=== PATIENT | female | born 1955 | race African-American/Black ===

== ENCOUNTER → 2017-03-13 | Outpatient (CLI) | payer MEDICARE, MEDICAID ==
--- NOTE | 2017-03-13 13:43 | WOMENS IMAGING REPORT ---
EXAM DESCRIPTION: 3D SCREENING MAMMO BILAT COMPLETED DATE/TIME: 03/13/2017 11:38 am REASON FOR STUDY: SCREENING MAMMO Z12.31 ENCNTR SCREEN MAMMOGRAM FOR MALIGNANT NEOPLASM OF [place] COMPARISON: March 2016 and February 2015 TECHNIQUE: Standard craniocaudal and mediolateral oblique views of each breast recorded using digita l acquisition and breast tomosynthesis. LIMITATIONS: None. FINDINGS: No masses, calcifications or architectural distortion. No areas of suspicion. Read with the assistance of CAD. .[facility] - R2 [employer] Version 1.3 .[facility] Imaging - R2 Cenova Version 1.3 .[facility] Imaging - R2 Cenova Version 2.4 .[facility] [place] R2 Cenova Version 2.4 .[facility] - R2 [employer] Version 9.2 IMPRESSION: NORMAL MAMMOGRAM. BIRADS 1. BREAST DENSITY: a. The breasts are almost entirely fatty. BIRAD: 1 NEGATIVE RECOMMENDATION: ROUTINE SCREENING COMMENT: The patient has been notified of the results by letter per SA requirements. Additional no tification policies are in place for contacting patient with suspicious or incomplete findings. Quality ID #225: The [employer] recommends an annual screening mammogram for women aged 40 years or over. This facility utilizes a reminder system to ensure that all patients receive reminder letters, and/or direct phone calls for appointments. This includes reminders for routine scr eening mammograms, diagnostic mammograms, or other Breast Imaging Interventions when appropriate. Th is patient will be placed in the appropriate reminder system. The [employer] (ACR) has developed recommendations for screening MRI of the breast s in certain patient populations, to be used in conjunction with mammography. Breast MRI surveillanc e may be appropriate for women with more than 20% lifetime risk of developing breast cancer as deter mined by genetic testing, significant family history of the disease, or history of mantle radiation f or Hodgkins Disease. ACR Practice Guidelines 2008. DBT Technology DBT is a type of tomographic mammography. With conventional mammography, overlapping breast tissue ma y make lesions difficult to detect, even with good compression. DBT uses an x-ray tube that rotates a round the breast, taking images at different angles. These images are then combined to create thin sl ices of the breast that the radiologist can view as a 3D reconstruction. The [employer] can perform full-field digital mammograms (2D imaging); or DBT (3D imaging); or both, in a combination mode that quickly performs both the mammogram and the tomosynthesis scan while the breast is still compressed. PQRS 6045F: Fluoroscopic imaging is not utilized for breast tomosynthesis. TECHNICAL DOCUMENTATION: FINDING NUMBER: (1) ASSESSMENT: (1) JOB ID: [id number] [employer]- All Rights Reserved
== END ==
LOC: WI 11:07
PROVIDERS: ATTEND Internal Medicine
DX: Z12.31 Encounter for screening mammogram for malignant neoplasm of breast (principal)
CPT/HCPCS: 77063; G0202; 77067

== ENCOUNTER 2017-03-20 11:02 | Emergency (ER) | payer MEDICARE, MEDICAID ==
[2017-03-20] MEDS ORDERED: METHYLPREDNISOLONE INJ 125 MG/2 ML SDV IM ONE (11:48)
[2017-03-20] MEDS ORDERED: KETOROLAC TROMETHAMINE INJ/PF 30 MG/1 ML SDV IM ONE (11:48)
--- NOTE | 2017-03-20 11:55 | ER Document Report ---
HPI - HPI Pain Level: 5 Notes: Patient is a 61-year-old female with a history of diabetes, COPD, and hypertension as well as morbid obesity who presents to the ED complaining of right lower back pain 3 days. Patient states that ambulating in extension makes the pain worse, and she is not sure of a position that helps. Patient states that the pain does not radiate. She still eating and drinking without difficulties. She still urinating normally and having normal bowel movements. Patient denies any IV drug use, back injections or surgeries. Patient states that her sugars are usually well controlled in the mid 100s. Patient is insulin -dependent. She denies any recent illness. Denies any headache, fever, neck pain, URI, sore throat, chest pain, palpitations, syncope, cough, shortness of breath, wheeze, dyspnea, abdominal pain, nausea/vomiting/diarrhea, urinary retention, dysuria, hematuria, loss of control of bowel or bladder, numbness/ tingling, saddle anesthesia, muscle paralysis/weakness, or rash. - ROS Notes: REVIEW OF SYSTEMS: CONSTITUTIONAL : Denies fever, chills, or sweats. Denies recent illness. EENT: Denies eye, ear, throat, or mouth pain or symptoms. Denies nasal or sinus congestion or discharge. Denies throat, tongue, or mouth swelling or difficulty swallowing. CARDIOVASCULAR: Denies chest pain. Denies palpitations or racing or irregular heart beat. Denies ankle edema. RESPIRATORY: Denies cough, cold, or chest congestion. Denies shortness of breath, difficulty breathing, or wheezing. GASTROINTESTINAL: Denies abdominal pain or distention. Denies nausea, vomiting , or diarrhea. Denies blood in vomitus, stools, or per rectum. Denies black, tarry stools. Denies constipation. GENITOURINARY: Denies difficulty urinating, painful urination, burning, frequency, blood in urine, or discharge. MUSCULOSKELETAL: see hpi SKIN: Denies rash, lesions or sores. NEUROLOGICAL: Denies dizziness or lightheadedness. Denies headache. Denies weakness or paralysis or loss of use of either side. Denies problems with gait or speech. Denies sensory loss, numbness, or tingling. Denies seizures. PSYCHIATRIC: Denies anxiety or stress. Denies depression, suicidal ideation, or homicidal ideation. ALL OTHER SYSTEMS REVIEWED AND NEGATIVE. Dictation was performed using [employer] voice recognition software - REPRODUCTIVE Reproductive: DENIES: : Past Medical History - Social History Smoking Status: Unknown if Ever Smoked Family History: Reviewed & Not Pertinent, DM, Hypertension - Past Medical History Cardiac Medical History: Reports: Hx Congestive Heart Failure, Hx Hypercholesterolemia, Hx Hypertension Pulmonary Medical History: Reports: Hx COPD Endocrine Medical History: Reports: Hx Diabetes Mellitus Type 2 Renal/ Medical History: Reports: Hx Renal Insufficiency Past Surgical History: Reports: Hx Hysterectomy - Right oophorectomy - Immunizations Immunizations up to date: Yes Hx Diphtheria, Pertussis, Tetanus Vaccination: Yes Vertical Provider Document - CONSTITUTIONAL Agree With Documented VS: Yes Notes: PHYSICAL EXAMINATION: GENERAL: Well-appearing, well-nourished and in no acute distress. A&Ox4. Morbidly obese LUNGS: Breath sounds clear to auscultation bilaterally and equal. No wheezes rales or rhonchi. HEART: Regular rate and rhythm without murmurs, rubs, gallops. ABDOMEN: Soft, nontender, nondistended abdomen. No guarding, no rebound. No masses appreciated. Normal bowel sounds present. No CVA tenderness bilaterally. No obvious pulsatile mass.--difficult to assess with the morbid obesity. Musculoskeletal: Ext b/l: FROM to passive/active. Strength 5+/5. No deficits noted. No bony tenderness of extremities. Back: LROM to passive/active. Strength 5+/5. No vertebral point tenderness, stepoffs, or deformities. No other bony tenderness, erythema, or ecchymosis. SLR negative b/l. + tenderness to the inferior L-paraspinal mm with mild spasm. Extremities: No cyanosis, clubbing, or edema b/l. Peripheral pulses 2+. Capillary refill less than 2 seconds. NEUROLOGICAL: Normal speech, ataxic gait. Normal sensory, motor exams. Reflexes 2+ b/l. PSYCH: Normal mood, normal affect. SKIN: Warm, Dry, normal turgor, no rashes or lesions noted. - INFECTION CONTROL TRAVEL OUTSIDE OF THE [place] IN LAST 30 DAYS: No - RESPIRATORY O2 Sat by Pulse Oximetry: 96 Course - Re-evaluation Re-evalutation: 03/20/17 12:53 Patient is an afebrile, well-hydrated, 61-year-old female who presents the ED with right lower back pain, suspect back strain and pain secondary to arthritic changes. Vitals are stable. PE is otherwise unremarkable for any focal neurological deficits. See XR result. Toradol IM given today. Accu-Chek showed a glucose of 255 so I did not give her any steroids at this time. Patient was also given a Lidoderm patch. Low suspicion for any meningitis, fracture, expanding/ruptured AAA, cauda equina syndrome, epidural mass lesion/ abscess, herniated disc causing severe spinal stenosis, or other systemic infection at this time. Patient is aware that her condition can change from initial presentation and that she needs monitor symptoms closely for any acute changes. Advised that she call orthopedics today to schedule an appointment for further evaluation and management. Recheck with your PCM in 3-5 days. Return to the ED with any worsening/concerning symptoms otherwise as reviewed in discharge. Patient is in agreement. - Vital Signs Vital signs: Temp Pulse Resp BP Pulse Ox 98.0 F 86 21 H 178/100 H 96 03/20/17 11:08 03/20/17 11:08 03/20/17 11:08 03/20/17 11:08 03/20/17 11:08 Discharge - Discharge Clinical Impression: Low back pain Qualifiers: Chronicity: acute Back pain laterality: right Sciatica presence: without sciatica Qualified Code(s): M54.5 - Low back pain Condition: Stable Disposition: HOME, SELF-CARE Instructions: Ice Packs ([facility]), Low Back Pain ([facility]), Muscle Strain ([facility]), Warm Packs ([facility]) Additional Instructions: Rest, Ice Tylenol/ibuprofen as needed Light stretches daily Strength exercises as able Moist heat and massage may help F/u with your PCP in 3-5 days for a recheck Call orthopedics to be set up an appointment for further evaluation and management Return to the ED with any worsening symptoms and/or development of fever, headache, chest pain, palpitations, syncope, shortness of breath, trouble breathing, abdominal pain, n/v/d, blood in stool/urine, loss of control of bowel /bladder, urinary retention, muscle weakness/paralysis, saddle anesthesia, numbness/tingling, or other worsening symptoms that are concerning to you. Prescriptions: Baclofen [Baclofen 10 mg Tablet] 5 - 10 mg PO BID PRN #10 tablet PRN Reason: Naproxen 500 mg PO BID PRN #10 tablet PRN Reason: Forms: Elevated Blood Pressure Referrals: [facility] [Provider Group] - Follow up in 3-5 days
[2017-03-20] MEDS ORDERED: LIDOCAINE 5% (700 MG) TRANSDERMAL ADH..PATCH TP ONE (11:56)
--- NOTE | 2017-03-20 12:50 | RADIOLOGY REPORT (SQ) ---
EXAM DESCRIPTION: L SPINE WHOLE COMPLETED DATE/TIME: 03/20/2017 12:28 pm REASON FOR STUDY: low back pain COMPARISON: 05/12/2012 NUMBER OF VIEWS: Five views including obliques. TECHNIQUE: AP, lateral, oblique, and sacral radiographic images acquired of the lumbar spine. LIMITATIONS: None. FINDINGS: MINERALIZATION: Normal. SEGMENTATION: Normal. No transitional anatomy. ALIGNMENT: There is grade 1 anterolisthesis of L4 on L5 and mild retrolisthesis of L5 on S1. VERTEBRAE: Maintained height. No fracture or worrisome bone lesion. DISCS: Disc spaces are narrowed at L4-5 and L5-S1. POSTERIOR ELEMENTS: Hypertrophic facet changes are present from L3-S1. HARDWARE: None in the spine. PARASPINAL SOFT TISSUES: Normal. PELVIS: Intact as visualized. No fractures or worrisome bone lesions. SI joints intact. OTHER: No other significant finding. IMPRESSION: Anterolisthesis of L4 on L5, retrolisthesis of L5 on S1. Degenerative disc disease and facet arthropathy as described. TECHNICAL DOCUMENTATION: JOB ID: [id number]- All Rights Reserved
[2017-03-20 13:08] VITALS: BP 151/97
== END 2017-03-20 13:08 | disposition home or self-care (01) ==
LOC: ER 11:02
DX: M54.5 Low back pain (principal); E11.9 Type 2 diabetes mellitus without complications; J44.9 Chronic obstructive pulmonary disease, unspecified; I10 Essential (primary) hypertension; E66.01 Morbid (severe) obesity due to excess calories; Z79.4 Long term (current) use of insulin
CPT/HCPCS: 99283; 96372; 82962; 72110; J1885

== ENCOUNTER 2017-07-08 16:02 | Observation (INO) | payer MEDICARE, MEDICAID ==
[2017-07-08] MEDS ORDERED: ASPIRIN 81 MG TABLET, CHEWABLE PO ONE (16:10)
[2017-07-08] MEDS ORDERED: NITROGLYCERIN 0.4 MG/TAB 25 TAB/BOTTLE SL PRN (16:27)
[2017-07-08] MEDS ORDERED: MORPHINE SULFATE 10 MG/ML INJ IV PRN (16:31)
--- NOTE | 2017-07-08 16:51 | RADIOLOGY REPORT (SQ) ---
EXAM DESCRIPTION: CHEST SINGLE VIEW COMPLETED DATE/TIME: 07/08/2017 4:41 pm REASON FOR STUDY: cp COMPARISON: 12/27/2015 NUMBER OF VIEWS: One view. TECHNIQUE: Single frontal radiographic view of the chest acquired. LIMITATIONS: None. FINDINGS: LUNGS AND PLEURA: No opacities, masses or pneumothorax. No pleural effusion. MEDIASTINUM AND HILAR STRUCTURES: No masses or contour abnormality. HEART AND VASCULATURE: Cardiac enlargement. Vascular congestion. BONES: No acute findings. HARDWARE: None in the chest. OTHER: No other significant finding. IMPRESSION: CARDIAC ENLARGEMENT. VASCULAR CONGESTION. TECHNICAL DOCUMENTATION: JOB ID: [id number] [employer]- All Rights Reserved Reading location - IP/workstation name: [email or web address]
[2017-07-08 18:09] LABS: ABSOLUTE LYMPHOCYTES (AUTO) 0.9 10^3/uL (0.5-4.7); ABSOLUTE MONOCYTES (AUTO) 0.6 10^3/uL (0.1-1.4); ABSOLUTE NEUT (AUTO) 4.8 10^3/uL (1.7-8.2); BASOPHILS % (AUTO) 0.5 % (0-2); EOSINOPHILS % (AUTO) 0.3 % (0-6); HEMATOCRIT 40.7 % (36.0-47.0); HEMOGLOBIN 12.7 g/dL (12.0-15.5); LYMPHOCYTES % (AUTO) 14.1 % (13-45); MEAN CORPUSCULAR HEMOGLOBIN 25.1 pg (27.0-33.4); MEAN CORPUSCULAR HGB CONC 31.2 g/dL (32.0-36.0); MEAN CORPUSCULAR VOLUME 80 fl (80-97); MONOCYTES % (AUTO) 10.2 % (3-13); RED BLOOD COUNT 5.07 10^6/uL (3.72-5.28); RED CELL DISTRIBUTION WIDTH 19.5 % (11.5-14.0); SEGMENTED NEUTROPHILS % (AUTO) 74.9 % (42-78); TOTAL CELLS COUNTED % (AUTO) 100 %; WHITE BLOOD COUNT 6.4 10^3/uL (4.0-10.5)
[2017-07-08 18:11] LABS: PLATELET COUNT 77 10^3/uL (150-450)
[2017-07-08 18:30] LABS: ALANINE AMINOTRANSFERASE 26 U/L (9-52); ALBUMIN 3.7 g/dL (3.5-5.0); ALKALINE PHOSPHATASE 90 U/L (38-126); ANION GAP 9 (5-19); ASPARTATE AMINO TRANSFERASE 20 U/L (14-36); BILIRUBIN,DIRECT 0.3 mg/dL (0.0-0.4); BLOOD UREA NITROGEN 26 mg/dL (7-20); CALCIUM 8.9 mg/dL (8.4-10.2); CARBON DIOXIDE 33 mmol/L (22-30); CHLORIDE 101 mmol/L (98-107); CREATINE KINASE 86 U/L (30-135); GLUCOSE 282 mg/dL (75-110); POTASSIUM 3.3 mmol/L (3.6-5.0); SODIUM 142.7 mmol/L (137-145); TOTAL PROTEIN 6.9 g/dL (6.3-8.2)
[2017-07-08] MEDS ORDERED: NITROGLYCERIN 2% OINTMENT 1 GM PACKET TP ONE (18:30)
[2017-07-08 18:39] LABS: CREATINE KINASE MB 1.33 ng/mL (<4.55)
[2017-07-08 18:44] LABS: TROPONIN I 0.15 ng/mL
[2017-07-08 19:24] LABS: ARTERIAL BLOOD BASE EXCESS 3.1 mmol/L; ARTERIAL BLOOD HCO3 30.6 mmol/L (20-26); ARTERIAL BLOOD O2 SATURATION 95.6 % (94-98); ARTERIAL BLOOD PCO2 59.7 mmHg (35-45); ARTERIAL BLOOD PH 7.33 (7.35-7.45); ARTERIAL BLOOD PO2 85.9 mmHg (80-100); ARTERIAL BLOOD TOTAL CO2 32.4 mmol/L (21-25)
[2017-07-08] MEDS ORDERED: POTASSIUM CHLORIDE 10 MEQ TABLET.SA PO ONE (19:24)
[2017-07-08 19:25] LABS: ARTERIAL BLOOD FIO2 50%
--- NOTE | 2017-07-08 19:46 | ER Document Report ---
ED General - General Chief Complaint: Chest Pain Stated Complaint: CHEST PAIN Time Seen by Provider: 07/08/17 16:27 Mode of Arrival: Medic Information source: Patient, Relative Notes: This is a 61-year-old female who has a history of COPD (oxygen dependent at 2 L nasal cannula), obstructive sleep apnea, CHF, chronic kidney disease, diabetes, hypertension, dyslipidemia morbid obesity. EMS reports that the patient was having sharp, nonradiating, reproducible chest pain which is why they were called. The patient's who is currently with the patient states that the patient seemed to be confused and nodding off. History obtained by the patient's daughter (about 2 hours later when she arrived from [place]) was that the patient has had a history of respiratory failure with CO2 narcosis and will have periods of fainting when her CO2 rises. The patient's daughter states that this is what she thought was going on today: The patient seems to be nodding off as reported that by the patient's . It was only until the EMS arrived, that the patient stated that she had some sharp chest pain with palpation of the left chest wall. The EKG in the emergency room shows sinus rhythm with a ventricular rate of 76, there is a left anterior hemiblock with an obvious left bundle branch block. Review of EKGs in the past show that the patient has had an intermittent left bundle branch block: In December 27, 2015, the patient had sinus rhythm with an interventricular conduction delay ( QRS 122), EKG in September 12, 2015 shows an obvious left bundle branch block. Oxygen saturation obtained by EMS shows an O2 sat of 90%. TRAVEL OUTSIDE OF THE [place] IN LAST 30 DAYS: No - HPI Onset: Just prior to arrival Onset/Duration: Gradual Quality of pain: Sharp Severity: Moderate Pain Level: 2 Associated symptoms: Chest pain. denies: Fever, Shortness of breath Exacerbated by: Movement, Other - Palpation Relieved by: Remaining still Similar symptoms previously: Yes Recently seen / treated by doctor: Yes - Related Data Allergies/Adverse Reactions: No Known Allergies Allergy (Verified 03/20/17 11:03) Past Medical History - General Information source: Patient - Social History Smoking Status: Never Smoker Cigarette use (# per day): No Chew tobacco use (# tins/day): No Frequency of alcohol use: None Drug Abuse: None Lives with: Family Family History: Reviewed & Not Pertinent, DM, Hypertension Patient has suicidal ideation: No Patient has homicidal ideation: No - Past Medical History Cardiac Medical History: Reports: Hx Congestive Heart Failure, Hx Hypercholesterolemia, Hx Hypertension Pulmonary Medical History: Reports: Hx COPD Endocrine Medical History: Reports: Hx Diabetes Mellitus Type 2 Renal/ Medical History: Reports: Hx Renal Insufficiency. Denies: Hx Peritoneal Dialysis Past Surgical History: Reports: Hx Hysterectomy - Immunizations Immunizations up to date: Yes Hx Diphtheria, Pertussis, Tetanus Vaccination: Yes Review of Systems - Review of Systems Constitutional: denies: Chills, Fever EENT: No symptoms reported Cardiovascular: See HPI Respiratory: See HPI Gastrointestinal: No symptoms reported Genitourinary: No symptoms reported Female Genitourinary: No symptoms reported Musculoskeletal: No symptoms reported Skin: No symptoms reported Hematologic/Lymphatic: No symptoms reported Neurological/Psychological: No symptoms reported Physical Exam - Vital signs Vitals: Resp BP Pulse Ox 23 H 145/96 H 93 07/08/17 16:18 07/08/17 16:18 07/08/17 16:18 Notes: Physical exam: GENERAL: 61-year-old female, lethargic but arousable, oxygen saturation 89% on 2 L HEAD: Atraumatic, normocephalic. EYES: Pupils equal round and reactive to light, extraocular movements intact, sclera anicteric, conjunctiva are normal. ENT: TMs normal, nares patent, oropharynx clear without exudates. Moist mucous membranes. NECK: Normal range of motion, supple without obvious mass or JVD. LUNGS: Breath sounds clear to auscultation bilaterally and equal. No wheezes rales or rhonchi. HEART: Regular rate and rhythm without murmurs, rubs or gallops. ABDOMEN: Soft, normoactive bowel sounds. No tenderness to palpation. No guarding, no rebound. No masses appreciated. EXTREMITIES: Normal range of motion, no pitting or edema. No clubbing or cyanosis. NEUROLOGICAL: Cranial nerves II through XII grossly intact. Normal speech, moving all extremities. PSYCH: Lethargic SKIN: Warm, Dry, normal turgor, no rashes or lesions noted. Course - Re-evaluation Re-evalutation: 07/08/17 20:08 Note: The patient's problem list is as follows: Acute on chronic respiratory failure: The patient does have a history of similar presentations related to CO2 narcosis. The ABG does show an elevated CO2 but this is 1 hour after institution of BiPAP. Patient's mental status has improved on the BiPAP and this will be continued for now. Vascular congestion: It is tough to tell for sure if the patient is volume overloaded. She has morbid obesity which makes the chest x-ray limited. In any event, will treat with IV Lasix and nitrates. Borderline troponin: Patient's MB fraction is normal today. However, her troponin is borderline at 0.15. The patient did complain of some sharp reproducible chest pain. She was given some Nitropaste. She is not complaining of any pain at this time. The plan would be to follow the cardiac enzymes. It is possible that she is having some demand ischemia because of the borderline hypoxia. The EKG did show a left bundle which has been noted in the past (specifically on the EKG September 12, 2015). I did discuss the EKG and clinical with Dr. Lyon of cardiology who will see the patient in consult tomorrow. The plan would be to follow the troponins for now. Patient will be admitted to the [facility]. 07/08/17 20:13 - Vital Signs Vital signs: Temp Pulse Resp BP Pulse Ox 98.1 F 16 144/106 H 98 07/08/17 16:27 07/08/17 18:02 07/08/17 18:02 07/08/17 18:02 - Laboratory Result Diagrams: 07/08/17 17:40 07/08/17 17:40 Laboratory results interpreted by me: 07/08/17 07/08/17 07/08/17 17:40 17:40 19:10 MCH 25.1 L MCHC 31.2 L RDW 19.5 H Plt Count 77 L Carbonic Acid 1.80 H ABG pH 7.33 L ABG pCO2 59.7 H ABG HCO3 30.6 H ABG Total CO2 32.4 H Potassium 3.3 L Carbon Dioxide 33 H BUN 26 H Creatinine 1.49 H Est GFR ( Amer) 43 L Est GFR (Non-Af Amer) 36 L Glucose 282 H - Diagnostic Test Radiology reviewed: Image reviewed, Reports reviewed - Chest x-ray is read by the radiologist his cardiomegaly with vascular congestion. - EKG Interpretation by Me Rate: Normal Rhythm: NSR - EKG shows normal sinus rhythm with a ventricular rate of 76, left anterior fascicular block, left bundle branch block. Critical Care Note - Critical Care Note Total time excluding time spent on procedures (mins): 60 Discharge - Discharge Clinical Impression: COPD exacerbation, Acute on chronic respiratory failure Condition: Stable Disposition: ADMITTED INPATIENT Admitting Provider: Hospitalist - Dr [place] Unit Admitted: IMCU Referrals: MARLEY HARDEN MD [Primary Care Provider] - Follow up as needed
[2017-07-08] MEDS ORDERED: FUROSEMIDE INJ/PF 40 MG/4 ML SDV IV ONE (20:15)
[2017-07-08] MEDS ORDERED: IPRATROPIUM/ALBUTEROL 0.5-2.5 MG/3 ML AMPUL NEB PRN (20:46)
[2017-07-08] MEDS ORDERED: ONDANSETRON 4 MG TAB.RAPDIS PO PRN (20:46)
--- NOTE | 2017-07-08 21:13 | PDOC H&P ---
History of Present Illness Admission Date/PCP: 07/08/17 20:03 MARLEY HARDEN MD History of Present Illness: CARLEE WALDROP is a 61 year old black female patient with multiple comorbidities including COPD, CKD, DAIANA, systolic congestive heart failure, DM, HTN and morbid obesity. She presented with chief complaint of chest pain described as sharp, localized to her left precordium and it is nonradiating. Reportedly patient has on and off confusion, somnolence and sometimes difficult to awaken her. During the encounter daughter and her were in the room. And they reported that the somnolence has been going on for long and also patient had been evaluated for sleep apnea and CPAP Coumadin for her about 7 years ago but she did not follow-up with. At the patient was started on BiPAP and her mentation started to improve patient communicate and respond appropriately. Her ABG shows mild acidosis with pH of 7.33 and CO2 of 60. Otherwise patient denied any fever, chills, cough, diaphoresis but she endorses palpitations. She has intermittent headache but she denied any dizziness change in her visual status or any seizure activity. She does not have any orthopnea or paroxysmal nocturnal dyspnea. No nausea vomiting abdominal pain or any change in her bowel habits. Past Medical History Cardiac Medical History: Reports: Congestive Heart Failure, Hyperlipidema, Hypertension Pulmonary Medical History: Reports: Chronic Obstructive Pulmonary Disease (COPD) Endocrine Medical History: Reports: Diabetes Mellitus Type 2 Past Surgical History Past Surgical History: Reports: Hysterectomy Social History Lives with: Family Smoking Status: Never Smoker Hx Recreational Drug Use: No Hx Prescription Drug Abuse: No Family History Family History: Reviewed & Not Pertinent, DM, Hypertension Parental Family History Reviewed: Yes Children Family History Reviewed: No Sibling(s) Family History Reviewed.: No Medication/Allergy Home Medications: Albuterol Sulfate [Proair HFA] 2 puff IH Q4 PRN 09/12/15 Atorvastatin Calcium 20 mg PO QHS 09/12/15 Gabapentin [Gabapentin] 300 mg PO BID 09/12/15 Insulin Aspart [Novolog Flexpen] 10 unit SQ AC 09/12/15 Insulin Glargine,Hum.rec.anlog [Lantus Solostar] 20 unit SQ QHS 09/12/15 Isosorbide Mononitrate [Isosorbide Mononitrate ER] 30 mg PO QAM 09/12/15 Metoprolol Tartrate [Metoprolol Tartrate] 50 mg PO BID 09/12/15 Spironolactone [Spironolactone] 25 mg PO BIDP PRN 09/12/15 Naproxen 500 mg PO BID PRN #10 tablet 03/20/17 Baclofen [Baclofen 10 mg Tablet] 5 mg PO BID PRN 07/08/17 Sacubitril/Valsartan [Entresto 49 mg-51 mg Tablet] 1 each PO DAILY 07/08/17 Allergies/Adverse Reactions: No Known Allergies Allergy (Verified 03/20/17 11:03) Review of Systems Constitutional: PRESENT: as per HPI Ears: PRESENT: as per HPI Breasts: PRESENT: as per HPI Cardiovascular: PRESENT: as per HPI Genitourinary: PRESENT: as per HPI Psychiatric: PRESENT: as per HPI Physical Exam Vital Signs: Temp Pulse Resp BP Pulse Ox 98.1 F 16 144/106 H 98 07/08/17 16:27 07/08/17 18:02 07/08/17 18:02 07/08/17 18:02 General appearance: PRESENT: mild distress Head exam: PRESENT: atraumatic Eye exam: PRESENT: conjunctiva pink, EOMI, PERRLA. ABSENT: scleral icterus Cardiovascular exam: PRESENT: RRR GI/Abdominal exam: PRESENT: other - Obese Results Impressions: Chest X-Ray 07/08/17 16:10 IMPRESSION: CARDIAC ENLARGEMENT. VASCULAR CONGESTION. Assessment & Plan - Diagnosis (1) Chest pain Qualifiers: Chest pain type: other chest pain Qualified Code(s): R07.89 - Other chest pain; R07.8 - Other chest pain Is this a current diagnosis for this admission?: Yes Plan: Admit for observation, trend her cardiac exam, repeat her EKG and cardiac stress test in the morning. (2) Altered mental status Qualifiers: Altered mental status type: somnolence Qualified Code(s): R40.0 - Somnolence Is this a current diagnosis for this admission?: Yes Plan: Since the somnolence has been going for long most probably it is associated with her obstructive sleep apnea and also her mental status improved with the BiPAP. Patient needs CPAP which need to be arranged by her primary care physician as outpatient. (3) COPD (chronic obstructive pulmonary disease) Qualifiers: COPD type: unspecified COPD Qualified Code(s): J44.9 - Chronic obstructive pulmonary disease, unspecified Is this a current diagnosis for this admission?: Yes Plan: As needed DuoNeb (4) CKD (chronic kidney disease) Qualifiers: Chronic kidney disease stage: stage 3 (moderate) Qualified Code(s): N18.3 - Chronic kidney disease, stage 3 (moderate) Is this a current diagnosis for this admission?: Yes Plan: Avoid nephrotoxic agent is, monitor her renal function test and follow-up with her primary care (5) Hypertension Qualifiers: Hypertension type: essential hypertension Qualified Code(s): I10 - Essential (primary) hypertension Is this a current diagnosis for this admission?: Yes Plan: Continue her home medications (6) Obstructive sleep apnea Is this a current diagnosis for this admission?: Yes Plan: CPAP patient is to be set up by her primary care physician (7) Morbid obesity Is this a current diagnosis for this admission?: Yes Plan: Lifestyle modification advised. - Time Critical Time spent with patient: 25-34 minutes - Inpatient Certification Medical Necessity: Need for IV Antibiotics
[2017-07-08] MEDS ORDERED: INSULIN REG, HUMAN 100 UNIT/ML 3 ML VIAL (PYX) SUBCUT PRN (21:16)
[2017-07-08] MEDS ORDERED: DEXTROSE 50%-WATER 25 GM/50 ML DISP.SYRIN IV PRN ×2 (21:16)
[2017-07-08] MEDS ORDERED: DEXTROSE 40% GEL 15 GM TUBE PO PRN ×2 (21:16)
[2017-07-08] MEDS ORDERED: GLUCAGON,HUMAN RECOMB 1 MG INJ IM PRN (21:16)
[2017-07-08] MEDS ORDERED: INSULIN GLARGINE,HUM.REC.ANLOG 1,000 UNIT/10 ML UNIT SUBCUT SCH (21:30)
[2017-07-08] MEDS: METOPROLOL TARTRATE 50 MG TABLET PO SCH (21:59)
[2017-07-08] MEDS ORDERED: HEPARIN SOD (PORCINE) 5,000 UNIT/ML 1 ML SYRINGE SUBCUT SCH (22:00)
[2017-07-08] MEDS ORDERED: HEPARIN SODIUM,PORCINE/D5W 25,000 UNIT/250 ML RTUINJ IV PRN (22:47)
[2017-07-08] MEDS ORDERED: HEPARIN SODIUM,PORCINE/D5W 25,000 UNIT/250 ML RTUINJ IV ONE (22:47)
[2017-07-08] MEDS ORDERED: HEPARIN SOD (PORCINE) 5,000 UNIT/ML 1 ML SYRINGE ONE (22:51)
[2017-07-08] MEDS: HEPARIN SOD (PORCINE) 1,000 UNIT/ML 10 ML VIAL IV PRN (23:08)
--- NOTE | 2017-07-08 23:10 | EKG REPORT ---
SEVERITY:- ABNORMAL ECG - SINUS RHYTHM LEFT ATRIAL ABNORMALITY LEFT BUNDLE BRANCH BLOCK : Confirmed by: Machelle Lyon 08-Jul-2017 23:09:51
[2017-07-08] MEDS ORDERED: CLOPIDOGREL BISULFATE 300 MG TABLET PO ONE (23:11)
[2017-07-09] MEDS ORDERED: LANSOPRAZOLE 30 MG TAB.RAP.DR PO SCH (06:00)
[2017-07-09 06:16] LABS: ARTERIAL BLOOD BASE EXCESS 1.7 mmol/L; ARTERIAL BLOOD H2CO3 1.85 mmol/L (1.05-1.35); ARTERIAL BLOOD HCO3 29.5 mmol/L (20-26); ARTERIAL BLOOD O2 SATURATION 98.5 % (94-98); ARTERIAL BLOOD PCO2 61.4 mmHg (35-45); ARTERIAL BLOOD PO2 142.9 mmHg (80-100); ARTERIAL BLOOD TOTAL CO2 31.4 mmol/L (21-25)
[2017-07-09 06:21] LABS: ARTERIAL BLOOD FIO2 50%
[2017-07-09 08:35] LABS: HEMATOCRIT 41.2 % (36.0-47.0); HEMOGLOBIN 12.6 g/dL (12.0-15.5); MEAN CORPUSCULAR HEMOGLOBIN 24.6 pg (27.0-33.4); MEAN CORPUSCULAR HGB CONC 30.5 g/dL (32.0-36.0); MEAN CORPUSCULAR VOLUME 81 fl (80-97); RED CELL DISTRIBUTION WIDTH 20.4 % (11.5-14.0)
[2017-07-09 08:36] LABS: PLATELET COUNT 81 10^3/uL (150-450)
[2017-07-09 08:48] LABS: ANION GAP 10 (5-19); BLOOD UREA NITROGEN 31 mg/dL (7-20); CALCIUM 8.9 mg/dL (8.4-10.2); CARBON DIOXIDE 33 mmol/L (22-30); CHLORIDE 101 mmol/L (98-107); GLUCOSE 254 mg/dL (75-110); SODIUM 143.8 mmol/L (137-145)
[2017-07-09 09:03] LABS: POTASSIUM 4.9 mmol/L (3.6-5.0)
[2017-07-09] MEDS: HEPARIN SOD (PORCINE) 1,000 UNIT/ML 10 ML VIAL IV PRN (09:20)
[2017-07-09] MEDS: METOPROLOL TARTRATE 50 MG TABLET PO SCH (09:58)
--- NOTE | 2017-07-09 12:25 | Progress Note ---
Provider Note Provider Note: Patient remained stable since hospitalization. Expected to live any minute to [facility].
--- NOTE | 2017-07-09 12:31 | ER Document Report ---
Doctor's Note Notes: 07/09/17 12:29 Checked on patient to see how she is doing. Patient has no complaints at this time. Denies any chest pains. All of her vital signs seem to be normal. Patient is awaiting transport to [facility]. Reviewing her labs showed that the patient's troponin went up significantly last evening.. She did not have a repeat EKG at that time so I have done one this morning which shows left bundle branch block, which was previously present on her EKG yesterday as well as on 2 prior EKGs last year. No change. Patient informed of the findings and the plan and she understands and is agreeable. Guillermo Slaughter MD Patient is stable for transfer. Guillermo Slaughter MD 07/09/17 12:51 07/09/17 14:03 Transport from [facility] was here and in the process of moving the patient from our stretcher to their stretcher, when it was noted that the patient had what appeared to be a large area of blood on the sheets in the perineal region. There was no stool present. No clots noted. Just bright red blood in that area. Vital signs remain stable. We attempted to locate more specifically where the patient's blood was coming from, but could not ascertain for sure whether it was vaginal versus rectal, although I think it is vaginal bleeding. She has a Crump catheter in with clear urine being produced. She has been receiving heparin, but we discontinued that. [facility] transport checked a hemoglobin on this patient with their device and got 16.1. I am not sure why they are reading is 4 g higher than the 12.0 hemoglobin is recorded earlier here in the hospital on this patient. I made the [facility] transport people aware of the discrepancy. I called the transfer center and [facility], spoke with the nurse there who was able to contact a Dr. Montes, the on-call golf club maker for Dr. Anne, the accepting physician. I was told by the nurse that Dr. Montes approved sending the patient on with the transport that is here and ready to take the patient. Patient appears to me to be stable for transfer. Guillermo Slaughter MD
--- NOTE | 2017-07-09 12:39 | XCELERA REPORT ---
[address] [address] Transthoracic Echocardiogram Report Name: CARLEE WALDROP Age: 61 yrs Gender: Female : 1955 Patient Status: Inpatient [address] Study Date: 07/09/2017 11:08 AM Height: 68 in Weight: 426 lb BSA: 2.8 m2 Procedure: A complete two-dimensional transthoracic echocardiogram was performed (2D, M-mode, spectral and color flow Doppler). The study was technically adequate with some images being suboptimal in quality. Reason For Study: NSTEMI, CHF Ordering Physician: MACHELLE SHEIKH Performed By: Anuradha Freitas Interpretation Summary The Ejection Fraction estimate is 30-35% Left ventricular systolic function is moderate to severely reduced. Doppler measurements suggest pseudonormalized left ventricular relaxation, which is associated with grade II/IV or mild to moderate diastolic dysfunction There is moderate concentric left ventricular hypertrophy. The left ventricle is borderline dilated. There is moderate global hypokinesis of the left ventricle. There is apical wall akinesis The right ventricle is moderately dilated. The right ventricular systolic function is mild to moderately reduced. The right atrium is moderately dilated. The left atrium is mildly dilated. There is a trace to mild amount of mitral regurgitation There is no mitral valve stenosis. There is no aortic valve stenosis No aortic regurgitation is present. There is a mild to moderate amount of tricuspid regurgitation There is moderate to severe pulmonary hypertension by echo Right ventricular systolic pressure is estimated to be elevated at 50- 60mmHg. The aortic root is not well visualized but is probably normal size. The inferior vena cava appeared normal and decreased < 50% with respiration (RAP 10-15 mmHg) There is no pericardial effusion. MMode/2D Measurements & Calculations RVDd: 3.9 cm LVIDd: 5.5 cm FS: 11.0 % Ao root diam: 3.0 cm IVSd: 1.8 cm LVIDs: 4.9 cm EDV(Teich): 148.9 ml LVPWd: 2.0 cm ESV(Teich): 113.7 ml Ao root area: 6.9 cm2 EF(Teich): 23.6 % LA dimension: 4.1 cm Doppler Measurements & Calculations MV E max allison: MV P1/2t max allison: Ao V2 max: LV V1 max P.6 cm/sec 76.7 cm/sec 111.0 cm/sec 2.1 mmHg MV A max allison: MV P1/2t: 32.0 msec Ao max PG: LV V1 max: 29.3 cm/sec 4.9 mmHg 72.9 cm/sec MV E/A: 2.6 MVA(P1/2t): 6.9 cm2 MV dec slope: 703.0 cm/sec2 MV dec time: 0.10 sec PA V2 max: PI end-d allison: TR max allison: 52.8 cm/sec 104.5 cm/sec 374.6 cm/sec PA max PG: TR max P.1 mmHg 56.1 mmHg Left Ventricle The left ventricle is borderline dilated. There is moderate concentric left ventricular hypertrophy. Left ventricular systolic function is moderate to severely reduced. The Ejection Fraction estimate is 30-35%. Doppler measurements suggest pseudonormalized left ventricular relaxation, which is associated with grade II/IV or mild to moderate diastolic dysfunction. There is moderate global hypokinesis of the left ventricle. There is apical wall akinesis. Right Ventricle The right ventricle is moderately dilated. There is normal right ventricular wall thickness. The right ventricular systolic function is mild to moderately reduced. Atria The right atrium is moderately dilated. The left atrium is mildly dilated. Interarterial septum not well visualized and not well dopplered. Cannot comment on ASD/PFO presence. Mitral Valve The mitral valve is grossly normal. There is no mitral valve stenosis. There is a trace to mild amount of mitral regurgitation. Aortic Valve The aortic valve is not well visualized secondary to technical limitations. There is no aortic valve stenosis. No aortic regurgitation is present. Tricuspid Valve The tricuspid valve is not well visualized, but is grossly normal. There is no tricuspid stenosis. There is a mild to moderate amount of tricuspid regurgitation. There is moderate to severe pulmonary hypertension by echo. Right ventricular systolic pressure is estimated to be elevated at 50- 60mmHg. Pulmonic Valve The pulmonic valve is not well visualized. Great Vessels The aortic root is not well visualized but is probably normal size. The inferior vena cava appeared normal and decreased < 50% with respiration (RAP 10-15 mmHg). Effusions There is no pericardial effusion. : MACHELLE SHEIKH > Machelle Sheikh
[2017-07-09 13:19] VITALS: BP 122/74
--- NOTE | 2017-07-09 21:53 | EKG REPORT ---
SEVERITY:- ABNORMAL ECG - SINUS RHYTHM PROBABLE LEFT ATRIAL ABNORMALITY LEFT BUNDLE BRANCH BLOCK : Confirmed by: Machelle Lyon 09-Jul-2017 21:52:08
--- NOTE | 2017-07-09 21:53 | EKG REPORT ---
SEVERITY:- NORMAL ECG - SINUS RHYTHM : Confirmed by: Machelle Lyon 09-Jul-2017 21:52:16
--- NOTE | 2017-07-13 10:31 | PDOC CONSULTATION ---
Consultation Consult Date: 07/09/17 Attending physician:: DWAIN RAMOS Consult reason:: Non-STEMI History of Present Illness Admission Date/PCP: 07/08/17 20:03 MARLEY HARDEN MD Patient complains of: Shortness of breath and confusion History of Present Illness: CARLEE WALDROP is a 61 year old black female patient with multiple comorbidities including COPD, CKD, DAIANA, systolic congestive heart failure, DM, HTN and morbid obesity. She presented with chief complaint of chest pain described as sharp, localized to her left precordium and it is nonradiating. Reportedly patient has on and off confusion, somnolence and sometimes difficult to awaken her. During the encounter daughter and her were in the room. And they reported that the somnolence has been going on for long and also patient had been evaluated for sleep apnea and CPAP Coumadin for her about 7 years ago but she did not follow-up with. At the patient was started on BiPAP and her mentation started to improve patient communicate and respond appropriately. Her ABG shows mild acidosis with pH of 7.33 and CO2 of 60. Otherwise patient denied any fever, chills, cough, diaphoresis but she endorses palpitations. She has intermittent headache but she denied any dizziness change in her visual status or any seizure activity. She does not have any orthopnea or paroxysmal nocturnal dyspnea. No nausea vomiting abdominal pain or any change in her bowel habits. I was consulted initially by the emergency room physician and subsequently by the hospitalist. This was because patient's troponin I came back positive. A stat 2D echo was ordered by me in the morning. This was reviewed. Patient was noted to have severely depressed LVEF. Patient felt to have had a acute non- STEMI. Patient was noted to have left bundle branch block pattern which was although previously noted, but most recent previous EKG did not show this. It was felt that patient will benefit from expedited transfer to tertiary care for possible heart catheterization and other management. This was discussed with the patient. It seems this was already arranged by the ER physician. Patient mental status has significantly improved this morning and she understands the issues at this point. Past Medical History Cardiac Medical History: Reports: Congestive Heart Failure, Hyperlipidema, Hypertension Pulmonary Medical History: Reports: Chronic Obstructive Pulmonary Disease (COPD) Endocrine Medical History: Reports: Diabetes Mellitus Type 2 Past Surgical History Past Surgical History: Reports: Hysterectomy Social History Information Source: Patient Lives with: Family Smoking Status: Never Smoker Hx Recreational Drug Use: No Hx Prescription Drug Abuse: No - Advance Directive Resuscitation Status: Full Code Family History Family History: DM, Hypertension Parental Family History Reviewed: Yes Children Family History Reviewed: Yes Sibling(s) Family History Reviewed.: Yes Medication/Allergy Home Medications: Albuterol Sulfate [Proair HFA] 2 puff IH Q4 PRN 09/12/15 Atorvastatin Calcium 20 mg PO QHS 09/12/15 Gabapentin [Gabapentin] 300 mg PO BID 09/12/15 Insulin Aspart [Novolog Flexpen] 10 unit SQ AC 09/12/15 Insulin Glargine,Hum.rec.anlog [Lantus Solostar] 20 unit SQ QHS 09/12/15 Isosorbide Mononitrate [Isosorbide Mononitrate ER] 30 mg PO QAM 09/12/15 Metoprolol Tartrate [Metoprolol Tartrate] 50 mg PO BID 09/12/15 Spironolactone [Spironolactone] 25 mg PO BIDP PRN 09/12/15 Naproxen 500 mg PO BID PRN #10 tablet 03/20/17 Baclofen [Baclofen 10 mg Tablet] 5 mg PO BID PRN 07/08/17 Sacubitril/Valsartan [Entresto 49 mg-51 mg Tablet] 1 each PO DAILY 07/08/17 Allergies/Adverse Reactions: No Known Allergies Allergy (Verified 03/20/17 11:03) Review of Systems Review of Systems: Please see history of present illness and past medical history as wall. Constitutional: No fever or chills reported. Head : No recent chronic headaches, recent head injury. Eyes: No recent eye pain, diplopia, redness, discharge, acute visual changes. Ears: No recent chronic ear pain, acute hearing loss, ear discharge. Oral cavity: No recent ulcerations, bleeding, oral cavity discomfort. Neck: No recent acute neck pain reported. Hematologic: No recent easy bruising or bleeding or hematologic malignancy reported. Lymphatic: No recent lymphatic malignancy, chronic lymphadenopathy reported yet Cardiovascular system review: See history of present illness. Patient did complain of chest pain intermittently. This was also presenting symptom but patient was also noted to be confused. Patient had noted some chronic pedal edema. Respiratory system review: No recent chronic cough, hemoptysis, blood clots in the lungs reported. Shortness of breath on exertion. Patient has history of COPD, sleep apnea syndrome. Gastrointestinal system review: Negative for any recent acute or chronic abdominal pain, hematemesis, melena, recent change in bowel habits. Genitourinary system review: No recent acute or chronic hematuria, flank pain, UTI etc. reported. Skin system review: Negative for any recent abnormal bruising, no rash, no pruritus reported. Neurologic: No prior history of strokes, mini strokes, seizure disorder. History of intermittent confusion. Psychologic: No history of major psychosis or major depression reported. Musculoskeletal: Minor aches and pains reported. No acute joint swelling reported. Endocrine: No recent polyuria, polydipsia, recent heat or cold intolerance. Physical Exam Vital Signs: Temp Pulse Resp BP Pulse Ox 99.1 F 59 L 17 122/74 83 L 07/09/17 13:00 07/09/17 08:09 07/09/17 13:00 07/09/17 13:00 07/09/17 13:00 Exam: GENERAL: well-nourished and in no acute distress. Alert and oriented x3. Patient mental status was noted to be significantly improved. HEAD: Atraumatic, normocephalic. EYES: Pupils equal round and reactive to light, extraocular movements intact, sclera anicteric, conjunctiva are normal. ENT: TMs normal, nares patent, oropharynx clear without exudates. Moist mucous membranes. No oral ulcerations or bleeding gums noted NECK: supple without lymphadenopathy. Trachea is central. No cervical or axillary lymphadenopathy noted. Carotids are 2+, JVD 8-10 cm LUNGS: Respiration seems nonlabored, no significant accessory muscle action noted. Bibasilar fine crackles and mild scattered wheezes rales or rhonchi noted. No significant dullness noted on percussion. CHEST: Palpation of the chest wall shows no significant chest wall tenderness. No other significant abnormalities noted. HEART: Roy STUDY ABROAD COORDINATOR, No PSH, 1/6 ZANDRA aortic area, 1/6 matta systolic murmur mitral area, no rubs, no gallops. ABDOMEN: Soft, no significant tenderness appreciated, normoactive bowel sounds. No guarding, no rebound. No rigidity noted . No masses appreciated. EXTREMITIES: Pedal pulses are 1-2+, no calf tenderness noted. No clubbing or cyanosis. 1-2+ pedal edema noted NEUROLOGICAL: Focused neurological exam showed no significant neurologic deficit. Normal speech, no focal weakness appreciated. PSYCH: Normal mood, normal affect. Judgment and insight within normal limits. SKIN: No significant ecchymosis, skin is noted to be warm. MUSCULOSKELETAL EXAM: No significant acute joint swelling noted. Results Laboratory Results: 07/09/17 08:17 07/09/17 08:17 07/08/17 07/09/17 20:53 12:07 Troponin I 22.700 36.700 EKG Comments: Sinus rhythm with left bundle branch block pattern noted. Impressions: Chest X-Ray 07/08/17 16:10 IMPRESSION: CARDIAC ENLARGEMENT. VASCULAR CONGESTION. Assessment & Plan - Diagnosis (1) Non-STEMI (non-ST elevated myocardial infarction) Is this a current diagnosis for this admission?: Yes (2) Congestive heart failure Qualifiers: Heart failure type: combined systolic and diastolic Heart failure chronicity: acute Qualified Code(s): I50.41 - Acute combined systolic ( congestive) and diastolic (congestive) heart failure Is this a current diagnosis for this admission?: Yes (3) Altered mental status Qualifiers: Altered mental status type: somnolence Qualified Code(s): R40.0 - Somnolence Is this a current diagnosis for this admission?: Yes (4) CKD (chronic kidney disease) Qualifiers: Chronic kidney disease stage: stage 3 (moderate) Qualified Code(s): N18.3 - Chronic kidney disease, stage 3 (moderate) Is this a current diagnosis for this admission?: Yes (5) COPD (chronic obstructive pulmonary disease) Qualifiers: COPD type: unspecified COPD Qualified Code(s): J44.9 - Chronic obstructive pulmonary disease, unspecified Is this a current diagnosis for this admission?: Yes (6) Chest pain Qualifiers: Chest pain type: other chest pain Qualified Code(s): R07.89 - Other chest pain; R07.8 - Other chest pain Is this a current diagnosis for this admission?: Yes (7) Hypertension Qualifiers: Hypertension type: essential hypertension Qualified Code(s): I10 - Essential (primary) hypertension Is this a current diagnosis for this admission?: Yes (8) Morbid obesity Is this a current diagnosis for this admission?: Yes (9) Obstructive sleep apnea Is this a current diagnosis for this admission?: Yes - Notes Notes: Patient was seen on the morning of 09 July but somehow the note got missed. I had written orders on this patient. Also seen and examined the patient. This was also discussed with the ER physician and also hospitalist involved. It seems patient had sustained an acute non-STEMI. Based on the echocardiogram, patient had anterior and apical hypokinesia. This was confirmed by cardiac enzymes. Patient also had acute CHF precipitated by this ischemic event. Patient was already arranged for to go to [facility] for heart catheterization. With this I agree. Patient medical regimen was reviewed and noted to be fairly satisfactory. Patient has significant comorbid diagnosis therefore overall prognosis was felt to be guarded. As usual I thank the hospitalist for involving me in care of this patient. I will be happy to follow this patient after discharge from [facility]. - Time Time Spent: 30 to 50 Minutes - More than 50% of the time spent coordinating care , discussing management plans with involved caregivers. Management plans discussed with involved personnels. Medical decision making was of moderate to high complexity, patient's has multiple comorbidities. Medications reviewed and adjusted accordingly: Yes
== END 2017-07-09 13:42 | disposition short-term general hospital (02) ==
LOC: ER 16:02 → EH 20:03 → INTOOBSV 20:03
PROVIDERS: ADMIT Internal Medicine; ATTEND Internal Medicine
DX: I21.4 Non-ST elevation (NSTEMI) myocardial infarction (principal); J96.20 Acute and chronic respiratory failure, unspecified whether with hypoxia or hypercapnia; J44.1 Chronic obstructive pulmonary disease with (acute) exacerbation; R07.89 Other chest pain; R41.82 Altered mental status, unspecified; I13.0 Hypertensive heart and chronic kidney disease with heart failure and stage 1 through stage 4 chronic kidney disease, or unspecified chronic kidney disease; I50.41 Acute combined systolic (congestive) and diastolic (congestive) heart failure; N18.3 Chronic kidney disease, stage 3 (moderate); E11.22 Type 2 diabetes mellitus with diabetic chronic kidney disease; G47.33 Obstructive sleep apnea (adult) (pediatric); E66.01 Morbid (severe) obesity due to excess calories; Z99.81 Dependence on supplemental oxygen
CPT/HCPCS: 93005 ×3; 99291; 96374; 36415 ×2; 82553; 82962; 82803 ×2; 82550; 83735; 85025; 85027; 85730; 80048; 80053; 84484 ×2; 83880; 93306; 71045; 93010 ×2; 94660 ×2; G0378 ×2; A9270 ×9; J1644 ×3; J1940; J2270; J3490; J1815

== ENCOUNTER → 2017-08-12 | Outpatient (CLI) | payer MEDICARE, MEDICAID ==
[2017-08-12 12:53] LABS: ANION GAP 11 (5-19); BLOOD UREA NITROGEN 22 mg/dL (7-20); CALCIUM 9.3 mg/dL (8.4-10.2); CARBON DIOXIDE 31 mmol/L (22-30); CHLORIDE 105 mmol/L (98-107); GLUCOSE 152 mg/dL (75-110); POTASSIUM 3.9 mmol/L (3.6-5.0); SODIUM 146.8 mmol/L (137-145)
== END ==
LOC: LAB 12:23
PROVIDERS: ATTEND Internal Medicine Cardiovascular Disease
DX: I50.9 Heart failure, unspecified (principal); N18.3 Chronic kidney disease, stage 3 (moderate)
CPT/HCPCS: 36415; 80048; 83880

== ENCOUNTER 2018-01-12 13:26 | Emergency (ER) | payer MEDICARE, MEDICAID ==
--- NOTE | 2018-01-12 14:29 | ER Document Report ---
ED Dizziness/Weakness - General Chief Complaint: General Weakness Stated Complaint: GENERAL WEAKNESS Time Seen by Provider: 01/12/18 14:05 TRAVEL OUTSIDE OF THE [place] IN LAST 30 DAYS: No - HPI Notes: Patient is a 62-year-old female that presents to the emergency department for chief complaint of left arm and leg numbness. Patient states on 11/10/17 at around [id number] she was in her kitchen and noticed acute onset of left arm and leg numbness. She states it started in her left arm and progressed down her left leg. She states she has had minimal improvement since onset. She denies weakness in the extremities. She denies feeling confused or having a headache. 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 She denies any shortness of breath, chest pain, nausea, vomiting, and abdominal pain. Patient was seen at home by home health aide who encouraged her to come to the emergency room. Past Medical History: Diabetes, PE/DVT Past Surgical History: Reviewed in chart Social History: Denies drugs alcohol and tobacco Family History: Reviewed and noncontributory for presenting illness Allergies: Reviewed, see documented allergy list. REVIEW OF SYSTEMS: CONSTITUTIONAL : No fever No chills No diaphoresis No recent illness EENT: No vision changes No congestion No sore throat CARDIOVASCULAR: No chest pain No palpitations RESPIRATORY: No shortness of breath No cough No difficulty breathing GASTROINTESTINAL: No abdominal pain No nausea No vomiting No diarrhea GENITOURINARY: No dysuria No hematuria No difficulty urinating MUSCULOSKELETAL: No back pain No leg pain No arm pain SKIN: No rashes No lesions LYMPHATIC: No swollen, enlarged glands. NEUROLOGICAL: No lightheadedness No headache No weakness Left arm and the leg paresthesias PSYCHIATRIC: No anxiety No depression PHYSICAL EXAMINATION: Vital signs reviewed, nursing noted reviewed. GENERAL: Morbid obesity, in no acute distress. HEAD: Atraumatic, normocephalic. EYES: Eyes appear normal, extraocular movements intact, sclera anicteric, conjunctiva are normal. ENT: nares patent, oropharynx clear without exudates. Moist mucous membranes. NECK: Normal range of motion, supple without lymphadenopathy LUNGS: Breath sounds clear to auscultation bilaterally and equal. No wheezes rales or rhonchi. HEART: Regular rate and rhythm without murmurs ABDOMEN: Soft, nontender, normoactive bowel sounds. No rebound, guarding, or rigidity. No masses appreciated. EXTREMITIES: Nontender, +2 pitting edema bilateral lower extremity, symmetric. NEUROLOGICAL: NIH=5 at 1420 ( some effort against gravity in both legs and left arm/leg numbness) left dorsiflexion and plantar flexion 4/5, right dorsiflexion and plantar flexion 5/5 PSYCH: Normal mood, normal affect. SKIN: Warm, Dry, normal turgor, no rashes or lesions noted on exposed skin - Related Data Allergies/Adverse Reactions: No Known Allergies Allergy (Verified 03/20/17 11:03) Past Medical History - Social History Smoking Status: Never Smoker Frequency of alcohol use: None Drug Abuse: None Family History: DM, Hypertension Patient has suicidal ideation: No Patient has homicidal ideation: No - Past Medical History Cardiac Medical History: Reports: Hx Congestive Heart Failure, Hx Hypercholesterolemia, Hx Hypertension Pulmonary Medical History: Reports: Hx COPD Endocrine Medical History: Reports: Hx Diabetes Mellitus Type 2 Renal/ Medical History: Reports: Hx Renal Insufficiency. Denies: Hx Peritoneal Dialysis Past Surgical History: Reports: Hx Hysterectomy - Immunizations Immunizations up to date: Yes Hx Diphtheria, Pertussis, Tetanus Vaccination: Yes Review of Systems - Review of Systems Notes: Dictated Physical Exam - Vital signs Vitals: Temp Resp BP Pulse Ox 98.7 F 20 137/76 H 95 01/12/18 13:37 01/12/18 13:37 01/12/18 13:37 01/12/18 13:37 - Notes Notes: Dictated Course - Re-evaluation Re-evalutation: 01/12/18 16:49 Vitals reviewed. Nursing notes reviewed. Patient is anticoagulated on Coumadin for history of DVT and PE. She is having strokelike symptoms that began 3 days ago. She is outside the window for TPA. Patient's NIH is a 5. I am concerned for possible ischemic versus hemorrhagic stroke given her acute symptoms however I am unable to obtain a CT brain because of size limitations on the CT scanner. Patient would like to be transferred to [facility] however they do not have a neurologist. She is requiring admission for further neurology evaluation of her strokelike symptoms. Patient will be transferred to [facility] where they have a CT scan that can accommodate her and neurology capable of managing her acute stroke symptoms. Patient's lab work today shows elevated troponin. She is not having any chest pain and does have elevation in her creatinine which may be partially causing the indeterminate troponin. Because I am not sure if she is having acute hemorrhagic stroke aspirin will be held. Case was discussed with Dr. Herndon at [facility] emergency department. He has accepted transport. Plan to obtain CT brain in the emergency room and admit for further neurologic evaluation at [facility]. Patient is in agreement with this plan. She is stable for transport. Repeat NIH at 1600 is unchanged. Laboratory 01/12/18 01/12/18 01/12/18 15:21 15:21 15:21 WBC 3.8 L RBC 4.28 Hgb 10.0 L Hct 33.2 L MCV 77 L MCH 23.3 L MCHC 30.1 L RDW 21.1 H Plt Count 115 L Seg Neutrophils % 53.6 Lymphocytes % 32.3 Monocytes % 11.1 Eosinophils % 1.4 Basophils % 1.6 Absolute Neutrophils 2.0 Absolute Lymphocytes 1.2 Absolute Monocytes 0.4 Absolute Eosinophils 0.1 Absolute Basophils 0.1 PT 16.5 H INR 1.27 Sodium 144.6 Potassium 4.7 Chloride 100 Carbon Dioxide 39 H Anion Gap 6 BUN 35 H Creatinine 1.46 H Est GFR ( Amer) 44 L Est GFR (Non-Af Amer) 36 L Glucose 111 H Calcium 8.7 Total Bilirubin 0.6 Direct Bilirubin 0.4 Neonat Total Bilirubin Not Reportable Neonat Direct Bilirubin Not Reportable Neonat Indirect Bili Not Reportable AST 33 ALT 10 Alkaline Phosphatase 111 Troponin I Total Protein 7.4 Albumin 3.7 01/12/18 15:21 WBC RBC Hgb Hct MCV MCH MCHC RDW Plt Count Seg Neutrophils % Lymphocytes % Monocytes % Eosinophils % Basophils % Absolute Neutrophils Absolute Lymphocytes Absolute Monocytes Absolute Eosinophils Absolute Basophils PT INR Sodium Potassium Chloride Carbon Dioxide Anion Gap BUN Creatinine Est GFR ( Amer) Est GFR (Non-Af Amer) Glucose Calcium Total Bilirubin Direct Bilirubin Neonat Total Bilirubin Neonat Direct Bilirubin Neonat Indirect Bili AST ALT Alkaline Phosphatase Troponin I 0.043 Total Protein Albumin Chest X-Ray 01/12/18 14:20 IMPRESSION: Cardiomegaly without pulmonary edema. - Vital Signs Vital signs: Temp Pulse Resp BP Pulse Ox 98.7 F 15 146/88 H 100 01/12/18 13:37 01/12/18 16:00 01/12/18 14:01 01/12/18 16:00 - Laboratory Result Diagrams: 01/12/18 15:21 01/12/18 15:21 Laboratory results interpreted by me: 01/12/18 01/12/18 01/12/18 15:21 15:21 15:21 WBC 3.8 L Hgb 10.0 L Hct 33.2 L MCV 77 L MCH 23.3 L MCHC 30.1 L RDW 21.1 H Plt Count 115 L PT 16.5 H Carbon Dioxide 39 H BUN 35 H Creatinine 1.46 H Est GFR ( Amer) 44 L Est GFR (Non-Af Amer) 36 L Glucose 111 H - EKG Interpretation by Me Additional EKG results interpreted by me: 01/12/18 15:37 Interpreted by myself 1510: Normal sinus rhythm, rate 69, first-degree AV block, [place] 220, left bundle branch block, PVCs Discharge - Discharge Clinical Impression: Left arm numbness, Left leg numbness, Left leg weakness, Elevated troponin Anemia Qualifiers: Anemia type: other cause Other causes of anemia: other cause, not classified Qualified Code(s): D64.89 - Other specified anemias Condition: Stable Disposition: [facility]
--- NOTE | 2018-01-12 15:05 | RADIOLOGY REPORT (SQ) ---
EXAM DESCRIPTION: CHEST SINGLE VIEW COMPLETED DATE/TIME: 01/12/2018 2:50 pm REASON FOR STUDY: stroke symptoms COMPARISON: 07/08/2017 EXAM PARAMETERS: NUMBER OF VIEWS: One view. TECHNIQUE: Single frontal radiographic view of the chest acquired. RADIATION DOSE: NA LIMITATIONS: None. FINDINGS: LUNGS AND PLEURA: No opacities, masses or pneumothorax. No pleural effusion. MEDIASTINUM AND HILAR STRUCTURES: No masses. Contour normal. HEART AND VASCULAR STRUCTURES: Cardiomegaly. No pulmonary edema. BONES: No acute findings. HARDWARE: None in the chest. OTHER: No other significant finding. IMPRESSION: Cardiomegaly without pulmonary edema. TECHNICAL DOCUMENTATION: JOB ID: [id number] [employer]- All Rights Reserved Reading location - IP/workstation name: [email or web address]
[2018-01-12 15:36] LABS: ABSOLUTE BASOPHILS # (AUTO) 0.1 10^3/uL (0.0-0.2); ABSOLUTE EOSINOPHILS # (AUTO) 0.1 10^3/uL (0.0-0.6); ABSOLUTE LYMPHOCYTES (AUTO) 1.2 10^3/uL (0.5-4.7); ABSOLUTE MONOCYTES (AUTO) 0.4 10^3/uL (0.1-1.4); BASOPHILS % (AUTO) 1.6 % (0-2); EOSINOPHILS % (AUTO) 1.4 % (0-6); HEMATOCRIT 33.2 % (36.0-47.0); LYMPHOCYTES % (AUTO) 32.3 % (13-45); MEAN CORPUSCULAR HEMOGLOBIN 23.3 pg (27.0-33.4); MEAN CORPUSCULAR HGB CONC 30.1 g/dL (32.0-36.0); MEAN CORPUSCULAR VOLUME 77 fl (80-97); MONOCYTES % (AUTO) 11.1 % (3-13); PLATELET COUNT 115 10^3/uL (150-450); RED BLOOD COUNT 4.28 10^6/uL (3.72-5.28); RED CELL DISTRIBUTION WIDTH 21.1 % (11.5-14.0); SEGMENTED NEUTROPHILS % (AUTO) 53.6 % (42-78); TOTAL CELLS COUNTED % (AUTO) 100 %; WHITE BLOOD COUNT 3.8 10^3/uL (4.0-10.5)
[2018-01-12 15:40] LABS: INTERNATIONAL RATION (INR) 1.27; PROTHROMBIN TIME 16.5 SEC (11.4-15.4)
[2018-01-12 15:50] LABS: ALANINE AMINOTRANSFERASE 10 U/L (9-52); ALBUMIN 3.7 g/dL (3.5-5.0); ALKALINE PHOSPHATASE 111 U/L (38-126); ANION GAP 6 (5-19); ASPARTATE AMINO TRANSFERASE 33 U/L (14-36); BILIRUBIN,DIRECT 0.4 mg/dL (0.0-0.4); BILIRUBIN,TOTAL 0.6 mg/dL (0.2-1.3); BLOOD UREA NITROGEN 35 mg/dL (7-20); CALCIUM 8.7 mg/dL (8.4-10.2); CARBON DIOXIDE 39 mmol/L (22-30); CHLORIDE 100 mmol/L (98-107); GLUCOSE 111 mg/dL (75-110); POTASSIUM 4.7 mmol/L (3.6-5.0); SODIUM 144.6 mmol/L (137-145); TOTAL PROTEIN 7.4 g/dL (6.3-8.2)
[2018-01-12] MEDS ORDERED: NORMAL SALINE 1000 ML 1,000 ML IV ONE (17:01)
[2018-01-12 18:57] LABS: APPEARANCE,URINE CLEAR; BILIRUBIN,URINE NEGATIVE (NEGATIVE); COLOR,URINE YELLOW; GLUCOSE, URINE NEGATIVE (NEGATIVE); KETONES,URINE NEGATIVE (NEGATIVE); LEUKOCYTE ESTERASE,URINE TRACE (NEGATIVE); NITRITE,URINE POSITIVE (NEGATIVE); PROTEIN,URINE 100 mg/dL (NEGATIVE)
[2018-01-12 19:00] LABS: URINE SPECIFIC GRAVITY 1.019
[2018-01-12 19:15] VITALS: BP 149/96
--- NOTE | 2018-01-12 19:53 | EKG REPORT ---
SEVERITY:- ABNORMAL ECG - SINUS RHYTHM PAIRED VENTRICULAR PREMATURE COMPLEXES FIRST DEGREE AV BLOCK PROBABLE LEFT ATRIAL ABNORMALITY LEFT BUNDLE BRANCH BLOCK : Confirmed by: Jeannine Ling MD 12-Jan-2018 19:52:20
--- NOTE | 2018-01-13 08:24 | EKG REPORT ---
SEVERITY:- ABNORMAL ECG - SINUS RHYTHM FIRST DEGREE AV BLOCK PROBABLE LEFT ATRIAL ABNORMALITY LEFT BUNDLE BRANCH BLOCK : Confirmed on behalf of: Jeannine Ling MD 13-Jan-2018 08:23:25
== END 2018-01-12 19:24 | disposition short-term general hospital (02) ==
LOC: ER 13:26
DX: R20.0 Anesthesia of skin (principal); R53.1 Weakness; D64.9 Anemia, unspecified; I11.9 Hypertensive heart disease without heart failure; R74.8 Abnormal levels of other serum enzymes; I44.7 Left bundle-branch block, unspecified; I49.3 Ventricular premature depolarization; R60.0 Localized edema; E11.9 Type 2 diabetes mellitus without complications; E66.01 Morbid (severe) obesity due to excess calories; Z68.44 Body mass index [BMI] 60.0-69.9, adult; J44.9 Chronic obstructive pulmonary disease, unspecified; I82.409 Acute embolism and thrombosis of unspecified deep veins of unspecified lower extremity; I26.99 Other pulmonary embolism without acute cor pulmonale; Z79.01 Long term (current) use of anticoagulants
CPT/HCPCS: 93005; 99285; 36415; 85025; 85610; 80053; 81001; 84484; 71045; 93010; J7030

== ENCOUNTER 2018-02-07 09:10 | Emergency (ER) | payer MEDICARE, MEDICAID ==
--- NOTE | 2018-02-07 09:48 | ER Document Report ---
ED General - General Stated Complaint: LEG PAIN Time Seen by Provider: 02/07/18 09:16 Notes: Patient is here because she says she cannot move her left leg since evening. She says the leg feels " and numb" and she is unable to put weight on it. Patient had a stroke back in July of this year leaving her with left-sided weakness. She had recovered use of her left arm completely and partially in the left leg allowing her to walk with a walker. She receives in- home therapy twice a week. Her last therapy was and the patient was able to walk with her walker and go to her therapy, but that afternoon or evening became unable to move the leg. She slid out of the chair that she was in and had to call the mathematician research on Thursday who helped her back into her recliner where she has been until this morning. Patient weighs 450 pounds. Patient says her left leg is both painful and she is unable to move it. During patient's hospitalization for her stroke in July, she was transferred to [place] because she had pulmonary emboli and was anticoagulated and is still on warfarin. She also had a [place] filter placed in her vena cava, but it was removed. Patient does not know why. Patient has a visiting nurse several times a month. On this nurse's visit in early January, about 4 weeks ago, they felt the patient may have had another stroke and she was sent here for evaluation. Patient says that she did not complain of any problems at that time and does not know what symptoms were the basis for the nurse referring her here. From here she was sent to [place] where they told her she did not have another stroke but rather she was dehydrated and she was kept overnight for observation and discharged home. Reviewing the patient's chart from January 12, it describes her is being evaluated for left arm and left leg weakness, just like the symptoms she had with her stroke in July and like she is having today. She was transferred to [place] for access to a larger CT scanner. Patient denies any chest pains. Says she has a history of an irregular heartbeat. Denies any new or increasing shortness of breath. Patient is on home oxygen at 2 L all the time. Has a history of COPD. Has not had any abdominal pains or nausea or vomiting. Denies any recent illnesses or fevers. TRAVEL OUTSIDE OF THE [place] IN LAST 30 DAYS: No - Related Data Allergies/Adverse Reactions: No Known Allergies Allergy (Verified 03/20/17 11:03) Past Medical History - Social History Smoking Status: Unknown if Ever Smoked Family History: Reviewed & Not Pertinent, DM, Hypertension - Past Medical History Cardiac Medical History: Reports: Hx Congestive Heart Failure, Hx Hypercholesterolemia, Hx Hypertension Pulmonary Medical History: Reports: Hx COPD Endocrine Medical History: Reports: Hx Diabetes Mellitus Type 1, Hx Diabetes Mellitus Type 2 Renal/ Medical History: Reports: Hx Renal Insufficiency Past Surgical History: Reports: Hx Hysterectomy - Immunizations Immunizations up to date: Yes Hx Diphtheria, Pertussis, Tetanus Vaccination: Yes Review of Systems - Review of Systems Notes: REVIEW OF SYSTEMS: CONSTITUTIONAL : Denies fever. Approximately 470 pounds. EENT: Denies eye, ear, nose or mouth or throat pain or other symptoms. CARDIOVASCULAR: Denies chest pain. RESPIRATORY: Denies cough, chest congestion, but has chronic shortness of breath on O2 at 2 L at home at all times.. GASTROINTESTINAL: Denies abdominal pain or nausea, vomiting, or diarrhea. GENITOURINARY: Denies difficulty or painful urinating, urinary frequency, blood in urine. MUSCULOSKELETAL: Denies back or neck pain. Denies joint pain or swelling. SKIN: Denies rash or skin lesions. NEUROLOGICAL: Denies LOC or altered mental status. Denies headache. See HPI. ALL OTHER SYSTEMS REVIEWED AND NEGATIVE. Physical Exam - Vital signs Vitals: Temp Pulse Resp BP Pulse Ox 98.1 F 74 25 H 157/76 H 99 02/07/18 09:30 02/07/18 09:30 02/07/18 09:30 02/07/18 09:30 02/07/18 09:30 Interpretation: Normal Notes: PHYSICAL EXAMINATION: GENERAL: Morbidly obese, in no acute distress. HEAD: Atraumatic, normocephalic. EYES: Pupils equal round and reactive to light, extraocular movements intact. ENT: oropharynx clear without exudates. Moist mucous membranes. NECK: Normal range of motion, supple. LUNGS: Breath sounds difficult to hear but basically clear and equal bilaterally. No wheezes heard. HEART: Regular rate and rhythm without murmurs. ABDOMEN: Soft, nontender. No guarding or rebound. No masses. BACK: No tenderness throughout entire back. EXTREMITIES: Normal range of motion without pain. Able to obtain pulses with Doppler in dorsalis pedis bilaterally. NEUROLOGICAL: Normal speech, gait not tested. Patient says she cannot stand or walk and cannot move her left leg. . Awake, alert, and oriented x3. PSYCH: Normal mood, normal affect. SKIN: Warm, dry, no rashes. Course - Re-evaluation Re-evalutation: 02/07/18 17:07 Patient size prohibited her from being in CT scanner. She is under our weight limit of 500 pounds for the table, but because of her morphology, she does not fit in the aperture of the CT scanner. I noted in looking back through the patient's previous images, she has not had any CT scans done at this hospital, even though she was here in July of this year for a stroke and then back here in early January for another apparent stroke or recurrent stroke. I spoke with Dr. Purvis, project production engineer neurology at [facility], who very kindly accepted this patient in transfer as we have no neurology service and we have no CT scan capabilities for this patient. Patient was not a candidate for thrombolytic therapy of a stroke. First, she is out of any time window because she has had symptoms for over 2 days. Second , patient is on warfarin and we cannot obtain a CT scan because of the patient' s size and thus we cannot tell if the patient has had a hemorrhage or not. - Vital Signs Vital signs: Temp Pulse Resp BP Pulse Ox 98.1 F 74 24 H 150/87 H 99 02/07/18 09:30 02/07/18 09:30 02/07/18 17:00 02/07/18 16:01 02/07/18 17:00 - Laboratory Result Diagrams: 02/07/18 12:46 02/07/18 11:05 Laboratory results interpreted by me: 02/07/18 02/07/18 11:05 12:46 Hgb 9.4 L Hct 30.6 L MCV 79 L MCH 24.0 L MCHC 30.5 L RDW 20.0 H Plt Count 94 L Carbon Dioxide 38 H BUN 22 H Est GFR ( Amer) 59 L Est GFR (Non-Af Amer) 48 L Glucose 131 H Albumin 3.3 L - Diagnostic Test Radiology reviewed: Image reviewed, Reports reviewed - Chest x-ray shows cardiomegaly with vascular congestion. - EKG Interpretation by Me EKG shows normal: Sinus rhythm Rate: Normal Rhythm: NSR Lavinia/QRS: LBBB Discharge - Discharge Clinical Impression: Recurrent strokes, Morbid obesity Condition: Stable Disposition: [facility] Referrals: MARLEY HARDEN MD [Primary Care Provider] - Follow up as needed
--- NOTE | 2018-02-07 10:30 | RADIOLOGY REPORT (SQ) ---
EXAM DESCRIPTION: CHEST SINGLE VIEW COMPLETED DATE/TIME: 02/07/2018 10:16 am REASON FOR STUDY: Stroke symptoms, left leg numb and weak COMPARISON: 12/27/2015. NUMBER OF VIEWS: One view. TECHNIQUE: Single frontal radiographic view of the chest acquired. LIMITATIONS: None. FINDINGS: LUNGS AND PLEURA: No opacities, masses or pneumothorax. No pleural effusion. MEDIASTINUM AND HILAR STRUCTURES: No masses or contour abnormality. HEART AND VASCULATURE: Cardiac enlargement. Vascular congestion. BONES: No acute findings. HARDWARE: None in the chest. OTHER: No other significant finding. IMPRESSION: CARDIAC ENLARGEMENT. VASCULAR CONGESTION. TECHNICAL DOCUMENTATION: JOB ID: [id number] [employer]- All Rights Reserved Reading location - IP/workstation name: [email or web address]
[2018-02-07 11:55] LABS: INTERNATIONAL RATION (INR) 1.07; PROTHROMBIN TIME 14.5 SEC (11.4-15.4)
[2018-02-07 12:09] LABS: ALANINE AMINOTRANSFERASE 22 U/L (9-52); ALBUMIN 3.3 g/dL (3.5-5.0); ALKALINE PHOSPHATASE 84 U/L (38-126); ANION GAP 7 (5-19); ASPARTATE AMINO TRANSFERASE 18 U/L (14-36); BILIRUBIN,DIRECT 0.2 mg/dL (0.0-0.4); BILIRUBIN,TOTAL 0.8 mg/dL (0.2-1.3); BLOOD UREA NITROGEN 22 mg/dL (7-20); CARBON DIOXIDE 38 mmol/L (22-30); CHLORIDE 99 mmol/L (98-107); GLUCOSE 131 mg/dL (75-110); POTASSIUM 4.9 mmol/L (3.6-5.0); SODIUM 143.5 mmol/L (137-145); TOTAL PROTEIN 6.8 g/dL (6.3-8.2)
[2018-02-07 12:17] LABS: CREATINE KINASE MB 1.2 ng/mL (<4.55)
[2018-02-07 12:29] LABS: TROPONIN I 0.042 ng/mL
[2018-02-07 12:59] LABS: ABSOLUTE EOSINOPHILS # (AUTO) 0.1 10^3/uL (0.0-0.6); ABSOLUTE LYMPHOCYTES (AUTO) 0.9 10^3/uL (0.5-4.7); ABSOLUTE MONOCYTES (AUTO) 0.7 10^3/uL (0.1-1.4); ABSOLUTE NEUT (AUTO) 4.1 10^3/uL (1.7-8.2); BASOPHILS % (AUTO) 0.7 % (0-2); HEMATOCRIT 30.6 % (36.0-47.0); HEMOGLOBIN 9.4 g/dL (12.0-15.5); LYMPHOCYTES % (AUTO) 15.6 % (13-45); MEAN CORPUSCULAR HGB CONC 30.5 g/dL (32.0-36.0); MEAN CORPUSCULAR VOLUME 79 fl (80-97); MONOCYTES % (AUTO) 12.3 % (3-13); RED BLOOD COUNT 3.89 10^6/uL (3.72-5.28); SEGMENTED NEUTROPHILS % (AUTO) 69.4 % (42-78); TOTAL CELLS COUNTED % (AUTO) 100 %; WHITE BLOOD COUNT 5.9 10^3/uL (4.0-10.5)
[2018-02-07 13:15] LABS: PLATELET COUNT 94 10^3/uL (150-450)
[2018-02-07 19:04] VITALS: BP 158/84
--- NOTE | 2018-02-07 22:19 | EKG REPORT ---
SEVERITY:- ABNORMAL ECG - SINUS RHYTHM PROBABLE LEFT ATRIAL ABNORMALITY LEFT BUNDLE BRANCH BLOCK : Confirmed by: Jeannine Ling MD 07-Feb-2018 22:18:25
== END 2018-02-07 18:50 | disposition short-term general hospital (02) ==
LOC: ER 09:10
DX: E66.01 Morbid (severe) obesity due to excess calories (principal); M79.605 Pain in left leg; I50.9 Heart failure, unspecified; E78.00 Pure hypercholesterolemia, unspecified; I11.0 Hypertensive heart disease with heart failure; E11.9 Type 2 diabetes mellitus without complications; J44.9 Chronic obstructive pulmonary disease, unspecified; Z99.81 Dependence on supplemental oxygen; Z90.710 Acquired absence of both cervix and uterus; Z79.01 Long term (current) use of anticoagulants; Z86.73 Personal history of transient ischemic attack (TIA), and cerebral infarction without residual deficits
CPT/HCPCS: 36415; 71045; 80053; 82553; 84484; 85025; 85610; 93005; 93010; 99285

== ENCOUNTER 2018-04-19 11:27 | Inpatient (IN) | payer MEDICARE, MEDICAID ==
[2018-04-19] MEDS ORDERED: FUROSEMIDE INJ/PF 40 MG/4 ML SDV IV ONE (11:53)
[2018-04-19] MEDS ORDERED: METOLAZONE 5 MG TABLET PO ONE (11:55)
[2018-04-19 12:55] LABS: ABSOLUTE BASOPHILS # (AUTO) 0.1 10^3/uL (0.0-0.2); ABSOLUTE EOSINOPHILS # (AUTO) 0.1 10^3/uL (0.0-0.6); ABSOLUTE LYMPHOCYTES (AUTO) 1.1 10^3/uL (0.5-4.7); ABSOLUTE MONOCYTES (AUTO) 0.5 10^3/uL (0.1-1.4); ABSOLUTE NEUT (AUTO) 3.2 10^3/uL (1.7-8.2); BASOPHILS % (AUTO) 1.4 % (0-2); EOSINOPHILS % (AUTO) 1.7 % (0-6); HEMATOCRIT 30.9 % (36.0-47.0); HEMOGLOBIN 9.5 g/dL (12.0-15.5); LYMPHOCYTES % (AUTO) 22.1 % (13-45); MEAN CORPUSCULAR HEMOGLOBIN 23.7 pg (27.0-33.4); MEAN CORPUSCULAR HGB CONC 30.6 g/dL (32.0-36.0); MEAN CORPUSCULAR VOLUME 78 fl (80-97); MONOCYTES % (AUTO) 10.4 % (3-13); PLATELET COUNT 116 10^3/uL (150-450); RED BLOOD COUNT 3.99 10^6/uL (3.72-5.28); RED CELL DISTRIBUTION WIDTH 20.9 % (11.5-14.0); SEGMENTED NEUTROPHILS % (AUTO) 64.4 % (42-78); TOTAL CELLS COUNTED % (AUTO) 100 %
[2018-04-19 12:57] LABS: BLOOD UREA NITROGEN 29 mg/dL (7-20); CALCIUM 9.1 mg/dL (8.4-10.2); CHLORIDE 96 mmol/L (98-107); GLUCOSE 130 mg/dL (75-110); SODIUM 144.4 mmol/L (137-145)
[2018-04-19 13:04] LABS: ANION GAP 8 (5-19)
[2018-04-19 13:13] LABS: CARBON DIOXIDE 40 mmol/L (22-30); TROPONIN I 0.05 ng/mL
[2018-04-19 13:18] LABS: HYPOCHROMASIA 1+; OVALOCYTES SLIGHT; POIKILOCYTOSIS SLIGHT
[2018-04-19 13:19] LABS: PLATELET CLUMPS PRESENT; PLATELET COMMENT DECREASED
--- NOTE | 2018-04-19 14:14 | RADIOLOGY REPORT (SQ) ---
EXAM DESCRIPTION: CHEST SINGLE VIEW COMPLETED DATE/TIME: 04/19/2018 1:45 pm REASON FOR STUDY: sob COMPARISON: 02/07/2018 NUMBER OF VIEWS: One view. TECHNIQUE: Single frontal radiographic view of the chest acquired. LIMITATIONS: Body habitus. AP portable. FINDINGS: LUNGS AND PLEURA: No opacities, masses or pneumothorax. No pleural effusion. MEDIASTINUM AND HILAR STRUCTURES: No masses. Contour normal. HEART AND VASCULAR STRUCTURES: Cardiomegaly. Pulmonary vascular congestion. BONES: No acute findings. HARDWARE: Left dual lead defibrillator. OTHER: No other significant finding. IMPRESSION: Cardiomegaly. Pulmonary vascular congestion. TECHNICAL DOCUMENTATION: JOB ID: [id number] [employer]- All Rights Reserved Reading location - IP/workstation name: [email or web address]
--- NOTE | 2018-04-19 15:14 | ER Document Report ---
ED General - General Chief Complaint: Shortness Of Breath Stated Complaint: SHORTNESS OF BREATH Time Seen by Provider: 04/19/18 11:43 TRAVEL OUTSIDE OF THE [place] IN LAST 30 DAYS: No - HPI Patient complains to provider of: Shortness of breath Notes: Patient is a morbidly obese -[place]amese with history of hypertension diabetes on Eliquis CHF states that she was seen by her doctor today and told to come to the ER because of her increased fatigue and shortness of breath ongoing for 1 week. Patient states that she has gained 20 pounds over the last week. Patient denies a history of sleep apnea however states that she is pending testing patient denies any chest pain or abdominal pain. Denies any productive cough fevers or chills. Patient states she did not take any of her medications this morning however has been compliant with them states that she has been compliant with her diet eating chili day prior and eating fried fish and shrimp 2 days ago. Patient is normally on oxygen 2 L - Related Data Allergies/Adverse Reactions: No Known Allergies Allergy (Verified 03/20/17 11:03) Past Medical History - Social History Smoking Status: Never Smoker Chew tobacco use (# tins/day): No Frequency of alcohol use: None Drug Abuse: None Family History: Reviewed & Not Pertinent, DM, Hypertension Patient has suicidal ideation: No Patient has homicidal ideation: No - Past Medical History Cardiac Medical History: Reports: Hx Congestive Heart Failure, Hx Hypercholesterolemia, Hx Hypertension Pulmonary Medical History: Reports: Hx COPD Endocrine Medical History: Reports: Hx Diabetes Mellitus Type 1, Hx Diabetes Mellitus Type 2 Renal/ Medical History: Reports: Hx Renal Insufficiency. Denies: Hx Peritoneal Dialysis Past Surgical History: Reports: Hx Hysterectomy - Immunizations Immunizations up to date: Yes Hx Diphtheria, Pertussis, Tetanus Vaccination: Yes Review of Systems - Review of Systems Constitutional: No symptoms reported EENT: No symptoms reported Cardiovascular: Dyspnea Respiratory: No symptoms reported Gastrointestinal: No symptoms reported Genitourinary: No symptoms reported Female Genitourinary: No symptoms reported Musculoskeletal: No symptoms reported Skin: No symptoms reported Hematologic/Lymphatic: No symptoms reported Neurological/Psychological: No symptoms reported -: Yes All other systems reviewed and negative Physical Exam - Vital signs Vitals: Resp Pulse Ox 14 96 04/19/18 11:39 04/19/18 11:39 Interpretation: Normal - General General appearance: Appears well, Alert - HEENT Head: Normocephalic, Atraumatic Eyes: Normal Pupils: PERRL - Respiratory Respiratory status: No respiratory distress Chest status: Nontender Breath sounds: Rales Chest palpation: Normal - Cardiovascular Rhythm: Regular Heart sounds: Normal auscultation Murmur: No - Abdominal Inspection: Morbidly Obese Distension: No distension Bowel sounds: Normal Tenderness: Nontender Organomegaly: No organomegaly - Back Back: Normal, Nontender - Extremities General upper extremity: Normal inspection, Nontender, Normal color, Normal ROM, Normal temperature General lower extremity: Normal inspection, Nontender, Normal color, Normal ROM, Normal temperature, Normal weight bearing. No: Carole's sign - Neurological Neuro grossly intact: Yes Cognition: Normal Orientation: AAOx4 Supply Coma Scale Eye Opening: Spontaneous Eleanor Coma Scale Verbal: Oriented Eleanor Coma Scale Motor: Obeys Commands Supply Coma Scale Total: 15 Speech: Normal Motor strength normal: LUE, RUE, LLE, RLE Sensory: Normal - Psychological Associated symptoms: Normal affect, Normal mood - Skin Skin Temperature: Warm Skin Moisture: Dry Skin Color: Normal Course - Re-evaluation Re-evalutation: 04/19/18 15:13 Oxygenation has maintained well on her home O2 dose. Chest x-ray does show pulmonary vascular congestion with increase in the patient's BNP patient has some resting acute renal insufficiency CO2 is elevated multiple times by myself to obtain ABG VBG of failed currently waiting on laboratory VBG more likely patient will be admitted to the hospital 04/19/18 15:37 ABG shows hypercapnia as we are unable to ultrasound an ABG on the patient. Will place the patient on BiPAP per hospitalist request discussed with Dr. Akbar agrees with admission of the patient at this time for CHF exacerbation morbid obesity - Vital Signs Vital signs: Temp Pulse Resp BP Pulse Ox 98.3 F 22 H 153/88 H 97 04/19/18 12:07 04/19/18 11:41 04/19/18 11:41 04/19/18 11:41 - Laboratory Result Diagrams: 04/19/18 12:33 04/19/18 12:33 Laboratory results interpreted by me: 04/19/18 04/19/18 04/19/18 12:33 12:33 12:33 Hgb 9.5 L Hct 30.9 L MCV 78 L MCH 23.7 L MCHC 30.6 L RDW 20.9 H Plt Count 116 L VBG pCO2 VBG HCO3 Chloride 96 L Carbon Dioxide 40 H* BUN 29 H Creatinine 1.28 H Est GFR ( Amer) 51 L Est GFR (Non-Af Amer) 42 L Glucose 130 H NT-Pro-B Natriuret Pep 5460 H 04/19/18 15:15 Hgb Hct MCV MCH MCHC RDW Plt Count VBG pCO2 81.0 H* VBG HCO3 43.2 H Chloride Carbon Dioxide BUN Creatinine Est GFR ( Amer) Est GFR (Non-Af Amer) Glucose NT-Pro-B Natriuret Pep Critical Care Note - Critical Care Note Total time excluding time spent on procedures (mins): 35 Comments: Multiple evaluation for CHF exacerbation with hypercapnia. Discharge - Discharge Clinical Impression: CKD (chronic kidney disease), Congestive heart failure, COPD (chronic obstructive pulmonary disease), Morbidly obese, Hypercapnia Condition: Stable Disposition: ADMITTED INPATIENT Admitting Provider: Hospitalist - [facility] Unit Admitted: [facility] Referrals: MARLEY HARDEN MD [Primary Care Provider] - Follow up as needed
[2018-04-19 15:28] LABS: VENOUS BLOOD BASE EXCESS 14.5 mmol/L; VENOUS BLOOD HCO3 43.2 mmol/L (20-32); VENOUS BLOOD PH 7.35 (7.30-7.42)
[2018-04-19] MEDS ORDERED: ACETAMINOPHEN 650 MG SUPP.RECT PR PRN (16:31)
[2018-04-19] MEDS ORDERED: ONDANSETRON HCL INJ/PF 4 MG/2 ML SDV IV PRN (16:31)
[2018-04-19] MEDS ORDERED: LEVALBUTEROL HCL NEB 0.63 MG/3 ML AMPUL NEB PRN (16:31)
[2018-04-19] MEDS ORDERED: IPRATROPIUM/ALBUTEROL 0.5-2.5 MG/3 ML AMPUL NEB PRN (16:31)
[2018-04-19] MEDS ORDERED: ZOLPIDEM TARTRATE 5 MG TABLET PO PRN (16:31)
[2018-04-19] MEDS ORDERED: ALBUTEROL SULFATE HFA (90 MCG/PUFF) 200 PUFF/8.5 GM MDI IH PRN (16:51)
[2018-04-19] MEDS ORDERED: GLUCAGON,HUMAN RECOMB 1 MG INJ IM PRN (17:01)
[2018-04-19] MEDS ORDERED: DEXTROSE 50%-WATER 25 GM/50 ML DISP.SYRIN IV PRN ×2 (17:01)
[2018-04-19] MEDS ORDERED: DEXTROSE 40% GEL 15 GM TUBE PO PRN ×2 (17:01)
--- NOTE | 2018-04-19 17:17 | PDOC H&P ---
History of Present Illness Admission Date/PCP: 04/19/18 15:55 MARLEY HARDEN MD Patient complains of: Shortness of breath for the last 3 days History of Present Illness: CARLEE WALDROP is a 62 year old female history of morbid obesity sleep apnea pacemaker congestive heart failure hypertension diabetes morbid obesity came to the emergency room with complaints of 3 days of shortness of breath it is worsening since yesterday. She usually sleep with the proper position and used 2-3 pillows at night. She is also complaining of increased swelling of the legs and weight gain. She is she is compliant with her medications. Denies any complaints like chest pains cough cold nausea vomiting diarrhea. Denies any headaches or dizzy spells. Today her shortness of breath showed bad even walking less than 10 feet she is getting short winded. The emergency room workup was done chest x-ray shows pulmonary congestion and pedal edema pulse ox are in the lower 80s medical consult was called for admission. Past Medical History Cardiac Medical History: Reports: Congestive Heart Failure, Hyperlipidema, Hypertension Pulmonary Medical History: Reports: Chronic Obstructive Pulmonary Disease (COPD) Endocrine Medical History: Reports: Diabetes Mellitus Type 1, Diabetes Mellitus Type 2 Past Surgical History Past Surgical History: Reports: Hysterectomy Social History Smoking Status: Never Smoker Frequency of Alcohol Use: None Hx Recreational Drug Use: No Hx Prescription Drug Abuse: No - Advance Directive Resuscitation Status: Full Code Family History Family History: Reviewed & Not Pertinent, DM, Hypertension Parental Family History Reviewed: Yes - Family history of coronary artery disease hypertension. Children Family History Reviewed: Yes Sibling(s) Family History Reviewed.: Yes Medication/Allergy Home Medications: Albuterol Sulfate [Proair HFA Inhalation Aerosol 8.5 gm MDI] 2 puff IH Q4HP PRN 04/19/18 Apixaban [Eliquis 5 mg Tablet] 5 mg PO DAILY 04/19/18 Carvedilol [Coreg 12.5 mg Tablet] 12.5 mg PO Q12 04/19/18 Ferrous Sulfate [Feosol 325 mg Tablet] 325 mg PO BID 04/19/18 Furosemide [Lasix 80 mg Tablet] 160 mg PO BID 04/19/18 Gabapentin [Neurontin 300 mg Capsule] 300 mg PO BID 04/19/18 Insulin Aspart [Novolog Flexpen] 6 units SQ MEALS 04/19/18 Insulin Glargine,Hum.rec.anlog [Lantus Insulin 100 Unit/mL] 20 units SQ QHS 04/19/18 Isosorbide Mononitrate [Imdur 30 mg Tablet.er] 30 mg PO DAILY 04/19/18 Metolazone [Zaroxolyn 5 mg Tablet] 5 mg PO Q2DAYS 04/19/18 Multivitamin [Daily Multiple Vitamin] 1 tab PO DAILY 04/19/18 Potassium Chloride [Klor-Con M10] 10 mg PO DAILY 04/19/18 Allergies/Adverse Reactions: No Known Allergies Allergy (Verified 03/20/17 11:03) Review of Systems Constitutional: ABSENT: fever(s), headache(s), night sweats Eyes: ABSENT: visual disturbances Ears: ABSENT: hearing changes Nose, Mouth, and Throat: ABSENT: headache(s) Cardiovascular: PRESENT: dyspnea on exertion, edema, orthropnea Respiratory: PRESENT: dyspnea. ABSENT: cough, hemoptysis Gastrointestinal: ABSENT: abdominal pain, diarrhea, melena, nausea, vomiting Neurological: ABSENT: abnormal gait, abnormal speech, confusion, dizziness, focal weakness, syncope Psychiatric: ABSENT: anxiety, depression, homidical ideation, suicidal ideation Physical Exam Vital Signs: Temp Pulse Resp BP Pulse Ox 98.3 F 22 H 153/88 H 97 04/19/18 12:07 04/19/18 11:41 04/19/18 11:41 04/19/18 11:41 Intake & Output 04/18/18 04/19/18 04/20/18 06:59 06:59 06:59 Weight 217.4 kg General appearance: PRESENT: other - Morbidly obese female in mild distress. Head exam: PRESENT: atraumatic Eye exam: PRESENT: PERRLA Mouth exam: PRESENT: moist, tongue midline Neck exam: PRESENT: JVD Respiratory exam: PRESENT: crackles, decreased breath sounds, rhonchi Cardiovascular exam: PRESENT: RRR. ABSENT: diastolic murmur, rubs, systolic murmur GI/Abdominal exam: PRESENT: other - Obese abdomen soft nontender bowel sounds are present. Extremities exam: PRESENT: pedal edema Neurological exam: PRESENT: alert, awake, oriented to person, oriented to place, oriented to time, oriented to situation, CN II-XII grossly intact. ABSENT: motor sensory deficit Psychiatric exam: PRESENT: appropriate affect, normal mood. ABSENT: homicidal ideation, suicidal ideation Results Laboratory Results: 04/19/18 12:33 04/19/18 12:33 04/19/18 04/19/18 04/19/18 12:33 12:33 14:30 WBC 5.0 RBC 3.99 Hgb 9.5 L Hct 30.9 L MCV 78 L MCH 23.7 L MCHC 30.6 L RDW 20.9 H Plt Count 116 L Seg Neutrophils % 64.4 Lymphocytes % 22.1 Monocytes % 10.4 Eosinophils % 1.7 Basophils % 1.4 Absolute Neutrophils 3.2 Absolute Lymphocytes 1.1 Absolute Monocytes 0.5 Absolute Eosinophils 0.1 Absolute Basophils 0.1 VBG pH Cancelled VBG pCO2 Cancelled VBG HCO3 Cancelled VBG Base Excess Cancelled Sodium 144.4 Potassium 4.0 Chloride 96 L Carbon Dioxide 40 H* Anion Gap 8 BUN 29 H Creatinine 1.28 H Est GFR ( Amer) 51 L Est GFR (Non-Af Amer) 42 L Glucose 130 H Calcium 9.1 04/19/18 15:15 WBC RBC Hgb Hct MCV MCH MCHC RDW Plt Count Seg Neutrophils % Lymphocytes % Monocytes % Eosinophils % Basophils % Absolute Neutrophils Absolute Lymphocytes Absolute Monocytes Absolute Eosinophils Absolute Basophils VBG pH 7.35 VBG pCO2 81.0 H* VBG HCO3 43.2 H VBG Base Excess 14.5 Sodium Potassium Chloride Carbon Dioxide Anion Gap BUN Creatinine Est GFR ( Amer) Est GFR (Non-Af Amer) Glucose Calcium 04/19/18 12:33 Troponin I 0.050 NT-Pro-B Natriuret Pep 5460 H Impressions: Chest X-Ray 04/19/18 13:26 IMPRESSION: Cardiomegaly. Pulmonary vascular congestion. Assessment & Plan - Diagnosis (1) Congestive heart failure Qualifiers: Is this a current diagnosis for this admission?: Yes Plan: 04/19/2018 patient is going to be admitted for exacerbation of CHF. She is going to be in telemetry as an inpatient. Fluid restriction was started 1.4 L/day. Echocardiogram was requested, started on IV Lasix 40 mg daily 8 hours. She was placed back on metolazone. Daily weights are requested. Strict input output was requested. BNP on admission is 5460. We are going to do the daily BMPs. Cardiac enzymes x3 were also requested. Cardiogram done last year in July shows both systolic and diastolic left ventricular failure with EF of less than 30%. Going to repeat the echocardiogram again. He was placed on oxygen 2 L nasal cannula and requested for BiPAP as needed basis. (2) COPD (chronic obstructive pulmonary disease) Qualifiers: Is this a current diagnosis for this admission?: Yes Plan: 04/19/2018 patient has history of COPD on 2 L oxygen at home plan to continue the present management she is also on ipratropium nebulizations and Xopenex nebulizations at home plan to resume those during the hospital stay. In the VBG PCO2 is 81%. Unable to do the ABG because of the morbid obesity. (3) Hypercapnia Is this a current diagnosis for this admission?: Yes Plan: 04/19/2018 she shows PCO2 of 81. We are going to do the daily ABGs. Patient was placed on oxygen 2 L nasal cannula and order for BiPAP as needed was written. (4) Morbidly obese Is this a current diagnosis for this admission?: Yes Plan: 04/19/2018 patient's BMI is more than 50. Diet exercise weight loss lifestyle m odification were recommended dietary consult was requested. (5) Hypertension Qualifiers: Hypertension type: essential hypertension Qualified Code(s): I10 - Essential (primary) hypertension Is this a current diagnosis for this admission?: Yes Plan: 04/19/2018 patient has history of hypertension. Pressure is 153/88 home medications are resumed and patient was also placed on Lasix IV every 8 hours daily BP measurements are requested. Was advised about low-salt diet. (6) Diabetes 1.5, managed as type 2 Is this a current diagnosis for this admission?: Yes Plan: 04/19/2018 patient has history of diabetes mellitus she is on Lantus and sliding scale at home we plan to resume her home medications and plan to check her hemoglobin A1c tomorrow. (7) Pacemaker Is this a current diagnosis for this admission?: Yes Plan: 04/19/2018 patient is given the history of pacemaker because of the very low ejection fraction and she is on Eliquis 5 mg p.o. daily plan to continue the present medication while she was in the hospital. - Time Time Spent: 50 to 70 Minutes Critical Time spent with patient: 15-24 minutes Medications reviewed and adjusted accordingly: Yes Anticipated discharge: Home
[2018-04-19] MEDS ORDERED: GABAPENTIN 300 MG CAPSULE PO SCH (18:00)
[2018-04-19] MEDS ORDERED: FUROSEMIDE 80 MG TABLET PO SCH (18:00)
[2018-04-19] MEDS: BACLOFEN 10 MG TABLET PO SCH (18:12)
[2018-04-19] MEDS: DOCUSATE SODIUM 100 MG/10 ML UDC PO SCH (18:12)
[2018-04-19] MEDS: FERROUS SULFATE 325 MG TABLET PO SCH (18:13)
[2018-04-19 18:14] LABS: CREATINE KINASE MB 0.74 ng/mL (<4.55); TROPONIN I 0.053 ng/mL
[2018-04-19 18:25] LABS: APPEARANCE,URINE CLEAR; BILIRUBIN,URINE NEGATIVE (NEGATIVE); COLOR,URINE STRAW; GLUCOSE, URINE NEGATIVE (NEGATIVE); KETONES,URINE NEGATIVE (NEGATIVE); LEUKOCYTE ESTERASE,URINE NEGATIVE (NEGATIVE); NITRITE,URINE NEGATIVE (NEGATIVE); PROTEIN,URINE NEGATIVE (NEGATIVE); URINE SPECIFIC GRAVITY 1.008; UROBILINOGEN,URINE NEGATIVE mg/dL (<2.0)
[2018-04-19] MEDS ORDERED: INSULIN GLARGINE,HUM.REC.ANLOG 300 UNIT/3 ML INSULN.PEN SUBCUT SCH (22:00)
[2018-04-19 23:03] LABS: ARTERIAL BLOOD BASE EXCESS 16.1 mmol/L; ARTERIAL BLOOD H2CO3 1.82 mmol/L (1.05-1.35); ARTERIAL BLOOD HCO3 42.2 mmol/L (20-24); ARTERIAL BLOOD O2 SATURATION 91.8 % (94-98); ARTERIAL BLOOD PCO2 60.5 mmHg (35-45); ARTERIAL BLOOD PH 7.46 (7.35-7.45); ARTERIAL BLOOD PO2 60.9 mmHg (80-100)
[2018-04-19 23:05] LABS: ARTERIAL BLOOD FIO2 28%
[2018-04-19 23:11] LABS: CREATINE KINASE MB 0.66 ng/mL (<4.55); TROPONIN I 0.056 ng/mL
[2018-04-19] MEDS: FAMOTIDINE INJ/PF 20 MG/2 ML SDV IV SCH (23:15)
[2018-04-19] MEDS: FUROSEMIDE INJ/PF 40 MG/4 ML SDV IV SCH (23:15)
[2018-04-19] MEDS: GABAPENTIN 300 MG CAPSULE PO SCH (23:16)
[2018-04-19] MEDS: ATORVASTATIN CALCIUM 20 MG TABLET PO SCH (23:16)
[2018-04-19] MEDS: SPIRONOLACTONE 25 MG TABLET PO SCH (23:16)
[2018-04-19] MEDS: CARVEDILOL 12.5 MG TABLET PO SCH (23:16)
[2018-04-19] MEDS: METOPROLOL SUCCINATE 50 MG TAB.SR.24H PO SCH (23:16)
[2018-04-19] MEDS: INSULIN REG, HUMAN 100 UNIT/ML 3 ML VIAL (PYX) SUBCUT PRN (23:36)
--- NOTE | 2018-04-20 00:12 | EKG REPORT ---
SEVERITY:- ABNORMAL ECG - ATRIAL-SENSED VENTRICULAR-PACED COMPLEXES VS SINUS WITH LBBB PROBABLE LEFT ATRIAL ABNORMALITY NONSPECIFIC IVCD WITH LAD : Confirmed by: Machelle Lyon 20-Apr-2018 00:12:15
[2018-04-20] MEDS: FUROSEMIDE INJ/PF 40 MG/4 ML SDV IV SCH ×3 (05:30→21:09)
[2018-04-20 05:45] LABS: ALANINE AMINOTRANSFERASE 26 U/L (9-52); ALBUMIN 3.9 g/dL (3.5-5.0); ALKALINE PHOSPHATASE 101 U/L (38-126); ASPARTATE AMINO TRANSFERASE 28 U/L (14-36); BILIRUBIN,DIRECT 0.4 mg/dL (0.0-0.4); BILIRUBIN,TOTAL 0.9 mg/dL (0.2-1.3); BLOOD UREA NITROGEN 28 mg/dL (7-20); CALCIUM 9.2 mg/dL (8.4-10.2); CHLORIDE 96 mmol/L (98-107); CHOLESTEROL 176.35 mg/dL (0-200); CREATINE KINASE 48 U/L (30-135); GLUCOSE 135 mg/dL (75-110); POTASSIUM 4.3 mmol/L (3.6-5.0); SODIUM 141.4 mmol/L (137-145); TOTAL PROTEIN 7.4 g/dL (6.3-8.2); TRIGLYCERIDES 86 mg/dL (<150)
[2018-04-20 05:52] LABS: ANION GAP 6 (5-19); CARBON DIOXIDE 39 mmol/L (22-30)
[2018-04-20 05:56] LABS: CREATINE KINASE MB 0.6 ng/mL (<4.55); DIRECT LDL 112 mg/dL (<100); TROPONIN I 0.06 ng/mL
[2018-04-20] MEDS ORDERED: ISOSORBIDE MONONITRATE 60 MG TAB.ER.24H PO SCH (10:00)
[2018-04-20] MEDS ORDERED: INSULIN GLARGINE,HUM.REC.ANLOG 1,000 UNIT/10 ML UNIT SUBCUT SCH (10:00)
[2018-04-20] MEDS ORDERED: ENOXAPARIN SODIUM INJ 40 MG/0.4 ML DISP.SYRIN SUBCUT SCH (10:00)
[2018-04-20] MEDS: DOCUSATE SODIUM 100 MG/10 ML UDC PO SCH ×2 (10:06→17:59)
[2018-04-20] MEDS: BACLOFEN 10 MG TABLET PO SCH ×2 (10:07→17:59)
[2018-04-20] MEDS: CARVEDILOL 12.5 MG TABLET PO SCH ×2 (10:08→21:08)
[2018-04-20] MEDS: FERROUS SULFATE 325 MG TABLET PO SCH ×2 (10:08→17:59)
[2018-04-20] MEDS: FAMOTIDINE INJ/PF 20 MG/2 ML SDV IV SCH ×2 (10:08→21:08)
[2018-04-20] MEDS: ISOSORBIDE MONONITRATE 30 MG TAB.ER.24H PO SCH (10:08)
[2018-04-20] MEDS: METOPROLOL SUCCINATE 50 MG TAB.SR.24H PO SCH ×2 (10:09→21:08)
[2018-04-20] MEDS: SPIRONOLACTONE 25 MG TABLET PO SCH ×2 (10:09→21:08)
[2018-04-20] MEDS: APIXABAN 5 MG TABLET PO SCH (10:09)
[2018-04-20] MEDS: GABAPENTIN 300 MG CAPSULE PO SCH ×2 (10:09→21:08)
[2018-04-20] MEDS: VALSARTAN 160 MG TABLET PO SCH (10:09)
--- NOTE | 2018-04-20 14:02 | PDOC PROGRESS REPORT ---
Subjective Progress Note for:: 04/20/18 Subjective:: This is a 62 yr old female with a PMH of chronic combined systolic and diastolic heart failure from ischemic cardiomyopathy (last EF of 30%), S/P AICD placement, morbid obesity, CKD 3, DAIANA, IDDM and HTN who presented with worsening SOB and was admitted for CHF exacerbation. No acute event overnight. She is diuresing well. Patient says her SOB has significantly improved this morning but she is not at her baseline yet. She denies chest pain or palpitations. She says she has been compliant with her medications. She says she drinks a lot of water at home and claims she was told by her health providers to drink at least 8 glasses of water a day. She says she used a 16 oz glass at home. Discussed in length that she needs to be on fluid restriction (1.5L/day). She says she has never been told about restricting her fluids and was told the opposite thing. She says the tightness on her abdomen and legs have also improved with the IV Lasix. Reason For Visit: EXACERBATION OF CHF Physical Exam Vital Signs: Temp Pulse Resp BP Pulse Ox 98.7 F 63 16 122/60 93 04/20/18 11:50 04/20/18 13:00 04/20/18 13:00 04/20/18 11:50 04/20/18 13:00 Intake & Output 04/19/18 04/20/18 04/21/18 06:59 06:59 06:59 Intake Total 548 Output Total 1000 Balance -1000 548 Weight 460 lb 5.203 oz General appearance: PRESENT: no acute distress, well-developed, well-nourished Head exam: PRESENT: atraumatic, normocephalic Eye exam: PRESENT: conjunctiva pink, EOMI, PERRLA. ABSENT: scleral icterus Ear exam: PRESENT: normal external ear exam Mouth exam: PRESENT: moist, tongue midline Neck exam: ABSENT: carotid bruit, JVD, lymphadenopathy, thyromegaly Respiratory exam: PRESENT: rales - minimal on the bases. ABSENT: rhonchi, wheezes Cardiovascular exam: PRESENT: RRR. ABSENT: bradycardia Pulses: PRESENT: normal dorsalis pedis pul GI/Abdominal exam: PRESENT: normal bowel sounds. ABSENT: hyperactive bowel sounds, tenderness Rectal exam: PRESENT: deferred Extremities exam: PRESENT: +2 edema Neurological exam: PRESENT: alert, awake, oriented to person, oriented to place, oriented to time, oriented to situation, CN II-XII grossly intact. ABSENT: motor sensory deficit Results Laboratory Results: 04/19/18 12:33 04/20/18 04:59 04/19/18 04/19/18 04/19/18 14:30 15:15 18:12 Carbonic Acid HCO3/H2CO3 Ratio ABG pH ABG pCO2 ABG pO2 ABG HCO3 ABG O2 Saturation ABG Base Excess VBG pH Cancelled 7.35 VBG pCO2 Cancelled 81.0 H* VBG HCO3 Cancelled 43.2 H VBG Base Excess Cancelled 14.5 FiO2 Sodium Potassium Chloride Carbon Dioxide Anion Gap BUN Creatinine Est GFR ( Amer) Est GFR (Non-Af Amer) Glucose Calcium Magnesium Total Bilirubin AST ALT Alkaline Phosphatase Total Protein Albumin Triglycerides Cholesterol LDL Cholesterol Direct VLDL Cholesterol HDL Cholesterol Urine Color STRAW Urine Appearance CLEAR Urine pH 8.0 Ur Specific [place] 1.008 Urine Protein NEGATIVE Urine Glucose (UA) NEGATIVE Urine Ketones NEGATIVE Urine Blood SMALL H Urine Nitrite NEGATIVE Ur Leukocyte Esterase NEGATIVE Urine WBC (Auto) 2 Urine RBC (Auto) 14 04/19/18 04/20/18 22:45 04:59 Carbonic Acid 1.82 H HCO3/H2CO3 Ratio 23:1 ABG pH 7.46 H ABG pCO2 60.5 H ABG pO2 60.9 L ABG HCO3 42.2 H ABG O2 Saturation 91.8 L ABG Base Excess 16.1 VBG pH VBG pCO2 VBG HCO3 VBG Base Excess FiO2 28% Sodium 141.4 Potassium 4.3 Chloride 96 L Carbon Dioxide 39 H Anion Gap 6 BUN 28 H Creatinine 1.28 H Est GFR ( Amer) 51 L Est GFR (Non-Af Amer) 42 L Glucose 135 H Calcium 9.2 Magnesium 1.9 Total Bilirubin 0.9 AST 28 ALT 26 Alkaline Phosphatase 101 Total Protein 7.4 Albumin 3.9 Triglycerides 86 Cholesterol 176.35 LDL Cholesterol Direct 112 H VLDL Cholesterol 17.0 HDL Cholesterol 45 Urine Color Urine Appearance Urine pH Ur Specific [place] Urine Protein Urine Glucose (UA) Urine Ketones Urine Blood Urine Nitrite Ur Leukocyte Esterase Urine WBC (Auto) Urine RBC (Auto) 04/19/18 04/19/18 04/19/18 12:33 17:31 17:31 Creatine Kinase 54 CK-MB (CK-2) 0.74 Troponin I 0.050 0.053 NT-Pro-B Natriuret Pep 5460 H 04/19/18 04/19/18 04/20/18 22:40 22:40 04:59 Creatine Kinase 50 48 CK-MB (CK-2) 0.66 Troponin I 0.056 NT-Pro-B Natriuret Pep 04/20/18 04:59 Creatine Kinase CK-MB (CK-2) 0.60 Troponin I 0.060 NT-Pro-B Natriuret Pep 6620 H Impressions: Chest X-Ray 04/19/18 13:26 IMPRESSION: Cardiomegaly. Pulmonary vascular congestion. Assessment & Plan - Diagnosis (1) Acute on chronic congestive heart failure Qualifiers: Heart failure type: combined systolic and diastolic Qualified Code(s): I50.43 - Acute on chronic combined systolic (congestive) and diastolic (congestive) heart failure Is this a current diagnosis for this admission?: Yes Plan: Combined systolic and diastolic heart failure (last EF of 30-35% with grade 2 diasotlic dysfunction. Likely secondary to excess fluid intake. As mentioned, patient says she drinks a lot of water at home and claims she was told by her health providers to drink at least 8 glasses of water a day. She says she uses a 16 oz glass at home. Discussed in length that she needs to be on fluid restriction (1.5L/day). She says she has never been told about restricting her fluids and was told the opposite thing. Continue IV Lasix. Salt and fluid restriction. Continue PO metolazone, Coreg, valsartan and spironolactone. (2) IDDM (insulin dependent diabetes mellitus) Is this a current diagnosis for this admission?: Yes Plan: Sugars at goal. Continue Lantus and sliding scale. (3) CKD (chronic kidney disease) Qualifiers: Qualified Code(s): N18.3 - Chronic kidney disease, stage 3 (moderate) Is this a current diagnosis for this admission?: Yes Plan: Creatinine at baseline. - Time Time Spent with patient: 25-34 minutes
[2018-04-20] MEDS: ATORVASTATIN CALCIUM 20 MG TABLET PO SCH (21:08)
[2018-04-20] MEDS: INSULIN REG, HUMAN 100 UNIT/ML 3 ML VIAL (PYX) SUBCUT PRN (21:09)
[2018-04-21] MEDS ORDERED: ACETAMINOPHEN 325 MG TABLET PO PRN (02:09)
[2018-04-21 05:30] LABS: ABSOLUTE LYMPHOCYTES (AUTO) 1.2 10^3/uL (0.5-4.7); ABSOLUTE MONOCYTES (AUTO) 0.6 10^3/uL (0.1-1.4); ABSOLUTE NEUT (AUTO) 2.5 10^3/uL (1.7-8.2); BASOPHILS % (AUTO) 0.4 % (0-2); EOSINOPHILS % (AUTO) 0.8 % (0-6); HEMATOCRIT 29.2 % (36.0-47.0); LYMPHOCYTES % (AUTO) 26.8 % (13-45); MEAN CORPUSCULAR HEMOGLOBIN 24.1 pg (27.0-33.4); MEAN CORPUSCULAR HGB CONC 30.9 g/dL (32.0-36.0); MEAN CORPUSCULAR VOLUME 78 fl (80-97); MONOCYTES % (AUTO) 14.4 % (3-13); PLATELET COUNT 109 10^3/uL (150-450); RED BLOOD COUNT 3.74 10^6/uL (3.72-5.28); RED CELL DISTRIBUTION WIDTH 20.2 % (11.5-14.0); SEGMENTED NEUTROPHILS % (AUTO) 57.6 % (42-78); TOTAL CELLS COUNTED % (AUTO) 100 %; WHITE BLOOD COUNT 4.4 10^3/uL (4.0-10.5)
[2018-04-21] MEDS: FUROSEMIDE INJ/PF 40 MG/4 ML SDV IV SCH ×2 (05:43→14:47)
[2018-04-21 05:53] LABS: BLOOD UREA NITROGEN 31 mg/dL (7-20); GLUCOSE 127 mg/dL (75-110); POTASSIUM 4.1 mmol/L (3.6-5.0)
[2018-04-21 06:20] LABS: CHLORIDE 94 mmol/L (98-107); SODIUM 140.6 mmol/L (137-145)
[2018-04-21 06:23] LABS: ANION GAP 4 (5-19)
[2018-04-21 06:26] LABS: CARBON DIOXIDE 43 mmol/L (22-30)
--- NOTE | 2018-04-21 09:15 | RADIOLOGY REPORT (SQ) ---
EXAM DESCRIPTION: CHEST SINGLE VIEW COMPLETED DATE/TIME: 04/21/2018 8:54 am REASON FOR STUDY: reassess congestion COMPARISON: 04/19/2018. FINDINGS: Single-view chest AP portable upright timed approximately [address], as before. Graft marked cardiomegaly without overt failure. No developing infiltrates. Stable chest. TECHNICAL DOCUMENTATION: JOB ID: [id number] Reading location - IP/workstation name: [email or web address]
[2018-04-21] MEDS: FAMOTIDINE INJ/PF 20 MG/2 ML SDV IV SCH ×2 (11:05→21:51)
[2018-04-21] MEDS: VALSARTAN 160 MG TABLET PO SCH (11:05)
[2018-04-21] MEDS: METOPROLOL SUCCINATE 50 MG TAB.SR.24H PO SCH ×2 (11:06→21:51)
[2018-04-21] MEDS: SPIRONOLACTONE 25 MG TABLET PO SCH ×2 (11:06→21:51)
[2018-04-21] MEDS: ISOSORBIDE MONONITRATE 30 MG TAB.ER.24H PO SCH (11:06)
[2018-04-21] MEDS: APIXABAN 5 MG TABLET PO SCH (11:07)
[2018-04-21] MEDS: METOLAZONE 5 MG TABLET PO SCH (11:07)
[2018-04-21] MEDS: FERROUS SULFATE 325 MG TABLET PO SCH ×2 (11:07→18:16)
[2018-04-21] MEDS: GABAPENTIN 300 MG CAPSULE PO SCH ×2 (11:08→21:51)
[2018-04-21] MEDS: CARVEDILOL 12.5 MG TABLET PO SCH ×2 (11:09→21:51)
[2018-04-21] MEDS: DOCUSATE SODIUM 100 MG/10 ML UDC PO SCH ×2 (11:09→18:10)
[2018-04-21] MEDS: BACLOFEN 10 MG TABLET PO SCH ×2 (11:09→18:10)
[2018-04-21] MEDS: INSULIN GLARGINE,HUM.REC.ANLOG 1,000 UNIT/10 ML UNIT SUBCUT SCH (11:10)
--- NOTE | 2018-04-21 13:06 | PDOC PROGRESS REPORT ---
Subjective Progress Note for:: 04/21/18 Subjective:: This is a 62 yr old female with a PMH of chronic combined systolic and diastolic heart failure from ischemic cardiomyopathy (last EF of 30%), S/P AICD placement, morbid obesity, CKD 3, DAIANA, IDDM and HTN who presented with worsening SOB and was admitted for CHF exacerbation. No acute event overnight. She is diuresing well. She says her SOB, abdominal tightness and leg swelling continue to improve but is not at her baseline yet. Creatinine has trended up to 1.6 today. Reason For Visit: EXACERBATION OF CHF Physical Exam Vital Signs: Temp Pulse Resp BP Pulse Ox 98.0 F 59 L 18 104/55 L 99 04/21/18 11:21 04/21/18 11:21 04/21/18 11:21 04/21/18 11:21 04/21/18 11:21 Intake & Output 04/20/18 04/21/18 04/22/18 06:59 06:59 06:59 Intake Total 2348 200 Output Total 1000 1297 350 Balance -1000 1051 -150 Weight 460 lb 5.203 oz 466 lb 4.443 oz General appearance: PRESENT: no acute distress, morbidly obese Head exam: PRESENT: atraumatic, normocephalic Eye exam: PRESENT: conjunctiva pink, EOMI, PERRLA. ABSENT: scleral icterus Ear exam: PRESENT: normal external ear exam Mouth exam: PRESENT: moist, tongue midline Neck exam: ABSENT: carotid bruit, JVD, lymphadenopathy, thyromegaly Respiratory exam: PRESENT: clear to auscultation justin. ABSENT: rales, rhonchi, wheezes Cardiovascular exam: PRESENT: RRR. ABSENT: diastolic murmur, rubs, systolic murmur Pulses: PRESENT: normal dorsalis pedis pul GI/Abdominal exam: PRESENT: normal bowel sounds, soft. ABSENT: distended, guarding, mass, organolmegaly, rebound, tenderness Rectal exam: PRESENT: deferred Extremities exam: PRESENT: +2 edema Neurological exam: PRESENT: alert, awake, oriented to person, oriented to place, oriented to time, oriented to situation, CN II-XII grossly intact. ABSENT: motor sensory deficit Results Laboratory Results: 04/21/18 05:11 04/21/18 05:11 04/21/18 04/21/18 05:11 05:11 WBC 4.4 RBC 3.74 Hgb 9.0 L Hct 29.2 L MCV 78 L MCH 24.1 L MCHC 30.9 L RDW 20.2 H Plt Count 109 L Seg Neutrophils % 57.6 Lymphocytes % 26.8 Monocytes % 14.4 H Eosinophils % 0.8 Basophils % 0.4 Absolute Neutrophils 2.5 Absolute Lymphocytes 1.2 Absolute Monocytes 0.6 Absolute Eosinophils 0.0 Absolute Basophils 0.0 Sodium 140.6 Potassium 4.1 Chloride 94 L Carbon Dioxide 43 H* Anion Gap 4 L BUN 31 H Creatinine 1.61 H Est GFR ( Amer) 39 L Est GFR (Non-Af Amer) 33 L Glucose 127 H Calcium 9.0 04/19/18 04/19/18 04/19/18 12:33 17:31 17:31 Creatine Kinase 54 CK-MB (CK-2) 0.74 Troponin I 0.050 0.053 NT-Pro-B Natriuret Pep 5460 H 04/19/18 04/19/18 04/20/18 22:40 22:40 04:59 Creatine Kinase 50 48 CK-MB (CK-2) 0.66 Troponin I 0.056 NT-Pro-B Natriuret Pep 04/20/18 04:59 Creatine Kinase CK-MB (CK-2) 0.60 Troponin I 0.060 NT-Pro-B Natriuret Pep 6620 H Assessment & Plan - Diagnosis (1) Acute on chronic congestive heart failure Qualifiers: Heart failure type: combined systolic and diastolic Qualified Code(s): I50.43 - Acute on chronic combined systolic (congestive) and diastolic (congestive) heart failure Is this a current diagnosis for this admission?: Yes Plan: Combined systolic and diastolic heart failure (last EF of 30-35% with grade 2 diasotlic dysfunction. Likely secondary to excess fluid intake. As mentioned, patient says she drinks a lot of water at home and claims she was told by her health providers to drink at least 8 glasses of water a day. She says she uses a 16 oz glass at home. Discussed in length that she needs to be on fluid restriction (1.5L/day). She says she has never been told about restricting her fluids and was told the opposite thing. Reduce Lasix from 40 q8 to 40 q12 IV due to PASHA and contraction alkalosis. Continue salt and fluid restriction. Continue PO metolazone, Coreg, valsartan and spironolactone. (2) IDDM (insulin dependent diabetes mellitus) Is this a current diagnosis for this admission?: Yes Plan: Sugars at goal. Continue Lantus and sliding scale. (3) Acute kidney injury superimposed on chronic kidney disease Is this a current diagnosis for this admission?: Yes Plan: Creatinine has trended up to 1.6 with diuresis. She also has developed contraction alkalosis. Will decrease Lasix to 40 mg q12. Repeat BMP tomorrow. - Time Time Spent with patient: 25-34 minutes
[2018-04-21] MEDS: ACETAMINOPHEN 325 MG TABLET PO PRN (14:07)
[2018-04-21] MEDS: ATORVASTATIN CALCIUM 20 MG TABLET PO SCH (21:51)
[2018-04-21] MEDS ORDERED: FUROSEMIDE INJ/PF 40 MG/4 ML SDV IV SCH (22:00)
[2018-04-21] MEDS: INSULIN REG, HUMAN 100 UNIT/ML 3 ML VIAL (PYX) SUBCUT PRN (22:09)
[2018-04-22 05:06] LABS: ABSOLUTE EOSINOPHILS # (AUTO) 0.1 10^3/uL (0.0-0.6); ABSOLUTE MONOCYTES (AUTO) 0.5 10^3/uL (0.1-1.4); ABSOLUTE NEUT (AUTO) 1.6 10^3/uL (1.7-8.2); BASOPHILS % (AUTO) 0.5 % (0-2); EOSINOPHILS % (AUTO) 2.2 % (0-6); HEMATOCRIT 27.5 % (36.0-47.0); HEMOGLOBIN 8.5 g/dL (12.0-15.5); LYMPHOCYTES % (AUTO) 31.6 % (13-45); MEAN CORPUSCULAR HEMOGLOBIN 23.9 pg (27.0-33.4); MEAN CORPUSCULAR HGB CONC 30.9 g/dL (32.0-36.0); MEAN CORPUSCULAR VOLUME 77 fl (80-97); MONOCYTES % (AUTO) 16.9 % (3-13); PLATELET COUNT 101 10^3/uL (150-450); RED BLOOD COUNT 3.56 10^6/uL (3.72-5.28); RED CELL DISTRIBUTION WIDTH 20.3 % (11.5-14.0); SEGMENTED NEUTROPHILS % (AUTO) 48.8 % (42-78); TOTAL CELLS COUNTED % (AUTO) 100 %; WHITE BLOOD COUNT 3.2 10^3/uL (4.0-10.5)
[2018-04-22 05:28] LABS: BLOOD UREA NITROGEN 36 mg/dL (7-20); CALCIUM 8.4 mg/dL (8.4-10.2); CHLORIDE 94 mmol/L (98-107); GLUCOSE 138 mg/dL (75-110); POTASSIUM 4.1 mmol/L (3.6-5.0); SODIUM 140.4 mmol/L (137-145)
[2018-04-22 05:45] LABS: ANION GAP 3 (5-19); CARBON DIOXIDE 43 mmol/L (22-30)
[2018-04-22] MEDS: INSULIN GLARGINE,HUM.REC.ANLOG 1,000 UNIT/10 ML UNIT SUBCUT SCH (11:20)
[2018-04-22] MEDS: ACETAMINOPHEN 325 MG TABLET PO PRN ×2 (11:21→15:22)
[2018-04-22] MEDS: METOPROLOL SUCCINATE 50 MG TAB.SR.24H PO SCH ×2 (11:21→21:45)
[2018-04-22] MEDS: CARVEDILOL 12.5 MG TABLET PO SCH ×2 (11:22→21:45)
[2018-04-22] MEDS: VALSARTAN 160 MG TABLET PO SCH (11:22)
[2018-04-22] MEDS: APIXABAN 5 MG TABLET PO SCH (11:22)
[2018-04-22] MEDS: ISOSORBIDE MONONITRATE 30 MG TAB.ER.24H PO SCH (11:23)
[2018-04-22] MEDS: SPIRONOLACTONE 25 MG TABLET PO SCH ×2 (11:23→21:45)
[2018-04-22] MEDS: FERROUS SULFATE 325 MG TABLET PO SCH ×2 (11:23→17:27)
[2018-04-22] MEDS: GABAPENTIN 300 MG CAPSULE PO SCH ×2 (11:23→21:45)
[2018-04-22] MEDS: BACLOFEN 10 MG TABLET PO SCH ×2 (11:24→17:27)
[2018-04-22] MEDS: FAMOTIDINE INJ/PF 20 MG/2 ML SDV IV SCH ×2 (11:24→21:44)
[2018-04-22] MEDS: DOCUSATE SODIUM 100 MG/10 ML UDC PO SCH ×2 (11:24→21:36)
[2018-04-22] MEDS: FUROSEMIDE INJ/PF 40 MG/4 ML SDV IV SCH (11:25)
[2018-04-22 12:31] LABS: ARTERIAL BLOOD BASE EXCESS 11.7 mmol/L; ARTERIAL BLOOD FIO2 28%; ARTERIAL BLOOD H2CO3 1.86 mmol/L (1.05-1.35); ARTERIAL BLOOD HCO3 38.1 mmol/L (20-24); ARTERIAL BLOOD O2 SATURATION 92.5 % (94-98); ARTERIAL BLOOD PCO2 61.8 mmHg (35-45); ARTERIAL BLOOD PH 7.41 (7.35-7.45); ARTERIAL BLOOD PO2 65.7 mmHg (80-100)
--- NOTE | 2018-04-22 15:06 | PDOC PROGRESS REPORT ---
Subjective Progress Note for:: 04/22/18 Subjective:: This is a 62 yr old female with a PMH of chronic combined systolic and diastolic heart failure from ischemic cardiomyopathy (last EF of 30%), S/P AICD placement, morbid obesity, CKD 3, DAIANA, IDDM and HTN who presented with worsening SOB and was admitted for CHF exacerbation. No acute event overnight. She is diuresing well. She continues to improve and says her SOB, abdominal tightness and leg swelling continue to improve but is not at her baseline yet. Creatinine has trended up to 1.8 today. Lasix was decreased to daily dosing last night. She denies she is on CPAP at home although there is documented history of DAIANA on previous notes. Previous note also docume nted she was recommended CPAP before but did not comply and was lost to follow up. She did say she was mikaela to sleep better with the BIPAP at night. Reason For Visit: EXACERBATION OF CHF Physical Exam Vital Signs: Temp Pulse Resp BP Pulse Ox 97.9 F 60 18 120/66 99 04/22/18 11:52 04/22/18 11:52 04/22/18 11:52 04/22/18 11:52 04/22/18 11:52 Intake & Output 04/21/18 04/22/18 04/23/18 06:59 06:59 06:59 Intake Total 2348 922 Output Total 1297 1475 425 Balance 1051 -553 -425 Weight 466 lb 4.443 oz 466 lb 4.443 oz General appearance: PRESENT: no acute distress, morbidly obese Head exam: PRESENT: atraumatic, normocephalic Eye exam: PRESENT: conjunctiva pink, EOMI, PERRLA. ABSENT: scleral icterus Ear exam: PRESENT: normal external ear exam Mouth exam: PRESENT: moist, tongue midline Neck exam: ABSENT: carotid bruit, JVD, lymphadenopathy, thyromegaly Respiratory exam: PRESENT: rhonchi. ABSENT: rales, wheezes Cardiovascular exam: PRESENT: RRR. ABSENT: diastolic murmur, rubs, systolic murmur Pulses: PRESENT: normal dorsalis pedis pul GI/Abdominal exam: ABSENT: diminished bowel sounds, mass, tenderness Rectal exam: PRESENT: deferred Extremities exam: PRESENT: +2 edema Neurological exam: PRESENT: alert, awake, oriented to person, oriented to place, oriented to time, oriented to situation, CN II-XII grossly intact. ABSENT: mot or sensory deficit Results Laboratory Results: 04/22/18 04:40 04/22/18 04:40 04/22/18 04/22/18 04/22/18 04:40 04:40 12:15 WBC 3.2 L RBC 3.56 L Hgb 8.5 L Hct 27.5 L MCV 77 L MCH 23.9 L MCHC 30.9 L RDW 20.3 H Plt Count 101 L Seg Neutrophils % 48.8 Lymphocytes % 31.6 Monocytes % 16.9 H Eosinophils % 2.2 Basophils % 0.5 Absolute Neutrophils 1.6 L Absolute Lymphocytes 1.0 Absolute Monocytes 0.5 Absolute Eosinophils 0.1 Absolute Basophils 0.0 Carbonic Acid 1.86 H HCO3/H2CO3 Ratio 20:1 ABG pH 7.41 ABG pCO2 61.8 H ABG pO2 65.7 L ABG HCO3 38.1 H ABG O2 Saturation 92.5 L ABG Base Excess 11.7 FiO2 28% Sodium 140.4 Potassium 4.1 Chloride 94 L Carbon Dioxide 43 H* Anion Gap 3 L BUN 36 H Creatinine 1.84 H Est GFR ( Amer) 34 L Est GFR (Non-Af Amer) 28 L Glucose 138 H Calcium 8.4 04/19/18 04/19/18 04/19/18 12:33 17:31 17:31 Creatine Kinase 54 CK-MB (CK-2) 0.74 Troponin I 0.050 0.053 NT-Pro-B Natriuret Pep 5460 H 04/19/18 04/19/18 04/20/18 22:40 22:40 04:59 Creatine Kinase 50 48 CK-MB (CK-2) 0.66 Troponin I 0.056 NT-Pro-B Natriuret Pep 04/20/18 04:59 Creatine Kinase CK-MB (CK-2) 0.60 Troponin I 0.060 NT-Pro-B Natriuret Pep 6620 H Assessment & Plan - Diagnosis (1) Acute on chronic congestive heart failure Qualifiers: Heart failure type: combined systolic and diastolic Qualified Code(s): I50.43 - Acute on chronic combined systolic (congestive) and diastolic ( congestive) heart failure Is this a current diagnosis for this admission?: Yes Plan: Improving. Combined systolic and diastolic heart failure (last EF of 30-35% with grade 2 diasotlic dysfunction. Likely secondary to excess fluid intake. As me ntioned, patient says she drinks a lot of water at home and claims she was told by her health providers to drink at least 8 glasses of water a day. She says she uses a 16 oz glass at home. Discussed in length that she needs to be on fluid restriction (1.5L/day). She says she has never been told about restricting her fluids and was told the opposite thing. Reduced Lasix from 40 q8 to 40 daily IV due to PASHA and contraction alkalosis. Continue salt and fluid restriction. Continue PO metolazone, Coreg, valsartan and spironolactone. (2) IDDM (insulin dependent diabetes mellitus) Is this a current diagnosis for this admission?: Yes Plan: Sugars at goal. Continue Lantus and sliding scale. (3) Acute kidney injury superimposed on chronic kidney disease Is this a current diagnosis for this admission?: Yes Plan: Creatinine has trended up to 1.8. likely pre renal from IV diuresis. She also has developed contraction alkalosis. Lasix decreased to 40 mg daily. Repeat BMP tomorrow. (4) Hypercapnic respiratory failure Qualifiers: Chronicity: chronic Qualified Code(s): J96.12 - Chronic respiratory failure with hypercapnia Is this a current diagnosis for this admission?: Yes Plan: Likely from long standing DAIANA. BIPAP at night. - Time Time Spent with patient: 25-34 minutes
[2018-04-22] MEDS: ATORVASTATIN CALCIUM 20 MG TABLET PO SCH (21:45)
[2018-04-22] MEDS: INSULIN REG, HUMAN 100 UNIT/ML 3 ML VIAL (PYX) SUBCUT PRN (21:53)
--- NOTE | 2018-04-22 23:39 | XCELERA REPORT ---
[address] [address] Transthoracic Echocardiogram Report Name: CARLEE WALDROP Age: 62 yrs Gender: Female : 1955 Patient Status: Inpatient Patient Location: [address] [place] [address] Study Date: 04/20/2018 01:28 PM Height: 72 in Weight: 479 lb BSA: 3.1 m2 Procedure: A two-dimensional transthoracic echocardiogram with color flow and Doppler was performed. Study Quality: Fair. Reason For Study: chf History: CHF. Ordering Physician: ZULEIMA SCHNEIDER Performed By: Anuradha Freitas Interpretation Summary The left ventricle is moderately dilated. There is moderate to severe concentric left ventricular hypertrophy. LV EF is 30% to 35% There is moderate to severe global hypokinesis of the left ventricle. Left ventricular systolic function is moderate to severely reduced. There is no thrombus. The right ventricle is mild to moderately dilated. There is a pacemaker lead in the right ventricle. The right ventricular systolic function is mildly reduced. The right atrium is mildly dilated. The left atrium is moderately dilated. There is no evidence of mitral valve prolapse. There is no vegetation seen on the mitral valve. There is no mitral valve stenosis. There is a mild amount of mitral regurgitation There is no aortic valve stenosis There is no LVOT obstruction. No aortic regurgitation is present. There is no tricuspid stenosis. There is servere pulmonary hypertension by echo There is a moderate to severe amount of tricuspid regurgitation RVSP is at least 74 mm of Hg , with RA mean of 20. There is no pulmonic valvular stenosis. There is a trace amount of pulmonic regurgitation The aortic root is normal size. The inferior vena cava appeared dilated and did not change with respiration (RAP > 20 mmHg) Small pericardial effusion. There are no echocardiographic or Doppler indications for cardiac tamponade MMode/2D Measurements & Calculations RVDd: 3.5 cm LVIDd: 6.4 cm FS: 28.2 % Ao root diam: 3.1 cm IVSd: 2.0 cm LVIDs: 4.6 cm EDV(Teich): 207.1 ml Ao root area: 7.5 cm2 LVPWd: 1.9 cm ESV(Teich): 96.3 ml LA dimension: 5.2 cm EF(Teich): 53.5 % Doppler Measurements & Calculations MV E max allison: MV P1/2t max allison: Ao V2 max: LV V1 max P.3 cm/sec 90.8 cm/sec 180.0 cm/sec 7.2 mmHg MV A max allison: MV P1/2t: 79.7 msec Ao max PG: LV V1 max: 78.0 cm/sec MVA(P1/2t): 2.8 cm2 13.0 mmHg 133.8 cm/sec MV E/A: 1.2 MV dec slope: 333.9 cm/sec2 MV dec time: 0.27 sec PA V2 max: PI end-d allison: TR max allison: MV P1/2t-pr_phl: 89.8 cm/sec 102.8 cm/sec 366.5 cm/sec 79.7 msec PA max PG: TR max P.2 mmHg 53.7 mmHg Left Ventricle The left ventricle is moderately dilated. There is moderate to severe concentric left ventricular hypertrophy. LV EF is 30% to 35%. Left ventricular systolic function is moderate to severely reduced. There is moderate to severe global hypokinesis of the left ventricle. There is no thrombus. Right Ventricle The right ventricle is mild to moderately dilated. There is a pacemaker lead in the right ventricle. The right ventricular systolic function is mildly reduced. Atria The right atrium is mildly dilated. The left atrium is moderately dilated. Mitral Valve There is no evidence of mitral valve prolapse. There is no vegetation seen on the mitral valve. There is no mitral valve stenosis. There is a mild amount of mitral regurgitation. Aortic Valve There is no aortic valvular vegetation. There is no aortic valve stenosis. There is no LVOT obstruction. No aortic regurgitation is present. Tricuspid Valve There is no tricuspid stenosis. There is servere pulmonary hypertension by echo. There is a moderate to severe amount of tricuspid regurgitation. RVSP is at least 74 mm of Hg , with RA mean of 20. Pulmonic Valve There is no pulmonic valvular stenosis. There is a trace amount of pulmonic regurgitation. Great Vessels The aortic root is normal size. The inferior vena cava appeared dilated and did not change with respiration (RAP > 20 mmHg). Effusions Small pericardial effusion. There are no echocardiographic or Doppler indications for cardiac tamponade. : ZULEIMA SCHNEIDER > Jeannine Ling
[2018-04-23 05:18] LABS: BLOOD UREA NITROGEN 39 mg/dL (7-20); CALCIUM 8.5 mg/dL (8.4-10.2); CHLORIDE 94 mmol/L (98-107); GLUCOSE 120 mg/dL (75-110); POTASSIUM 4.3 mmol/L (3.6-5.0); SODIUM 140.7 mmol/L (137-145)
[2018-04-23 07:09] LABS: ANION GAP 4 (5-19); CARBON DIOXIDE 43 mmol/L (22-30)
[2018-04-23] MEDS: FUROSEMIDE INJ/PF 40 MG/4 ML SDV IV SCH (10:15)
[2018-04-23] MEDS: APIXABAN 5 MG TABLET PO SCH (10:16)
[2018-04-23] MEDS: SPIRONOLACTONE 25 MG TABLET PO SCH ×2 (10:17→23:02)
[2018-04-23] MEDS: CARVEDILOL 12.5 MG TABLET PO SCH ×2 (10:17→23:02)
[2018-04-23] MEDS: METOPROLOL SUCCINATE 50 MG TAB.SR.24H PO SCH ×2 (10:18→23:03)
[2018-04-23] MEDS: BACLOFEN 10 MG TABLET PO SCH ×2 (10:18→17:16)
[2018-04-23] MEDS: METOLAZONE 5 MG TABLET PO SCH (10:19)
[2018-04-23] MEDS: FERROUS SULFATE 325 MG TABLET PO SCH ×2 (10:20→17:14)
[2018-04-23] MEDS: VALSARTAN 160 MG TABLET PO SCH (10:20)
[2018-04-23] MEDS: DOCUSATE SODIUM 100 MG/10 ML UDC PO SCH ×2 (10:20→17:15)
[2018-04-23] MEDS: FAMOTIDINE INJ/PF 20 MG/2 ML SDV IV SCH ×3 (10:20→23:17)
[2018-04-23] MEDS: GABAPENTIN 300 MG CAPSULE PO SCH ×2 (10:20→23:02)
[2018-04-23] MEDS: ISOSORBIDE MONONITRATE 30 MG TAB.ER.24H PO SCH (10:21)
[2018-04-23] MEDS: ACETAMINOPHEN 325 MG TABLET PO PRN ×2 (10:21→17:15)
[2018-04-23] MEDS: INSULIN GLARGINE,HUM.REC.ANLOG 1,000 UNIT/10 ML UNIT SUBCUT SCH (10:23)
--- NOTE | 2018-04-23 13:51 | PDOC PROGRESS REPORT ---
Subjective Progress Note for:: 04/23/18 Subjective:: This is a 62 yr old female with a PMH of chronic combined systolic and diastolic heart failure from ischemic cardiomyopathy (last EF of 30%), S/P AICD placement, morbid obesity, CKD 3, DAIANA, IDDM and HTN who presented with worsening SOB and was admitted for CHF exacerbation. No acute event overnight. She is diuresing well. She continues to improve and says her SOB, abdominal tightness and leg swelling continue to improve and says she is close to her baseline. Creatinine has trended down today to 1.6 today. She denies she is on CPAP at home although there is documented history of DAIANA on previous notes. Previous note also documented she was recommended CPAP before but did not comply and was lost to follow up. She did say she was able to sleep better with the BIPAP at night. Overnight pulse ox done last night 04/22/18 on 2L and she did desaturate, lowest one at 59%. Reason For Visit: EXACERBATION OF CHF Physical Exam Vital Signs: Temp Pulse Resp BP Pulse Ox 98.1 F 58 L 20 115/68 100 04/23/18 12:00 04/23/18 12:00 04/23/18 12:00 04/23/18 12:00 04/23/18 12:00 Pulse Oximeter Nocturnal Start: 04/22/18 11:40 Freq: RTQ4 Status: Complete Protocol: Document 04/23/18 04:09 MED (Rec: 04/23/18 04:09 MED [id number]) Nocturnal Pulse Oximetry Equipment Usage Equipment in Use Oxygen Delivery Method (includes room Nasal Cannula air) O2 Sat by Pulse Oximetry (92-100) 97 Continuous SpO2 Machine # 2 Intake & Output 04/22/18 04/23/18 04/24/18 06:59 06:59 06:59 Intake Total 922 240 Output Total 3471 2340 Balance -553 -2910 Weight 466 lb 4.443 oz 465 lb 2.806 oz General appearance: PRESENT: no acute distress, morbidly obese Head exam: PRESENT: atraumatic, normocephalic Eye exam: PRESENT: conjunctiva pink, EOMI, PERRLA. ABSENT: scleral icterus Ear exam: PRESENT: normal external ear exam Mouth exam: PRESENT: moist, tongue midline Neck exam: ABSENT: carotid bruit, JVD, lymphadenopathy, thyromegaly Respiratory exam: PRESENT: clear to auscultation justin. ABSENT: rales, rhonchi, wheezes Cardiovascular exam: PRESENT: RRR. ABSENT: diastolic murmur, rubs, systolic murmur Pulses: PRESENT: normal dorsalis pedis pul GI/Abdominal exam: PRESENT: normal bowel sounds, soft. ABSENT: distended, guarding, mass, organolmegaly, rebound, tenderness Rectal exam: PRESENT: deferred Extremities exam: PRESENT: +2 edema Results Laboratory Results: 04/22/18 04:40 04/23/18 04:32 04/23/18 04:32 Sodium 140.7 Potassium 4.3 Chloride 94 L Carbon Dioxide 43 H* Anion Gap 4 L BUN 39 H Creatinine 1.67 H Est GFR ( Amer) 38 L Est GFR (Non-Af Amer) 31 L Glucose 120 H Calcium 8.5 04/19/18 04/19/18 04/19/18 12:33 17:31 17:31 Creatine Kinase 54 CK-MB (CK-2) 0.74 Troponin I 0.050 0.053 NT-Pro-B Natriuret Pep 5460 H 04/19/18 04/19/18 04/20/18 22:40 22:40 04:59 Creatine Kinase 50 48 CK-MB (CK-2) 0.66 Troponin I 0.056 NT-Pro-B Natriuret Pep 04/20/18 04:59 Creatine Kinase CK-MB (CK-2) 0.60 Troponin I 0.060 NT-Pro-B Natriuret Pep 6620 H Assessment & Plan - Diagnosis (1) Acute on chronic congestive heart failure Qualifiers: Heart failure type: combined systolic and diastolic Qualified Code(s): I50.43 - Acute on chronic combined systolic (congestive) and diastolic (congestive) heart failure Is this a current diagnosis for this admission?: Yes Plan: Improving. Combined systolic and diastolic heart failure (last EF of 30-35% with grade 2 diasotlic dysfunction. Likely secondary to excess fluid intake. As mentioned, patient says she drinks a lot of water at home and claims she was told by her health providers to drink at least 8 glasses of water a day. She says she uses a 16 oz glass at home. Discussed in length that she needs to be on fluid restriction (1.5L/day). She says she has never been told about restricting her fluids and was told the opposite thing. 04/21/18: Reduced Lasix from 40 q8 to 40 daily IV due to PASHA and contraction alkalosis. Continue salt and fluid restriction. Continue PO metolazone, Coreg, valsartan and spironolactone. (2) IDDM (insulin dependent diabetes mellitus) Is this a current diagnosis for this admission?: Yes Plan: Sugars at goal. Continue Lantus and sliding scale. (3) Acute kidney injury superimposed on chronic kidney disease Is this a current diagnosis for this admission?: Yes Plan: Improving. Creatinine has trended down to 1.6. Likely pre renal from IV diuresis. She also has developed contraction alkalosis. Lasix decreased to 40 mg daily. Repeat BMP tomorrow. (4) Hypercapnic respiratory failure Qualifiers: Chronicity: chronic Qualified Code(s): J96.12 - Chronic respiratory failure with hypercapnia Is this a current diagnosis for this admission?: Yes Plan: Likely from long standing DAIANA. BIPAP at night. - Time Time Spent with patient: 25-34 minutes
[2018-04-23] MEDS: ATORVASTATIN CALCIUM 20 MG TABLET PO SCH (23:02)
[2018-04-23] MEDS: INSULIN REG, HUMAN 100 UNIT/ML 3 ML VIAL (PYX) SUBCUT PRN (23:03)
[2018-04-24 05:57] LABS: ABSOLUTE EOSINOPHILS # (AUTO) 0.1 10^3/uL (0.0-0.6); ABSOLUTE LYMPHOCYTES (AUTO) 0.9 10^3/uL (0.5-4.7); ABSOLUTE MONOCYTES (AUTO) 0.5 10^3/uL (0.1-1.4); ABSOLUTE NEUT (AUTO) 1.7 10^3/uL (1.7-8.2); BASOPHILS % (AUTO) 1.5 % (0-2); EOSINOPHILS % (AUTO) 2.9 % (0-6); HEMATOCRIT 30.6 % (36.0-47.0); HEMOGLOBIN 9.3 g/dL (12.0-15.5); LYMPHOCYTES % (AUTO) 28.5 % (13-45); MEAN CORPUSCULAR HEMOGLOBIN 23.6 pg (27.0-33.4); MEAN CORPUSCULAR HGB CONC 30.2 g/dL (32.0-36.0); MEAN CORPUSCULAR VOLUME 78 fl (80-97); PLATELET COUNT 106 10^3/uL (150-450); RED BLOOD COUNT 3.93 10^6/uL (3.72-5.28); RED CELL DISTRIBUTION WIDTH 20.2 % (11.5-14.0); SEGMENTED NEUTROPHILS % (AUTO) 51.1 % (42-78); TOTAL CELLS COUNTED % (AUTO) 100 %; WHITE BLOOD COUNT 3.3 10^3/uL (4.0-10.5)
[2018-04-24 06:23] LABS: BLOOD UREA NITROGEN 39 mg/dL (7-20); CALCIUM 8.8 mg/dL (8.4-10.2); CHLORIDE 93 mmol/L (98-107); GLUCOSE 95 mg/dL (75-110); POTASSIUM 4.2 mmol/L (3.6-5.0); SODIUM 142.4 mmol/L (137-145)
[2018-04-24 06:33] LABS: ANION GAP 3 (5-19)
[2018-04-24 06:34] LABS: CARBON DIOXIDE 46 mmol/L (22-30)
[2018-04-24 09:45] LABS: ARTERIAL BLOOD BASE EXCESS 17.9 mmol/L; ARTERIAL BLOOD H2CO3 2.55 mmol/L (1.05-1.35); ARTERIAL BLOOD HCO3 46.8 mmol/L (20-24); ARTERIAL BLOOD PH 7.36 (7.35-7.45); ARTERIAL BLOOD PO2 89.6 mmHg (80-100); ARTERIAL BLOOD TOTAL CO2 49.4 mmol/L (21-25)
[2018-04-24 09:47] LABS: ARTERIAL BLOOD FIO2 30%
[2018-04-24 09:49] LABS: ARTERIAL BLOOD PCO2 84.7 mmHg (35-45)
[2018-04-24] MEDS: APIXABAN 5 MG TABLET PO SCH (10:16)
[2018-04-24] MEDS: GABAPENTIN 300 MG CAPSULE PO SCH ×2 (10:16→22:12)
[2018-04-24] MEDS: ISOSORBIDE MONONITRATE 30 MG TAB.ER.24H PO SCH (10:16)
[2018-04-24] MEDS: SPIRONOLACTONE 25 MG TABLET PO SCH ×2 (10:16→22:13)
[2018-04-24] MEDS: VALSARTAN 160 MG TABLET PO SCH (10:17)
[2018-04-24] MEDS: DOCUSATE SODIUM 100 MG/10 ML UDC PO SCH ×2 (10:17→17:14)
[2018-04-24] MEDS: METOPROLOL SUCCINATE 50 MG TAB.SR.24H PO SCH ×2 (10:17→22:12)
[2018-04-24] MEDS: BACLOFEN 10 MG TABLET PO SCH ×2 (10:17→17:14)
[2018-04-24] MEDS: CARVEDILOL 12.5 MG TABLET PO SCH ×2 (10:17→22:12)
[2018-04-24] MEDS: FERROUS SULFATE 325 MG TABLET PO SCH ×2 (10:18→17:14)
[2018-04-24] MEDS: FUROSEMIDE INJ/PF 40 MG/4 ML SDV IV SCH (10:19)
[2018-04-24] MEDS: INSULIN GLARGINE,HUM.REC.ANLOG 1,000 UNIT/10 ML UNIT SUBCUT SCH (10:19)
[2018-04-24] MEDS: FAMOTIDINE INJ/PF 20 MG/2 ML SDV IV SCH ×3 (10:19→22:35)
--- NOTE | 2018-04-24 13:57 | PDOC PROGRESS REPORT ---
Subjective Progress Note for:: 04/24/18 Subjective:: This is a 62 yr old female with a PMH of chronic combined systolic and diastolic heart failure from ischemic cardiomyopathy (last EF of 30%), S/P AICD placement, morbid obesity, CKD 3, DAIANA, IDDM and HTN who presented with worsening SOB and was admitted for CHF exacerbation. Overnight pulse ox done on 04/22/18 on 2L and she did desaturate, lowest one at 59%. 04/23/18: No acute event overnight. She is diuresing well. She continues to improve and says her SOB, abdominal tightness and leg swelling continue to improve and says she is close to her baseline. Creatinine has trended down today to 1.6 today. She denies she is on CPAP at home although there is documented history of DAIANA on previous notes. Previous note also documented she was recommended CPAP before but did not comply and was lost to follow up. She did say she was able to sleep better with the BIPAP at night. 04/24/18: Patient apparently was not placed on BIPAP overnight. This morning, she was slightly lethargic but arousable. She says she was not put on BIPAP last night. Stat ABG shows a PCO2 of 84. She has been resumed on BIPAP and did have significant improvement in mentation thereafter. Denies chest pain. Edema continues to improve. Reason For Visit: EXACERBATION OF CHF Physical Exam Vital Signs: Temp Pulse Resp BP Pulse Ox 97.3 F 61 22 H 136/78 H 100 04/24/18 12:00 04/24/18 12:00 04/24/18 12:00 04/24/18 12:00 04/24/18 12:00 Pulse Oximeter Nocturnal Start: 04/22/18 11:40 Freq: RTQ4 Status: Complete Protocol: Document 04/23/18 04:09 MED (Rec: 04/23/18 04:09 MED [id number]) Nocturnal Pulse Oximetry Equipment Usage Equipment in Use Oxygen Delivery Method (includes room Nasal Cannula air) O2 Sat by Pulse Oximetry (92-100) 97 Continuous SpO2 Machine # 2 Intake & Output 04/23/18 04/24/18 04/25/18 06:59 06:59 06:59 Intake Total 240 950 Output Total 3150 750 Balance -2910 200 Weight 465 lb 2.806 oz 439 lb 6.1 oz General appearance: PRESENT: no acute distress, morbidly obese Head exam: PRESENT: atraumatic, normocephalic Eye exam: PRESENT: conjunctiva pink, EOMI, PERRLA. ABSENT: scleral icterus Ear exam: PRESENT: normal external ear exam Mouth exam: PRESENT: moist, tongue midline Neck exam: ABSENT: carotid bruit, JVD, lymphadenopathy, thyromegaly Respiratory exam: PRESENT: clear to auscultation justin. ABSENT: rales, rhonchi, wheezes Cardiovascular exam: PRESENT: RRR. ABSENT: diastolic murmur, rubs, systolic murmur Pulses: PRESENT: normal dorsalis pedis pul GI/Abdominal exam: ABSENT: mass, tenderness Rectal exam: PRESENT: deferred Extremities exam: PRESENT: +2 edema Neurological exam: PRESENT: oriented to person, oriented to place, oriented to time, oriented to situation, CN II-XII grossly intact. ABSENT: motor sensory deficit Results Laboratory Results: 04/24/18 05:38 04/24/18 05:38 04/24/18 04/24/18 04/24/18 05:38 05:38 09:30 WBC 3.3 L RBC 3.93 Hgb 9.3 L Hct 30.6 L MCV 78 L MCH 23.6 L MCHC 30.2 L RDW 20.2 H Plt Count 106 L Seg Neutrophils % 51.1 Lymphocytes % 28.5 Monocytes % 16.0 H Eosinophils % 2.9 Basophils % 1.5 Absolute Neutrophils 1.7 Absolute Lymphocytes 0.9 Absolute Monocytes 0.5 Absolute Eosinophils 0.1 Absolute Basophils 0.0 Carbonic Acid 2.55 H HCO3/H2CO3 Ratio 18:1 ABG pH 7.36 ABG pCO2 84.7 H* ABG pO2 89.6 ABG HCO3 46.8 H ABG O2 Saturation 96.0 ABG Base Excess 17.9 FiO2 30% Sodium 142.4 Potassium 4.2 Chloride 93 L Carbon Dioxide 46 H* Anion Gap 3 L BUN 39 H Creatinine 1.56 H Est GFR ( Amer) 41 L Est GFR (Non-Af Amer) 34 L Glucose 95 Calcium 8.8 04/19/18 04/19/18 04/19/18 12:33 17:31 17:31 Creatine Kinase 54 CK-MB (CK-2) 0.74 Troponin I 0.050 0.053 NT-Pro-B Natriuret Pep 5460 H 04/19/18 04/19/18 04/20/18 22:40 22:40 04:59 Creatine Kinase 50 48 CK-MB (CK-2) 0.66 Troponin I 0.056 NT-Pro-B Natriuret Pep 04/20/18 04:59 Creatine Kinase CK-MB (CK-2) 0.60 Troponin I 0.060 NT-Pro-B Natriuret Pep 6620 H Assessment & Plan - Diagnosis (1) Acute on chronic congestive heart failure Qualifiers: Heart failure type: combined systolic and diastolic Qualified Code(s): I50.43 - Acute on chronic combined systolic (congestive) and diastolic (congestive) heart failure Is this a current diagnosis for this admission?: Yes Plan: Improving. Combined systolic and diastolic heart failure (last EF of 30-35% with grade 2 diasotlic dysfunction. Likely secondary to excess fluid intake. As mentioned, patient says she drinks a lot of water at home and claims she was told by her health providers to drink at least 8 glasses of water a day. She says she uses a 16 oz glass at home. Discussed in length that she needs to be on fluid restriction (1.5L/day). She says she has never been told about restricting her fluids and was told the opposite thing. 04/21/18: Reduced Lasix from 40 q8 to 40 daily IV due to PASHA and contraction alkalosis. Continue salt and fluid restriction. Continue PO metolazone, Coreg, valsartan and spironolactone. (2) IDDM (insulin dependent diabetes mellitus) Is this a current diagnosis for this admission?: Yes Plan: Sugars at goal. Continue Lantus and sliding scale. (3) Acute kidney injury superimposed on chronic kidney disease Is this a current diagnosis for this admission?: Yes Plan: Improving. Creatinine continues to trend down to 1.5. Likely pre renal from IV diuresis. Continue Lasix 40 mg daily. Repeat BMP tomorrow. (4) Hypercapnic respiratory failure Qualifiers: Chronicity: acute on chronic Qualified Code(s): J96.22 - Acute and chronic respiratory failure with hypercapnia Is this a current diagnosis for this admission?: Yes Plan: Likely from long standing DAIANA, COPD and obesity hypoventilation. BIPAP at night. 04/24/18: Patient apparently was not placed on BIPAP overnight. This morning, she was slightly lethargic but arousable. She says she was not put on BIPAP last n ight. Stat ABG shows a PCO2 of 84. She has been resumed on BIPAP and did have significant improvement in mentation thereafter. Denies chest pain. Edema continues to improve. Will keep on BIPAP for now. - Time Time Spent with patient: 25-34 minutes
[2018-04-24] MEDS: ATORVASTATIN CALCIUM 20 MG TABLET PO SCH (22:12)
[2018-04-24] MEDS: INSULIN REG, HUMAN 100 UNIT/ML 3 ML VIAL (PYX) SUBCUT PRN (22:14)
[2018-04-25] MEDS: DOCUSATE SODIUM 100 MG/10 ML UDC PO SCH ×2 (09:11→17:03)
[2018-04-25] MEDS: FAMOTIDINE INJ/PF 20 MG/2 ML SDV IV SCH ×2 (09:13→22:24)
[2018-04-25] MEDS: GABAPENTIN 300 MG CAPSULE PO SCH ×2 (09:16→22:23)
[2018-04-25] MEDS: METOLAZONE 5 MG TABLET PO SCH (09:16)
[2018-04-25] MEDS: METOPROLOL SUCCINATE 50 MG TAB.SR.24H PO SCH ×2 (09:16→22:23)
[2018-04-25] MEDS: ISOSORBIDE MONONITRATE 30 MG TAB.ER.24H PO SCH (09:16)
[2018-04-25] MEDS: BACLOFEN 10 MG TABLET PO SCH ×2 (09:16→17:07)
[2018-04-25] MEDS: FERROUS SULFATE 325 MG TABLET PO SCH ×2 (09:16→17:08)
[2018-04-25] MEDS: APIXABAN 5 MG TABLET PO SCH (09:16)
[2018-04-25] MEDS: VALSARTAN 160 MG TABLET PO SCH (09:16)
[2018-04-25] MEDS: FUROSEMIDE INJ/PF 40 MG/4 ML SDV IV SCH (09:17)
[2018-04-25] MEDS: INSULIN GLARGINE,HUM.REC.ANLOG 1,000 UNIT/10 ML UNIT SUBCUT SCH (09:17)
[2018-04-25] MEDS: CARVEDILOL 12.5 MG TABLET PO SCH ×2 (09:17→22:22)
[2018-04-25] MEDS: SPIRONOLACTONE 25 MG TABLET PO SCH ×2 (09:17→22:23)
[2018-04-25 09:42] LABS: ABSOLUTE BASOPHILS # (AUTO) 0.1 10^3/uL (0.0-0.2); ABSOLUTE EOSINOPHILS # (AUTO) 0.1 10^3/uL (0.0-0.6); ABSOLUTE LYMPHOCYTES (AUTO) 1.2 10^3/uL (0.5-4.7); ABSOLUTE MONOCYTES (AUTO) 0.4 10^3/uL (0.1-1.4); ABSOLUTE NEUT (AUTO) 1.8 10^3/uL (1.7-8.2); BASOPHILS % (AUTO) 1.7 % (0-2); EOSINOPHILS % (AUTO) 2.2 % (0-6); HEMATOCRIT 27.4 % (36.0-47.0); HEMOGLOBIN 8.6 g/dL (12.0-15.5); LYMPHOCYTES % (AUTO) 33.8 % (13-45); MEAN CORPUSCULAR HEMOGLOBIN 24.1 pg (27.0-33.4); MEAN CORPUSCULAR HGB CONC 31.3 g/dL (32.0-36.0); MEAN CORPUSCULAR VOLUME 77 fl (80-97); PLATELET COUNT 117 10^3/uL (150-450); RED BLOOD COUNT 3.56 10^6/uL (3.72-5.28); RED CELL DISTRIBUTION WIDTH 19.9 % (11.5-14.0); SEGMENTED NEUTROPHILS % (AUTO) 51.3 % (42-78); TOTAL CELLS COUNTED % (AUTO) 100 %; WHITE BLOOD COUNT 3.5 10^3/uL (4.0-10.5)
[2018-04-25 10:20] LABS: ANION GAP 7 (5-19); BLOOD UREA NITROGEN 41 mg/dL (7-20); CALCIUM 8.8 mg/dL (8.4-10.2); CARBON DIOXIDE 39 mmol/L (22-30); CHLORIDE 94 mmol/L (98-107); GLUCOSE 123 mg/dL (75-110); POTASSIUM 4.4 mmol/L (3.6-5.0)
--- NOTE | 2018-04-25 11:45 | PDOC PROGRESS REPORT ---
Subjective Progress Note for:: 04/25/18 Subjective:: This is a 62 yr old female with a PMH of chronic combined systolic and diastolic heart failure from ischemic cardiomyopathy (last EF of 30%), S/P AICD placement, morbid obesity, CKD 3, DAIANA, IDDM and HTN who presented with worsening SOB and was admitted for CHF exacerbation. Overnight pulse ox done on 04/22/18 on 2L and she did desaturate, lowest one at 59%. 04/23/18: No acute event overnight. She is diuresing well. She continues to improve and says her SOB, abdominal tightness and leg swelling continue to improve and says she is close to her baseline. Creatinine has trended down today to 1.6 today. She denies she is on CPAP at home although there is documented history of DAIANA on previous notes. Previous note also documented she was recommended CPAP before but did not comply and was lost to follow up. She did say she was able to sleep better with the BIPAP at night. 04/24/18: Patient apparently was not placed on BIPAP overnight. This morning, she was slightly lethargic but arousable. She says she was not put on BIPAP last night. Stat ABG shows a PCO2 of 84. She has been resumed on BIPAP and did have significant improvement in mentation thereafter. Denies chest pain. Edema continues to improve. 04/25/09: No acute event overnight. Patient was on BIPAP the whole night. No recurrence of lethargy or confusion. She continues to diurese well and edema c ontinues to improve. Creatinine and HCO3 also continue to improve. She says she is close to her baseline. Discharge planning also working on getting her home BIPAP. Reason For Visit: EXACERBATION OF CHF Physical Exam Vital Signs: Temp Pulse Resp BP Pulse Ox 98.0 F 58 L 21 H 132/73 H 93 04/25/18 08:00 04/25/18 08:00 04/25/18 08:00 04/25/18 08:00 04/25/18 10:31 Pulse Oximeter Nocturnal Start: 04/22/18 11:40 Freq: RTQ4 Status: Complete Protocol: Document 04/23/18 04:09 MED (Rec: 04/23/18 04:09 MED [id number]) Nocturnal Pulse Oximetry Equipment Usage Equipment in Use Oxygen Delivery Method (includes room Nasal Cannula air) O2 Sat by Pulse Oximetry (92-100) 97 Continuous SpO2 Machine # 2 Intake & Output 04/24/18 04/25/18 04/26/18 06:59 06:59 06:59 Intake Total 950 927 Output Total 750 220 Balance 200 707 Weight 439 lb 6.1 oz 438 lb 11.518 oz General appearance: PRESENT: no acute distress, morbidly obese Head exam: PRESENT: atraumatic, normocephalic Eye exam: PRESENT: conjunctiva pink, EOMI, PERRLA. ABSENT: scleral icterus Ear exam: PRESENT: normal external ear exam Neck exam: ABSENT: carotid bruit, JVD, lymphadenopathy, thyromegaly Respiratory exam: PRESENT: clear to auscultation justin. ABSENT: rales, rhonchi, wheezes Cardiovascular exam: PRESENT: RRR. ABSENT: clicks GI/Abdominal exam: ABSENT: mass, tenderness Rectal exam: PRESENT: deferred Extremities exam: PRESENT: +2 edema Neurological exam: PRESENT: alert, awake, oriented to person, oriented to place, oriented to time, oriented to situation, CN II-XII grossly intact. ABSENT: motor sensory deficit Results Laboratory Results: 04/25/18 09:27 04/25/18 09:27 04/25/18 04/25/18 09:27 09:27 WBC 3.5 L RBC 3.56 L Hgb 8.6 L Hct 27.4 L MCV 77 L MCH 24.1 L MCHC 31.3 L RDW 19.9 H Plt Count 117 L Seg Neutrophils % 51.3 Lymphocytes % 33.8 Monocytes % 11.0 Eosinophils % 2.2 Basophils % 1.7 Absolute Neutrophils 1.8 Absolute Lymphocytes 1.2 Absolute Monocytes 0.4 Absolute Eosinophils 0.1 Absolute Basophils 0.1 Sodium 140.0 Potassium 4.4 Chloride 94 L Carbon Dioxide 39 H Anion Gap 7 BUN 41 H Creatinine 1.47 H Est GFR ( Amer) 44 L Est GFR (Non-Af Amer) 36 L Glucose 123 H Calcium 8.8 04/19/18 04/19/18 04/19/18 12:33 17:31 17:31 Creatine Kinase 54 CK-MB (CK-2) 0.74 Troponin I 0.050 0.053 NT-Pro-B Natriuret Pep 5460 H 04/19/18 04/19/18 04/20/18 22:40 22:40 04:59 Creatine Kinase 50 48 CK-MB (CK-2) 0.66 Troponin I 0.056 NT-Pro-B Natriuret Pep 04/20/18 04:59 Creatine Kinase CK-MB (CK-2) 0.60 Troponin I 0.060 NT-Pro-B Natriuret Pep 6620 H Assessment & Plan - Diagnosis (1) Acute on chronic congestive heart failure Qualifiers: Heart failure type: combined systolic and diastolic Qualified Code(s): I50.43 - Acute on chronic combined systolic (congestive) and diastolic (congestive) heart failure Is this a current diagnosis for this admission?: Yes Plan: Improving. Combined systolic and diastolic heart failure (last EF of 30-35% with grade 2 diasotlic dysfunction. Likely secondary to excess fluid intake. As mentioned, patient says she drinks a lot of water at home and claims she was told by her health providers to drink at least 8 glasses of water a day. She says she uses a 16 oz glass at home. Discussed in length that she needs to be on fluid restriction (1.5L/day). She says she has never been told about restricting her fluids and was told the opposite thing. 04/21/18: Reduced Lasix from 40 q8 to 40 daily IV due to PASHA and contraction alkalosis. Continue salt and fluid restriction. 04/25/18: Will DC IV Lasix and switch back to home oral Lasix. Continue PO metolazone, Coreg, valsartan and spironolactone. (2) Hypercapnic respiratory failure Qualifiers: Chronicity: acute on chronic Qualified Code(s): J96.22 - Acute and chronic respiratory failure with hypercapnia Is this a current diagnosis for this admission?: Yes Plan: Likely from long standing COPD, DAIANA and obesity hypoventilation. BIPAP at night. 04/24/18: Patient apparently was not placed on BIPAP overnight. This morning, she was slightly lethargic but arousable. She says she was not put on BIPAP last night. Stat ABG shows a PCO2 of 84. She has been resumed on BIPAP and did have significant improvement in mentation thereafter. Denies chest pain. Edema continues to improve. Continue BIPAP at night and during sleep. (3) IDDM (insulin dependent diabetes mellitus) Is this a current diagnosis for this admission?: Yes Plan: Sugars at goal. Continue Lantus and sliding scale. (4) Acute kidney injury superimposed on chronic kidney disease Is this a current diagnosis for this admission?: Yes Plan: Improving. Creatinine continues to trend down to 1.4 today. Likely pre renal from IV diuresis. Continue Lasix 40 mg daily. Repeat BMP tomorrow. - Time Time Spent with patient: 25-34 minutes
[2018-04-25] MEDS: FUROSEMIDE 80 MG TABLET PO SCH (17:08)
[2018-04-25] MEDS: ATORVASTATIN CALCIUM 20 MG TABLET PO SCH (22:23)
[2018-04-26 06:20] LABS: BLOOD UREA NITROGEN 44 mg/dL (7-20); CHLORIDE 95 mmol/L (98-107); GLUCOSE 105 mg/dL (75-110); POTASSIUM 4.6 mmol/L (3.6-5.0); SODIUM 138.8 mmol/L (137-145)
[2018-04-26 06:36] LABS: ANION GAP 4 (5-19)
[2018-04-26 06:39] LABS: CARBON DIOXIDE 40 mmol/L (22-30)
[2018-04-26] MEDS: SPIRONOLACTONE 25 MG TABLET PO SCH (09:41)
[2018-04-26] MEDS: BACLOFEN 10 MG TABLET PO SCH ×2 (09:42→18:52)
[2018-04-26] MEDS: GABAPENTIN 300 MG CAPSULE PO SCH (09:43)
[2018-04-26] MEDS: FUROSEMIDE 80 MG TABLET PO SCH ×2 (09:44→18:52)
[2018-04-26] MEDS: APIXABAN 5 MG TABLET PO SCH (09:44)
[2018-04-26] MEDS: FERROUS SULFATE 325 MG TABLET PO SCH ×2 (09:44→18:52)
[2018-04-26] MEDS: FAMOTIDINE INJ/PF 20 MG/2 ML SDV IV SCH (09:45)
[2018-04-26] MEDS: INSULIN GLARGINE,HUM.REC.ANLOG 1,000 UNIT/10 ML UNIT SUBCUT SCH (09:50)
[2018-04-26] MEDS: DOCUSATE SODIUM 100 MG/10 ML UDC PO SCH ×2 (09:51→19:29)
--- NOTE | 2018-04-26 12:24 | Pulmonary Function Test ---
Pulmonary Function Test Date of Procedure:: 04/23/18 INDICATION:: Dyspnea Referring Provider: Missael Keating M.D. - Report Spirometry: FVC 1.16 L 31% postbronchodilator 1.29 L 34% FEV1 1.06 L 35% postbronchodilator 1.10 L 37% FEV1/FVC % 91 postbronchodilator 85 predicted 77 FEF 25-75% 3.02 L 97% postbronchodilator 1.63 L 52% Impression: Severe obstructive ventilatory defect is inferred by the decreased in the FEF 25-75%. Restrictive defect is inferred by the decrease in FVC. However restrictive disease cannot be diagnosed soley on the basis of spirometry. There is a defect may mask the degree of obstruction. If clinically indicated complete pulmonary function test would be warranted
[2018-04-26] MEDS: METOPROLOL SUCCINATE 50 MG TAB.SR.24H PO SCH (14:26)
[2018-04-26] MEDS: CARVEDILOL 12.5 MG TABLET PO SCH (14:28)
[2018-04-26] MEDS: VALSARTAN 160 MG TABLET PO SCH (14:28)
[2018-04-26] MEDS: ISOSORBIDE MONONITRATE 30 MG TAB.ER.24H PO SCH (14:29)
--- NOTE | 2018-04-26 16:46 | PDOC PROGRESS REPORT ---
Subjective Progress Note for:: 04/26/18 Subjective:: doing better Reason For Visit: EXACERBATIon CHF/ Hypercapnic RespiratoryFailure Physical Exam Vital Signs: Temp Pulse Resp BP Pulse Ox 97.5 F 62 20 147/89 H 100 04/26/18 11:16 04/26/18 14:00 04/26/18 11:16 04/26/18 11:16 04/26/18 11:16 Pulse Oximeter Nocturnal Start: 04/22/18 11:40 Freq: RTQ4 Status: Complete Protocol: Document 04/23/18 04:09 MED (Rec: 04/23/18 04:09 MED [email or web address]) Nocturnal Pulse Oximetry Equipment Usage Equipment in Use Oxygen Delivery Method (includes room Nasal Cannula air) O2 Sat by Pulse Oximetry (92-100) 97 Continuous SpO2 Machine # 2 Intake & Output 04/25/18 04/26/18 04/27/18 06:59 06:59 06:59 Intake Total 927 855 500 Output Total 220 Balance 707 855 500 Weight 199 kg 211.5 kg General appearance: PRESENT: no acute distress, cooperative, disheveled, mor bidly obese Head exam: PRESENT: atraumatic, normocephalic Eye exam: PRESENT: conjunctiva pale, EOMI. ABSENT: nystagmus, scleral icterus Mouth exam: PRESENT: moist, neck supple, tongue midline Neck exam: ABSENT: carotid bruit, JVD, lymphadenopathy, thyromegaly, tracheal deviation, tracheostomy Respiratory exam: PRESENT: decreased breath sounds, prolonged expiratory phas, r ales, rhonchi, unlabored, wheezes. ABSENT: tachypnea Cardiovascular exam: PRESENT: RRR, +S1, +S2 Pulses: PRESENT: normal radial pulses GI/Abdominal exam: PRESENT: normal bowel sounds, soft. ABSENT: tenderness Rectal exam: PRESENT: deferred Extremities exam: PRESENT: pedal edema, +2 edema. ABSENT: calf tenderness, clubbing, joint swelling Musculoskeletal exam: ABSENT: deformity, dislocation Neurological exam: PRESENT: alert, awake Psychiatric exam: PRESENT: appropriate affect Skin exam: PRESENT: dry, warm Results Laboratory Results: 04/25/18 09:27 04/26/18 04:53 04/26/18 04:53 Sodium 138.8 Potassium 4.6 Chloride 95 L Carbon Dioxide 40 H* Anion Gap 4 L BUN 44 H Creatinine 1.49 H Est GFR ( Amer) 43 L Est GFR (Non-Af Amer) 36 L Glucose 105 Calcium 9.0 04/19/18 04/19/18 04/19/18 12:33 17:31 17:31 Creatine Kinase 54 CK-MB (CK-2) 0.74 Troponin I 0.050 0.053 NT-Pro-B Natriuret Pep 5460 H 04/19/18 04/19/18 04/20/18 22:40 22:40 04:59 Creatine Kinase 50 48 CK-MB (CK-2) 0.66 Troponin I 0.056 NT-Pro-B Natriuret Pep 04/20/18 04:59 Creatine Kinase CK-MB (CK-2) 0.60 Troponin I 0.060 NT-Pro-B Natriuret Pep 6620 H Assessment & Plan - Diagnosis (1) COPD (chronic obstructive pulmonary disease) Qualifiers: Is this a current diagnosis for this admission?: Yes Plan: Generic Name Dose Route Start Last Admin Trade Name Freq PRN Reason Stop Dose Admin Albuterol 2 puff 04/19/18 16:51 Proair Hfa Inhalation Aerosol 8.5 Gm Mdi IH 05/19/18 16:50 Q4HP PRN SHORTNESS OF BREATH Albuterol/Ipratropium 3 ml 04/19/18 16:31 04/23/18 14:30 Duoneb 3 Ml Ampul NEB 05/19/18 16:30 3 ml RTQ4HP PRN SHORTNESS OF BREATH Levalbuterol HCl 0.63 mg 04/19/18 16:31 Xopenex Neb 0.63 Mg/3 Ml Ampul NEB 05/19/18 16:30 RTQ4HP PRN SHORTNESS OF BREATH Consider inhaled corticosteroid (2) Hypercapnic respiratory failure, chronic Is this a current diagnosis for this admission?: Yes Plan: Failed BiPAP The above patient has failed BiPAP. This patient would benefit from noninvasive mechanical ventilation via the trilogy AVAPS/AE and faster responding AVAPS rates. The trilogy is able to provide a target tidal volume and also adjusting the EPAP pressures to maintain a patent airway as well as an oral backup rate this machine will help improve PaCO2 levels. The severity of the patient's condition will lead to future hospitalizations and readmissions as well as life- threatening situations without the use of this device day and night. Trilogy home vent needed for hypercapnic respiratory failure. [facility] or [facility] [place] to follow for trilogy set up. (3) Morbidly obese Is this a current diagnosis for this admission?: Yes Plan: Consider bariatric surgery (4) Hypertension Qualifiers: Hypertension type: essential hypertension Qualified Code(s): I10 - Essent ial (primary) hypertension Is this a current diagnosis for this admission?: Yes Plan: Stable at this time (5) Obstructive sleep apnea Is this a current diagnosis for this admission?: Yes Plan: Benefit from trilogy
--- NOTE | 2018-04-26 16:52 | PDOC CONSULTATION ---
Consultation Consult Date: 04/23/18 Attending physician:: TERESO MALCOLM Consult reason:: dyspnea History of Present Illness Admission Date/PCP: 04/19/18 15:55 MARLEY HARDEN MD History of Present Illness: CARLEE WALDROP is a 62 year old female Past Medical History Cardiac Medical History: Reports: Congestive Heart Failure, Hyperlipidema, Hype rtension Pulmonary Medical History: Reports: Chronic Obstructive Pulmonary Disease (COPD) Endocrine Medical History: Reports: Diabetes Mellitus Type 1, Diabetes Mellitus Type 2 Past Surgical History Past Surgical History: Reports: Hysterectomy Social History Information Source: Patient, [facility] Records Smoking Status: Never Smoker Passive smoke exposure as: Both Frequency of Alcohol Use: None Hx Recreational Drug Use: No Drugs: None Hx Prescription Drug Abuse: No Do you have pets?: No Have you had any respiratory illnesses as a child?: No Have you been exposed to any sick contacts recently?: No Have you had any recent respiratory illnesses?: Yes Have you travelled outside of [place] in the past 12 months?: No - Advance Directive Resuscitation Status: Full Code Family History Family History: DM, Hypertension Parental Family History Reviewed: Yes Children Family History Reviewed: Yes Sibling(s) Family History Reviewed.: Yes Medication/Allergy Home Medications: Albuterol Sulfate [Proair HFA Inhalation Aerosol 8.5 gm MDI] 2 puff IH Q4HP PRN 04/19/18 Apixaban [Eliquis 5 mg Tablet] 5 mg PO DAILY 04/19/18 Carvedilol [Coreg 12.5 mg Tablet] 12.5 mg PO Q12 04/19/18 Ferrous Sulfate [Feosol 325 mg Tablet] 325 mg PO BID 04/19/18 Gabapentin [Neurontin 300 mg Capsule] 300 mg PO BID 04/19/18 Insulin Aspart [Novolog Flexpen] 6 units SQ MEALS 04/19/18 Insulin Glargine,Hum.rec.anlog [Lantus Insulin 100 Unit/mL] 20 units SQ QHS 04/19/18 Isosorbide Mononitrate [Imdur 30 mg Tablet.er] 30 mg PO DAILY 04/19/18 Metolazone [Zaroxolyn 5 mg Tablet] 5 mg PO Q2DAYS 04/19/18 Multivitamin [Daily Multiple Vitamin] 1 tab PO DAILY 04/19/18 Potassium Chloride [Klor-Con M10] 10 mg PO DAILY 04/19/18 Atorvastatin Calcium [Lipitor 20 mg Tablet] 20 mg PO QHS #30 tablet 04/26/18 Furosemide [Lasix 40 mg Tablet] 40 mg PO BID #60 tablet 04/26/18 Losartan Potassium [Cozaar] 25 mg PO DAILY #30 tablet 04/26/18 Allergies/Adverse Reactions: No Known Allergies Allergy (Verified 03/20/17 11:03) Review of Systems Constitutional: PRESENT: fatigue, weakness. ABSENT: anorexia, chills, fever(s) Eyes: ABSENT: visual disturbances Ears: ABSENT: hearing changes Nose, Mouth, and Throat: ABSENT: mouth pain Cardiovascular: PRESENT: dyspnea on exertion, edema, orthropnea. ABSENT: palpitations Respiratory: PRESENT: cough, dyspnea, sputum. ABSENT: hemoptysis Gastrointestinal: ABSENT: abdominal pain, bloating, coffee ground emesis, diarrhea, dysphagia, hematemesis, hematochezia, melena Genitourinary: PRESENT: nocturia. ABSENT: dysuria, hematuria Musculoskeletal: ABSENT: joint swelling Integumentary: ABSENT: pruritus, rash Neurological: ABSENT: abnormal gait, abnormal movements, abnormal speech, confusion, focal weakness, lack of coordination Endocrine: ABSENT: cold intolerance, heat intolerance, polydipsia, polyuria Hematologic/Lymphatic: ABSENT: easy bruising Allergic/Immunologic: ABSENT: seasonal rhinorrhea Physical Exam Vital Signs: Temp Pulse Resp BP Pulse Ox 98.4 F 62 20 123/94 H 98 04/23/18 07:21 04/23/18 07:21 04/23/18 07:21 04/23/18 07:21 04/23/18 07:21 Pulse Oximeter Nocturnal Start: 04/22/18 11:40 Freq: RTQ4 Status: Complete Protocol: Document 04/23/18 04:09 MED (Rec: 04/23/18 04:09 MED [id number]) Nocturnal Pulse Oximetry Equipment Usage Equipment in Use Oxygen Delivery Method (includes room Nasal Cannula air) O2 Sat by Pulse Oximetry (92-100) 97 Continuous SpO2 Machine # 2 Intake & Output 04/22/18 04/23/18 04/24/18 06:59 06:59 06:59 Intake Total 922 240 Output Total 1976 2350 Balance -553 -2910 Weight 211.5 kg 211 kg General appearance: PRESENT: no acute distress, cooperative, disheveled, morbidly obese Head exam: PRESENT: atraumatic, normocephalic Eye exam: PRESENT: conjunctiva pale, EOMI. ABSENT: nystagmus, scleral icterus Mouth exam: PRESENT: dry mucosa, neck supple, tongue midline Neck exam: ABSENT: carotid bruit, JVD, lymphadenopathy, thyromegaly, tracheal deviation, tracheostomy Respiratory exam: PRESENT: decreased breath sounds, prolonged expiratory phas, rhonchi, unlabored, wheezes. ABSENT: retraction, tachypnea Cardiovascular exam: PRESENT: RRR, +S1. ABSENT: tachycardia Pulses: PRESENT: normal radial pulses GI/Abdominal exam: PRESENT: soft. ABSENT: tenderness Extremities exam: PRESENT: pedal edema. ABSENT: calf tenderness, clubbing, joint swelling Musculoskeletal exam: ABSENT: deformity, dislocation Neurological exam: PRESENT: alert, awake Psychiatric exam: PRESENT: appropriate affect Skin exam: PRESENT: dry, warm Results Laboratory Results: 04/22/18 04:40 04/23/18 04:32 04/22/18 04/23/18 12:15 04:32 Carbonic Acid 1.86 H HCO3/H2CO3 Ratio 20:1 ABG pH 7.41 ABG pCO2 61.8 H ABG pO2 65.7 L ABG HCO3 38.1 H ABG O2 Saturation 92.5 L ABG Base Excess 11.7 FiO2 28% Sodium 140.7 Potassium 4.3 Chloride 94 L Carbon Dioxide 43 H* Anion Gap 4 L BUN 39 H Creatinine 1.67 H Est GFR ( Amer) 38 L Est GFR (Non-Af Amer) 31 L Glucose 120 H Calcium 8.5 04/19/18 04/19/18 04/19/18 12:33 17:31 17:31 Creatine Kinase 54 CK-MB (CK-2) 0.74 Troponin I 0.050 0.053 NT-Pro-B Natriuret Pep 5460 H 04/19/18 04/19/18 04/20/18 22:40 22:40 04:59 Creatine Kinase 50 48 CK-MB (CK-2) 0.66 Troponin I 0.056 NT-Pro-B Natriuret Pep 04/20/18 04:59 Creatine Kinase CK-MB (CK-2) 0.60 Troponin I 0.060 NT-Pro-B Natriuret Pep 6620 H Assessment & Plan - Diagnosis (1) COPD (chronic obstructive pulmonary disease) Qualifiers: Is this a current diagnosis for this admission?: Yes Plan: Generic Name Dose Route Start Last Admin Trade Name Freq PRN Reason Stop Dose Admin Albuterol 2 puff 04/19/18 16:51 Proair Hfa Inhalation Aerosol 8.5 Gm Mdi IH 05/19/18 16:50 Q4HP PRN SHORTNESS OF BREATH Albuterol/Ipratropium 3 ml 04/19/18 16:31 04/23/18 14:30 Duoneb 3 Ml Ampul NEB 05/19/18 16:30 3 ml RTQ4HP PRN SHORTNESS OF BREATH Levalbuterol HCl 0.63 mg 04/19/18 16:31 Xopenex Neb 0.63 Mg/3 Ml Ampul NEB 05/19/18 16:30 RTQ4HP PRN SHORTNESS OF BREATH Consider inhaled corticosteroid (2) Hypercapnic respiratory failure, chronic Is this a current diagnosis for this admission?: Yes Plan: Failed BiPAP The above patient has failed BiPAP. This patient would benefit from noninvasive mechanical ventilation via the trilogy AVAPS/AE and faster responding AVAPS rates. The trilogy is able to provide a target tidal volume and also adjusting the EPAP pressures to maintain a patent airway as well as an oral backup rate this machine will help improve PaCO2 levels. The severity of the patient's condition will lead to future hospitalizations and readmissions as well as life- threatening situations without the use of this device day and night. Trilogy home vent needed for hypercapnic respiratory failure. [facility] or [facility] [place] to follow for trilogy set up. (3) Morbidly obese Is this a current diagnosis for this admission?: Yes Plan: Consider bariatric surgery (4) Hypertension Qualifiers: Hypertension type: essential hypertension Qualified Code(s): I10 - Essential (primary) hypertension Is this a current diagnosis for this admission?: Yes Plan: Stable at this time (5) Obstructive sleep apnea Is this a current diagnosis for this admission?: Yes Plan: Benefit from trilogy
--- NOTE | 2018-04-26 19:47 | PDOC DISCHARGE SUMMARY ---
General - Admit/Disc Date/PCP Admission Date/Primary Care Provider: 04/19/18 15:55 MARLEY HARDEN MD Discharge Date: 04/26/18 - Discharge Diagnosis (1) Acute on chronic congestive heart failure Is this a current diagnosis for this admission?: Yes (2) IDDM (insulin dependent diabetes mellitus) Is this a current diagnosis for this admission?: Yes (3) Acute kidney injury superimposed on chronic kidney disease Is this a current diagnosis for this admission?: Yes (4) Hypercapnic respiratory failure Is this a current diagnosis for this admission?: Yes - Additional Information Resuscitation Status: Full Code Discharge Diet: As Tolerated, Cardiac, Diabetic Discharge Activity: Activity As Tolerated, Balance Activity w/Rest, Weigh Daily Prescriptions: Atorvastatin Calcium [Lipitor 20 mg Tablet] 20 mg PO QHS #30 tablet Furosemide [Lasix 40 mg Tablet] 40 mg PO BID #60 tablet Losartan Potassium [Cozaar] 25 mg PO DAILY #30 tablet Home Medications: Albuterol Sulfate [Proair HFA Inhalation Aerosol 8.5 gm MDI] 2 puff IH Q4HP PRN 04/19/18 Apixaban [Eliquis 5 mg Tablet] 5 mg PO DAILY 04/19/18 Carvedilol [Coreg 12.5 mg Tablet] 12.5 mg PO Q12 04/19/18 Ferrous Sulfate [Feosol 325 mg Tablet] 325 mg PO BID 04/19/18 Gabapentin [Neurontin 300 mg Capsule] 300 mg PO BID 04/19/18 Insulin Aspart [Novolog Flexpen] 6 units SQ MEALS 04/19/18 Insulin Glargine,Hum.rec.anlog [Lantus Insulin 100 Unit/mL] 20 units SQ QHS 04/19/18 Isosorbide Mononitrate [Imdur 30 mg Tablet.er] 30 mg PO DAILY 04/19/18 Metolazone [Zaroxolyn 5 mg Tablet] 5 mg PO Q2DAYS 04/19/18 Multivitamin [Daily Multiple Vitamin] 1 tab PO DAILY 04/19/18 Potassium Chloride [Klor-Con M10] 10 mg PO DAILY 04/19/18 Atorvastatin Calcium [Lipitor 20 mg Tablet] 20 mg PO QHS #30 tablet 04/26/18 Furosemide [Lasix 40 mg Tablet] 40 mg PO BID #60 tablet 04/26/18 Losartan Potassium [Cozaar] 25 mg PO DAILY #30 tablet 04/26/18 History of Present Illness History of Present Illness: Admitting hospitalist's H&P: CARLEE WALDROP is a 62 year old female history of morbid obesity sleep apnea pacemaker congestive heart failure hypertension diabetes morbid obesity came to the emergency room with complaints of 3 days of shortness of breath it is worsening since yesterday. She usually sleep with the proper position and used 2-3 pillows at night. She is also complaining of increased swelling of the legs and weight gain. She is she is compliant with her medications. Denies any complaints like chest pains cough cold nausea vomiting diarrhea. Denies any headaches or dizzy spells. Today her shortness of breath showed bad even walking less than 10 feet she is getting short winded. The emergency room workup was done chest x-ray shows pulmonary congestion and pedal edema pulse ox are in the lower 80s medical consult was called for admission. Hospital Course Hospital Course: This is a 62 yr old female with a PMH of chronic combined systolic and diastolic heart failure from ischemic cardiomyopathy (last EF of 30%), S/P AICD placement, morbid obesity, CKD 3, DAIANA, IDDM and HTN who presented with worsening SOB and was admitted for CHF exacerbation. Overnight pulse ox done on 04/22/18 on 2L and she did desaturate, lowest one at 59%. 04/23/18: No acute event overnight. She is diuresing well. She continues to improve and says her SOB, abdominal tightness and leg swelling continue to improve and says she is close to her baseline. Creatinine has trended down today to 1.6 today. She denies she is on CPAP at home although there is documented history of DAIANA on previous notes. Previous note also documented she was recommended CPAP before but did not comply and was lost to follow up. She did say she was able to sleep better with the BIPAP at night. 04/24/18: Patient apparently was not placed on BIPAP overnight. This morning, she was slightly lethargic but arousable. She says she was not put on BIPAP last night. Stat ABG shows a PCO2 of 84. She has been resumed on BIPAP and did have significant improvement in mentation thereafter. Denies chest pain. Edema continues to improve. 04/25/09: No acute event overnight. Patient was on BIPAP the whole night. No recurrence of lethargy or confusion. She continues to diurese well and edema continues to improve. Creatinine and HCO3 also continue to improve. She says she is close to her baseline. She did develop PASHA with IV diuresis and Lasix was reduced. Her renal function did recover. She is on PO Lasix 80 mg bid at home. This will be reduced to 40 mg bid on discharge. She will have a repeat BMP with PCP in 3-5 days with appropriate adjustment of his diuretics. 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 She says she was on entresto before but this was d/ying but she is unsure why (denies side effects from it). Patient did return to her baseline. She was seen by pulmonology who recommended sending her home on a Trilogy instead of BIPAP. Physical Exam Vital Signs: Temp Pulse Resp BP Pulse Ox 97.5 F 62 20 132/73 H 100 04/26/18 17:32 04/26/18 17:32 04/26/18 17:32 04/26/18 17:32 04/26/18 17:32 Pulse Oximeter Nocturnal Start: 04/22/18 11: 40 Freq: RTQ4 Status: Complete Protocol: Document 04/23/18 04:09 MED (Rec: 04/23/18 04:09 MED [id number]) Nocturnal Pulse Oximetry Equipment Usage Equipment in Use Oxygen Delivery Method (includes room Nasal Cannula air) O2 Sat by Pulse Oximetry (92-100) 97 Continuous SpO2 Machine # 2 Intake & Output 04/25/18 04/26/18 04/27/18 06:59 06:59 06:59 Intake Total 927 855 800 Output Total 220 Balance 707 855 800 Weight 438 lb 11.518 oz 466 lb 4.443 oz General appearance: PRESENT: no acute distress, morbidly obese Head exam: PRESENT: atraumatic, normocephalic Eye exam: PRESENT: conjunctiva pink, EOMI, PERRLA. ABSENT: scleral icterus Ear exam: PRESENT: normal external ear exam Mouth exam: PRESENT: moist, tongue midline Neck exam: ABSENT: carotid bruit, JVD, lymphadenopathy, thyromegaly Respiratory exam: PRESENT: clear to auscultation justin. ABSENT: rales, rhonchi, wheezes Cardiovascular exam: PRESENT: RRR. ABSENT: clicks Pulses: PRESENT: normal dorsalis pedis pul GI/Abdominal exam: PRESENT: normal bowel sounds, soft. ABSENT: distended, guarding, mass, organolmegaly, rebound, tenderness Rectal exam: PRESENT: deferred Extremities exam: PRESENT: +2 edema Neurological exam: PRESENT: alert, awake, oriented to person, oriented to place, oriented to time, oriented to situation, CN II-XII grossly intact. ABSENT: motor sensory deficit Results Laboratory Results: 04/25/18 09:27 04/26/18 04:53 04/26/18 04:53 Sodium 138.8 Potassium 4.6 Chloride 95 L Carbon Dioxide 40 H* Anion Gap 4 L BUN 44 H Creatinine 1.49 H Est GFR ( Amer) 43 L Est GFR (Non-Af Amer) 36 L Glucose 105 Calcium 9.0 04/19/18 04/19/18 04/19/18 12:33 17:31 17:31 Creatine Kinase 54 CK-MB (CK-2) 0.74 Troponin I 0.050 0.053 NT-Pro-B Natriuret Pep 5460 H 04/19/18 04/19/18 04/20/18 22:40 22:40 04:59 Creatine Kinase 50 48 CK-MB (CK-2) 0.66 Troponin I 0.056 NT-Pro-B Natriuret Pep 04/20/18 04:59 Creatine Kinase CK-MB (CK-2) 0.60 Troponin I 0.060 NT-Pro-B Natriuret Pep 6620 H Qualifiers - * PATIENT BEING DISCHARGED WITH ANY OF THE FOLLOWING DIAGNOSIS: Heart Failure HF Pt being discharged on ACEI for LVEF less than 40%?: Yes HF Pt being discharged on ARBS for LVEF less than 40%?: Yes HF Pt with Afib discharged with Warfarin?: No Reason(s) for not prescribing Warfarin:: Not indicated - on Eliquis HF Pt discharged on evidence-based Beta Lisa:: Yes
[2018-04-26 20:51] VITALS: BP 150/84
== END 2018-04-26 20:50 | disposition home health service (06) | DRG 291 ==
LOC: ER 11:27 → EH 15:55 → 3W 21:51
PROVIDERS: ADMIT Internal Medicine; ATTEND Internal Medicine
DX: I13.0 Hypertensive heart and chronic kidney disease with heart failure and stage 1 through stage 4 chronic kidney disease, or unspecified chronic kidney disease (principal); I50.43 Acute on chronic combined systolic (congestive) and diastolic (congestive) heart failure; Z68.43 Body mass index [BMI] 50.0-59.9, adult; J96.12 Chronic respiratory failure with hypercapnia; N17.9 Acute kidney failure, unspecified; E13.22 Other specified diabetes mellitus with diabetic chronic kidney disease; J44.9 Chronic obstructive pulmonary disease, unspecified; Z99.81 Dependence on supplemental oxygen; E66.01 Morbid (severe) obesity due to excess calories; I25.5 Ischemic cardiomyopathy; N18.3 Chronic kidney disease, stage 3 (moderate); G47.33 Obstructive sleep apnea (adult) (pediatric); Z95.810 Presence of automatic (implantable) cardiac defibrillator
CPT/HCPCS: 36415; 36600; 51702; 71045; 80048; 80053; 80061; 81001; 82550; 82553; 82803; 82962; 83735; 83880; 84484; 85025; 93005; 93010; 93306; 94060; 94660; 94667; 94762; 94799; 96374; 99291; J1815; J1940; J3490; J7620; S0028

== ENCOUNTER 2018-06-23 15:24 | Inpatient (IN) | payer MEDICARE, MEDICAID ==
[2018-06-23 16:17] LABS: ABSOLUTE EOSINOPHILS # (AUTO) 0.1 10^3/uL (0.0-0.6); ABSOLUTE LYMPHOCYTES (AUTO) 1.2 10^3/uL (0.5-4.7); ABSOLUTE MONOCYTES (AUTO) 0.5 10^3/uL (0.1-1.4); ABSOLUTE NEUT (AUTO) 3.7 10^3/uL (1.7-8.2); BASOPHILS % (AUTO) 0.7 % (0-2); HEMATOCRIT 30.5 % (36.0-47.0); HEMOGLOBIN 9.6 g/dL (12.0-15.5); LYMPHOCYTES % (AUTO) 21.9 % (13-45); MEAN CORPUSCULAR HEMOGLOBIN 24.3 pg (27.0-33.4); MEAN CORPUSCULAR HGB CONC 31.3 g/dL (32.0-36.0); MEAN CORPUSCULAR VOLUME 78 fl (80-97); MONOCYTES % (AUTO) 9.6 % (3-13); PLATELET COUNT 137 10^3/uL (150-450); RED BLOOD COUNT 3.93 10^6/uL (3.72-5.28); RED CELL DISTRIBUTION WIDTH 20.6 % (11.5-14.0); SEGMENTED NEUTROPHILS % (AUTO) 66.8 % (42-78); TOTAL CELLS COUNTED % (AUTO) 100 %; WHITE BLOOD COUNT 5.5 10^3/uL (4.0-10.5)
[2018-06-23 16:24] LABS: ALANINE AMINOTRANSFERASE 28 U/L (9-52); ALBUMIN 4.1 g/dL (3.5-5.0); ALKALINE PHOSPHATASE 122 U/L (38-126); ASPARTATE AMINO TRANSFERASE 50 U/L (14-36); BILIRUBIN,DIRECT 0.5 mg/dL (0.0-0.4); BILIRUBIN,TOTAL 0.9 mg/dL (0.2-1.3); BLOOD UREA NITROGEN 36 mg/dL (7-20); CALCIUM 9.8 mg/dL (8.4-10.2); CHLORIDE 96 mmol/L (98-107); CREATINE KINASE 56 U/L (30-135); GLUCOSE 161 mg/dL (75-110); POTASSIUM 4.3 mmol/L (3.6-5.0); SODIUM 143.3 mmol/L (137-145); TOTAL PROTEIN 8.4 g/dL (6.3-8.2)
[2018-06-23] MEDS ORDERED: FUROSEMIDE INJ/PF 40 MG/4 ML SDV IV ONE (16:24)
--- NOTE | 2018-06-23 16:26 | RADIOLOGY REPORT (SQ) ---
EXAM DESCRIPTION: CHEST SINGLE VIEW COMPLETED DATE/TIME: 06/23/2018 4:11 pm REASON FOR STUDY: sob COMPARISON: 04/21/2018 NUMBER OF VIEWS: One view. TECHNIQUE: Single frontal radiographic view of the chest acquired. LIMITATIONS: AP portable. Body habitus. FINDINGS: LUNGS AND PLEURA: Chronic interstitial changes. Chronic silhouetting left diaphragm. MEDIASTINUM AND HILAR STRUCTURES: Stable. HEART AND VASCULATURE: Cardiac enlargement. Vascular congestion. BONES: No acute findings. HARDWARE: Unchanged position of defibrillator. OTHER: No other significant finding. IMPRESSION: CARDIAC ENLARGEMENT. VASCULAR CONGESTION. TECHNICAL DOCUMENTATION: JOB ID: [id number]- All Rights Reserved Reading location - IP/workstation name: [email or web address]
[2018-06-23 16:38] LABS: ANION GAP 11 (5-19); CARBON DIOXIDE 36 mmol/L (22-30)
[2018-06-23 16:52] LABS: CREATINE KINASE MB 0.99 ng/mL (<4.55)
[2018-06-23 16:55] LABS: TROPONIN I 0.049 ng/mL
[2018-06-23] MEDS ORDERED: NITROGLYCERIN 2% OINTMENT 1 GM PACKET TP ONE (17:19)
[2018-06-23] MEDS ORDERED: DEXTROSE 50%-WATER 25 GM/50 ML DISP.SYRIN IV PRN ×2 (17:55)
[2018-06-23] MEDS ORDERED: ALBUTEROL SULFATE HFA (90 MCG/PUFF) 200 PUFF/8.5 GM MDI IH PRN (17:55)
[2018-06-23] MEDS ORDERED: DEXTROSE 40% GEL 15 GM TUBE PO PRN ×2 (17:55)
[2018-06-23] MEDS ORDERED: GLUCAGON,HUMAN RECOMB 1 MG INJ IM PRN (17:55)
[2018-06-23] MEDS ORDERED: HYDRALAZINE HCL INJ/PF 20 MG/1 ML SDV IV PRN (17:59)
--- NOTE | 2018-06-23 18:04 | ER Document Report ---
Entered by IFEOMA DOMINGUEZ SCRIBE 06/23/18 [id number] Acting as scribe for:SANTY ANDERSON DO ED General - General Chief Complaint: Shortness Of Breath Stated Complaint: DIFFICULTY BREATHING Time Seen by Provider: 06/23/18 16:01 Primary Care Provider: MARLEY HARDEN MD [Primary Care Provider] - Follow up as needed Mode of Arrival: Ambulatory Information source: Patient Notes: Patient is a 62-year-old female presenting to the emergency department complaining of difficulty breathing worsening today. She states that she has a history of CHF and reports her current symptoms feeling similar. She denies any weight gain further stating she recently lost 9 pounds. She denies fever or cough or being on blood pressure medication.. Patient is normally on 2 L of oxygen at home. She is also prescribed Lasix which she states she has been compliant with. TRAVEL OUTSIDE OF THE [place] IN LAST 30 DAYS: No - Related Data Allergies/Adverse Reactions: No Known Allergies Allergy (Verified 06/23/18 16:03) Past Medical History - General Information source: Patient - Social History Smoking Status: Never Smoker Frequency of alcohol use: None Drug Abuse: None Family History: DM, Hypertension Patient has suicidal ideation: No Patient has homicidal ideation: No - Past Medical History Cardiac Medical History: Reports: Hx Congestive Heart Failure, Hx Hypercholesterolemia, Hx Hypertension Pulmonary Medical History: Reports: Hx COPD Endocrine Medical History: Reports: Hx Diabetes Mellitus Type 1, Hx Diabetes Mellitus Type 2 Renal/ Medical History: Reports: Hx Renal Insufficiency Past Surgical History: Reports: Hx Cardiac Surgery - defib., Hx Hysterectomy - Immunizations Immunizations up to date: Yes Hx Diphtheria, Pertussis, Tetanus Vaccination: Yes Hx Pneumococcal Vaccination: 01/04/17 Review of Systems - Review of Systems Constitutional: No symptoms reported EENT: No symptoms reported Cardiovascular: No symptoms reported Respiratory: See HPI, Short of breath Gastrointestinal: No symptoms reported Genitourinary: No symptoms reported Female Genitourinary: No symptoms reported Musculoskeletal: No symptoms reported Skin: No symptoms reported Hematologic/Lymphatic: No symptoms reported Neurological/Psychological: No symptoms reported Physical Exam - Vital signs Vitals: Resp 20 06/23/18 15:45 - Notes Notes: GENERAL: Alert, interacts well. Mild distress. HEAD: Normocephalic, atraumatic. EYES: Pupils equal, round, and reactive to light. Extraocular movements intact. ENT: Oral mucosa moist, tongue midline. NECK: Full range of motion. Supple. Trachea midline. LUNGS: Cracckles at bases. Mild respiratory distress, tachypnea. HEART: Regular rate and rhythm. No murmurs, gallops, or rubs. ABDOMEN: Soft, non-tender. Non-distended. Obese. Bowel sounds present in all 4 quadrants. No guarding, rigidity, or rebound. EXTREMITIES: Moves all 4 extremities spontaneously. Trace edema. Radial and dorsalis pedis pulses 2/4 bilaterally. No cyanosis. NEUROLOGICAL: Alert and oriented x3. Normal speech. PSYCH: Normal affect, normal mood. SKIN: Warm, dry, normal turgor. No rashes or lesions noted. Course - Re-evaluation Re-evalutation: 06/23/18 17:23 KATALINA Vance accepts patient for admission to telemetry. 06/23/18 18:02 Patient is a 62-year-old female with a history of heart failure who comes in complaining of increased difficulty breathing. Patient has crackles at bases, fluid overload on x-ray. Patient states that she has lost weight recently. Given increase of hypertension today and respiratory distress, combined with chest x-ray, symptoms are most consistent with congestive heart failure and fluid overload. Patient has been given Lasix IV and nitro paste placed. No further concerns or symptoms. Denies chest pain. Discussed with the hospitalist service and will be admitted to telemetry. Patient is agreeable to this plan and is diuresing well in the emergency department. - Vital Signs Vital signs: Temp Pulse Resp BP Pulse Ox 98.7 F 88 22 H 265/145 H 100 06/23/18 15:52 06/23/18 15:52 06/23/18 17:42 06/23/18 17:42 06/23/18 17:42 - Laboratory Result Diagrams: 06/23/18 15:40 06/23/18 15:40 Laboratory results interpreted by me: 06/23/18 06/23/18 06/23/18 15:40 15:40 15:40 Hgb 9.6 L Hct 30.5 L MCV 78 L MCH 24.3 L MCHC 31.3 L RDW 20.6 H Plt Count 137 L Chloride 96 L Carbon Dioxide 36 H BUN 36 H Est GFR ( Amer) 57 L Est GFR (Non-Af Amer) 47 L Glucose 161 H Direct Bilirubin 0.5 H AST 50 H NT-Pro-B Natriuret Pep 3800 H Total Protein 8.4 H Discharge - Discharge Clinical Impression: Morbidly obese, Respiratory distress Congestive heart failure Qualifiers: Heart failure type: unspecified Heart failure chronicity: acute on chronic Qualified Code(s): I50.9 - Heart failure, unspecified Condition: Stable Disposition: ADMITTED INPATIENT Admitting Provider: Hospitalist - [facility] Admitted: Telemetry Referrals: MARLEY HARDEN MD [Primary Care Provider] - Follow up as needed Scribe Attestation: 06/23/18 18:04 I personally performed the services described in the documentation, reviewed and edited the documentation which was dictated to the scribe in my presence, and it accurately records my words and actions. I personally performed the services described in the documentation, reviewed and edited the documentation which was dictated to the scribe in my presence, and it accurately records my words and actions.
[2018-06-23 18:10] LABS: APPEARANCE,URINE CLEAR; BILIRUBIN,URINE NEGATIVE (NEGATIVE); COLOR,URINE YELLOW; GLUCOSE, URINE NEGATIVE (NEGATIVE); KETONES,URINE NEGATIVE (NEGATIVE); LEUKOCYTE ESTERASE,URINE NEGATIVE (NEGATIVE); NITRITE,URINE POSITIVE (NEGATIVE); PROTEIN,URINE 30 mg/dL (NEGATIVE); URINE SPECIFIC GRAVITY 1.008; UROBILINOGEN,URINE NEGATIVE mg/dL (<2.0)
--- NOTE | 2018-06-23 18:17 | PDOC H&P ---
History of Present Illness Admission Date/PCP: MARLEY HARDEN MD Patient complains of: shortness of breath. History of Present Illness: CARLEE WALDROP is a 62 year old female who presents to the ER with complaint of shortness of breath. States the shortness of breath is been going on for the past 2-3 days however got worse last night. She wore her CPAP last night she states she is compliant with her CPAP. However when she woke this morning she continue to wear her CPAP all day. And her breathing was not getting better so she came to the emergency department. Nothing seems to make her breathing it better or worse. She does feel better since arrival at the ER and placed on oxygen. Patient's last admission was 2 months ago. At that time echocardiogram was done she has an EF of 30-35%. Severe tricuspid regurge, elevated right ventricular atrial pressures She has been working on losing weight stated the last time she saw her doctor 2 weeks ago she had lost 9 pounds. She is working on losing another 5 pounds by her follow-up appointment. She does not check daily weights and we discussed this at length. Also going to work on getting the patient to drinking so many sodas. She states she is trying to be compliant though with her 1500 mL fluid restriction. Past Medical History Cardiac Medical History: Reports: Congestive Heart Failure, Hyperlipidema, Hypertension Pulmonary Medical History: Reports: Chronic Obstructive Pulmonary Disease (COPD) Endocrine Medical History: Reports: Diabetes Mellitus Type 2 Past Surgical History Past Surgical History: Reports: Hysterectomy Social History Smoking Status: Never Smoker Frequency of Alcohol Use: None Hx Recreational Drug Use: No Drugs: None Hx Prescription Drug Abuse: No Family History Family History: CAD, DM, Hypertension Parental Family History Reviewed: Yes Children Family History Reviewed: Yes Sibling(s) Family History Reviewed.: Yes Medication/Allergy Home Medications: Albuterol Sulfate [Proair Hfa Inhalation Aerosol 8.5 gm Mdi] 2 puff IH Q4HP PRN 06/23/18 Atorvastatin Calcium [Lipitor 20 mg Tablet] 20 mg PO QHS 06/23/18 Carvedilol [Coreg 12.5 mg Tablet] 12.5 mg PO Q12 06/23/18 Ferrous Sulfate [Feosol 325 mg Tablet] 325 mg PO DAILY 06/23/18 Furosemide [Lasix 80 mg Tablet] 160 mg PO BID 06/23/18 Gabapentin [Neurontin 300 mg Capsule] 300 mg PO Q12 06/23/18 Insulin Aspart [Novolog Flexpen] 10 unit SUBCUT AC 06/23/18 Insulin Glargine,Hum.rec.anlog [Lantus Insulin Inj 300 Unit/3 ml Pen] 20 unit SUBCUT QHS 06/23/18 Isosorbide Mononitrate [Imdur 30 mg Tablet.er] 30 mg PO Q12 06/23/18 Multivitamin [Daily Multiple Vitamin] 1 tab PO DAILY 06/23/18 Potassium Chloride 10 meq PO DAILY 06/23/18 Allergies/Adverse Reactions: No Known Allergies Allergy (Verified 06/23/18 16:03) Review of Systems Constitutional: PRESENT: fatigue. ABSENT: chills, fever(s), headache(s), night sweats, weakness Nose, Mouth, and Throat: ABSENT: sore throat Cardiovascular: PRESENT: chest pain, dyspnea on exertion, edema, orthropnea. ABSENT: palpitations Gastrointestinal: ABSENT: abdominal pain, constipation, diarrhea, dysphagia, heartburn, nausea, vomiting Genitourinary: ABSENT: dysuria Neurological: ABSENT: confusion, dizziness, focal weakness, numbness Hematologic/Lymphatic: ABSENT: easy bruising Allergic/Immunologic: ABSENT: seasonal rhinorrhea Physical Exam Vital Signs: Temp Pulse Resp BP Pulse Ox 98.7 F 88 22 H 265/145 H 100 06/23/18 15:52 06/23/18 15:52 06/23/18 17:42 06/23/18 17:42 06/23/18 17:42 Intake & Output 06/22/18 06/23/18 06/24/18 06:59 06:59 06:59 Output Total 500 Balance -500 Weight 206.2 kg General appearance: PRESENT: no acute distress, cooperative, morbidly obese Eye exam: PRESENT: EOMI, PERRLA. ABSENT: scleral icterus Ear exam: PRESENT: TM's normal bilaterally Mouth exam: PRESENT: moist, neck supple Neck exam: PRESENT: JVD. ABSENT: full ROM, lymphadenopathy, tenderness, thyromegaly, tracheal deviation Respiratory exam: PRESENT: crackles, unlabored. ABSENT: accessory muscle use Cardiovascular exam: PRESENT: RRR. ABSENT: gallop, rubs GI/Abdominal exam: PRESENT: normal bowel sounds, soft. ABSENT: tenderness Extremities exam: PRESENT: pedal edema, +2 edema. ABSENT: calf tenderness, clubbing, joint swelling Musculoskeletal exam: PRESENT: full ROM Neurological exam: PRESENT: alert, oriented to person, oriented to place, oriented to time, oriented to situation Psychiatric exam: ABSENT: agitated, anxious Skin exam: PRESENT: dry, normal color, warm Results Laboratory Results: 06/23/18 15:40 06/23/18 15:40 06/23/18 06/23/18 06/23/18 15:40 15:40 16:01 WBC 5.5 RBC 3.93 Hgb 9.6 L Hct 30.5 L MCV 78 L MCH 24.3 L MCHC 31.3 L RDW 20.6 H Plt Count 137 L Seg Neutrophils % 66.8 Lymphocytes % 21.9 Monocytes % 9.6 Eosinophils % 1.0 Basophils % 0.7 Absolute Neutrophils 3.7 Absolute Lymphocytes 1.2 Absolute Monocytes 0.5 Absolute Eosinophils 0.1 Absolute Basophils 0.0 Sodium 143.3 Potassium 4.3 Chloride 96 L Carbon Dioxide 36 H Anion Gap 11 BUN 36 H Creatinine 1.16 Est GFR ( Amer) 57 L Est GFR (Non-Af Amer) 47 L Glucose 161 H Lactic Acid 1.8 Calcium 9.8 Total Bilirubin 0.9 AST 50 H ALT 28 Alkaline Phosphatase 122 Total Protein 8.4 H Albumin 4.1 06/23/18 06/23/18 15:40 15:40 Creatine Kinase 56 CK-MB (CK-2) 0.99 Troponin I 0.049 NT-Pro-B Natriuret Pep 3800 H Impressions: Chest X-Ray 06/23/18 00:00 IMPRESSION: CARDIAC ENLARGEMENT. VASCULAR CONGESTION. Assessment and Plan - Diagnosis (1) Acute on chronic congestive heart failure Qualifiers: Heart failure type: combined systolic and diastolic Qualified Code(s): I50.43 - Acute on chronic combined systolic (congestive) and diastolic (congestive) heart failure Is this a current diagnosis for this admission?: Yes Plan: Patient's previous echo from 2 months ago shows an EF of 30-35% severe tricuspid regurg. We will trend her troponins due to her chest pain. Patient on aggressive diuresis. Patient currently on furosemide at home Coreg is a beta- myra, Imdur for long-acting nitroglycerin need to figure out further why patient is not on an JOSÉ MIGUEL or ARB given her normal renal function. We will continue to monitor daily weights continue to monitor renal function and make sure we are maximizing patient's medications. Needs to continue on her 1500 mL fluid restriction daily (2) Controlled type 2 diabetes mellitus Qualifiers: Diabetes mellitus halfway insulin use: with halfway use Diabetes mellitus complication status: with circulatory complication Diabetes mellitus complication detail: with other circulatory complications Qualified Code(s): E11.59 - Type 2 diabetes mellitus with other circulatory complications; Z79.4 - detention (current) use of insulin Is this a current diagnosis for this admission?: Yes Plan: Continue home Lantus dose as well as start on sliding scale with fingersticks at meals. (3) COPD (chronic obstructive pulmonary disease) Qualifiers: Is this a current diagnosis for this admission?: Yes Plan: No signs of acute exacerbation we will continue to monitor. Home nebulizer treatments as needed. (4) CKD (chronic kidney disease) Qualifiers: Chronic kidney disease stage: stage 3 (moderate) Qualified Code(s): N18.3 - Chronic kidney disease, stage 3 (moderate) Is this a current diagnosis for this admission?: Yes Plan: Renal function appears to be at baseline. We will continue to monitor. Going to start patient on aggressive diuresis therefore monitoring renal function and electrolyte status will be important (5) Hypertension Qualifiers: Hypertension type: essential hypertension Qualified Code(s): I10 - Essential (primary) hypertension Is this a current diagnosis for this admission?: Yes Plan: Currently hypertensive does not appear to be well controlled. To increase her Coreg to 25 mg twice a day. See how she responds to Nitropaste. Hydralazine as needed systolic blood pressure greater than 180 would like to bring the patient to the 170-180 range overnight and then titrate further in the morning. (6) Obstructive sleep apnea Is this a current diagnosis for this admission?: Yes Plan: Continue with CPAP while sleeping. (7) Hypercapnic respiratory failure, chronic Is this a current diagnosis for this admission?: Yes Plan: Need to ensure that the patient does wear her CPAP at night. (8) Morbidly obese Is this a current diagnosis for this admission?: Yes Plan: We discussed diet and exercise at length. The type of foods that the patient was eating the type of drink she was eating. She is making good strides so far. Courage to keep doing what she is doing as she is already lost 12 pounds. - Time Time Spent with patient: 35 or more minutes Medications reviewed and adjusted accordingly: Yes Anticipated discharge: Home
[2018-06-23] MEDS: ISOSORBIDE MONONITRATE 30 MG TAB.ER.24H PO SCH (18:33)
[2018-06-23] MEDS: ENOXAPARIN SODIUM INJ 40 MG/0.4 ML DISP.SYRIN SUBCUT SCH (18:33)
[2018-06-23] MEDS: BUMETANIDE INJ/PF 1 MG/4 ML SDV IV SCH (18:33)
[2018-06-23 20:24] LABS: ABSOLUTE EOSINOPHILS # (AUTO) 0.1 10^3/uL (0.0-0.6); ABSOLUTE LYMPHOCYTES (AUTO) 0.9 10^3/uL (0.5-4.7); ABSOLUTE MONOCYTES (AUTO) 0.5 10^3/uL (0.1-1.4); ABSOLUTE NEUT (AUTO) 3.4 10^3/uL (1.7-8.2); BASOPHILS % (AUTO) 0.8 % (0-2); EOSINOPHILS % (AUTO) 1.2 % (0-6); HEMATOCRIT 29.7 % (36.0-47.0); HEMOGLOBIN 9.1 g/dL (12.0-15.5); LYMPHOCYTES % (AUTO) 18.3 % (13-45); MEAN CORPUSCULAR HEMOGLOBIN 23.7 pg (27.0-33.4); MEAN CORPUSCULAR HGB CONC 30.8 g/dL (32.0-36.0); MEAN CORPUSCULAR VOLUME 77 fl (80-97); MONOCYTES % (AUTO) 10.4 % (3-13); PLATELET COUNT 111 10^3/uL (150-450); RED BLOOD COUNT 3.85 10^6/uL (3.72-5.28); SEGMENTED NEUTROPHILS % (AUTO) 69.3 % (42-78); TOTAL CELLS COUNTED % (AUTO) 100 %; WHITE BLOOD COUNT 4.9 10^3/uL (4.0-10.5)
[2018-06-23 20:36] LABS: BLOOD UREA NITROGEN 33 mg/dL (7-20); CALCIUM 9.4 mg/dL (8.4-10.2); CHLORIDE 95 mmol/L (98-107); GLUCOSE 193 mg/dL (75-110); SODIUM 142.9 mmol/L (137-145)
[2018-06-23 20:42] LABS: ANION GAP 9 (5-19); CARBON DIOXIDE 39 mmol/L (22-30)
[2018-06-23] MEDS ORDERED: INSULIN GLARGINE,HUM.REC.ANLOG 1,000 UNIT/10 ML VIAL (PYX) SUBCUT SCH (22:00)
[2018-06-23] MEDS ORDERED: INSULIN GLARGINE,HUM.REC.ANLOG 300 UNIT/3 ML INSULN.PEN SUBCUT SCH (22:00)
[2018-06-23] MEDS: INSULIN REG, HUMAN 100 UNIT/ML 3 ML VIAL (PYX) SUBCUT SCH (23:15)
[2018-06-23] MEDS: GABAPENTIN 300 MG CAPSULE PO SCH (23:16)
[2018-06-23] MEDS: ATORVASTATIN CALCIUM 20 MG TABLET PO SCH (23:16)
[2018-06-23] MEDS: CARVEDILOL 12.5 MG TABLET PO SCH (23:17)
--- NOTE | 2018-06-23 23:25 | EKG REPORT ---
SEVERITY:- ABNORMAL ECG - ATRIAL-SENSED VENTRICULAR-PACED COMPLEXES PROBABLE LEFT ATRIAL ABNORMALITY NONSPECIFIC IVCD WITH LAD : Confirmed by: Machelle Lyon 23-Jun-2018 23:24:39
[2018-06-24] MEDS ORDERED: ACETAMINOPHEN 325 MG TABLET PO PRN (03:54)
[2018-06-24] MEDS: BUMETANIDE INJ/PF 1 MG/4 ML SDV IV SCH ×3 (05:41→22:40)
[2018-06-24] MEDS: INSULIN REG, HUMAN 100 UNIT/ML 3 ML VIAL (PYX) SUBCUT SCH ×4 (08:32→22:08)
[2018-06-24] MEDS: ENOXAPARIN SODIUM INJ 40 MG/0.4 ML DISP.SYRIN SUBCUT SCH (10:09)
[2018-06-24] MEDS: CARVEDILOL 12.5 MG TABLET PO SCH ×2 (10:10→22:41)
[2018-06-24] MEDS: GABAPENTIN 300 MG CAPSULE PO SCH ×2 (10:12→22:41)
[2018-06-24] MEDS: POTASSIUM CHLORIDE 10 MEQ CAPSULE.ER PO SCH (10:12)
[2018-06-24] MEDS: ISOSORBIDE MONONITRATE 30 MG TAB.ER.24H PO SCH ×2 (10:12→22:41)
[2018-06-24] MEDS ORDERED: FUROSEMIDE INJ/PF 20 MG/2 ML SDV IV ONE (11:00)
[2018-06-24] MEDS ORDERED: METOLAZONE 5 MG TABLET PO ONE (11:00)
[2018-06-24] MEDS ORDERED: LEVALBUTEROL HCL NEB 0.63 MG/3 ML AMPUL NEB PRN (13:14)
[2018-06-24 13:24] LABS: ARTERIAL BLOOD BASE EXCESS 14.6 mmol/L; ARTERIAL BLOOD H2CO3 2.85 mmol/L (1.05-1.35); ARTERIAL BLOOD HCO3 43.9 mmol/L (20-24); ARTERIAL BLOOD O2 SATURATION 31.3 % (94-98); ARTERIAL BLOOD PH 7.28 (7.35-7.45); ARTERIAL BLOOD TOTAL CO2 46.8 mmol/L (21-25)
[2018-06-24 13:25] LABS: ARTERIAL BLOOD FIO2 4L
[2018-06-24 13:27] LABS: ARTERIAL BLOOD PCO2 94.6 mmHg (35-45); ARTERIAL BLOOD PO2 23.3 mmHg (80-100)
[2018-06-24] MEDS: IPRATROPIUM/ALBUTEROL 0.5-2.5 MG/3 ML AMPUL NEB SCH ×2 (14:04→20:18)
[2018-06-24 14:31] LABS: BLOOD UREA NITROGEN 36 mg/dL (7-20); CALCIUM 9.2 mg/dL (8.4-10.2); CHLORIDE 94 mmol/L (98-107); GLUCOSE 126 mg/dL (75-110); POTASSIUM 4.6 mmol/L (3.6-5.0)
[2018-06-24 14:45] LABS: ANION GAP 12 (5-19)
[2018-06-24 14:56] LABS: CARBON DIOXIDE 35 mmol/L (22-30)
[2018-06-24 15:53] LABS: ARTERIAL BLOOD BASE EXCESS 7.5 mmol/L; ARTERIAL BLOOD H2CO3 2.54 mmol/L (1.05-1.35); ARTERIAL BLOOD HCO3 37.5 mmol/L (20-24); ARTERIAL BLOOD O2 SATURATION 93.7 % (94-98); ARTERIAL BLOOD PH 7.27 (7.35-7.45); ARTERIAL BLOOD PO2 81.2 mmHg (80-100); ARTERIAL BLOOD TOTAL CO2 40.1 mmol/L (21-25)
[2018-06-24 15:55] LABS: ARTERIAL BLOOD FIO2 4L
[2018-06-24 15:58] LABS: ARTERIAL BLOOD PCO2 84.4 mmHg (35-45)
[2018-06-24] MEDS ORDERED: INSULIN GLARGINE,HUM.REC.ANLOG 1,000 UNIT/10 ML VIAL SUBCUT SCH (22:00)
[2018-06-24] MEDS: ATORVASTATIN CALCIUM 20 MG TABLET PO SCH (22:41)
[2018-06-25] MEDS: IPRATROPIUM/ALBUTEROL 0.5-2.5 MG/3 ML AMPUL NEB SCH ×4 (02:08→20:31)
[2018-06-25] MEDS: BUMETANIDE INJ/PF 1 MG/4 ML SDV IV SCH ×3 (05:38→21:27)
[2018-06-25 06:40] LABS: ABSOLUTE EOSINOPHILS # (AUTO) 0.1 10^3/uL (0.0-0.6); ABSOLUTE LYMPHOCYTES (AUTO) 0.8 10^3/uL (0.5-4.7); ABSOLUTE MONOCYTES (AUTO) 0.5 10^3/uL (0.1-1.4); ABSOLUTE NEUT (AUTO) 2.4 10^3/uL (1.7-8.2); BASOPHILS % (AUTO) 0.7 % (0-2); EOSINOPHILS % (AUTO) 1.7 % (0-6); HEMATOCRIT 27.5 % (36.0-47.0); HEMOGLOBIN 8.5 g/dL (12.0-15.5); LYMPHOCYTES % (AUTO) 21.8 % (13-45); MEAN CORPUSCULAR HEMOGLOBIN 24.2 pg (27.0-33.4); MEAN CORPUSCULAR HGB CONC 31.1 g/dL (32.0-36.0); MEAN CORPUSCULAR VOLUME 78 fl (80-97); MONOCYTES % (AUTO) 13.8 % (3-13); PLATELET COUNT 103 10^3/uL (150-450); RED BLOOD COUNT 3.53 10^6/uL (3.72-5.28); RED CELL DISTRIBUTION WIDTH 19.8 % (11.5-14.0); TOTAL CELLS COUNTED % (AUTO) 100 %; WHITE BLOOD COUNT 3.9 10^3/uL (4.0-10.5)
[2018-06-25 07:11] LABS: BLOOD UREA NITROGEN 41 mg/dL (7-20); CALCIUM 8.9 mg/dL (8.4-10.2); CHLORIDE 96 mmol/L (98-107); GLUCOSE 121 mg/dL (75-110); POTASSIUM 4.2 mmol/L (3.6-5.0); SODIUM 141.7 mmol/L (137-145)
[2018-06-25 07:19] LABS: ANION GAP 7 (5-19)
[2018-06-25 07:21] LABS: CARBON DIOXIDE 39 mmol/L (22-30)
[2018-06-25] MEDS: INSULIN REG, HUMAN 100 UNIT/ML 3 ML VIAL (PYX) SUBCUT SCH ×4 (08:09→21:26)
[2018-06-25 08:35] LABS: ARTERIAL BLOOD BASE EXCESS 13.1 mmol/L; ARTERIAL BLOOD H2CO3 2.41 mmol/L (1.05-1.35); ARTERIAL BLOOD HCO3 41.4 mmol/L (20-24); ARTERIAL BLOOD O2 SATURATION 88.6 % (94-98); ARTERIAL BLOOD PH 7.33 (7.35-7.45); ARTERIAL BLOOD PO2 61.5 mmHg (80-100); ARTERIAL BLOOD TOTAL CO2 43.8 mmol/L (21-25)
[2018-06-25 08:36] LABS: ARTERIAL BLOOD FIO2 3L
[2018-06-25 08:38] LABS: ARTERIAL BLOOD PCO2 80.1 mmHg (35-45)
[2018-06-25] MEDS: POTASSIUM CHLORIDE 10 MEQ CAPSULE.ER PO SCH (09:09)
[2018-06-25] MEDS: GABAPENTIN 300 MG CAPSULE PO SCH ×2 (09:09→21:26)
[2018-06-25] MEDS: CARVEDILOL 12.5 MG TABLET PO SCH ×2 (09:09→21:26)
[2018-06-25] MEDS: ISOSORBIDE MONONITRATE 30 MG TAB.ER.24H PO SCH ×2 (09:09→21:26)
[2018-06-25] MEDS: ENOXAPARIN SODIUM INJ 40 MG/0.4 ML DISP.SYRIN SUBCUT SCH (09:09)
[2018-06-25] MEDS: METOLAZONE 5 MG TABLET PO SCH (09:12)
--- NOTE | 2018-06-25 17:49 | PDOC PROGRESS REPORT ---
Subjective Progress Note for:: 06/25/18 Subjective:: 62 y.o. F with a PMH of CHF, HLD, HTN, COPD, diabetes. She presents to [facility] for SOB times 2-3 days. She was started on Bumex for aggressive diuresis. Patient was seen this morning on rounds, she is resting comfortably in bed on nasal cannula. She states she feels much better today when compared to yesterday. She endorses very mild shortness of breath. Upon exam, she has +2 pitting edema in her lower extremities. (+) Crackles in the bilateral lower lobes. ABG done this morning reveals mild hypercapnic respiratory acidosis. Plan to place patient back on BiPAP, may wear intermittently throughout the day, breaking for meals. Should wear continuously at night. Reason For Visit: MORBIDLY OBESE,CONGESTIVE HEART FAILURE,RESPIRATOR Physical Exam Vital Signs: Temp Pulse Resp BP Pulse Ox 97.3 F 59 L 16 118/81 100 06/25/18 15:56 06/25/18 15:56 06/25/18 17:02 06/25/18 15:56 06/25/18 17:02 Intake & Output 06/24/18 06/25/18 06/26/18 06:59 06:59 06:59 Intake Total 275 240 711 Output Total 1450 850 800 Balance -1175 -610 -89 Weight 201 kg 202.1 kg General appearance: PRESENT: no acute distress, morbidly obese Eye exam: PRESENT: conjunctiva pink, PERRLA Mouth exam: PRESENT: moist, tongue midline Teeth exam: PRESENT: poor dentation Neck exam: PRESENT: full ROM Respiratory exam: PRESENT: clear to auscultation justin, decreased breath sounds - bilateral lower lobes, symmetrical Cardiovascular exam: PRESENT: RRR Pulses: PRESENT: normal radial pulses, +1 pedal pulses bilateral Vascular exam: PRESENT: normal capillary refill GI/Abdominal exam: PRESENT: normal bowel sounds, soft. ABSENT: distended, tenderness Rectal exam: PRESENT: deferred Extremities exam: PRESENT: pedal edema, +2 edema. ABSENT: full ROM Musculoskeletal exam: PRESENT: ambulatory - for very short distances. ABSENT: full ROM, normal inspection Neurological exam: PRESENT: alert, awake, oriented to person, oriented to place, oriented to time, oriented to situation Psychiatric exam: PRESENT: appropriate affect Skin exam: PRESENT: dry, intact, normal color Results Laboratory Results: 06/25/18 05:57 06/25/18 05:57 06/25/18 06/25/18 06/25/18 05:57 05:57 08:20 WBC 3.9 L RBC 3.53 L Hgb 8.5 L Hct 27.5 L MCV 78 L MCH 24.2 L MCHC 31.1 L RDW 19.8 H Plt Count 103 L Seg Neutrophils % 62.0 Lymphocytes % 21.8 Monocytes % 13.8 H Eosinophils % 1.7 Basophils % 0.7 Absolute Neutrophils 2.4 Absolute Lymphocytes 0.8 Absolute Monocytes 0.5 Absolute Eosinophils 0.1 Absolute Basophils 0.0 Carbonic Acid 2.41 H HCO3/H2CO3 Ratio 17:1 ABG pH 7.33 L ABG pCO2 80.1 H* ABG pO2 61.5 L ABG HCO3 41.4 H ABG O2 Saturation 88.6 L ABG Base Excess 13.1 FiO2 3L Sodium 141.7 Potassium 4.2 Chloride 96 L Carbon Dioxide 39 H Anion Gap 7 BUN 41 H Creatinine 1.58 H Est GFR ( Amer) 40 L Est GFR (Non-Af Amer) 33 L Glucose 121 H Calcium 8.9 Magnesium 1.9 06/23/18 06/23/18 06/23/18 15:40 15:40 20:09 Creatine Kinase 56 CK-MB (CK-2) 0.99 Troponin I 0.049 0.054 NT-Pro-B Natriuret Pep 3800 H 06/24/18 06/24/18 02:15 08:37 Creatine Kinase CK-MB (CK-2) Troponin I 0.053 0.055 NT-Pro-B Natriuret Pep Impressions: Chest X-Ray 06/23/18 00:00 IMPRESSION: CARDIAC ENLARGEMENT. VASCULAR CONGESTION. Status: Imported from PACS Assessment and Plan - Diagnosis (1) Acute on chronic congestive heart failure Qualifiers: Heart failure type: combined systolic and diastolic Qualified Code(s): I50.43 - Acute on chronic combined systolic (congestive) and diastolic (congestive) heart failure Is this a current diagnosis for this admission?: Yes Plan: Previous echo from 2 months ago shows LVEF of 30-35% severe tricuspid regurg. Serial troponins WNL, no longer trending Patient currently on furosemide at home, Coreg as a beta-myra, Imdur for long-acting nitroglycerin Monitor daily weights Continue diuresis with Bumex Continue on her 1500 mL fluid restriction daily (2) Controlled type 2 diabetes mellitus Qualifiers: Diabetes mellitus exterminator insulin use: with exterminator use Diabetes mellitus complication status: with circulatory complication Diabetes mellitus complication detail: with other circulatory complications Qualified Code(s): E11.59 - Type 2 diabetes mellitus with other circulatory complications; Z79.4 - terminal block assembler (current) use of insulin Is this a current diagnosis for this admission?: Yes Plan: Home dose Lantus Accu-Cheks AC at bedtime Humalog sliding scale insulin (3) COPD (chronic obstructive pulmonary disease) Qualifiers: Is this a current diagnosis for this admission?: Yes Plan: Without exacerbation PRN nebulizer treatments CPAP at night and as needed during the day (4) CKD (chronic kidney disease) Qualifiers: Chronic kidney disease stage: stage 3 (moderate) Qualified Code(s): N18.3 - Chronic kidney disease, stage 3 (moderate) Is this a current diagnosis for this admission?: Yes Plan: Renal function at baseline Monitor daily chemistries Coreg to 25 mg twice daily IV hydralazine as needed for SBP>180 (5) Obstructive sleep apnea Is this a current diagnosis for this admission?: Yes Plan: Use CPAP nightly and while napping during the day (6) Morbidly obese Is this a current diagnosis for this admission?: Yes Plan: Weight management via diet control - Time Time Spent with patient: 15-24 minutes Medications reviewed and adjusted accordingly: Yes Anticipated discharge: Home Within: within 72 hours - Inpatient Certification Based on my medical assessment, after consideration of the patient's comorbidities, presenting symptoms, or acuity I expect that the services needed warrant INPATIENT care.: Yes I certify that my determination is in accordance with my understanding of Medicare's requirements for reasonable and necessary INPATIENT services [42 CFR 412.3e].: Yes Medical Necessity: Need For Continuous Telemetry Monitoring, Risk of Complication if Not Cared For in Hospital
[2018-06-25] MEDS: ATORVASTATIN CALCIUM 20 MG TABLET PO SCH (21:26)
[2018-06-25] MEDS: INSULIN GLARGINE,HUM.REC.ANLOG 1,000 UNIT/10 ML VIAL SUBCUT SCH (21:27)
[2018-06-26] MEDS: IPRATROPIUM/ALBUTEROL 0.5-2.5 MG/3 ML AMPUL NEB SCH ×4 (02:13→20:47)
[2018-06-26] MEDS: BUMETANIDE INJ/PF 1 MG/4 ML SDV IV SCH (05:27)
[2018-06-26] MEDS: INSULIN REG, HUMAN 100 UNIT/ML 3 ML VIAL (PYX) SUBCUT SCH ×4 (09:21→21:31)
[2018-06-26] MEDS: ISOSORBIDE MONONITRATE 30 MG TAB.ER.24H PO SCH ×2 (10:54→21:30)
[2018-06-26] MEDS: CARVEDILOL 12.5 MG TABLET PO SCH ×2 (10:54→21:30)
[2018-06-26] MEDS: POTASSIUM CHLORIDE 10 MEQ CAPSULE.ER PO SCH (10:54)
[2018-06-26] MEDS: ENOXAPARIN SODIUM INJ 40 MG/0.4 ML DISP.SYRIN SUBCUT SCH (10:54)
[2018-06-26] MEDS: METOLAZONE 5 MG TABLET PO SCH (10:54)
[2018-06-26] MEDS: GABAPENTIN 300 MG CAPSULE PO SCH ×2 (10:54→21:30)
--- NOTE | 2018-06-26 13:57 | PDOC PROGRESS REPORT ---
Subjective Progress Note for:: 06/24/18 Subjective:: The patient remains in respiratory distress despite CPAP. She was becoming drowsy. Suspicion of worsening respiratory failure was noted. Reason For Visit: MORBIDLY OBESE,CONGESTIVE HEART FAILURE,RESPIRATOR Physical Exam Vital Signs: Temp Pulse Resp BP Pulse Ox 98.2 F 60 18 108/54 L 98 06/24/18 11:14 06/24/18 17:12 06/24/18 17:12 06/24/18 17:12 06/24/18 17:12 Intake & Output 06/23/18 06/24/18 06/25/18 06:59 06:59 06:59 Intake Total 275 Output Total 1450 Balance -1175 Weight 201 kg 201 kg General appearance: PRESENT: cooperative, mild distress, morbidly obese, other - Currently with CPAP in place Head exam: PRESENT: atraumatic, normocephalic Eye exam: PRESENT: conjunctiva pink Ear exam: PRESENT: normal external ear exam Mouth exam: PRESENT: other - CPAP mask in place Neck exam: PRESENT: other - Very large neck. ABSENT: carotid bruit, JVD, lymphadenopathy Respiratory exam: PRESENT: decreased breath sounds - Due to body habitus, rales - Bilaterally, symmetrical. ABSENT: rhonchi, wheezes Cardiovascular exam: PRESENT: RRR, +S1, +S2, systolic murmur - 2/6 GI/Abdominal exam: PRESENT: normal bowel sounds, soft, other - Markedly pendulous abdomen. ABSENT: tenderness Rectal exam: PRESENT: deferred Extremities exam: PRESENT: +1 edema - Still with pitting above the knee Neurological exam: PRESENT: awake, oriented to person, oriented to place. ABSENT: alert - Somewhat somnolent but answers questions appropriately. Psychiatric exam: PRESENT: flat affect. ABSENT: agitated, anxious Focused psych exam: ABSENT: delusional, restlessness Results Laboratory Results: 06/23/18 20:09 06/24/18 13:43 06/23/18 06/23/18 06/23/18 16:01 17:33 20:09 WBC 4.9 RBC 3.85 Hgb 9.1 L Hct 29.7 L MCV 77 L MCH 23.7 L MCHC 30.8 L RDW 20.0 H Plt Count 111 L Seg Neutrophils % 69.3 Lymphocytes % 18.3 Monocytes % 10.4 Eosinophils % 1.2 Basophils % 0.8 Absolute Neutrophils 3.4 Absolute Lymphocytes 0.9 Absolute Monocytes 0.5 Absolute Eosinophils 0.1 Absolute Basophils 0.0 Carbonic Acid HCO3/H2CO3 Ratio ABG pH ABG pCO2 ABG pO2 ABG HCO3 ABG O2 Saturation ABG Base Excess FiO2 Sodium Potassium Chloride Carbon Dioxide Anion Gap BUN Creatinine Est GFR ( Amer) Est GFR (Non-Af Amer) Glucose Lactic Acid 1.8 Calcium Magnesium Urine Color YELLOW Urine Appearance CLEAR Urine pH 7.0 Ur Specific [place] 1.008 Urine Protein 30 H Urine Glucose (UA) NEGATIVE Urine Ketones NEGATIVE Urine Blood MODERATE H Urine Nitrite POSITIVE H Ur Leukocyte Esterase NEGATIVE Urine WBC (Auto) 2 Urine RBC (Auto) 10 06/23/18 06/24/18 06/24/18 20:09 13:10 13:43 WBC RBC Hgb Hct MCV MCH MCHC RDW Plt Count Seg Neutrophils % Lymphocytes % Monocytes % Eosinophils % Basophils % Absolute Neutrophils Absolute Lymphocytes Absolute Monocytes Absolute Eosinophils Absolute Basophils Carbonic Acid 2.85 H HCO3/H2CO3 Ratio 15:1 ABG pH 7.28 L ABG pCO2 94.6 H* ABG pO2 23.3 L* ABG HCO3 43.9 H ABG O2 Saturation 31.3 L ABG Base Excess 14.6 FiO2 4L Sodium 142.9 141.0 Potassium 4.0 4.6 Chloride 95 L 94 L Carbon Dioxide 39 H 35 H Anion Gap 9 12 BUN 33 H 36 H Creatinine 1.24 1.36 H Est GFR ( Amer) 53 L 48 L Est GFR (Non-Af Amer) 44 L 40 L Glucose 193 H 126 H Lactic Acid Calcium 9.4 9.2 Magnesium 2.0 2.0 Urine Color Urine Appearance Urine pH Ur Specific [place] Urine Protein Urine Glucose (UA) Urine Ketones Urine Blood Urine Nitrite Ur Leukocyte Esterase Urine WBC (Auto) Urine RBC (Auto) 06/24/18 14:41 WBC RBC Hgb Hct MCV MCH MCHC RDW Plt Count Seg Neutrophils % Lymphocytes % Monocytes % Eosinophils % Basophils % Absolute Neutrophils Absolute Lymphocytes Absolute Monocytes Absolute Eosinophils Absolute Basophils Carbonic Acid 2.54 H HCO3/H2CO3 Ratio 14:1 ABG pH 7.27 L ABG pCO2 84.4 H* ABG pO2 81.2 ABG HCO3 37.5 H ABG O2 Saturation 93.7 L ABG Base Excess 7.5 FiO2 4L Sodium Potassium Chloride Carbon Dioxide Anion Gap BUN Creatinine Est GFR ( Amer) Est GFR (Non-Af Amer) Glucose Lactic Acid Calcium Magnesium Urine Color Urine Appearance Urine pH Ur Specific [place] Urine Protein Urine Glucose (UA) Urine Ketones Urine Blood Urine Nitrite Ur Leukocyte Esterase Urine WBC (Auto) Urine RBC (Auto) 06/23/18 06/23/18 06/23/18 15:40 15:40 20:09 Creatine Kinase 56 CK-MB (CK-2) 0.99 Troponin I 0.049 0.054 NT-Pro-B Natriuret Pep 3800 H 06/24/18 06/24/18 02:15 08:37 Creatine Kinase CK-MB (CK-2) Troponin I 0.053 0.055 NT-Pro-B Natriuret Pep Impressions: Chest X-Ray 06/23/18 00:00 IMPRESSION: CARDIAC ENLARGEMENT. VASCULAR CONGESTION. Assessment and Plan - Diagnosis (1) Acute respiratory failure with hypoxia and hypercapnia Is this a current diagnosis for this admission?: Yes Plan: I was summoned to evaluate the patient due to declining respiratory status and increased somnolence. An arterial blood gas revealed a PCO2 greater than 80. In addition she still requires oxygen supplementation but her CPAP is not a dequate at this time. The failure is a combination of her congestive heart failure and likely COPD. We will place her on BiPAP therapy. We will continue diuresis and nebulizer treatments. I am transferring the patient to [facility] due to the change in status. (2) Acute on chronic congestive heart failure Qualifiers: Heart failure type: combined systolic and diastolic Qualified Code(s): I50.43 - Acute on chronic combined systolic (congestive) and diastolic (congestive) heart failure Is this a current diagnosis for this admission?: Yes Plan: The patient does have a negative fluid balance. She is currently on Bumex 2 mg 3 times a day. I will add Zaroxolyn. I did give her an additional dose of 40 mg of Lasix IV at the time of evaluation. A recent ejection fraction was documented as 30-35% with severe tricuspid regurgitation by echocardiogram 2 months ago. Continue aggressive diuresis as well as her beta-myra and nitrate therapy. Continue close scrutiny of intake and output and monitoring of kidney and electrolyte functions. (3) Altered mental status Qualifiers: Altered mental status type: somnolence Qualified Code(s): R40.0 - Somnolence Is this a current diagnosis for this admission?: Yes Plan: Secondary to hypercapnia. This should resolve as her PCO2 improves. (4) COPD (chronic obstructive pulmonary disease) Qualifiers: COPD type: unspecified COPD Is this a current diagnosis for this admission?: Yes Plan: The primary issue is her congestive heart failure however with underlying COPD it is likely contributing to the respiratory failure. Continue nebulizer treatments for now. She does have underlying diabetes and will be will employ steroids if needed. (5) Controlled type 2 diabetes mellitus Qualifiers: Diabetes mellitus [facility] insulin use: with [facility] use Diabetes mellitus complication status: with circulatory complication Diabetes mellitus complication detail: with other circulatory complications Qualified Code(s): E11.59 - Type 2 diabetes mellitus with other circulatory complications; Z79.4 - intermediate card tender (current) use of insulin Is this a current diagnosis for this admission?: Yes Plan: Accu-Cheks have been good. Continue Lantus and sliding scale. If steroids are added we may need to alter her Lantus. Continue diabetic diet. (6) Acute kidney injury superimposed on chronic kidney disease Is this a current diagnosis for this admission?: Yes Plan: With aggressive diuresis function is declining somewhat. We will need to monitor closely. (7) Morbidly obese Is this a current diagnosis for this admission?: Yes Plan: Weight management via diet control. Continue diabetic cardiac diet while hospitalized. (8) Obstructive sleep apnea Is this a current diagnosis for this admission?: Yes Plan: The patient was wearing her CPAP at night however this appears to be inadequate at this time. We will continue to use BiPAP consistently. She can return to CPAP after the acute episode resolves. - Time Time Spent with patient: 15-24 minutes Medications reviewed and adjusted accordingly: Yes
[2018-06-26] MEDS ORDERED: LISINOPRIL 10 MG TABLET PO ONE (14:30)
[2018-06-26] MEDS ORDERED: FUROSEMIDE 80 MG TABLET PO SCH (18:00)
--- NOTE | 2018-06-26 21:12 | PDOC PROGRESS REPORT ---
Subjective Progress Note for:: 06/26/18 Subjective:: 62 y.o. F with a PMH of CHF, HLD, HTN, COPD, diabetes. [facility]. She was started on Bumex for aggressive diuresis. Patient was seen this morning on rounds, she is resting comfortably in bed on nasal cannula. She states she fwants to go home today. Upon exam, she has +2 pitting edema in her lower extremities. LCTA. The patient attempted to get OOB and walk today. She states she can normally walk approx. 10 feet. [facility], the patient was only able to take 2 steps before needing quite a bit of assistance. She is very weak and debilitated. Plan to keep patient another 24hrs. Initiate PT/OT. Reason For Visit: MORBIDLY OBESE,CONGESTIVE HEART FAILURE,RESPIRATOR Physical Exam Vital Signs: Temp Pulse Resp BP Pulse Ox 98.4 F 67 18 111/64 97 06/26/18 19:43 06/26/18 20:49 06/26/18 20:49 06/26/18 19:43 06/26/18 20:49 Intake & Output 06/25/18 06/26/18 06/27/18 06:59 06:59 06:59 Intake Total 368 997 1767 Output Total 850 1750 Balance -610 -1039 1273 Weight 202.1 kg 201.3 kg General appearance: PRESENT: morbidly obese Eye exam: PRESENT: conjunctiva pink, PERRLA Mouth exam: PRESENT: moist, tongue midline Teeth exam: PRESENT: poor dentation Neck exam: PRESENT: full ROM Respiratory exam: PRESENT: decreased breath sounds - bilateral lower lobes, wheezes - very mild Cardiovascular exam: PRESENT: RRR Pulses: PRESENT: normal radial pulses, +1 pedal pulses bilateral Vascular exam: PRESENT: normal capillary refill GI/Abdominal exam: PRESENT: normal bowel sounds, soft, other - rotund. obese. Rectal exam: PRESENT: deferred Extremities exam: PRESENT: full ROM, pedal edema, +2 edema - lower extremities Musculoskeletal exam: PRESENT: ambulatory, full ROM. ABSENT: normal inspection Neurological exam: PRESENT: alert, awake, oriented to person, oriented to place, oriented to time, oriented to situation Psychiatric exam: PRESENT: appropriate affect Skin exam: PRESENT: dry, intact, normal color Results Laboratory Results: 06/25/18 05:57 06/25/18 05:57 06/23/18 06/23/18 06/23/18 15:40 15:40 20:09 Creatine Kinase 56 CK-MB (CK-2) 0.99 Troponin I 0.049 0.054 NT-Pro-B Natriuret Pep 3800 H 06/24/18 06/24/18 02:15 08:37 Creatine Kinase CK-MB (CK-2) Troponin I 0.053 0.055 NT-Pro-B Natriuret Pep Impressions: Chest X-Ray 06/23/18 00:00 IMPRESSION: CARDIAC ENLARGEMENT. VASCULAR CONGESTION. Status: Imported from PACS Assessment and Plan - Diagnosis (1) Acute on chronic congestive heart failure Qualifiers: Heart failure type: combined systolic and diastolic Qualified Code(s): I50.43 - Acute on chronic combined systolic (congestive) and diastolic (congestive) heart failure Is this a current diagnosis for this admission?: Yes Plan: The patient does have a negative fluid balance. She is currently on Bumex 2 mg 3 times a day. A recent ejection fraction was documented as 30-35% with severe tricuspid regurgitation by echocardiogram 2 months ago. Continue aggressive diuresis as well as her beta-myra and nitrate therapy. Continue close scrutiny of intake and output and monitoring of kidney and electrolyte functions. No history os allergic reaction to lisinopril and her kidney function is great, plan to start low dose lisinopril for her heart failure (2) Controlled type 2 diabetes mellitus Qualifiers: Diabetes mellitus penitentiary insulin use: with penitentiary use Diabetes mike itus complication status: with circulatory complication Diabetes mellitus complication detail: with other circulatory complications Qualified Code(s): E11.59 - Type 2 diabetes mellitus with other circulatory complications; Z79.4 - custodial (current) use of insulin Is this a current diagnosis for this admission?: Yes Plan: Accu-Cheks ACHS. Continue Lantus and sliding scale. May need to alter Lantus now that she is on steroids. Continue diabetic diet. (3) COPD (chronic obstructive pulmonary disease) Qualifiers: COPD type: unspecified COPD Is this a current diagnosis for this admission?: Yes Plan: The primary issue is her congestive heart failure however with underlying COPD it is likely contributing to the respiratory failure. Continue nebulizer treatments for now. Will start steroids given her wheezine (4) CKD (chronic kidney disease) Qualifiers: Chronic kidney disease stage: stage 3 (moderate) Qualified Code(s): N18.3 - Chronic kidney disease, stage 3 (moderate) Is this a current diagnosis for this admission?: Yes Plan: Renal function at baseline Monitor daily chemistries Coreg to 25 mg twice daily IV hydralazine as needed for SBP>180 (5) Obstructive sleep apnea Is this a current diagnosis for this admission?: Yes Plan: The patient was wearing her CPAP at night however this appears to be inadequate at this time. We will continue to use BiPAP consistently. She can return to CPAP after the acute episode resolves. (6) Morbidly obese Is this a current diagnosis for this admission?: Yes Plan: Weight management via diet control. Continue diabetic cardiac diet while hospitalized. - Time Time Spent with patient: 15-24 minutes Medications reviewed and adjusted accordingly: Yes Anticipated discharge: Home - Inpatient Certification Based on my medical assessment, after consideration of the patient's comorbidities, presenting symptoms, or acuity I expect that the services needed warrant INPATIENT care.: Yes I certify that my determination is in accordance with my understanding of Medicare's requirements for reasonable and necessary INPATIENT services [42 CFR 412.3e].: Yes Medical Necessity: Need For Continuous Telemetry Monitoring, Risk of Complication if Not Cared For in Hospital
[2018-06-26] MEDS: ATORVASTATIN CALCIUM 20 MG TABLET PO SCH (21:30)
[2018-06-26] MEDS: INSULIN GLARGINE,HUM.REC.ANLOG 1,000 UNIT/10 ML VIAL SUBCUT SCH (21:32)
[2018-06-26] MEDS: METHYLPREDNISOLONE INJ 40 MG/1 ML SDV IV SCH (22:32)
[2018-06-27] MEDS: IPRATROPIUM/ALBUTEROL 0.5-2.5 MG/3 ML AMPUL NEB SCH ×4 (02:11→20:05)
[2018-06-27 05:02] LABS: HEMATOCRIT 27.8 % (36.0-47.0); HEMOGLOBIN 8.6 g/dL (12.0-15.5); MEAN CORPUSCULAR HGB CONC 30.9 g/dL (32.0-36.0); MEAN CORPUSCULAR VOLUME 78 fl (80-97); RED BLOOD COUNT 3.58 10^6/uL (3.72-5.28); RED CELL DISTRIBUTION WIDTH 19.8 % (11.5-14.0)
[2018-06-27 05:05] LABS: PLATELET COUNT 99 10^3/uL (150-450)
[2018-06-27 05:12] LABS: ALANINE AMINOTRANSFERASE 22 U/L (9-52); ALBUMIN 3.3 g/dL (3.5-5.0); ALKALINE PHOSPHATASE 92 U/L (38-126); ASPARTATE AMINO TRANSFERASE 17 U/L (14-36); BILIRUBIN,DIRECT 0.4 mg/dL (0.0-0.4); BILIRUBIN,TOTAL 0.5 mg/dL (0.2-1.3); BLOOD UREA NITROGEN 54 mg/dL (7-20); CHLORIDE 90 mmol/L (98-107); GLUCOSE 169 mg/dL (75-110); POTASSIUM 4.5 mmol/L (3.6-5.0); TOTAL PROTEIN 6.9 g/dL (6.3-8.2)
[2018-06-27 05:19] LABS: ANION GAP 10 (5-19); CARBON DIOXIDE 39 mmol/L (22-30)
[2018-06-27] MEDS: METHYLPREDNISOLONE INJ 40 MG/1 ML SDV IV SCH ×3 (05:24→21:43)
[2018-06-27] MEDS: INSULIN REG, HUMAN 100 UNIT/ML 3 ML VIAL (PYX) SUBCUT SCH ×4 (07:59→17:05)
[2018-06-27] MEDS ORDERED: NORMAL SALINE 1000 ML 500 ML IV ONE (10:30)
[2018-06-27] MEDS: ENOXAPARIN SODIUM INJ 40 MG/0.4 ML DISP.SYRIN SUBCUT SCH (11:21)
[2018-06-27] MEDS: METOLAZONE 5 MG TABLET PO SCH (11:28)
[2018-06-27] MEDS: ISOSORBIDE MONONITRATE 30 MG TAB.ER.24H PO SCH ×2 (11:30→21:41)
[2018-06-27] MEDS: CARVEDILOL 12.5 MG TABLET PO SCH ×2 (11:30→21:41)
[2018-06-27] MEDS: POTASSIUM CHLORIDE 10 MEQ CAPSULE.ER PO SCH (11:30)
[2018-06-27] MEDS: GABAPENTIN 300 MG CAPSULE PO SCH ×2 (11:30→21:41)
[2018-06-27] MEDS ORDERED: GLUCAGON,HUMAN RECOMB 1 MG INJ IM PRN (20:50)
[2018-06-27] MEDS ORDERED: DEXTROSE 40% GEL 15 GM TUBE PO PRN ×2 (20:50)
[2018-06-27] MEDS ORDERED: DEXTROSE 50%-WATER 25 GM/50 ML DISP.SYRIN IV PRN ×2 (20:50)
--- NOTE | 2018-06-27 20:59 | PDOC PROGRESS REPORT ---
Subjective Progress Note for:: 06/27/18 Subjective:: 62 y.o. F with a PMH of CHF, HLD, HTN, COPD, diabetes. She presents to [facility] for SOB times 2-3 days. She was started on Bumex for aggressive diuresis. Patient was seen this morning on rounds, she is resting comfortably in bedside recliner on nasal cannula. Upon exam, she has +1 pitting edema in her lower extremities. LCTA. The patient was able to get OOB and pivot to recliner. She states she can normally walk approx. 10 feet. Of note the patient's creatinine increased to 1.6 today. The patient does not have a history of kidney disease. Likely secondary to overdiuresis. Plan to d/c Bumex. Administer 500mL bolus. Plan to keep patient another 24hrs. Ambulate when possible. Reason For Visit: MORBIDLY OBESE,CONGESTIVE HEART FAILURE,RESPIRATOR Physical Exam Vital Signs: Temp Pulse Resp BP Pulse Ox 99.2 F 64 18 119/59 L 95 06/27/18 11:23 06/27/18 14:00 06/27/18 13:55 06/27/18 11:23 06/27/18 13:55 Intake & Output 06/26/18 06/27/18 06/28/18 06:59 06:59 06:59 Intake Total 711 1273 974 Output Total 1750 250 Balance -1039 1273 724 Weight 201.3 kg 198.5 kg General appearance: PRESENT: morbidly obese Head exam: PRESENT: atraumatic Eye exam: PRESENT: conjunctiva pink, PERRLA Mouth exam: PRESENT: moist Teeth exam: PRESENT: poor dentation Neck exam: PRESENT: full ROM Respiratory exam: PRESENT: clear to auscultation justin, decreased breath sounds, symmetrical, unlabored Cardiovascular exam: PRESENT: RRR Pulses: PRESENT: normal radial pulses, +1 pedal pulses bilateral Vascular exam: PRESENT: normal capillary refill GI/Abdominal exam: PRESENT: soft, other - rotund. obese.. ABSENT: distended, tenderness Rectal exam: PRESENT: deferred Extremities exam: PRESENT: pedal edema. ABSENT: full ROM Musculoskeletal exam: PRESENT: ambulatory - with assistance. ABSENT: full ROM, normal inspection Neurological exam: PRESENT: alert, awake, oriented to person, oriented to place, oriented to time, oriented to situation Psychiatric exam: PRESENT: appropriate affect Skin exam: PRESENT: intact, normal color, warm Results Laboratory Results: 06/27/18 04:38 06/27/18 04:38 06/27/18 06/27/18 04:38 04:38 WBC 5.0 RBC 3.58 L Hgb 8.6 L Hct 27.8 L MCV 78 L MCH 24.0 L MCHC 30.9 L RDW 19.8 H Plt Count 99 L Sodium 139.0 Potassium 4.5 Chloride 90 L Carbon Dioxide 39 H Anion Gap 10 BUN 54 H Creatinine 1.63 H Est GFR ( Amer) 39 L Est GFR (Non-Af Amer) 32 L Glucose 169 H Calcium 9.0 Magnesium 1.8 Total Bilirubin 0.5 AST 17 ALT 22 Alkaline Phosphatase 92 Total Protein 6.9 Albumin 3.3 L 06/23/18 06/23/18 06/23/18 15:40 15:40 20:09 Creatine Kinase 56 CK-MB (CK-2) 0.99 Troponin I 0.049 0.054 NT-Pro-B Natriuret Pep 3800 H 06/24/18 06/24/18 02:15 08:37 Creatine Kinase CK-MB (CK-2) Troponin I 0.053 0.055 NT-Pro-B Natriuret Pep Impressions: Chest X-Ray 06/23/18 00:00 IMPRESSION: CARDIAC ENLARGEMENT. VASCULAR CONGESTION. Status: Imported from PACS Assessment and Plan - Diagnosis (1) Acute on chronic congestive heart failure Qualifiers: Heart failure type: combined systolic and diastolic Qualified Code(s): I50.43 - Acute on chronic combined systolic (congestive) and diastolic (congestive) heart failure Is this a current diagnosis for this admission?: Yes Plan: Improving A recent ejection fraction was documented as 30-35% with severe tricuspid regurgitation by echocardiogram 2 months ago. Continue beta-myra and nitrate therapy. Diuretc therapy on hold in light of rising creatinine Continue close scrutiny of intake and output and monitoring of kidney and electrolyte functions. 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 Continue Lantus and sliding scale. Continue diabetic diet. (3) COPD (chronic obstructive pulmonary disease) Qualifiers: COPD type: unspecified COPD Qualified Code(s): J44.9 - Chronic obstructive pulmonary disease, unspecified Is this a current diagnosis for this admission?: Yes Plan: The primary issue is her congestive heart failure however with underlying COPD it is likely contributing to the respiratory failure. Continue nebulizer treatments for now. Continue scheduled steroids (4) CKD (chronic kidney disease) Qualifiers: Chronic kidney disease stage: stage 3 (moderate) Qualified Code(s): N18.3 - Chronic kidney disease, stage 3 (moderate) Is this a current diagnosis for this admission?: Yes Plan: Creatinine 1.6 today, up from 1.1 Previous records indicate a range from 1.2-1.5 Monitor daily chemistries Coreg to 25 mg twice daily IV hydralazine as needed for SBP>180 (5) Obstructive sleep apnea Is this a current diagnosis for this admission?: Yes Plan: The patient was wearing her CPAP at night however this appears to be inadequate at this time. We will continue to use BiPAP consistently. She can return to CPAP after the acute episode resolves. (6) Morbidly obese Is this a current diagnosis for this admission?: Yes Plan: Weight management via diet control. Continue diabetic cardiac diet while hospitalized. - Time Time Spent with patient: 15-24 minutes Medications reviewed and adjusted accordingly: Yes Anticipated discharge: Home Within: within 48 hours - Inpatient Certification Based on my medical assessment, after consideration of the patient's comorbidities, presenting symptoms, or acuity I expect that the services needed warrant INPATIENT care.: Yes I certify that my determination is in accordance with my understanding of Medicare's requirements for reasonable and necessary INPATIENT services [42 CFR 412.3e].: Yes Medical Necessity: Need For Continuous Telemetry Monitoring, Risk of Complication if Not Cared For in Hospital
[2018-06-27] MEDS: ATORVASTATIN CALCIUM 20 MG TABLET PO SCH (21:41)
[2018-06-27] MEDS: INSULIN GLARGINE,HUM.REC.ANLOG 1,000 UNIT/10 ML VIAL SUBCUT SCH (21:41)
[2018-06-27] MEDS: INSULIN LISPRO 100 UNIT/ML 3 ML VIAL SUBCUT SCH (21:42)
[2018-06-28] MEDS: IPRATROPIUM/ALBUTEROL 0.5-2.5 MG/3 ML AMPUL NEB SCH ×2 (02:11→07:59)
[2018-06-28 05:36] LABS: HEMATOCRIT 28.1 % (36.0-47.0); HEMOGLOBIN 8.7 g/dL (12.0-15.5); MEAN CORPUSCULAR HEMOGLOBIN 23.8 pg (27.0-33.4); MEAN CORPUSCULAR HGB CONC 30.9 g/dL (32.0-36.0); MEAN CORPUSCULAR VOLUME 77 fl (80-97); RED BLOOD COUNT 3.64 10^6/uL (3.72-5.28); RED CELL DISTRIBUTION WIDTH 19.1 % (11.5-14.0); WHITE BLOOD COUNT 3.4 10^3/uL (4.0-10.5)
[2018-06-28] MEDS: METHYLPREDNISOLONE INJ 40 MG/1 ML SDV IV SCH (05:41)
[2018-06-28 05:53] LABS: ALANINE AMINOTRANSFERASE 23 U/L (9-52); ALBUMIN 3.4 g/dL (3.5-5.0); ALKALINE PHOSPHATASE 84 U/L (38-126); ANION GAP 9 (5-19); ASPARTATE AMINO TRANSFERASE 13 U/L (14-36); BILIRUBIN,DIRECT 0.3 mg/dL (0.0-0.4); BILIRUBIN,TOTAL 0.4 mg/dL (0.2-1.3); BLOOD UREA NITROGEN 60 mg/dL (7-20); CALCIUM 8.9 mg/dL (8.4-10.2); CARBON DIOXIDE 38 mmol/L (22-30); CHLORIDE 91 mmol/L (98-107); GLUCOSE 217 mg/dL (75-110); SODIUM 138.2 mmol/L (137-145); TOTAL PROTEIN 6.9 g/dL (6.3-8.2)
[2018-06-28 06:03] LABS: PLATELET COUNT 94 10^3/uL (150-450)
[2018-06-28] MEDS: INSULIN LISPRO 100 UNIT/ML 3 ML VIAL SUBCUT SCH (07:42)
[2018-06-28] MEDS: CARVEDILOL 12.5 MG TABLET PO SCH (09:30)
[2018-06-28] MEDS: POTASSIUM CHLORIDE 10 MEQ CAPSULE.ER PO SCH (09:30)
[2018-06-28] MEDS: GABAPENTIN 300 MG CAPSULE PO SCH (09:30)
[2018-06-28] MEDS: ISOSORBIDE MONONITRATE 30 MG TAB.ER.24H PO SCH (09:30)
[2018-06-28 12:00] VITALS: BP 151/76
--- NOTE | 2018-07-02 11:33 | PDOC DISCHARGE SUMMARY ---
General - Admit/Disc Date/PCP Admission Date/Primary Care Provider: 06/23/18 18:23 MARLEY HARDEN MD Discharge Date: 06/28/18 - Discharge Diagnosis (1) Acute on chronic congestive heart failure Is this a current diagnosis for this admission?: Yes (2) Controlled type 2 diabetes mellitus Is this a current diagnosis for this admission?: Yes (3) COPD (chronic obstructive pulmonary disease) Is this a current diagnosis for this admission?: Yes (4) CKD (chronic kidney disease) Is this a current diagnosis for this admission?: Yes (5) Obstructive sleep apnea Is this a current diagnosis for this admission?: Yes (6) Morbidly obese Is this a current diagnosis for this admission?: Yes - Additional Information Resuscitation Status: Full Code Discharge Diet: Cardiac, Diabetic Discharge Activity: Activity As Tolerated, Balance Activity w/Rest, Weigh Daily Prescriptions: Carvedilol [Coreg 12.5 mg Tablet] 25 mg PO Q12 #60 tablet Home Medications: Albuterol Sulfate [Proair HFA Inhalation Aerosol 8.5 gm MDI] 2 puff IH Q4HP PRN 06/23/18 Atorvastatin Calcium [Lipitor 20 mg Tablet] 20 mg PO QHS 06/23/18 Ferrous Sulfate [Feosol 325 mg Tablet] 325 mg PO DAILY 06/23/18 Furosemide [Lasix 80 mg Tablet] 160 mg PO BID 06/23/18 Gabapentin [Neurontin 300 mg Capsule] 300 mg PO Q12 06/23/18 Insulin Aspart [Novolog Flexpen] 10 unit SUBCUT AC 06/23/18 Insulin Glargine,Hum.rec.anlog [Lantus Insulin 100 Unit/mL] 20 unit SUBCUT QHS 06/23/18 Isosorbide Mononitrate [Imdur 30 mg Tablet.er] 30 mg PO Q12 06/23/18 Multivitamin [Daily Multiple Vitamin] 1 tab PO DAILY 06/23/18 Potassium Chloride 10 meq PO DAILY 06/23/18 Carvedilol [Coreg 12.5 mg Tablet] 25 mg PO Q12 #60 tablet 06/28/18 History of Present Illness History of Present Illness: CARLEE BRIGGS is a 62 year old female who presents to the ER with complaint of shortness of breath. States the shortness of breath is been going on for the past 2-3 days however got worse last night. She wore her CPAP last night she states she is compliant with her CPAP. However when she woke this morning she continue to wear her CPAP all day. And her breathing was not getting better so she came to the emergency department. Nothing seems to make her breathing it better or worse. She does feel better since arrival at the ER and placed on oxygen. Patient's last admission was 2 months ago. At that time echocardiogram was done she has an EF of 30-35%. Severe tricuspid regurge, elevated right ventricular atrial pressures She has been working on losing weight stated the last time she saw her doctor 2 weeks ago she had lost 9 pounds. She is working on losing another 5 pounds by her follow-up appointment. She does not check daily weights and we discussed this at length. Also going to work on getting the patient to drinking so many sodas. She states she is trying to be compliant though with her 1500 mL fluid restriction. Hospital Course Hospital Course: 62 y.o. F with a PMH of CHF, HLD, HTN, COPD, diabetes. She presents to [facility] for SOB times 2-3 days. Ms. Briggs was admitted to the hospitalist service for pulmonary edema. She was initially placed on bumex for diuresis. Unfortunately, her creatinine increased from 1.1 to 1.6 on Hospital Day # 3. Bumex was discontinued and the patient's Lasix and metolazone were also held. The patient stated she felt 'great' but when she attempted to ambulate but was incredibly weak and required 2 person max assist just to get OOB to chair. Physical therapy worked with the patient the following day (HD#4) and she was able to ambulate without difficulty using a walker (her baseline). The patient's creatinine decreased to 1.5. She was noted to have elevated blood pressures while at [facility], despite receiving her home medications of Imdur and coreg. The patient's coreg was increased from 12.5mg to 25mg. She was instructed to resume taking the rest her medications upon her return home (including her BID lasix) and follow up with her nursing specialist within 1 week of discharge. The patient stated full understanding of her discharge instructions. Physical Exam Vital Signs: Temp Pulse Resp BP Pulse Ox 97.4 F 52 L 16 151/76 H 98 06/28/18 11:57 06/28/18 11:57 06/28/18 11:57 06/28/18 11:57 06/28/18 11:57 Results Laboratory Results: 06/28/18 05:04 06/28/18 05:04 06/23/18 06/23/18 06/23/18 15:40 15:40 20:09 Creatine Kinase 56 CK-MB (CK-2) 0.99 Troponin I 0.049 0.054 NT-Pro-B Natriuret Pep 3800 H 06/24/18 06/24/18 06/28/18 02:15 08:37 05:04 Creatine Kinase CK-MB (CK-2) Troponin I 0.053 0.055 NT-Pro-B Natriuret Pep 4080 H Impressions: Chest X-Ray 06/23/18 00:00 IMPRESSION: CARDIAC ENLARGEMENT. VASCULAR CONGESTION. Qualifiers - * PATIENT BEING DISCHARGED WITH ANY OF THE FOLLOWING DIAGNOSIS: Heart Failure HF Pt being discharged on ACEI for LVEF less than 40%?: No Reason(s) for not prescribing ACEI:: Tx not tolerated - elevated creatinine HF Pt being discharged on ARBS for LVEF less than 40%?: No Reason(s) for not prescribing ARBS:: Tx not tolerated - elevated creatinine HF Pt with Afib discharged with Warfarin?: No Reason(s) for not prescribing Warfarin:: Medical Contraindication - patient does not have afib HF Pt discharged on evidence-based Beta Lisa:: Yes
== END 2018-06-28 13:53 | disposition home health service (06) | DRG 291 ==
LOC: ER 15:24 → EH 18:23 → 5 21:00 → 3S 06-24 17:47
PROVIDERS: ADMIT Internal Medicine; ATTEND Internal Medicine
PROC: 5A09557 Assistance with Respiratory Ventilation, Greater than 96 Consecutive Hours, Continuous Positive Airway Pressure (ICD-10-PCS; principal; 2018-06-23)
DX: I13.0 Hypertensive heart and chronic kidney disease with heart failure and stage 1 through stage 4 chronic kidney disease, or unspecified chronic kidney disease (principal); I50.43 Acute on chronic combined systolic (congestive) and diastolic (congestive) heart failure; J96.12 Chronic respiratory failure with hypercapnia; N17.9 Acute kidney failure, unspecified; N18.3 Chronic kidney disease, stage 3 (moderate); E11.22 Type 2 diabetes mellitus with diabetic chronic kidney disease; E78.5 Hyperlipidemia, unspecified; G47.33 Obstructive sleep apnea (adult) (pediatric); I07.1 Rheumatic tricuspid insufficiency; E66.01 Morbid (severe) obesity due to excess calories; Z99.81 Dependence on supplemental oxygen; Z90.49 Acquired absence of other specified parts of digestive tract; Z82.49 Family history of ischemic heart disease and other diseases of the circulatory system; Z83.3 Family history of diabetes mellitus; Z79.4 Long term (current) use of insulin; Z79.899 Other long term (current) drug therapy
CPT/HCPCS: 36415; 36600; 71045; 80048; 80053; 81001; 82550; 82553; 82803; 82962; 83605; 83735; 83880; 84484; 85025; 85027; 93005; 93010; 94640; 94660; 96374; 99285; J1650; J1815; J1940; J2920; J3490; J7030; J7620

== ENCOUNTER 2018-07-03 15:21 | Emergency (ER) | payer MEDICARE, MEDICAID ==
--- NOTE | 2018-07-03 17:19 | RADIOLOGY REPORT (SQ) ---
EXAM DESCRIPTION: FEMUR RIGHT COMPLETED DATE/TIME: 07/03/2018 5:11 pm REASON FOR STUDY: fall to ground COMPARISON: None. NUMBER OF VIEWS: Two views. TECHNIQUE: Two radiographic images acquired of the right femur to include hip and knee in at least o ne projection. LIMITATIONS: None. FINDINGS: MINERALIZATION: Normal. BONES: No acute fracture. Degenerative changes in the. No worrisome bone lesions. SOFT TISSUES: No obvious swelling or foreign body. OTHER: No other significant finding. IMPRESSION: DEGENERATIVE CHANGES IN THE KNEE. NO RADIOGRAPHIC EVIDENCE OF ACUTE INJURY. TECHNICAL DOCUMENTATION: JOB ID: [id number] [employer]- All Rights Reserved Reading location - IP/workstation name: [email or web address]
--- NOTE | 2018-07-03 17:20 | RADIOLOGY REPORT (SQ) ---
EXAM DESCRIPTION: HIP RIGHT AP/LATERAL COMPLETED DATE/TIME: 07/03/2018 5:11 pm REASON FOR STUDY: fall to ground COMPARISON: 05/12/2012. NUMBER OF VIEWS: Two views. TECHNIQUE: AP pelvis and additional frog-leg view of the right hip. LIMITATIONS: None. FINDINGS: MINERALIZATION: Normal. RIGHT HIP: No fracture or dislocation. No worrisome bone lesions. LEFT HIP: No fracture or dislocation. No worrisome bone lesions. PUBIS AND ISCHIUM: No fracture. PELVIS: No fracture. SACRUM: No fracture or dislocation. No worrisome bone lesions. LOWER LUMBAR SPINE: No fracture or dislocation. No worrisome bone lesions. Degenerative disc disease . SOFT TISSUES: No findings. OTHER: No other significant finding. IMPRESSION: NEGATIVE STUDY OF THE RIGHT HIP. NO RADIOGRAPHIC EVIDENCE OF ACUTE INJURY. TECHNICAL DOCUMENTATION: JOB ID: [id number] [employer]- All Rights Reserved Reading location - IP/workstation name: [email or web address]
--- NOTE | 2018-07-03 17:20 | RADIOLOGY REPORT (SQ) ---
EXAM DESCRIPTION: KNEE RIGHT 2 VIEWS COMPLETED DATE/TIME: 07/03/2018 5:11 pm REASON FOR STUDY: fall with R Low back, hip and knee pain COMPARISON: None. NUMBER OF VIEWS: Two views. TECHNIQUE: AP and lateral radiographic images acquired of the right knee. LIMITATIONS: None. FINDINGS: MINERALIZATION: Normal. BONES: No acute fracture or dislocation. Joint space narrowing with osteophytes. No worrisome bone lesions. JOINT: No effusion. SOFT TISSUES: No soft tissue swelling. No radio-opaque foreign body. OTHER: No other significant finding. IMPRESSION: DEGENERATIVE CHANGES. NO RADIOGRAPHIC EVIDENCE OF ACUTE INJURY. TECHNICAL DOCUMENTATION: JOB ID: [id number] [employer]- All Rights Reserved Reading location - IP/workstation name: [email or web address]
--- NOTE | 2018-07-03 17:21 | RADIOLOGY REPORT (SQ) ---
EXAM DESCRIPTION: L SPINE 2 VIEWS COMPLETED DATE/TIME: 07/03/2018 5:11 pm REASON FOR STUDY: fall, back pain COMPARISON: 03/20/2017. NUMBER OF VIEWS: Three views. TECHNIQUE: AP, lateral and sacral radiographic images acquired of the lumbar spine. LIMITATIONS: None. FINDINGS: MINERALIZATION: Normal. SEGMENTATION: Normal. No transitional anatomy. ALIGNMENT: Grade 1 anterolisthesis of L4 on L5. VERTEBRAE: Maintained height. No fracture or worrisome bone lesion. DISCS: Mild disc space narrowing with small osteophytes. POSTERIOR ELEMENTS: Pedicles and facets are intact. No pars defect or posterior arch defects. HARDWARE: None in the spine. PARASPINAL SOFT TISSUES: Normal. PELVIS: Intact as visualized. No fractures or worrisome bone lesions. SI joints intact. OTHER: No other significant finding. IMPRESSION: CHRONIC DEGENERATIVE CHANGES. NO ACUTE FINDINGS. TECHNICAL DOCUMENTATION: JOB ID: [id number] [employer]- All Rights Reserved Reading location - IP/workstation name: [email or web address]
[2018-07-03] MEDS ORDERED: ACETAMINOPHEN 325 MG TABLET PO ONE (19:41)
[2018-07-03] MEDS ORDERED: METHOCARBAMOL 750 MG TABLET PO ONE (20:53)
[2018-07-03] MEDS ORDERED: LIDOCAINE 5% (700 MG) TRANSDERMAL ADH..PATCH TP ONE (22:23)
--- NOTE | 2018-07-03 22:32 | ER Document Report ---
Entered by IFEOMA ODMINGUEZ SCRIBE 07/03/18 1545 Acting as scribe for:JERONIMO WOMACK DO ED General - General Chief Complaint: Back Injury Stated Complaint: HIP PAIN Time Seen by Provider: 07/03/18 15:33 Primary Care Provider: MARLEY HARDEN MD [Primary Care Provider] - Follow up as needed Mode of Arrival: Medic Information source: Patient Notes: Patient is a 62 year old female with CHF, COPD, type 2 diabetes and a history of [place] (stent placed 07/2017) and a stroke presents to the emergency department complaining of right lower extremity pain secondary a mechanical trip and fall. Patient states she was walking to her kitchen when her leg gave out and she fell on her right side. She complains of right hip and right knee pain as well as some right-sided low back pain. She denies any dizziness, numbness or tingling sensations or being on blood thinners. Patient's PCP is Dr. Fagan. She states she typically uses a walker a home. TRAVEL OUTSIDE OF THE [place] IN LAST 30 DAYS: No - Related Data Allergies/Adverse Reactions: No Known Allergies Allergy (Verified 06/23/18 16:03) Past Medical History - General Information source: Patient - Social History Smoking Status: Never Smoker Cigarette use (# per day): No Chew tobacco use (# tins/day): No Smoking Education Provided: No Frequency of alcohol use: None Family History: CAD, DM, Hypertension - Past Medical History Cardiac Medical History: Reports: Hx Congestive Heart Failure, Hx Hypercholesterolemia, Hx Hypertension Pulmonary Medical History: Reports: Hx COPD Endocrine Medical History: Reports: Hx Diabetes Mellitus Type 2 Renal/ Medical History: Reports: Hx Renal Insufficiency Past Surgical History: Reports: Hx Cardiac Surgery - defib., Hx Hysterectomy - Immunizations Immunizations up to date: Yes Hx Diphtheria, Pertussis, Tetanus Vaccination: Yes Hx Pneumococcal Vaccination: 01/04/17 Review of Systems - Review of Systems Constitutional: No symptoms reported EENT: No symptoms reported Cardiovascular: No symptoms reported Respiratory: No symptoms reported Gastrointestinal: No symptoms reported Genitourinary: No symptoms reported Female Genitourinary: No symptoms reported Musculoskeletal: See HPI Skin: No symptoms reported Hematologic/Lymphatic: No symptoms reported Neurological/Psychological: No symptoms reported -: Yes All other systems reviewed and negative Physical Exam - Vital signs Vitals: Temp Pulse Resp BP Pulse Ox 97.5 F 62 20 115/65 94 07/03/18 15:33 07/03/18 15:33 07/03/18 15:33 07/03/18 15:33 07/03/18 15:33 - Notes Notes: GENERAL: Alert, smells of urine, body habitus makes locating landmarks difficult, interacts well. No acute distress. Morbid obesity HEAD: Normocephalic, atraumatic. EYES: Pupils equal, round, and reactive to light. Extraocular movements intact. ENT: Oral mucosa moist, tongue midline. NECK: Full range of motion. Supple. Trachea midline. LUNGS: Clear to auscultation bilaterally, no wheezes, rales, or rhonchi. No respiratory distress. HEART: 2/6 systolic murmur. No gallops or rubs. ABDOMEN: Soft, morbidly obese, along fold of right pannus, above right iliac crest appears to be tender to palpation, no guarding, rigidity, or rebound. Non- distended. Bowel sounds present in all 4 quadrants. EXTREMITIES: Moves all 4 extremities spontaneously. Right distal femur tender to palpation. Radial and dorsalis pedis pulses 2/4 bilaterally. No cyanosis. No tenderness to palpation over the area of the right hip, minimal tenderness to palpation over soft tissues of the right low back. No midline bony tenderness to palpation. NEUROLOGICAL: Alert and oriented x3. Normal speech. PSYCH: Normal affect, normal mood. SKIN: Warm, dry, normal turgor. No rashes or lesions noted. Course - Re-evaluation Re-evalutation: 07/03/18 20:21 Patient had x-rays performed of her lumbar spine, right hip, femur and knee. All were negative for any acute process. I did discuss the findings of chronic anterolisthesis of L4 on L5 as well as some arthritis on the x-rays with the patient. Patient is doing a trial of ambulation. Being treated with aceta minophen for her pain. Offered muscle relaxers and she refused. Patient will be discharged to home after ambulating. Sister who was on the phone did ask me what was going on with the patient's shor tness of breath. Discussed with patient and sister on the phone as well as sister who is in the room that the patient had not mentioned any shortness of breath. Patient at this point stated that she had been discharged from the hospital on Thursday after being admitted for shortness of breath. States that she has home oxygen at home now, her shortness of breath has not worsened since discharge or since the fall. Patient states that she has not concerned about her shortness of breath currently, does not wish to be reevaluated for it. Sister who is in the room also mentioned that she has frequent weakness of her bilateral lower extremities. Patient was evaluated for this when she was in the hospital, has home health starting on Thursday. At present patient does not feel she needs further evaluation for her chronic intermittent weakness into her lower extremities. Patient states that she did not get weak and fall, she did not get dizzy and fall, she states that she lost her balance and fell. Patient agrees with the characterization that this was a mechanical fall. 07/03/18 22:29 Patient had pain when ambulating with just acetaminophen for pain control, Robaxin was added and she was able to ambulate approximately 20 feet which is the distance she will have to go to get to the bathroom and back again. Patient is agreeable to trying Robaxin at home and Lidoderm patch. Home health will be coming to her house on Thursday. Sister is staying with her. Patient is agreeable to discharge to home. - Vital Signs Vital signs: Temp Pulse Resp BP Pulse Ox 97.5 F 62 20 115/65 94 07/03/18 15:33 07/03/18 15:33 07/03/18 15:33 07/03/18 15:33 07/03/18 15:33 Discharge - Discharge Clinical Impression: Fall at home Qualifiers: Encounter type: initial encounter Qualified Code(s): W19.XXXA - Unspecified fa ll, initial encounter; Y92.009 - Unspecified place in unspecified non- institutional (private) residence as the place of occurrence of the external cause Acute low back pain Qualifiers: Back pain laterality: right Sciatica presence: without sciatica Qualified Code(s): M54.5 - Low back pain Condition: Stable Disposition: HOME, SELF-CARE Additional Instructions: Today we did not find any signs of fracture or dislocation on your x-rays. I am glad that you have physical therapy starting with you at home on Thursday. I think this will decrease your likelihood of having another fall at home and will likely help with your intermittent bilateral lower extremity weakness. Please return for any new numbness, weakness, worsening pain or new or concerning symptoms. Prescriptions: Lidocaine [Lidoderm 5% (700 mg) Transdermal Patch] 1 patch TP DAILY #7 adh..patch Methocarbamol [Robaxin 750 mg Tablet] 750 mg PO ASDIR PRN #40 tablet PRN Reason: Forms: Parent Work Note Referrals: MARLEY HARDEN MD [Primary Care Provider] - Follow up as needed I personally performed the services described in the documentation, reviewed and edited the documentation which was dictated to the scribe in my presence, and it accurately records my words and actions.
[2018-07-04 07:59] VITALS: BP 133/90
== END 2018-07-03 23:00 | disposition home or self-care (01) ==
LOC: ER 15:21
DX: M54.5 Low back pain (principal); M79.604 Pain in right leg; W01.0XXA Fall on same level from slipping, tripping and stumbling without subsequent striking against object, initial encounter; Y92.009 Unspecified place in unspecified non-institutional (private) residence as the place of occurrence of the external cause; J44.9 Chronic obstructive pulmonary disease, unspecified; I50.9 Heart failure, unspecified; E78.00 Pure hypercholesterolemia, unspecified; I11.0 Hypertensive heart disease with heart failure; I25.2 Old myocardial infarction; Z95.810 Presence of automatic (implantable) cardiac defibrillator; Z90.710 Acquired absence of both cervix and uterus
CPT/HCPCS: 99283; 73552; 73502; 73560; 72100; A9270 ×2; J3490

== ENCOUNTER 2018-07-05 21:11 | Emergency (ER) | payer MEDICARE, MEDICAID ==
[2018-07-05 21:35] VITALS: BP 139/70
--- NOTE | 2018-07-05 22:01 | ER Document Report ---
ED Neck/Back Problem - General Chief Complaint: Back Pain Stated Complaint: BACK PAIN Time Seen by Provider: 07/05/18 21:59 Primary Care Provider: MARLEY HARDEN MD [Primary Care Provider] - Follow up as needed Mode of Arrival: Stretcher Information source: Patient Notes: HISTORY OF PRESENT ILLNESS: Patient is a 62-year-old female with a significant past medical history for multiple chronic conditions who presents with right-sided hip and back pain after falling 2 days ago at home. Mechanism of injury: Fell at home onto hard catrina Location: Right hip/flank Onset: Sudden Provocation: Movement, twisting Quality: Aching Radiation: None Severity: Moderate Timing: Constant Numbness/Tingling: None REVIEW OF SYSTEMS: CONSTITUTIONAL : Denies fever or chills, no sweats. Denies recent illness. EENT: Denies eye, ear, throat, or mouth pain or symptoms. Denies nasal or sinus congestion. CARDIOVASCULAR: Denies chest pain. RESPIRATORY: Denies cough, cold, or chest congestion. Denies shortness of breath, difficulty breathing, or wheezing. GASTROINTESTINAL: Denies abdominal pain. Denies nausea, vomiting, or diarrhea. Denies constipation. GENITOURINARY: Denies difficulty urinating, painful urination, burning, frequency, or blood in urine. FEMALE GENITOURINARY: Denies vaginal bleeding, abnormal or irregular periods. Last menstrual period MUSCULOSKELETAL: Positive for right hip and back pain. SKIN: Denies rash or skin lesions. HEMATOLOGIC : Denies easy bruising or bleeding. LYMPHATIC: Denies swollen, enlarged glands. NEUROLOGICAL: Denies weakness or paralysis or loss of use of either side. Denies problems with gait or speech. Denies sensory or motor loss. PSYCHIATRIC: Denies anxiety or stress or depression. All other systems reviewed and negative. PHYSICAL EXAMINATION: GENERAL: Morbidly obese but well-appearing, well-nourished and in no acute distress. HEAD: Atraumatic, normocephalic. No scalp deformity, depression, or crepitance. EYES: Pupils are 3 mm and equal/round/reactive to light, extraocular movements intact, sclera anicteric, conjunctiva are normal. ENT: Nares patent bilaterally, oropharynx clear without exudates or palatal petechia. Moist mucous membranes. No tonsil hypertrophy. NECK: Normal range of motion, supple without lymphadenopathy. LUNGS: Breath sounds present, equal, and clear to auscultation bilaterally. No wheezes, rales, or rhonchi. HEART: Regular rate and rhythm without murmurs, rubs, or gallops. 2+ peripheral pulses. Normal capillary refill. ABDOMEN: Soft, nontender, nondistended. Normoactive bowel sounds. No guarding, no rebound. No masses appreciated. BACK: Normal contour, no midline tenderness. Rectal exam deferred. GENITAL/PELVC: Deferred. EXTREMITIES: Mild tenderness in the right hip and lower flank, no ecchymoses or deformity, no edema. Normal range of motion, no obvious deformity. No pitting or edema. No cyanosis and normal capillary refill <2 seconds. NEUROLOGICAL: No focal neurological deficits. Moves all extremities spontaneously and on command. PSYCH: Normal mood, normal affect. No suicidal thoughts/ideations. No homocidal thoughts/ideations. No hallucinations. SKIN: Warm, dry, normal turgor, no rashes or lesions noted. ASSESSMENT AND PLAN: This patient is a 62-year-old female who presents with right hip and back pain. Previous visit revealed normal x-rays and no evidence of traumatic injury. 1. Will give oral baclofen with tramadol and reassess. 2. Will discharge home with return precautions and follow-up. Patient voices both understanding and agreeing with the plan. TRAVEL OUTSIDE OF THE [place] IN LAST 30 DAYS: No - Related Data Allergies/Adverse Reactions: No Known Allergies Allergy (Verified 07/05/18 21:31) Past Medical History - General Information source: Patient - Social History Smoking Status: Never Smoker Chew tobacco use (# tins/day): No Frequency of alcohol use: None Drug Abuse: None Lives with: Family Family History: CAD, DM, Hypertension Patient has suicidal ideation: No Patient has homicidal ideation: No - Past Medical History Cardiac Medical History: Reports: Hx Congestive Heart Failure, Hx Heart Attack, Hx Hypercholesterolemia, Hx Hypertension Pulmonary Medical History: Reports: Hx COPD EENT Medical History: Reports: None Neurological Medical History: Reports: None Endocrine Medical History: Reports: Hx Diabetes Mellitus Type 1, Hx Diabetes Mellitus Type 2 Renal/ Medical History: Reports: Hx Renal Insufficiency. Denies: Hx Peritoneal Dialysis Malignancy Medical History: Reports: None GI Medical History: Reports: None Musculoskeletal Medical History: Reports None Skin Medical History: Reports None Psychiatric Medical History: Reports: None Denies: Hx Depression Traumatic Medical History: Reports: None Infectious Medical History: Reports: None Past Surgical History: Reports: Hx Cardiac Surgery - defib., Hx Hysterectomy - Immunizations Immunizations up to date: Yes Hx Diphtheria, Pertussis, Tetanus Vaccination: Yes Hx Pneumococcal Vaccination: 01/04/17 Physical Exam - Vital signs Vitals: Temp Pulse Resp BP Pulse Ox 98.8 F 64 25 H 139/70 H 97 07/05/18 21:17 07/05/18 21:17 07/05/18 21:17 07/05/18 21:17 07/05/18 21:17 Course - Vital Signs Vital signs: Temp Pulse Resp BP Pulse Ox 98.8 F 64 25 H 139/70 H 97 07/05/18 21:17 07/05/18 21:17 07/05/18 21:17 07/05/18 21:17 07/05/18 21:17 - Diagnostic Test Radiology reviewed: Image reviewed, Reports reviewed Discharge - Discharge Clinical Impression: Muscle strain Condition: Good Disposition: HOME, SELF-CARE Instructions: Muscle Strain ([facility]) Additional Instructions: You have been evaluated in the Emergency Department for hip and back pain. While here, you were given medications and it is now safe to be discharged home. Please follow-up with your primary physician as instructed in 1 week to be rechecked. Return to the Emergency Department if you experience worsening pain or any other concerning symptoms. Prescriptions: Baclofen [Baclofen 10 mg Tablet] 10 mg PO TID #30 tab Referrals: MARLEY HARDEN MD [Primary Care Provider] - Follow up as needed Print Language: Greenlandic
[2018-07-05] MEDS ORDERED: BACLOFEN 10 MG TABLET PO ONE (23:08)
[2018-07-05] MEDS ORDERED: TRAMADOL HCL 50 MG TABLET PO ONE (23:08)
== END 2018-07-05 23:45 | disposition home or self-care (01) ==
LOC: ER 21:11
DX: M54.9 Dorsalgia, unspecified (principal); M25.551 Pain in right hip; W01.0XXA Fall on same level from slipping, tripping and stumbling without subsequent striking against object, initial encounter; I50.9 Heart failure, unspecified; E78.00 Pure hypercholesterolemia, unspecified; J44.9 Chronic obstructive pulmonary disease, unspecified; E11.9 Type 2 diabetes mellitus without complications; E66.01 Morbid (severe) obesity due to excess calories; I11.0 Hypertensive heart disease with heart failure; Z95.810 Presence of automatic (implantable) cardiac defibrillator; I25.2 Old myocardial infarction; Z90.710 Acquired absence of both cervix and uterus
CPT/HCPCS: 99283; A9270 ×2

== ENCOUNTER 2018-07-07 15:55 | Inpatient (IN) | payer MEDICARE, MEDICAID ==
[2018-07-07] MEDS ORDERED: NITROGLYCERIN 2% OINTMENT 1 GM PACKET ONE (16:24)
--- NOTE | 2018-07-07 16:24 | RADIOLOGY REPORT (SQ) ---
EXAM DESCRIPTION: CT HEAD WITHOUT COMPLETED DATE/TIME: 07/07/2018 4:08 pm REASON FOR STUDY: AMS COMPARISON: None. TECHNIQUE: Axial images acquired through the brain without intravenous contrast. Images reviewed wi th bone, brain and subdural windows. Additional sagittal and coronal reconstructions were generated. Images stored on PACS. All CT scanners at this facility use dose modulation, iterative reconstruction, and/or weight based d osing when appropriate to reduce radiation dose to as low as reasonably achievable (ALARA). [facility]: Dose Right [facility]: CareDose [facility]: Dose Right [facility]: Teradose 4D [facility]: Isentropic RADIATION DOSE: CT Rad equipment meets quality standard of care and radiation dose reduction techniq ues were employed. CTDIvol: 55.2 mGy. DLP: 1001 mGy-cm. mGy. LIMITATIONS: None. FINDINGS: VENTRICLES: Normal size and contour. CEREBRUM: No masses. No hemorrhage. No midline shift. No evidence for acute infarction. Normal gra y/white matter differentiation. No areas of low density in the white matter. CEREBELLUM: No masses. No hemorrhage. No alteration of density. No evidence for acute infarction. EXTRAAXIAL SPACES: No fluid collections. No masses. ORBITS AND GLOBE: No intra- or extraconal masses. Normal contour of globe without masses. CALVARIUM: No fracture. PARANASAL SINUSES: No fluid or mucosal thickening. SOFT TISSUES: No mass or hematoma. OTHER: No other significant finding. IMPRESSION: No evidence of acute intracranial hemorrhage or large vascular territory infarct. Limit ed evaluation of the porter-white differentiation secondary to body habitus. If high clinical concern for acute ischemic event MRI would be more sensitive. EVIDENCE OF ACUTE STROKE: NO. COMMENT: Pertinent positive or negative findings of the imaging study reported as a CRITICAL EXAM farida GILMORE MD at16:15 on 07/07/2018. Category of Critical Exam: Negative code stroke Quality ID # [id number]: Final reports with documentation of one or more dose reduction techniques (e.g., Au tomated exposure control, adjustment of the mA and/or kV according to patient size, use of iterative reconstruction technique) TECHNICAL DOCUMENTATION: JOB ID: [id number] [employer]- All Rights Reserved Reading location - IP/workstation name: [email or web address]
[2018-07-07] MEDS ORDERED: FUROSEMIDE INJ/PF 40 MG/4 ML SDV IV ONE (16:26)
[2018-07-07] MEDS ORDERED: NITROGLYCERIN 2% OINTMENT 1 GM PACKET TP ONE (16:26)
[2018-07-07 16:28] LABS: ABSOLUTE EOSINOPHILS # (AUTO) 0.1 10^3/uL (0.0-0.6); ABSOLUTE LYMPHOCYTES (AUTO) 0.8 10^3/uL (0.5-4.7); ABSOLUTE MONOCYTES (AUTO) 0.8 10^3/uL (0.1-1.4); ABSOLUTE NEUT (AUTO) 4.9 10^3/uL (1.7-8.2); BASOPHILS % (AUTO) 0.7 % (0-2); EOSINOPHILS % (AUTO) 0.9 % (0-6); HEMATOCRIT 34.2 % (36.0-47.0); HEMOGLOBIN 10.6 g/dL (12.0-15.5); LYMPHOCYTES % (AUTO) 12.4 % (13-45); MEAN CORPUSCULAR HEMOGLOBIN 24.1 pg (27.0-33.4); MEAN CORPUSCULAR HGB CONC 31.1 g/dL (32.0-36.0); MEAN CORPUSCULAR VOLUME 77 fl (80-97); MONOCYTES % (AUTO) 12.1 % (3-13); PLATELET COUNT 122 10^3/uL (150-450); RED BLOOD COUNT 4.43 10^6/uL (3.72-5.28); RED CELL DISTRIBUTION WIDTH 19.9 % (11.5-14.0); SEGMENTED NEUTROPHILS % (AUTO) 73.9 % (42-78); TOTAL CELLS COUNTED % (AUTO) 100 %; WHITE BLOOD COUNT 6.6 10^3/uL (4.0-10.5)
--- NOTE | 2018-07-07 16:31 | ER Document Report ---
ED General - General Stated Complaint: ALTERED MENTAL STATUS Time Seen by Provider: 07/07/18 16:03 Mode of Arrival: Medic Information source: Emergency Med Personnel Notes: This is a 62-year-old female with a complicated medical history including COPD, obstructive sleep apnea, morbid obesity, CHF (pacemaker), diabetes and CVA. She was brought in to the emergency room by EMS with an altered mental status. Patient's granddaughter found her at the side of the bed. There was no fall. Patient has fluctuating mental status in the emergency room. She does complain of shortness of breath. She does complain of low back pain. She had been evaluated previously for a fall and had negative x-rays. Her Accu-Chek was 160 in the field. TRAVEL OUTSIDE OF THE [place] IN LAST 30 DAYS: No - HPI Onset: Just prior to arrival Onset/Duration: Gradual Quality of pain: Dull Severity: Mild Pain Level: 1 - She does complain of lower back pain which she has had. Associated symptoms: Shortness of breath. denies: Chest pain, Headache Exacerbated by: Movement Relieved by: Remaining still Similar symptoms previously: Yes Recently seen / treated by doctor: Yes - Related Data Allergies/Adverse Reactions: No Known Allergies Allergy (Verified 07/05/18 21:31) Past Medical History - General Information source: Patient, Emergency Med Personnel, [facility] Records - Social History Smoking Status: Unknown if Ever Smoked Cigarette use (# per day): No Chew tobacco use (# tins/day): No Frequency of alcohol use: None Drug Abuse: None Lives with: Family Family History: CAD, DM, Hypertension Patient has suicidal ideation: No Patient has homicidal ideation: No - Past Medical History Cardiac Medical History: Reports: Hx Congestive Heart Failure, Hx Heart Attack, Hx Hypercholesterolemia, Hx Hypertension Pulmonary Medical History: Reports: Hx COPD Endocrine Medical History: Reports: Hx Diabetes Mellitus Type 1, Hx Diabetes Mellitus Type 2 Renal/ Medical History: Reports: Hx Renal Insufficiency. Denies: Hx Peritoneal Dialysis Psychiatric Medical History: Denies: Hx Depression Past Surgical History: Reports: Hx Cardiac Surgery - defib., Hx Hysterectomy - Immunizations Immunizations up to date: Yes Hx Diphtheria, Pertussis, Tetanus Vaccination: Yes Hx Pneumococcal Vaccination: 01/04/17 Review of Systems - Review of Systems Constitutional: denies: Chills, Fever EENT: No symptoms reported Cardiovascular: Orthopnea, Dyspnea, Edema Respiratory: Short of breath, Wheezing Gastrointestinal: No symptoms reported Genitourinary: No symptoms reported Female Genitourinary: No symptoms reported Musculoskeletal: No symptoms reported Skin: No symptoms reported Hematologic/Lymphatic: No symptoms reported Neurological/Psychological: See HPI Physical Exam - Vital signs Vitals: Resp 27 H 07/07/18 16:11 Notes: Physical exam: GENERAL: Patient does appear short of breath, she does appear altered but she responds to verbal and will tell you she is short of breath. Her blood pressure is 172/114, her pulse is 96, her respiratory rate is 30. HEAD: Atraumatic, normocephalic. EYES: Pupils equal round and reactive to light, extraocular movements intact, sclera anicteric, conjunctiva are normal. ENT: Moist mucous membranes. NECK: Normal range of motion, supple, she does have JVD LUNGS: There are crackles bilaterally HEART: Regular rate and rhythm without murmurs, rubs or gallops. ABDOMEN: Soft, normoactive bowel sounds. No tenderness to palpation. No guarding, no rebound. No masses appreciated. EXTREMITIES: Normal range of motion, no pitting or edema. No clubbing or cyanosis. NEUROLOGICAL: She is altered, but will respond to verbal stimuli. SKIN: Warm, Dry, normal turgor, no rashes or lesions noted. Course - Vital Signs Vital signs: Temp Pulse Resp BP Pulse Ox 97.8 F 75 26 H 169/101 H 99 07/07/18 20:18 07/07/18 20:18 07/07/18 20:30 07/07/18 22:38 07/07/18 20:30 - Laboratory Result Diagrams: 07/07/18 16:15 07/07/18 16:15 Laboratory results interpreted by me: 07/07/18 07/07/18 07/07/18 16:15 16:15 16:15 Hgb 10.6 L Hct 34.2 L MCV 77 L MCH 24.1 L MCHC 31.1 L RDW 19.9 H Plt Count 122 L Lymphocytes % 12.4 L Carbonic Acid ABG pCO2 ABG pO2 ABG HCO3 ABG Total CO2 ABG O2 Saturation Chloride 96 L Carbon Dioxide 38 H Est GFR (Non-Af Amer) 50 L Glucose 160 H Calcium 10.3 H NT-Pro-B Natriuret Pep 8220 H Urine Protein Urine Blood 07/07/18 07/07/18 16:15 16:45 Hgb Hct MCV MCH MCHC RDW Plt Count Lymphocytes % Carbonic Acid 1.96 H ABG pCO2 65.1 H ABG pO2 153.1 H ABG HCO3 38.4 H ABG Total CO2 40.4 H ABG O2 Saturation 98.9 H Chloride Carbon Dioxide Est GFR (Non-Af Amer) Glucose Calcium NT-Pro-B Natriuret Pep Urine Protein 30 H Urine Blood SMALL H - Diagnostic Test Radiology reviewed: Image reviewed, Reports reviewed - Reviewed CT with radiologist: No acute process. Chest x-ray shows cardiomegaly with evidence of pulmonary edema. - EKG Interpretation by Dc Rhythm: Other - EKG shows a ventricularly paced rhythm at a rate of 96. No si gnificant change from an EKG performed 06/23/18 Critical Care Note - Critical Care Note Total time excluding time spent on procedures (mins): 60 Discharge - Discharge Clinical Impression: Pulmonary edema, COPD exacerbation Condition: Serious Disposition: ADMITTED INPATIENT Admitting Provider: Hospitalist - Dut Unit Admitted: AGUSTINA
--- NOTE | 2018-07-07 16:33 | RADIOLOGY REPORT (SQ) ---
EXAM DESCRIPTION: CHEST SINGLE VIEW COMPLETED DATE/TIME: 07/07/2018 4:15 pm REASON FOR STUDY: AMS COMPARISON: None. EXAM PARAMETERS: NUMBER OF VIEWS: One view. TECHNIQUE: Single frontal radiographic view of the chest acquired. RADIATION DOSE: NA LIMITATIONS: None. FINDINGS: LUNGS AND PLEURA: Mild bibasilar interstitial and opacities. Left retrocardiac opacity wi th obscuration of the left hemidiaphragm P no large effusion. No pneumothorax per MEDIASTINUM AND HILAR STRUCTURES: No masses. Contour normal. HEART AND VASCULAR STRUCTURES: Markedly enlarged cardiac silhouette, stable. Aortic atherosclerosis. BONES: No acute findings. HARDWARE: Left-sided cardiac pacer with leads overlying right atrium and right ventricle. OTHER: No other significant finding. IMPRESSION: Enlarged cardiac silhouette with bibasilar opacities, likely edema although infection no t entirely excluded. TECHNICAL DOCUMENTATION: JOB ID: [id number] [employer]- All Rights Reserved Reading location - IP/workstation name: [email or web address]
[2018-07-07 16:45] LABS: INTERNATIONAL RATION (INR) 1.03
[2018-07-07 16:48] LABS: ALANINE AMINOTRANSFERASE 27 U/L (9-52); ALBUMIN 4.1 g/dL (3.5-5.0); ALKALINE PHOSPHATASE 114 U/L (38-126); ANION GAP 5 (5-19); ASPARTATE AMINO TRANSFERASE 22 U/L (14-36); BILIRUBIN,DIRECT 0.4 mg/dL (0.0-0.4); BILIRUBIN,TOTAL 1.1 mg/dL (0.2-1.3); BLOOD UREA NITROGEN 19 mg/dL (7-20); CALCIUM 10.3 mg/dL (8.4-10.2); CARBON DIOXIDE 38 mmol/L (22-30); CHLORIDE 96 mmol/L (98-107); CREATINE KINASE 59 U/L (30-135); GLUCOSE 160 mg/dL (75-110); POTASSIUM 4.1 mmol/L (3.6-5.0); SODIUM 138.8 mmol/L (137-145); TOTAL PROTEIN 8.2 g/dL (6.3-8.2)
[2018-07-07 17:00] LABS: CREATINE KINASE MB 1.58 ng/mL (<4.55)
[2018-07-07 17:09] LABS: TROPONIN I 0.061 ng/mL
[2018-07-07 17:13] LABS: APPEARANCE,URINE CLEAR; BILIRUBIN,URINE NEGATIVE (NEGATIVE); COLOR,URINE STRAW; GLUCOSE, URINE NEGATIVE (NEGATIVE); KETONES,URINE NEGATIVE (NEGATIVE); LEUKOCYTE ESTERASE,URINE NEGATIVE (NEGATIVE); NITRITE,URINE NEGATIVE (NEGATIVE); PROTEIN,URINE 30 mg/dL (NEGATIVE); URINE SPECIFIC GRAVITY 1.006; UROBILINOGEN,URINE NEGATIVE mg/dL (<2.0)
[2018-07-07 18:21] LABS: ARTERIAL BLOOD BASE EXCESS 11.3 mmol/L; ARTERIAL BLOOD FIO2 60; ARTERIAL BLOOD H2CO3 1.96 mmol/L (1.05-1.35); ARTERIAL BLOOD HCO3 38.4 mmol/L (20-24); ARTERIAL BLOOD O2 SATURATION 98.9 % (94-98); ARTERIAL BLOOD PCO2 65.1 mmHg (35-45); ARTERIAL BLOOD PH 7.39 (7.35-7.45); ARTERIAL BLOOD PO2 153.1 mmHg (80-100); ARTERIAL BLOOD TOTAL CO2 40.4 mmol/L (21-25)
--- NOTE | 2018-07-07 18:46 | EKG REPORT ---
SEVERITY:- ABNORMAL ECG - ATRIAL-SENSED VENTRICULAR-PACED RHYTHM : Confirmed by: Randall Valdez MD 07-Jul-2018 18:44:59
[2018-07-07] MEDS ORDERED: PROMETHAZINE HCL INJ 25 MG/1 ML VIAL IV PRN (19:13)
[2018-07-07] MEDS ORDERED: NITROGLYCERIN 0.4 MG/TAB 25 TAB/BOTTLE SL PRN (19:13)
[2018-07-07] MEDS ORDERED: PROMETHAZINE HCL 25 MG TABLET PO PRN (19:13)
[2018-07-07] MEDS ORDERED: DEXTROSE 40% GEL 15 GM TUBE PO PRN ×2 (19:26)
[2018-07-07] MEDS ORDERED: GLUCAGON,HUMAN RECOMB 1 MG INJ IM PRN (19:26)
[2018-07-07] MEDS ORDERED: DEXTROSE 50%-WATER 25 GM/50 ML DISP.SYRIN IV PRN ×2 (19:26)
[2018-07-07] MEDS ORDERED: IPRATROPIUM/ALBUTEROL 0.5-2.5 MG/3 ML AMPUL NEB PRN (19:29)
--- NOTE | 2018-07-07 19:40 | PDOC H&P ---
History of Present Illness Admission Date/PCP: 07/07/18 18:09 MARLEY HARDEN MD Patient complains of: EMS was called by the patient's granddaughter. The patient was found with altered mental status. She is somnolent at the time of admission and information is obtained from previous medical records. She was just discharged from this facility within the last 2 weeks. History of Present Illness: CARLEE WALDROP is a 62 year old female who was just discharged from this hospital on June 28. At that time she was admitted for acute hypoxic respiratory failure with hypercapnia. Acute on chronic congestive heart failure as well as her underlying diabetes, chronic kidney disease, obstructive sleep apnea, obesity hypoventilation syndrome and morbid obesity. Upon presentation she had some episodes of wakefulness but is quite somnolent during this e ncounter. She is on on BiPAP after an ABG showed a respiratory acidosis with compensation. Her PCO2 was 65. This was on BiPAP with an FiO2 of 60%. Past Medical History Cardiac Medical History: Reports: Congestive Heart Failure, Myocardial Infarction, Hyperlipidema, Hypertension Pulmonary Medical History: Reports: Chronic Obstructive Pulmonary Disease (COPD) Neurological Medical History: Reports: Ischemic CVA Endocrine Medical History: Reports: Diabetes Mellitus Type 1, Diabetes Mellitus Type 2 Renal/ Medical History: Reports: Chronic Kidney Disease GI Medical History: Denies: Cirrhosis, Crohn's Disease, Gastroesophageal Reflux Disease, Hiatal Hernia Musculoskeltal Medical History: Denies: Fibromyalgia, Gout Skin Medical History: Denies: Eczema, Psoriasis Psychiatric Medical History: Denies: Alcohol Dependency, Depression, Substance Abuse, Tobacco Dependency Traumatic Medical History: Reports: None Hematology: Reports: Anemia Infectious Medical History: Reports: None Past Surgical History Past Surgical History: Reports: Hysterectomy Social History Information Source: PENDING SALE TO [facility] Records Lives with: Family Smoking Status: Unknown if Ever Smoked Frequency of Alcohol Use: None Hx Recreational Drug Use: No Drugs: None Hx Prescription Drug Abuse: No - Advance Directive Resuscitation Status: Full Code Surrogate healthcare decision maker:: No one was present to discuss CODE STATUS. During her most recent hospitalization the patient was a full code. I will order a palliative care consult as the patient has had multiple admissions recently. Family History Family History: CAD, DM, Hypertension Parental Family History Reviewed: Yes - By old records Children Family History Reviewed: Yes - By old records Sibling(s) Family History Reviewed.: Yes - By old records Medication/Allergy Home Medications: Atorvastatin Calcium [Lipitor 20 mg Tablet] 20 mg PO QHS 06/23/18 Ferrous Sulfate [Feosol 325 mg Tablet] 325 mg PO BID 06/23/18 Furosemide [Lasix 80 mg Tablet] 160 mg PO BID 06/23/18 Gabapentin [Neurontin 300 mg Capsule] 300 mg PO Q12 06/23/18 Insulin Aspart [Novolog Flexpen] 6 unit SUBCUT MEALS 06/23/18 Insulin Glargine,Hum.rec.anlog [Lantus Insulin 100 Unit/mL] 16 unit SUBCUT QHS 06/23/18 Isosorbide Mononitrate [Imdur 30 mg Tablet.er] 30 mg PO QAM 06/23/18 Multivitamin [Daily Multiple Vitamin] 1 tab PO DAILY 06/23/18 Potassium Chloride 10 meq PO DAILY 06/23/18 Baclofen [Baclofen 10 mg Tablet] 10 mg PO Q8HP PRN 07/07/18 Carvedilol [Coreg 12.5 mg Tablet] 12.5 mg PO Q12 07/07/18 Losartan Potassium [Cozaar 25 mg Tablet] 25 mg PO DAILY 07/07/18 Methocarbamol [Robaxin 750 mg Tablet] 750 mg PO Q4HP PRN 07/07/18 Metolazone [Zaroxolyn 5 mg Tablet] 5 mg PO DAILY 07/07/18 Allergies/Adverse Reactions: No Known Allergies Allergy (Verified 07/05/18 21:31) Review of Systems ROS unobtainable: Due to mental status Physical Exam Vital Signs: Temp Pulse Resp BP Pulse Ox 99 F 16 135/78 H 100 07/07/18 17:03 07/07/18 18:31 07/07/18 18:31 07/07/18 18:31 Intake & Output 07/06/18 07/07/18 07/08/18 06:59 06:59 06:59 Weight 194.5 kg General appearance: PRESENT: morbidly obese - BMI 71.4, well-developed Head exam: PRESENT: atraumatic, normocephalic Eye exam: PRESENT: conjunctiva pink. ABSENT: scleral icterus Ear exam: PRESENT: normal external ear exam Mouth exam: PRESENT: other - BiPAP mask in place Neck exam: PRESENT: other - Very large neck. ABSENT: carotid bruit, lymphadenopathy Respiratory exam: PRESENT: decreased breath sounds - Bilaterally, symmetrical. ABSENT: rales - Anteriorly, rhonchi, tachypnea, wheezes Cardiovascular exam: PRESENT: RRR, +S1, +S2, other - Decreased heart sounds likely due to body habitus GI/Abdominal exam: PRESENT: normal bowel sounds, soft, other - Pendulous abdomen. ABSENT: tenderness Rectal exam: PRESENT: deferred Gentrourinary exam: PRESENT: indwelling catheter Extremities exam: PRESENT: pedal edema Neurological exam: PRESENT: altered - Somnolent. ABSENT: alert, awake Psychiatric exam: PRESENT: other - Somnolent. ABSENT: agitated, anxious Skin exam: PRESENT: dry, warm Results Laboratory Results: 07/07/18 16:15 07/07/18 16:15 07/07/18 07/07/18 07/07/18 16:15 16:15 16:15 WBC 6.6 RBC 4.43 Hgb 10.6 L Hct 34.2 L MCV 77 L MCH 24.1 L MCHC 31.1 L RDW 19.9 H Plt Count 122 L Seg Neutrophils % 73.9 Lymphocytes % 12.4 L Monocytes % 12.1 Eosinophils % 0.9 Basophils % 0.7 Absolute Neutrophils 4.9 Absolute Lymphocytes 0.8 Absolute Monocytes 0.8 Absolute Eosinophils 0.1 Absolute Basophils 0.0 Carbonic Acid 1.96 H HCO3/H2CO3 Ratio 19:1 ABG pH 7.39 ABG pCO2 65.1 H ABG pO2 153.1 H ABG HCO3 38.4 H ABG O2 Saturation 98.9 H ABG Base Excess 11.3 FiO2 60 Sodium 138.8 Potassium 4.1 Chloride 96 L Carbon Dioxide 38 H Anion Gap 5 BUN 19 Creatinine 1.11 Est GFR ( Amer) > 60 Est GFR (Non-Af Amer) 50 L Glucose 160 H Calcium 10.3 H Total Bilirubin 1.1 AST 22 ALT 27 Alkaline Phosphatase 114 Total Protein 8.2 Albumin 4.1 Urine Color Urine Appearance Urine pH Ur Specific [place] Urine Protein Urine Glucose (UA) Urine Ketones Urine Blood Urine Nitrite Ur Leukocyte Esterase Urine WBC (Auto) Urine RBC (Auto) 07/07/18 16:45 WBC RBC Hgb Hct MCV MCH MCHC RDW Plt Count Seg Neutrophils % Lymphocytes % Monocytes % Eosinophils % Basophils % Absolute Neutrophils Absolute Lymphocytes Absolute Monocytes Absolute Eosinophils Absolute Basophils Carbonic Acid HCO3/H2CO3 Ratio ABG pH ABG pCO2 ABG pO2 ABG HCO3 ABG O2 Saturation ABG Base Excess FiO2 Sodium Potassium Chloride Carbon Dioxide Anion Gap BUN Creatinine Est GFR ( Amer) Est GFR (Non-Af Amer) Glucose Calcium Total Bilirubin AST ALT Alkaline Phosphatase Total Protein Albumin Urine Color STRAW Urine Appearance CLEAR Urine pH 9.0 Ur Specific [place] 1.006 Urine Protein 30 H Urine Glucose (UA) NEGATIVE Urine Ketones NEGATIVE Urine Blood SMALL H Urine Nitrite NEGATIVE Ur Leukocyte Esterase NEGATIVE Urine WBC (Auto) 0 Urine RBC (Auto) 11 07/07/18 07/07/18 16:15 16:15 Creatine Kinase 59 CK-MB (CK-2) 1.58 Troponin I 0.061 NT-Pro-B Natriuret Pep 8220 H Impressions: Chest X-Ray 07/07/18 00:00 IMPRESSION: Enlarged cardiac silhouette with bibasilar opacities, likely edema although infection not entirely excluded. Head CT 07/07/18 00:00 IMPRESSION: No evidence of acute intracranial hemorrhage or large vascular t erritory infarct. Limited evaluation of the porter-white differentiation secondary to body habitus. If high clinical concern for acute ischemic event MRI would be more sensitive. EVIDENCE OF ACUTE STROKE: NO. Assessment and Plan - Diagnosis (1) Acute respiratory failure with hypoxia and hypercapnia Is this a current diagnosis for this admission?: Yes Plan: The patient is on BiPAP. We need to decrease the FiO2 to achieve saturation between 88 and 94%. There is no elevated white blood cell count. I do not think pneumonia is present. I will order nebulizer treatments on an as-needed basis. The primary factors at play are her acute on chronic congestive heart failure as well as obesity hypoventilation syndrome and obstructive sleep apnea. (2) Acute on chronic congestive heart failure Qualifiers: Heart failure type: combined systolic and diastolic Qualified Code(s): I50.43 - Acute on chronic combined systolic (congestive) and diastolic (congestive) heart failure Is this a current diagnosis for this admission?: Yes Plan: Echocardiogram in April revealed ejection fraction of 30-35% with severe tricuspid regurgitation. I have increased the furosemide to 80 mg IV twice daily and Zaroxolyn 5 mg before the morning dose of Lasix. She is on potassium chloride 10 mEq twice daily. We will continue to monitor electrolytes for hypokalemia with aggressive diuresis. A brain atretic peptide was 8000 and this is the highest it has been after reviewing all of her blood work over the last year or so. I have ordered another study for the morning to assess our progress. We will also monitor her intake and output. If need be we will increase her diuretic regimen. She is also on carvedilol and losartan. Consider low-dose Spironolactone. (3) Altered mental status Qualifiers: Altered mental status type: somnolence Qualified Code(s): R40.0 - Somnolence Is this a current diagnosis for this admission?: Yes Plan: Most likely from hypercapnia. She does have a history of stroke and CT scan on admission revealed no evidence of acute stroke. She was more awake when they were placing a [place] catheter. We will try and limit her hypercapnia. Her baseline is likely in the PCO2 50 range. (4) CKD (chronic kidney disease) Qualifiers: Chronic kidney disease stage: stage 3 (moderate) Qualified Code(s): N18.3 - Chronic kidney disease, stage 3 (moderate) Is this a current diagnosis for this admission?: Yes Plan: We will continue to monitor the patient's renal function in light of the ag gressive diuresis. Her GFR is slightly higher than her baseline and this may be due to volume. Continue the current medication regimen as outlined above. (5) Morbid obesity with BMI of 70 and over, adult Is this a current diagnosis for this admission?: Yes Plan: Definitely has significant comorbidity as described above. The patient will be on a consistent carbohydrate cardiac diet. (6) Controlled type 2 diabetes mellitus Qualifiers: Diabetes mellitus buttermaker continuous churn insulin use: with snf use Diabetes mellitus complication status: with circulatory complication Diabetes mellitus complication detail: with other circulatory complications Qualified Code(s): E11.59 - Type 2 diabetes mellitus with other circulatory complications; Z79.4 - shelter (current) use of insulin Is this a current diagnosis for this admission?: Yes Plan: Continue Lantus at this time. Will use a regular insulin sliding scale and adjust Lantus based on her sliding scale requirements. (7) Obstructive sleep apnea Is this a current diagnosis for this admission?: Yes Plan: She is currently on BiPAP consistently. If she is able to wean from BiPAP during the day she certainly requires it at night. (8) COPD (chronic obstructive pulmonary disease) Qualifiers: COPD type: unspecified COPD Qualified Code(s): J44.9 - Chronic obstructive pulmonary disease, unspecified Is this a current diagnosis for this admission?: Yes Plan: The patient carries a history of chronic obstructive pulmonary disease. I believe her hypercapnia is more directly related to congestive heart failure, obesity hypoventilation and obstructive sleep apnea. We will continue the BiPAP. Nebulizer treatments are available as needed however she is not on any scheduled inhalers or nebulizer treatments at home. No intravenous steroids or antibiotics at this time. - Time Time Spent with patient: 60 minutes Time Spent with patient: 35 or more minutes Medications reviewed and adjusted accordingly: Yes - Inpatient Certification Based on my medical assessment, after consideration of the patient's comorbidities, presenting symptoms, or acuity I expect that the services needed warrant INPATIENT care.: Yes I certify that my determination is in accordance with my understanding of Medicare's requirements for reasonable and necessary INPATIENT services [42 CFR 412.3e].: Yes Medical Necessity: Significant Comorbidiites Make Outpatient Treatment Too Risky, Need Close Monitoring Due to Risk of Patient Decompensation, Need For Continuous Telemetry Monitoring, Need for Nebulizer Therapy and Monitoring of Response Post Hospital Care: D/C Veterinary Surgery Technician Documentation - Plan Summary Plan Summary: We will initiate more aggressive diuresis. Utilize BiPAP to help adjust the hypercapnia. Supplement oxygen but try to keep the oxygen saturation between 88 and 94%. I have ordered a palliative care consult as this patient has exhibited increased admissions over the last several months.
[2018-07-07] MEDS ORDERED: [UNRECOGNIZED DRUG - OTHER] SUBCUT SCH (22:00)
[2018-07-07] MEDS ORDERED: INSULIN GLARGINE,HUM.REC.ANLOG 1,000 UNIT/10 ML VIAL (PYX) SUBCUT SCH (22:00)
[2018-07-07] MEDS ORDERED: INSULIN GLARGINE HUM REC ANLOG 16 UNIT SUBCUT SCH (22:00)
[2018-07-07] MEDS: HEPARIN SOD (PORCINE) 5,000 UNIT/ML 1 ML SYRINGE SUBCUT SCH (22:14)
[2018-07-07] MEDS: FUROSEMIDE INJ/PF 100 MG/10 ML SDV IV SCH (22:14)
[2018-07-07] MEDS: CARVEDILOL 12.5 MG TABLET PO SCH (22:33)
[2018-07-07] MEDS: GABAPENTIN 300 MG CAPSULE PO SCH (22:33)
[2018-07-07] MEDS: INSULIN REG, HUMAN 100 UNIT/ML 3 ML VIAL (PYX) SUBCUT SCH (22:34)
[2018-07-07] MEDS: ATORVASTATIN CALCIUM 20 MG TABLET PO SCH (22:35)
[2018-07-07] MEDS: INSULIN GLARGINE,HUM.REC.ANLOG 1,000 UNIT/10 ML VIAL SUBCUT SCH (22:35)
[2018-07-08] MEDS: HEPARIN SOD (PORCINE) 5,000 UNIT/ML 1 ML SYRINGE SUBCUT SCH ×3 (05:22→22:54)
[2018-07-08 05:52] LABS: ANION GAP 7 (5-19); BLOOD UREA NITROGEN 18 mg/dL (7-20); CARBON DIOXIDE 38 mmol/L (22-30); CHLORIDE 96 mmol/L (98-107); CREATINE KINASE MB 1.16 ng/mL (<4.55); GLUCOSE 135 mg/dL (75-110); TROPONIN I 0.062 ng/mL
[2018-07-08 06:39] LABS: ARTERIAL BLOOD BASE EXCESS 13.8 mmol/L; ARTERIAL BLOOD H2CO3 1.61 mmol/L (1.05-1.35); ARTERIAL BLOOD HCO3 39.1 mmol/L (20-24); ARTERIAL BLOOD O2 SATURATION 96.2 % (94-98); ARTERIAL BLOOD PCO2 53.6 mmHg (35-45); ARTERIAL BLOOD PH 7.48 (7.35-7.45); ARTERIAL BLOOD TOTAL CO2 40.8 mmol/L (21-25)
[2018-07-08 06:40] LABS: ARTERIAL BLOOD FIO2 30%
[2018-07-08] MEDS: INSULIN REG, HUMAN 100 UNIT/ML 3 ML VIAL (PYX) SUBCUT SCH ×4 (08:28→22:52)
[2018-07-08] MEDS: METOLAZONE 5 MG TABLET PO SCH (09:03)
[2018-07-08] MEDS: POTASSIUM CHLORIDE 10 MEQ CAPSULE.ER PO SCH ×2 (09:03→17:33)
[2018-07-08] MEDS: LOSARTAN POTASSIUM 25 MG TABLET PO SCH (09:03)
[2018-07-08] MEDS: FERROUS SULFATE 325 MG TABLET PO SCH ×2 (09:03→17:32)
[2018-07-08] MEDS: CARVEDILOL 12.5 MG TABLET PO SCH ×2 (09:03→22:34)
[2018-07-08] MEDS: MAGNESIUM SULFATE/D5W 1 GM/100 ML RTUPB IV SCH ×2 (09:03→09:53)
[2018-07-08] MEDS: GABAPENTIN 300 MG CAPSULE PO SCH ×2 (09:04→22:37)
[2018-07-08] MEDS: FUROSEMIDE INJ/PF 100 MG/10 ML SDV IV SCH ×2 (09:04→22:39)
[2018-07-08] MEDS: ACETAMINOPHEN 325 MG TABLET PO PRN ×2 (09:04→22:36)
[2018-07-08] MEDS: ISOSORBIDE MONONITRATE 30 MG TAB.ER.24H PO SCH (09:04)
--- NOTE | 2018-07-08 09:48 | RADIOLOGY REPORT (SQ) ---
EXAM DESCRIPTION: CHEST SINGLE VIEW COMPLETED DATE/TIME: 07/08/2018 8:55 am REASON FOR STUDY: chf COMPARISON: 07/07/2018 EXAM PARAMETERS: NUMBER OF VIEWS: One view. TECHNIQUE: Single frontal radiographic view of the chest acquired. RADIATION DOSE: NA LIMITATIONS: None. FINDINGS: LUNGS AND PLEURA: Bilateral perihilar airspace disease slightly more so on the right, may be on the basis of edema. Small pleural effusions are not entirely excluded. No evidence of pneumo thorax. MEDIASTINUM AND HILAR STRUCTURES: Stable appearance. HEART AND VASCULAR STRUCTURES: Cardiomegaly, unchanged finding. Prominence of the pulmonary vascula ture suggest vascular congestion. BONES: No acute findings. HARDWARE: Cardiac pacemaker, stable finding. OTHER: No other significant finding. IMPRESSION: 1. No significant interval changes since the prior study dated 07/07/2018. The constella tion of findings as above suggest CHF. TECHNICAL DOCUMENTATION: JOB ID: [id number] [employer]- All Rights Reserved Reading location - IP/workstation name: [email or web address]
[2018-07-08] MEDS ORDERED: POTASSIUM CHLORIDE 10 MEQ CAPSULE.ER PO SCH (10:00)
[2018-07-08] MEDS: METHOCARBAMOL 750 MG TABLET PO PRN ×2 (15:13→22:34)
--- NOTE | 2018-07-08 16:29 | PDOC PROGRESS REPORT ---
Subjective Progress Note for:: 07/08/18 Subjective:: No adverse events overnight. No new complaints. She is very frustrated because she says she is been doing everything she is supposed to do to manage her heart failure but she keeps winding up in the hospital with it. She is having to lay in bed with her head propped up because she cannot lay flat. Reason For Visit: HEART FAILURE Physical Exam Vital Signs: Temp Pulse Resp BP Pulse Ox 98.3 F 60 15 144/87 H 98 07/08/18 11:54 07/08/18 14:00 07/08/18 12:17 07/08/18 11:54 07/08/18 12:17 Pulse Oximeter Continuous Start: 07/07/18 19:14 Freq: RTQ4 Status: Hold Protocol: Document 07/07/18 20:30 SFL (Rec: 07/07/18 21:52 SFL [id number]) Pulse Oximetry Assessment Equipment Usage Equipment Standby Continuous SpO2 Machine # x Intake & Output 07/07/18 07/08/18 07/09/18 06:59 06:59 06:59 Intake Total 183 Output Total 5185 Balance -5185 183 Weight 189.9 kg General appearance: PRESENT: no acute distress, cooperative, disheveled, morbidly obese Respiratory exam: PRESENT: crackles - Bibasilar, decreased breath sounds, symmetrical, unlabored. ABSENT: accessory muscle use, prolonged expiratory phas, rhonchi, tachypnea, wheezes Cardiovascular exam: PRESENT: RRR, +S1, +S2 Pulses: PRESENT: normal carotid pulses Vascular exam: PRESENT: normal capillary refill GI/Abdominal exam: PRESENT: normal bowel sounds, soft. ABSENT: distended, guarding, rebound, tenderness Extremities exam: PRESENT: pedal edema, +2 edema - She has some pruning of the skin of the lower extremities from diuresis. ABSENT: clubbing Musculoskeletal exam: PRESENT: normal inspection. ABSENT: deformity Neurological exam: PRESENT: alert, awake, oriented to person, oriented to place, oriented to time, oriented to situation Psychiatric exam: PRESENT: flat affect Skin exam: PRESENT: dry, warm, other - She has some elephantine skin changes in the lower extremities Results Laboratory Results: 07/07/18 16:15 07/08/18 05:08 07/07/18 07/07/18 07/07/18 16:15 16:15 16:15 WBC 6.6 RBC 4.43 Hgb 10.6 L Hct 34.2 L MCV 77 L MCH 24.1 L MCHC 31.1 L RDW 19.9 H Plt Count 122 L Seg Neutrophils % 73.9 Lymphocytes % 12.4 L Monocytes % 12.1 Eosinophils % 0.9 Basophils % 0.7 Absolute Neutrophils 4.9 Absolute Lymphocytes 0.8 Absolute Monocytes 0.8 Absolute Eosinophils 0.1 Absolute Basophils 0.0 Carbonic Acid 1.96 H HCO3/H2CO3 Ratio 19:1 ABG pH 7.39 ABG pCO2 65.1 H ABG pO2 153.1 H ABG HCO3 38.4 H ABG O2 Saturation 98.9 H ABG Base Excess 11.3 FiO2 60 Sodium 138.8 Potassium 4.1 Chloride 96 L Carbon Dioxide 38 H Anion Gap 5 BUN 19 Creatinine 1.11 Est GFR ( Amer) > 60 Est GFR (Non-Af Amer) 50 L Glucose 160 H Calcium 10.3 H Magnesium Total Bilirubin 1.1 AST 22 ALT 27 Alkaline Phosphatase 114 Total Protein 8.2 Albumin 4.1 Urine Color Urine Appearance Urine pH Ur Specific [place] Urine Protein Urine Glucose (UA) Urine Ketones Urine Blood Urine Nitrite Ur Leukocyte Esterase Urine WBC (Auto) Urine RBC (Auto) 07/07/18 07/08/18 07/08/18 16:45 05:08 06:26 WBC RBC Hgb Hct MCV MCH MCHC RDW Plt Count Seg Neutrophils % Lymphocytes % Monocytes % Eosinophils % Basophils % Absolute Neutrophils Absolute Lymphocytes Absolute Monocytes Absolute Eosinophils Absolute Basophils Carbonic Acid 1.61 H HCO3/H2CO3 Ratio 24:1 ABG pH 7.48 H ABG pCO2 53.6 H ABG pO2 79.0 L ABG HCO3 39.1 H ABG O2 Saturation 96.2 ABG Base Excess 13.8 FiO2 30% Sodium 141.0 Potassium 4.0 Chloride 96 L Carbon Dioxide 38 H Anion Gap 7 BUN 18 Creatinine 1.10 Est GFR ( Amer) > 60 Est GFR (Non-Af Amer) 50 L Glucose 135 H Calcium 10.0 Magnesium 1.4 L Total Bilirubin AST ALT Alkaline Phosphatase Total Protein Albumin Urine Color STRAW Urine Appearance CLEAR Urine pH 9.0 Ur Specific [place] 1.006 Urine Protein 30 H Urine Glucose (UA) NEGATIVE Urine Ketones NEGATIVE Urine Blood SMALL H Urine Nitrite NEGATIVE Ur Leukocyte Esterase NEGATIVE Urine WBC (Auto) 0 Urine RBC (Auto) 11 07/07/18 07/07/18 07/07/18 16:15 16:15 22:42 Creatine Kinase 59 CK-MB (CK-2) 1.58 Cancelled Troponin I 0.061 NT-Pro-B Natriuret Pep 8220 H 07/07/18 07/07/18 07/07/18 22:42 22:42 23:22 Creatine Kinase Cancelled CK-MB (CK-2) 1.53 Troponin I 0.057 NT-Pro-B Natriuret Pep 07/07/18 07/08/18 07/08/18 23:22 05:08 05:08 Creatine Kinase 50 40 CK-MB (CK-2) 1.16 Troponin I 0.062 NT-Pro-B Natriuret Pep 07/08/18 05:08 Creatine Kinase CK-MB (CK-2) Troponin I NT-Pro-B Natriuret Pep 54606 H Impressions: Head CT 07/07/18 00:00 IMPRESSION: No evidence of acute intracranial hemorrhage or large vascular territory infarct. Limited evaluation of the porter-white differentiation secondary to body habitus. If high clinical concern for acute ischemic event MRI would be more sensitive. EVIDENCE OF ACUTE STROKE: NO. Chest X-Ray 07/08/18 06:00 IMPRESSION: 1. No significant interval changes since the prior study dated 07/07/2018. The constellation of findings as above suggest CHF. Assessment and Plan - Diagnosis (1) Acute on chronic congestive heart failure Qualifiers: Heart failure type: combined systolic and diastolic Qualified Code(s): I50.43 - Acute on chronic combined systolic (congestive) and diastolic (congestive) heart failure Is this a current diagnosis for this admission?: Yes Plan: Continue diuresis and medical optimization. We will continue to watch her blood pressures in case we need to get her pressure down even more. Fluid restriction. Strict I's and O's. (2) Morbid obesity with BMI of 70 and over, adult Is this a current diagnosis for this admission?: Yes Plan: Strongly encouraged lifestyle modification, primarily with her diet and fluid intake (3) Acute respiratory failure with hypoxia and hypercapnia Is this a current diagnosis for this admission?: Yes Plan: Continue supplemental O2 per nasal cannula to maintain SPO2 greater than 90% (4) Obstructive sleep apnea Is this a current diagnosis for this admission?: Yes Plan: Continue CPAP at night - Time Time Spent with patient: 25-34 minutes
[2018-07-08] MEDS ORDERED: KETOROLAC TROMETHAMINE INJ/PF 30 MG/1 ML SDV IV ONE (17:15)
[2018-07-08] MEDS ORDERED: IBUPROFEN 800 MG TABLET PO ONE (21:30)
[2018-07-08] MEDS: ATORVASTATIN CALCIUM 20 MG TABLET PO SCH (22:35)
[2018-07-08] MEDS: INSULIN GLARGINE,HUM.REC.ANLOG 1,000 UNIT/10 ML VIAL SUBCUT SCH (22:37)
[2018-07-09] MEDS: HEPARIN SOD (PORCINE) 5,000 UNIT/ML 1 ML SYRINGE SUBCUT SCH ×3 (05:52→22:57)
[2018-07-09] MEDS: INSULIN REG, HUMAN 100 UNIT/ML 3 ML VIAL (PYX) SUBCUT SCH ×3 (08:31→17:34)
[2018-07-09] MEDS: FUROSEMIDE INJ/PF 100 MG/10 ML SDV IV SCH ×2 (09:07→22:54)
[2018-07-09] MEDS: METHOCARBAMOL 750 MG TABLET PO PRN ×2 (09:07→22:56)
[2018-07-09] MEDS: ACETAMINOPHEN 325 MG TABLET PO PRN ×2 (09:07→22:55)
[2018-07-09] MEDS: ISOSORBIDE MONONITRATE 30 MG TAB.ER.24H PO SCH (09:08)
[2018-07-09] MEDS: FERROUS SULFATE 325 MG TABLET PO SCH ×2 (09:08→17:42)
[2018-07-09] MEDS: POTASSIUM CHLORIDE 10 MEQ CAPSULE.ER PO SCH ×2 (09:08→17:43)
[2018-07-09] MEDS: CARVEDILOL 12.5 MG TABLET PO SCH ×2 (09:08→22:56)
[2018-07-09] MEDS: METOLAZONE 5 MG TABLET PO SCH (09:08)
[2018-07-09] MEDS: LOSARTAN POTASSIUM 25 MG TABLET PO SCH (09:08)
[2018-07-09] MEDS: GABAPENTIN 300 MG CAPSULE PO SCH ×2 (09:08→22:55)
[2018-07-09 10:09] LABS: BLOOD UREA NITROGEN 25 mg/dL (7-20); CALCIUM 8.8 mg/dL (8.4-10.2); CHLORIDE 94 mmol/L (98-107); GLUCOSE 107 mg/dL (75-110); SODIUM 140.7 mmol/L (137-145)
--- NOTE | 2018-07-09 10:21 | RADIOLOGY REPORT (SQ) ---
EXAM DESCRIPTION: CHEST SINGLE VIEW COMPLETED DATE/TIME: 07/09/2018 9:59 am REASON FOR STUDY: chf COMPARISON: 07/08/2018. FINDINGS: Single-view AP portable semi-upright chest timed approximately 0924 hours. Cardiomegaly. Mild central vascular congestion. Mildly improved. No pneumothorax or developing opa city. IMPRESSION: Cardiomegaly with mild vascular congestion. Improved slightly. TECHNICAL DOCUMENTATION: JOB ID: [id number] Reading location - IP/workstation name: [email or web address]
[2018-07-09 10:36] LABS: ANION GAP 10 (5-19)
[2018-07-09 10:41] LABS: CARBON DIOXIDE 37 mmol/L (22-30)
--- NOTE | 2018-07-09 14:35 | PDOC PROGRESS REPORT ---
Subjective Progress Note for:: 07/09/18 Subjective:: No adverse events overnight. She has had an impressive diuresis thus far. She says she does feel better. Her chest x-ray this morning showed improvement in her edema. She says that she is able to get out of bed and walk but she has not done so here. Reason For Visit: HEART FAILURE Physical Exam Vital Signs: Temp Pulse Resp BP Pulse Ox 97.7 F 63 16 103/56 L 100 07/09/18 11:26 07/09/18 11:26 07/09/18 11:26 07/09/18 11:26 07/09/18 11:26 Pulse Oximeter Continuous Start: 07/07/18 19:14 Freq: RTQ4 Status: Hold Protocol: Document 07/07/18 20:30 SFL (Rec: 07/07/18 21:52 SFL [email or web address]) Pulse Oximetry Assessment Equipment Usage Equipment Standby Continuous SpO2 Machine # x Intake & Output 07/08/18 07/09/18 07/10/18 06:59 06:59 06:59 Intake Total 183 Output Total 5185 1974 Balance -5103 -6458 Weight 189.9 kg 204 kg General appearance: PRESENT: no acute distress, cooperative, disheveled, morbidly obese Respiratory exam: PRESENT: crackles - Bibasilar, decreased breath sounds, symmetrical, unlabored. ABSENT: accessory muscle use, prolonged expiratory phas, rhonchi, tachypnea, wheezes Cardiovascular exam: PRESENT: RRR, +S1, +S2 Pulses: PRESENT: normal carotid pulses Vascular exam: PRESENT: normal capillary refill GI/Abdominal exam: PRESENT: normal bowel sounds, soft. ABSENT: distended, guarding, rebound, tenderness Extremities exam: PRESENT: pedal edema, +2 edema - She has some pruning of the skin of the lower extremities from diuresis. ABSENT: clubbing Musculoskeletal exam: PRESENT: normal inspection. ABSENT: deformity Neurological exam: PRESENT: alert, awake, oriented to person, oriented to place, oriented to time, oriented to situation Psychiatric exam: PRESENT: flat affect Skin exam: PRESENT: dry, warm, other - She has some elephantine skin changes in the lower extremities Results Laboratory Results: 07/07/18 16:15 07/09/18 09:44 07/09/18 09:44 Sodium 140.7 Potassium 4.0 Chloride 94 L Carbon Dioxide 37 H Anion Gap 10 BUN 25 H Creatinine 1.48 H Est GFR ( Amer) 43 L Est GFR (Non-Af Amer) 36 L Glucose 107 Calcium 8.8 07/07/18 07/07/18 07/07/18 16:15 16:15 22:42 Creatine Kinase 59 CK-MB (CK-2) 1.58 Cancelled Troponin I 0.061 NT-Pro-B Natriuret Pep 8220 H 07/07/18 07/07/18 07/07/18 22:42 22:42 23:22 Creatine Kinase Cancelled CK-MB (CK-2) 1.53 Troponin I 0.057 NT-Pro-B Natriuret Pep 07/07/18 07/08/18 07/08/18 23:22 05:08 05:08 Creatine Kinase 50 40 CK-MB (CK-2) 1.16 Troponin I 0.062 NT-Pro-B Natriuret Pep 07/08/18 07/09/18 05:08 09:44 Creatine Kinase CK-MB (CK-2) Troponin I NT-Pro-B Natriuret Pep 08711 H 5200 H Impressions: Head CT 07/07/18 00:00 IMPRESSION: No evidence of acute intracranial hemorrhage or large vascular territory infarct. Limited evaluation of the porter-white differentiation secondary to body habitus. If high clinical concern for acute ischemic event MRI would be more sensitive. EVIDENCE OF ACUTE STROKE: NO. Chest X-Ray 07/09/18 06:00 IMPRESSION: Cardiomegaly with mild vascular congestion. Improved slightly. Assessment and Plan - Diagnosis (1) Acute on chronic congestive heart failure Qualifiers: Heart failure type: combined systolic and diastolic Qualified Code(s): I50.43 - Acute on chronic combined systolic (congestive) and diastolic (congestive) heart failure Is this a current diagnosis for this admission?: Yes Plan: Continue diuresis and medical optimization. We will continue to watch her blood pressures in case we need to get her pressure down even more. Fluid restr iction. Strict I's and O's. Her leg edema has improved, and her chest x-ray looked better, but she still has a significant amount of fluid overload. (2) Morbid obesity with BMI of 70 and over, adult Is this a current diagnosis for this admission?: Yes Plan: Strongly encouraged lifestyle modification, primarily with her diet and fluid intake. Will order PT eval. I think she would probably benefit from some physical therapy in a skilled setting after discharge. (3) Acute respiratory failure with hypoxia and hypercapnia Is this a current diagnosis for this admission?: Yes Plan: Continue supplemental O2 per nasal cannula to maintain SPO2 greater than 90% (4) Obstructive sleep apnea Is this a current diagnosis for this admission?: Yes Plan: Continue CPAP at night - Time Time Spent with patient: 25-34 minutes
[2018-07-09] MEDS ORDERED: METHOCARBAMOL 750 MG TABLET ONE (21:35)
[2018-07-09] MEDS: ATORVASTATIN CALCIUM 20 MG TABLET PO SCH (22:55)
[2018-07-09] MEDS: INSULIN GLARGINE,HUM.REC.ANLOG 1,000 UNIT/10 ML VIAL SUBCUT SCH (22:55)
[2018-07-09] MEDS: SACUBITRIL/VALSARTAN 24 MG/26 MG TABLET PO SCH (22:59)
[2018-07-10] MEDS ORDERED: METHOCARBAMOL 750 MG TABLET ONE (02:43)
[2018-07-10] MEDS: ACETAMINOPHEN 325 MG TABLET PO PRN ×4 (03:02→22:17)
[2018-07-10] MEDS: METHOCARBAMOL 750 MG TABLET PO PRN ×4 (03:02→22:19)
[2018-07-10] MEDS: INSULIN REG, HUMAN 100 UNIT/ML 3 ML VIAL (PYX) SUBCUT SCH ×5 (03:06→22:20)
[2018-07-10] MEDS: HEPARIN SOD (PORCINE) 5,000 UNIT/ML 1 ML SYRINGE SUBCUT SCH ×3 (05:46→22:20)
[2018-07-10] MEDS: FERROUS SULFATE 325 MG TABLET PO SCH ×2 (09:56→17:30)
[2018-07-10] MEDS: POTASSIUM CHLORIDE 10 MEQ CAPSULE.ER PO SCH ×2 (09:56→17:30)
[2018-07-10] MEDS: CARVEDILOL 12.5 MG TABLET PO SCH ×2 (09:56→22:21)
[2018-07-10] MEDS: SACUBITRIL/VALSARTAN 24 MG/26 MG TABLET PO SCH ×2 (09:56→22:19)
[2018-07-10] MEDS: ISOSORBIDE MONONITRATE 30 MG TAB.ER.24H PO SCH (09:56)
[2018-07-10] MEDS: FUROSEMIDE INJ/PF 100 MG/10 ML SDV IV SCH ×2 (09:56→22:21)
[2018-07-10] MEDS: GABAPENTIN 300 MG CAPSULE PO SCH ×2 (09:56→22:19)
[2018-07-10] MEDS: METOLAZONE 5 MG TABLET PO SCH (09:56)
[2018-07-10] MEDS: BACLOFEN 10 MG TABLET PO PRN ×2 (09:59→22:19)
--- NOTE | 2018-07-10 09:59 | PROGRESS NOTE E ---
Progress Note NAME: CARLEE WALDROP : 1955 AGE: 62Y DATE: 07/10/2018 ROOM: 321 SUBJECTIVE: The patient is currently lying in bed. She states she has not gotten out of bed yet. She is awaiting physical therapy. She does need a bariatric chair in her room. The patient denies any nausea or vomiting. She says that the edema is much improved. She states that her breathing is improved, even since yesterday. The patient does not voice any other concerns. REVIEW OF SYSTEMS: Negative. MEDICATIONS: Medications reviewed. OBJECTIVE: GENERAL: The patient is a 62-year-old -[place]uxembour[place] female who is awake, alert, and oriented. She is verbal to conversation and does not appear to be in any acute distress. VITAL SIGNS: Temperature 97.9, pulse 60, respirations 18, blood pressure 130/71, oxygen saturation 100% on 4 liters nasal cannula. SKIN: Warm and dry, no rash. She is not diaphoretic. HEENT: Pupils equal, round, reactive to light and accommodation. Conjunctivae pink. There is no evidence of JVP. CVS: Heart is regular. Pacemaker in place. No rub. CHEST: Difficult to fully appreciate given the patient's body habitus. Sounds are basically diminished. ABDOMEN: Obese, soft. EXTREMITIES: The patient has chronic changes of venous stasis and chronic lymphedema of the lower extremities. PSYCHIATRIC: Appropriate affect, pleasant mood. DIAGNOSTICS/LAB VALUES: Hematology obtained on 07/07/2018: WBC 6.6, hemoglobin 7.6, hematocrit 34.2, platelet count 122,000. Chemistry obtained on 07/09/2018: Sodium 140, potassium 4.0, chloride 94, carbon dioxide 37, BUN 25, creatinine 0.48, glucose 107, calcium 8.8, BNP 5200. ASSESSMENT AND PLAN: 1. ACUTE ON CHRONIC SYSTOLIC AND DIASTOLIC CONGESTIVE HEART FAILURE. Will continue to aggressively diurese. The patient's baseline creatinine is around 1.6. She is currently at 1.5. She is tolerating diuresis well. Blood pressure is in a good range. Continue fluid restriction, strict I's and O's. Leg edema is improved. Will continue to monitor. 2. ACUTE ON CHRONIC HYPOXEMIC AND HYPERCAPNIC RESPIRATORY FAILURE. Continue to keep sats 88-92%. BiPAP as needed. 3. OBSTRUCTIVE SLEEP APNEA. Continue CPAP at night. 4. MORBID OBESITY WITH A BMI OF GREATER THAN 70. Have encouraged lifestyle modification. The patient is to have a physical therapy evaluation today. 5. DIABETES MELLITUS TYPE 2. Will continue the patient's basal insulin as well as sliding scale coverage. 6. DIABETIC NEUROPATHY. Will continue the patient's home medications. 7. CHRONIC KIDNEY DISEASE STAGE III. It appears the patient's baseline creatinine is around 1.6. Will continue diuresis until the patient is back to baseline. DISPOSITION: The patient is a full code. Depending on the patient's symptomatology and diagnostic findings, will reevaluate in the a.m. Time spent on this followup including assessment, plan, physical examination, patient education, and review of records is 25 minutes. DICTATING PHYSICIAN: MARLEY WYNN NP [id number] JOSÉ LUISY#: [id number] ID: [id number] JOB#: [id number] ACCT: [id number] cc: >
[2018-07-10 10:24] LABS: BLOOD UREA NITROGEN 28 mg/dL (7-20); CALCIUM 8.5 mg/dL (8.4-10.2); CHLORIDE 94 mmol/L (98-107); GLUCOSE 174 mg/dL (75-110); POTASSIUM 3.8 mmol/L (3.6-5.0); SODIUM 139.2 mmol/L (137-145)
[2018-07-10 10:30] LABS: ANION GAP 6 (5-19); CARBON DIOXIDE 39 mmol/L (22-30)
--- NOTE | 2018-07-10 10:38 | RADIOLOGY REPORT (SQ) ---
EXAM DESCRIPTION: CHEST SINGLE VIEW COMPLETED DATE/TIME: 07/10/2018 9:11 am REASON FOR STUDY: chf COMPARISON: Previous day. NUMBER OF VIEWS: One view. TECHNIQUE: Single frontal radiographic view of the chest acquired. LIMITATIONS: Body habitus. Portable technique. FINDINGS: LUNGS AND PLEURA: No opacities, masses or pneumothorax. No pleural effusion. MEDIASTINUM AND HILAR STRUCTURES: No masses or contour abnormality. HEART AND VASCULATURE: Cardiac enlargement. Vascular congestion. BONES: No acute findings. HARDWARE: Stable position of left defibrillator. OTHER: No other significant finding. IMPRESSION: CARDIAC ENLARGEMENT. VASCULAR CONGESTION. TECHNICAL DOCUMENTATION: JOB ID: [id number] [email or web address]- All Rights Reserved Reading location - IP/workstation name: [email or web address]
[2018-07-10] MEDS: INSULIN GLARGINE,HUM.REC.ANLOG 1,000 UNIT/10 ML VIAL SUBCUT SCH (22:17)
[2018-07-10] MEDS: ATORVASTATIN CALCIUM 20 MG TABLET PO SCH (22:19)
[2018-07-11] MEDS: HEPARIN SOD (PORCINE) 5,000 UNIT/ML 1 ML SYRINGE SUBCUT SCH ×3 (05:20→21:19)
[2018-07-11 05:22] LABS: BLOOD UREA NITROGEN 28 mg/dL (7-20); CALCIUM 8.8 mg/dL (8.4-10.2); CHLORIDE 92 mmol/L (98-107); GLUCOSE 112 mg/dL (75-110); POTASSIUM 3.6 mmol/L (3.6-5.0)
[2018-07-11 05:34] LABS: ANION GAP 7 (5-19)
[2018-07-11 05:37] LABS: CARBON DIOXIDE 42 mmol/L (22-30)
[2018-07-11] MEDS: METHOCARBAMOL 750 MG TABLET PO PRN ×3 (06:15→21:18)
[2018-07-11] MEDS: ACETAMINOPHEN 325 MG TABLET PO PRN ×4 (06:16→21:18)
[2018-07-11] MEDS: INSULIN REG, HUMAN 100 UNIT/ML 3 ML VIAL (PYX) SUBCUT SCH ×3 (08:45→17:39)
[2018-07-11] MEDS: BACLOFEN 10 MG TABLET PO PRN (08:46)
[2018-07-11] MEDS: ISOSORBIDE MONONITRATE 30 MG TAB.ER.24H PO SCH (08:48)
[2018-07-11] MEDS: FUROSEMIDE INJ/PF 100 MG/10 ML SDV IV SCH ×2 (10:28→21:19)
[2018-07-11] MEDS: POTASSIUM CHLORIDE 10 MEQ CAPSULE.ER PO SCH ×2 (10:29→17:38)
[2018-07-11] MEDS: METOLAZONE 5 MG TABLET PO SCH (10:29)
[2018-07-11] MEDS: FERROUS SULFATE 325 MG TABLET PO SCH ×2 (10:29→17:38)
[2018-07-11] MEDS: GABAPENTIN 300 MG CAPSULE PO SCH ×2 (10:29→21:18)
[2018-07-11] MEDS: CARVEDILOL 12.5 MG TABLET PO SCH ×2 (10:29→21:18)
[2018-07-11] MEDS: SACUBITRIL/VALSARTAN 24 MG/26 MG TABLET PO SCH ×2 (10:31→21:22)
--- NOTE | 2018-07-11 12:09 | PROGRESS NOTE E ---
Progress Note NAME: CARLEE WALDROP : 1955 AGE: 62Y DATE: 07/11/2018 ROOM: 321 SUBJECTIVE: The patient is lying in bed. She states she feels much better today. The patient feels she can be home in the next couple of days. She states that she participated with therapy and is looking forward to today. The patient denies any nausea, vomiting or diarrhea. No shortness of breath, dizziness or chest pain. Patient states her edema is much improved in her lower extremities. Patient does not voice any other concerns at this time. MEDICATIONS: Reviewed. REVIEW OF SYSTEMS: The rest of the review of systems is negative. OBJECTIVE: GENERAL: On examination, the patient is a well-developed, morbidly obese 62-year-old -Israeli female, who is awake, alert and oriented to person, place, time and situation. She is verbal and conversational. Does not appear to be in any acute distress. VITAL SIGNS: Temperature is 97.8, pulse 59, respirations 18, blood pressure 127/76, oxygen saturation 100% on 2 liters nasal cannula. SKIN: Warm and dry. No rash. Not diaphoretic. HEENT: Pupils equal, round, reactive to light and accommodation. The patient appears to have JVP to the right clavicle. CVS: Heart is regular. No rub. CHEST: Diminished, symmetrical, unlabored. Difficult to auscultate, given body habitus. ABDOMEN: Nontender, nondistended. Obese. EXTREMITIES: The patient does have chronic changes of chronic edema, but does appear to have much less edema than her baseline. PSYCHIATRIC: Appropriate affect, pleasant mood. DIAGNOSTICS: Lab values are as follows: Hematology obtained on 07/07/2018: WBCs are 12.7, hemoglobin is 9.0, hematocrit is 34.2, platelet count is 122,000. Chemistry obtained on 07/11/2018: Sodium is 4.1, potassium is 4.0, chloride is 92, carbon dioxide 142, BUN 28, creatinine is 0.31, glucose 112, calcium is 8.8, magnesium is 1.7. IMPRESSION AND PLAN: 1. ACUTE ON CHRONIC SYSTOLIC AND DIASTOLIC CONGESTIVE HEART FAILURE. Will continue to aggressively diurese. Patient's baseline creatinine is around 1.6. She is currently at the 1.5 range. She is tolerating her diuresis well. Blood pressure is in a good range. Will continue fluid restriction, strict I's and O's. The leg edema has improved and we will continue to monitor. 2. ACUTE ON CHRONIC HYPOXEMIC AND HYPERCAPNIC RESPIRATORY FAILURE. Continue to keep sats 88% to 92%. BiPAP as needed. 3. STROKE WITH SLEEP APNEA. Continue CPAP at night. 4. MORBID OBESITY WITH A BMI OF GREATER THAN 70. Have encouraged lifestyle modification. The patient is to be seen by Physical Therapy today. 5. DIABETES MELLITUS TYPE 2. Will continue the patient's basal insulin, as well as sliding scale coverage. 6. DIABETIC NEUROPATHY. Will continue patient's home medication. 7. CHRONIC KIDNEY DISEASE, STAGE 3. The patient's baseline creatinine is in the 1.6 range. Continue to diurese until the patient is back to baseline. DISPOSITION: The patient is a FULL CODE. Pending patient's symptomatology and diagnostic findings, will reevaluate in the a.m. Time spent on this followup, including assessment, plan, physical examination, patient education and review of records, is 25 minutes. DICTATING PHYSICIAN: MARLEY WYNN NP [id number] PHY#: [id number] ID: [id number] JOB#: [id number] ACCT: [id number] cc: > TANGELA
[2018-07-11] MEDS: ATORVASTATIN CALCIUM 20 MG TABLET PO SCH (21:17)
[2018-07-11] MEDS: INSULIN GLARGINE,HUM.REC.ANLOG 1,000 UNIT/10 ML VIAL SUBCUT SCH (21:19)
[2018-07-12] MEDS: INSULIN REG, HUMAN 100 UNIT/ML 3 ML VIAL (PYX) SUBCUT SCH ×5 (00:44→21:31)
[2018-07-12] MEDS: ACETAMINOPHEN 325 MG TABLET PO PRN ×3 (02:01→15:12)
[2018-07-12] MEDS: BACLOFEN 10 MG TABLET PO PRN ×2 (02:01→15:12)
[2018-07-12 07:12] LABS: HEMATOCRIT 33.1 % (36.0-47.0); HEMOGLOBIN 10.3 g/dL (12.0-15.5); MEAN CORPUSCULAR HEMOGLOBIN 23.8 pg (27.0-33.4); MEAN CORPUSCULAR HGB CONC 31.3 g/dL (32.0-36.0); MEAN CORPUSCULAR VOLUME 76 fl (80-97); RED BLOOD COUNT 4.35 10^6/uL (3.72-5.28); RED CELL DISTRIBUTION WIDTH 19.4 % (11.5-14.0); WHITE BLOOD COUNT 4.1 10^3/uL (4.0-10.5)
[2018-07-12 07:13] LABS: PLATELET COUNT 119 10^3/uL (150-450)
[2018-07-12 07:37] LABS: BLOOD UREA NITROGEN 33 mg/dL (7-20); CALCIUM 9.1 mg/dL (8.4-10.2); CHLORIDE 94 mmol/L (98-107); GLUCOSE 102 mg/dL (75-110); POTASSIUM 3.6 mmol/L (3.6-5.0); SODIUM 139.6 mmol/L (137-145)
[2018-07-12 07:40] LABS: ANION GAP 7 (5-19); CARBON DIOXIDE 39 mmol/L (22-30)
[2018-07-12] MEDS: HEPARIN SOD (PORCINE) 5,000 UNIT/ML 1 ML SYRINGE SUBCUT SCH ×3 (07:51→21:20)
[2018-07-12] MEDS: METHOCARBAMOL 750 MG TABLET PO PRN (08:01)
--- NOTE | 2018-07-12 09:39 | PROGRESS NOTE E ---
Progress Note NAME: CARLEE WALDROP : 1955 AGE: 62Y DATE: 07/12/2018 ROOM: 321 SUBJECTIVE: The patient is lying in bed. She is having some back pain this morning which she attributes to her fall. The patient denies any nausea, vomiting, no diarrhea. Her shortness of breath is at baseline. No fevers or chills. The patient has been afebrile. Her blood pressure has been in a good range and the patient does not voice any other concerns at this time. BRIEF HISTORY: The patient is a 62-year-old -Malaysian female with a past medical history of heart failure that presented to the ED with shortness of breath. The patient sustained a recent fall and was actually on the hospitalist service 06/23/2018 through 06/28/2018. At that time, the patient was discharged home and subsequently returned after sustaining a fall. The patient was imaged of her lumbar spine, knee, hip, and pelvis without any findings of acute fracture. The patient has been admitted since that time and has been actively diuresed. The patient has tolerated the diuresis quite well in comparison to previous admissions. It appears the patient's baseline creatinine when she is actually volume up, is around 1.5 to 1.6. The patient came in this admission with a creatinine of 1.1. As the patient has been diuresed it has gone up to 1.3. The patient's blood pressure has been tolerated during diuresis and therefore we will continue. MEDICATIONS: Reviewed. REVIEW OF SYSTEMS: The rest of the review of systems is negative. OBJECTIVE: GENERAL: The patient is a 62-year-old -Malaysian female, who is awake, alert and oriented to person, place, time and situation. She is verbal and conversational. Does not appear to be distressed. VITAL SIGNS: Temperature is 97.9, pulse 61, respirations 22, blood pressure 128/67, oxygen saturation 97% on 2 liters nasal cannula. SKIN: Warm and dry. No rash. Not diaphoretic. HEENT: Pupils equal, round, reactive to light and accommodation. Conjunctivae is pink. No evidence of JVD. CVS: Heart is regular. No rub. CHEST: Diminished, unable to fully auscultate given body habitus. ABDOMEN: Obese, soft. EXTREMITIES: The patient has chronic changes of chronic edema with skin thickening. Does appear more shriveled than earlier in the week. DIAGNOSTICS: Lab values are as follows: Hematology obtained on 07/12/2018: WBCs are 4.1, hemoglobin is 10.3, hematocrit is 37.1, platelet count is 119,000. Chemistry obtained on 07/12/2018: Sodium is 139, potassium is 3.6, chloride is 94, carbon dioxide 39, BUN 33, creatinine is 1.37, glucose 102, calcium is 9.1, magnesium is 1.7. IMPRESSION AND PLAN: 1. ACUTE ON CHRONIC SYSTOLIC AND DIASTOLIC CONGESTIVE HEART FAILURE. Will continue to aggressively diurese. The patient's baseline creatinine is in the 1.6 range so she is tolerating diuresis very well. Blood pressure has been in a good range. We will continue to fluid restrict. Strict I's and O's. Leg edema has improved and we will monitor. 2. ACUTE ON CHRONIC HYPOXEMIC AND HYPERCAPNIC RESPIRATORY FAILURE. Continue to keep sats between 88% to 92%. BiPAP as needed. 3. OBSTRUCTIVE SLEEP APNEA. Continue CPAP at night. 4. MORBID OBESITY WITH A BODY MASS INDEX OF GREATER THAN 70. Have encouraged lifestyle modification. The patient is to be seen by Physical Therapy. The patient would like to SNF. 5. DIABETES MELLITUS TYPE 2. Will continue the patient's basal insulin as well as sliding scale coverage. 6. DIABETIC NEUROPATHY. Continue home medication. 7. CHRONIC KIDNEY DISEASE, STAGE-III. Baseline creatinine is in the 1.6 range. DISPOSITION: The patient is a FULL CODE. Pending patient's symptomatology and diagnostic findings, will reevaluate in the a.m. Time spent on this followup, including assessment, plan, physical examination, patient education, review of records, and family meeting is 35 minutes. DICTATING PHYSICIAN: MARLEY WYNN NP [id number] PHY#: [id number] ID: [id number] JOB#: [id number] ACCT: [id number] cc: >
[2018-07-12] MEDS: POTASSIUM CHLORIDE 10 MEQ CAPSULE.ER PO SCH ×2 (10:18→17:51)
[2018-07-12] MEDS: CARVEDILOL 12.5 MG TABLET PO SCH ×2 (10:18→21:20)
[2018-07-12] MEDS: METOLAZONE 5 MG TABLET PO SCH (10:18)
[2018-07-12] MEDS: ISOSORBIDE MONONITRATE 30 MG TAB.ER.24H PO SCH (10:18)
[2018-07-12] MEDS: FUROSEMIDE INJ/PF 100 MG/10 ML SDV IV SCH ×2 (10:18→21:18)
[2018-07-12] MEDS: GABAPENTIN 300 MG CAPSULE PO SCH ×2 (10:18→21:20)
[2018-07-12] MEDS: FERROUS SULFATE 325 MG TABLET PO SCH ×2 (10:18→17:51)
[2018-07-12] MEDS: SACUBITRIL/VALSARTAN 24 MG/26 MG TABLET PO SCH ×2 (10:18→21:22)
[2018-07-12] MEDS: ATORVASTATIN CALCIUM 20 MG TABLET PO SCH (21:20)
[2018-07-12] MEDS: INSULIN GLARGINE,HUM.REC.ANLOG 1,000 UNIT/10 ML VIAL SUBCUT SCH (21:33)
[2018-07-13] MEDS: ACETAMINOPHEN 325 MG TABLET PO PRN ×3 (02:16→17:51)
[2018-07-13] MEDS: BACLOFEN 10 MG TABLET PO PRN ×3 (02:16→21:32)
[2018-07-13] MEDS: HEPARIN SOD (PORCINE) 5,000 UNIT/ML 1 ML SYRINGE SUBCUT SCH ×3 (05:09→21:30)
[2018-07-13 05:49] LABS: HEMATOCRIT 33.3 % (36.0-47.0); HEMOGLOBIN 10.3 g/dL (12.0-15.5); MEAN CORPUSCULAR HEMOGLOBIN 23.5 pg (27.0-33.4); MEAN CORPUSCULAR VOLUME 76 fl (80-97); PLATELET COUNT 119 10^3/uL (150-450); RED CELL DISTRIBUTION WIDTH 19.2 % (11.5-14.0); WHITE BLOOD COUNT 3.8 10^3/uL (4.0-10.5)
[2018-07-13 06:21] LABS: ALANINE AMINOTRANSFERASE 19 U/L (9-52); ALBUMIN 3.2 g/dL (3.5-5.0); ALKALINE PHOSPHATASE 78 U/L (38-126); ASPARTATE AMINO TRANSFERASE 19 U/L (14-36); BILIRUBIN,DIRECT 0.4 mg/dL (0.0-0.4); BILIRUBIN,TOTAL 0.5 mg/dL (0.2-1.3); BLOOD UREA NITROGEN 40 mg/dL (7-20); CALCIUM 9.1 mg/dL (8.4-10.2); CHLORIDE 94 mmol/L (98-107); GLUCOSE 106 mg/dL (75-110); POTASSIUM 3.9 mmol/L (3.6-5.0); SODIUM 139.8 mmol/L (137-145); TOTAL PROTEIN 6.5 g/dL (6.3-8.2)
[2018-07-13 06:28] LABS: ANION GAP 8 (5-19); CARBON DIOXIDE 38 mmol/L (22-30)
[2018-07-13] MEDS: INSULIN REG, HUMAN 100 UNIT/ML 3 ML VIAL (PYX) SUBCUT SCH ×4 (08:27→21:31)
[2018-07-13] MEDS: ISOSORBIDE MONONITRATE 30 MG TAB.ER.24H PO SCH (08:34)
[2018-07-13] MEDS: FUROSEMIDE INJ/PF 100 MG/10 ML SDV IV SCH ×2 (09:37→21:29)
[2018-07-13] MEDS: METOLAZONE 5 MG TABLET PO SCH (09:38)
[2018-07-13] MEDS: POTASSIUM CHLORIDE 10 MEQ CAPSULE.ER PO SCH ×2 (09:38→17:42)
[2018-07-13] MEDS: GABAPENTIN 300 MG CAPSULE PO SCH ×2 (09:39→21:32)
[2018-07-13] MEDS: FERROUS SULFATE 325 MG TABLET PO SCH ×2 (09:39→17:42)
[2018-07-13] MEDS: CARVEDILOL 12.5 MG TABLET PO SCH ×2 (09:39→21:32)
[2018-07-13] MEDS: SACUBITRIL/VALSARTAN 24 MG/26 MG TABLET PO SCH ×2 (09:41→21:31)
--- NOTE | 2018-07-13 15:02 | PDOC PROGRESS REPORT ---
Subjective Progress Note for:: 07/13/18 Subjective:: This is 62 years old black female patient with multiple comorbidities including morbid obesity, systolic congestive heart failure, COPD, coronary artery disease, hypertension, hyperlipidemia, history of CVA, diabetes mellitus and stage III CKD presented with chief complaint of shortness of breath. Of note patient discharged from this hospital on June 28 after she was treated for acute hypoxemic respiratory failure with hypercapnia. At presentation patient found to have markedly elevated BNP 8000. Patient has been diuresed aggressively and put on supplemental oxygen. Her BNP trended down from 8000 to 1000. Morning I seen patient resting in bed comfortably she reports this her shortness of breath is subsiding. Currently patient has been awaiting placement to rehab facility. Reason For Visit: HEART FAILURE Physical Exam Vital Signs: Temp Pulse Resp BP Pulse Ox 97.9 F 68 20 129/74 H 98 07/13/18 11:29 07/13/18 11:29 07/13/18 11:29 07/13/18 11:29 07/13/18 11:29 Pulse Oximeter Continuous Start: 07/07/18 19 :14 Freq: RTQ4 Status: Complete Protocol: Document 07/07/18 20:30 SFL (Rec: 07/07/18 21:52 SFL [email or web address]) Pulse Oximetry Assessment Equipment Usage Equipment Standby Continuous SpO2 Machine # x Intake & Output 07/12/18 07/13/18 07/14/18 06:59 06:59 06:59 Intake Total 912 765 474 Output Total 1625 2550 300 Balance -713 -1785 174 Weight 201.1 kg 198.5 kg General appearance: PRESENT: mild distress, morbidly obese Head exam: PRESENT: atraumatic, normocephalic Mouth exam: PRESENT: moist, tongue midline Neck exam: ABSENT: carotid bruit, JVD, lymphadenopathy, thyromegaly Respiratory exam: PRESENT: decreased breath sounds Cardiovascular exam: PRESENT: RRR. ABSENT: diastolic murmur, rubs, systolic murmur GI/Abdominal exam: PRESENT: normal bowel sounds, soft. ABSENT: distended, guarding, mass, organolmegaly, rebound, tenderness Extremities exam: PRESENT: +1 edema Neurological exam: PRESENT: alert, awake, oriented to time, oriented to situation Results Laboratory Results: 07/13/18 04:49 07/13/18 04:49 07/13/18 07/13/18 04:49 04:49 WBC 3.8 L RBC 4.40 Hgb 10.3 L Hct 33.3 L MCV 76 L MCH 23.5 L MCHC 31.0 L RDW 19.2 H Plt Count 119 L Sodium 139.8 Potassium 3.9 Chloride 94 L Carbon Dioxide 38 H Anion Gap 8 BUN 40 H Creatinine 1.43 H Est GFR ( Amer) 45 L Est GFR (Non-Af Amer) 37 L Glucose 106 Calcium 9.1 Magnesium 1.8 Total Bilirubin 0.5 AST 19 ALT 19 Alkaline Phosphatase 78 Total Protein 6.5 Albumin 3.2 L 07/07/18 07/07/18 07/07/18 16:15 16:15 22:42 Creatine Kinase 59 CK-MB (CK-2) 1.58 Cancelled Troponin I 0.061 NT-Pro-B Natriuret Pep 8220 H 07/07/18 07/07/18 07/07/18 22:42 22:42 23:22 Creatine Kinase Cancelled CK-MB (CK-2) 1.53 Troponin I 0.057 NT-Pro-B Natriuret Pep 07/07/18 07/08/18 07/08/18 23:22 05:08 05:08 Creatine Kinase 50 40 CK-MB (CK-2) 1.16 Troponin I 0.062 NT-Pro-B Natriuret Pep 07/08/18 07/09/18 07/13/18 05:08 09:44 04:49 Creatine Kinase CK-MB (CK-2) Troponin I NT-Pro-B Natriuret Pep 27384 H 5200 H 1040 H Impressions: Head CT 07/07/18 00:00 IMPRESSION: No evidence of acute intracranial hemorrhage or large vascular territory infarct. Limited evaluation of the porter-white differentiation secondary to body habitus. If high clinical concern for acute ischemic event MRI would be more sensitive. EVIDENCE OF ACUTE STROKE: NO. Chest X-Ray 07/10/18 06:00 IMPRESSION: CARDIAC ENLARGEMENT. VASCULAR CONGESTION. Assessment and Plan - Diagnosis (1) Acute respiratory failure with hypoxia and hypercapnia Is this a current diagnosis for this admission?: Yes Plan: I will continue supplemental oxygen. (2) Acute on chronic systolic CHF (congestive heart failure), NYHA class 3 Is this a current diagnosis for this admission?: Yes Plan: Patient has ejection fraction of 30-35%. Patient has been on IV Lasix. Her edema is subsiding and she is also losing weight. (3) Morbid obesity with BMI of 50.0-59.9, adult Is this a current diagnosis for this admission?: Yes Plan: Lifestyle modification advised. (4) Acute encephalopathy Is this a current diagnosis for this admission?: Yes Plan: Most probably metabolic. Has resolved. (5) Stage III chronic kidney disease Is this a current diagnosis for this admission?: Yes Plan: Patient needs outpatient follow-up with domestic travel consultant. We will avoid nephrotoxic agents. (6) DAIANA and COPD overlap syndrome Is this a current diagnosis for this admission?: Yes Plan: Continue CPAP at night and bronchodilator as needed. (7) Coronary artery disease Is this a current diagnosis for this admission?: Yes Plan: No anginal symptoms. We will continue cardioprotective medications. (8) Hypertension Qualifiers: Hypertension type: essential hypertension Qualified Code(s): I10 - Essential (primary) hypertension Is this a current diagnosis for this admission?: Yes Plan: Continue home medication. (9) Hyperlipidemia Qualifiers: Hyperlipidemia type: unspecified Qualified Code(s): E78.5 - Hyperlipidemia, unspecified Is this a current diagnosis for this admission?: Yes Plan: Continue home medications.
[2018-07-13] MEDS: METHOCARBAMOL 750 MG TABLET PO PRN (17:52)
[2018-07-13] MEDS: INSULIN GLARGINE,HUM.REC.ANLOG 1,000 UNIT/10 ML VIAL SUBCUT SCH (21:31)
[2018-07-13] MEDS: ATORVASTATIN CALCIUM 20 MG TABLET PO SCH (21:32)
[2018-07-14] MEDS: HEPARIN SOD (PORCINE) 5,000 UNIT/ML 1 ML SYRINGE SUBCUT SCH ×2 (05:21→13:14)
[2018-07-14] MEDS: METHOCARBAMOL 750 MG TABLET PO PRN ×2 (06:41→13:18)
[2018-07-14] MEDS: INSULIN REG, HUMAN 100 UNIT/ML 3 ML VIAL (PYX) SUBCUT SCH ×3 (09:12→17:01)
[2018-07-14] MEDS: ISOSORBIDE MONONITRATE 30 MG TAB.ER.24H PO SCH (10:09)
[2018-07-14] MEDS: GABAPENTIN 300 MG CAPSULE PO SCH (10:09)
[2018-07-14] MEDS: FUROSEMIDE INJ/PF 100 MG/10 ML SDV IV SCH (10:09)
[2018-07-14] MEDS: METOLAZONE 5 MG TABLET PO SCH (10:09)
[2018-07-14] MEDS: POTASSIUM CHLORIDE 10 MEQ CAPSULE.ER PO SCH ×2 (10:09→17:01)
[2018-07-14] MEDS: CARVEDILOL 12.5 MG TABLET PO SCH (10:09)
[2018-07-14] MEDS: FERROUS SULFATE 325 MG TABLET PO SCH ×2 (10:10→17:01)
[2018-07-14] MEDS: SACUBITRIL/VALSARTAN 24 MG/26 MG TABLET PO SCH (10:18)
[2018-07-14] MEDS: ACETAMINOPHEN 325 MG TABLET PO PRN ×2 (13:18→17:21)
--- NOTE | 2018-07-14 16:12 | PDOC TRANSFER SUMMARY ---
General - Admit/Disc Date/PCP Admission Date/Primary Care Provider: 07/07/18 18:09 MARLEY HARDEN MD Discharge Date: 07/14/18 - Discharge Diagnosis (1) Acute respiratory failure with hypoxia and hypercapnia Is this a current diagnosis for this admission?: Yes (2) Acute on chronic systolic CHF (congestive heart failure), NYHA class 3 Is this a current diagnosis for this admission?: Yes (3) Morbid obesity with BMI of 50.0-59.9, adult Is this a current diagnosis for this admission?: Yes (4) Acute encephalopathy Is this a current diagnosis for this admission?: Yes (5) Stage III chronic kidney disease Is this a current diagnosis for this admission?: Yes (6) DAIANA and COPD overlap syndrome Is this a current diagnosis for this admission?: Yes (7) Coronary artery disease Is this a current diagnosis for this admission?: Yes (8) Hypertension Is this a current diagnosis for this admission?: Yes (9) Hyperlipidemia Is this a current diagnosis for this admission?: Yes - Additional Information Resuscitation Status: Full Code Discharge Diet: Cardiac, Diabetic Discharge Activity: Activity As Tolerated, Balance Activity w/Rest, Weigh Daily Home Medications: Atorvastatin Calcium [Lipitor 20 mg Tablet] 20 mg PO QHS 06/23/18 Ferrous Sulfate [Feosol 325 mg Tablet] 325 mg PO BID 06/23/18 Furosemide [Lasix 80 mg Tablet] 160 mg PO BID 06/23/18 Gabapentin [Neurontin 300 mg Capsule] 300 mg PO Q12 06/23/18 Insulin Aspart [Novolog Flexpen] 6 unit SUBCUT MEALS 06/23/18 Insulin Glargine,Hum.rec.anlog [Lantus Insulin 100 Unit/mL] 16 unit SUBCUT QHS 06/23/18 Isosorbide Mononitrate [Imdur 30 mg Tablet.er] 30 mg PO QAM 06/23/18 Multivitamin [Daily Multiple Vitamin] 1 tab PO DAILY 06/23/18 Potassium Chloride 10 meq PO DAILY 06/23/18 Baclofen [Baclofen 10 mg Tablet] 10 mg PO Q8HP PRN 07/07/18 Carvedilol [Coreg 12.5 mg Tablet] 12.5 mg PO Q12 07/07/18 Losartan Potassium [Cozaar 25 mg Tablet] 25 mg PO DAILY 07/07/18 Methocarbamol [Robaxin 750 mg Tablet] 750 mg PO Q4HP PRN 07/07/18 Metolazone [Zaroxolyn 5 mg Tablet] 5 mg PO DAILY 07/07/18 History of Present Illness Admission Date/PCP: 07/07/18 18:09 MARLEY HARDEN MD History of Present Illness: CARLEE WALDROP is a 62 year old female who was just discharged from this hospital on June 28. At that time she was admitted for acute hypoxic respiratory failure with hypercapnia. Acute on chronic congestive heart failure as well as her underlying diabetes, chronic kidney disease, obstructive sleep apnea, obesity hypoventilation syndrome and morbid obesity. Upon presentation she had some episodes of wakefulness but is quite somnolent during this encounter. She is on on BiPAP after an ABG showed a respiratory acidosis with compensation. Her PCO2 was 65. This was on BiPAP with an FiO2 of 60%. Hospital Course Hospital Course: This is 62 years old black female patient with multiple comorbidities including morbid obesity, systolic congestive heart failure, COPD, coronary artery disease, hypertension, hyperlipidemia, history of CVA, diabetes mellitus and stage III CKD presented with chief complaint of shortness of breath. Of note patient discharged from this hospital on June 28 after she was treated for acute hypoxemic respiratory failure with hypercapnia. At presentation patient found to have markedly elevated BNP 8000. Patient has been diuresed aggressively and put on supplemental oxygen. Her BNP trended down from 8000 to 1000. This morning patient seen and examined at bedside. Patient is awake alert oriented. She is not in pain or any form of distress. Her vitals and blood works are stable. Patient is stable enough to be discharged to [facility]. I will continue all home medications. Physical Exam Vital Signs: Temp Pulse Resp BP Pulse Ox 97.7 F 97 20 125/70 99 07/14/18 08:02 07/14/18 08:02 07/14/18 08:02 07/14/18 08:02 07/14/18 08:02 Pulse Oximeter Continuous Start: 07/07/18 19:14 Freq: RTQ4 Status: Complete Protocol: Document 07/07/18 20:30 SFL (Rec: 07/07/18 21:52 SFL [id number]) Pulse Oximetry Assessment Equipment Usage Equipment Standby Continuous SpO2 Machine # x Intake & Output 07/13/18 07/14/18 07/15/18 06:59 06:59 06:59 Intake Total 765 1134 Output Total 4100 2300 Balance -1785 -1166 Weight 198.5 kg 198.2 kg General appearance: PRESENT: no acute distress Head exam: PRESENT: atraumatic Eye exam: PRESENT: conjunctiva pink Mouth exam: PRESENT: moist Neck exam: ABSENT: carotid bruit, JVD, lymphadenopathy, thyromegaly Respiratory exam: PRESENT: decreased breath sounds Cardiovascular exam: PRESENT: RRR. ABSENT: diastolic murmur, rubs, systolic murmur Neurological exam: PRESENT: alert, awake, oriented to time, oriented to situation Results Laboratory Results: 07/13/18 04:49 07/13/18 04:49 07/07/18 07/07/18 07/07/18 16:15 16:15 22:42 Creatine Kinase 59 CK-MB (CK-2) 1.58 Cancelled Troponin I 0.061 NT-Pro-B Natriuret Pep 8220 H 07/07/18 07/07/18 07/07/18 22:42 22:42 23:22 Creatine Kinase Cancelled CK-MB (CK-2) 1.53 Troponin I 0.057 NT-Pro-B Natriuret Pep 07/07/18 07/08/18 07/08/18 23:22 05:08 05:08 Creatine Kinase 50 40 CK-MB (CK-2) 1.16 Troponin I 0.062 NT-Pro-B Natriuret Pep 07/08/18 07/09/18 07/13/18 05:08 09:44 04:49 Creatine Kinase CK-MB (CK-2) Troponin I NT-Pro-B Natriuret Pep 67192 H 5200 H 1040 H Impressions: Head CT 07/07/18 00:00 IMPRESSION: No evidence of acute intracranial hemorrhage or large vascular territory infarct. Limited evaluation of the porter-white differentiation secondary to body habitus. If high clinical concern for acute ischemic event MRI would be more sensitive. EVIDENCE OF ACUTE STROKE: NO. Chest X-Ray 07/10/18 06:00 IMPRESSION: CARDIAC ENLARGEMENT. VASCULAR CONGESTION. Transfer Plan - Time Spent with Patient Time spent with patient: Greater than 30 Minutes Qualifiers - * PATIENT BEING DISCHARGED WITH ANY OF THE FOLLOWING DIAGNOSIS: Heart Failure VTE patient discharged on overlapping Therapy?: No Reason(s) for not prescribing Overlap Therapy:: Not indicated Stroke Pt being discharged on Anti-thrombolytic therapy?: No Reason(s) for not prescribing Anti-thrombolytic therapy:: Not indicated Stroke Pt being discharged on Anti-coagulation therapy?: No Reason(s) for not prescribing Anti-coagulation therapy:: Not indicated Stroke Pt being discharged on Statins?: No Reason(s) for not prescribing Statins therapy:: Not indicated AR Pt being discharged on Aspirin therapy?: No Reason(s) for not prescribing Aspirin therapy:: Not indicated AR Pt being discharged on Statins?: No Reason(s) for not prescribing Statin therapy:: Not indicated AR Pt discharged ACEI/ARBS?: No Reason(s) for not prescribing ACEI/ARBS:: Not indicated HF Pt being discharged on ACEI for LVEF less than 40%?: Yes HF Pt being discharged on ARBS for LVEF less than 40%?: Yes HF Pt with Afib discharged with Warfarin?: No Reason(s) for not prescribing Warfarin:: Not indicated HF Pt discharged on evidence-based Beta Lisa:: Yes
[2018-07-14 16:26] VITALS: BP 129/41
== END 2018-07-14 19:04 | DRG 291 ==
LOC: ER 15:55 → EH 18:09 → 3W 20:11
PROVIDERS: ADMIT Hospitalist; ATTEND Internal Medicine
PROC: 5A09557 Assistance with Respiratory Ventilation, Greater than 96 Consecutive Hours, Continuous Positive Airway Pressure (ICD-10-PCS; principal; 2018-07-07)
DX: I13.0 Hypertensive heart and chronic kidney disease with heart failure and stage 1 through stage 4 chronic kidney disease, or unspecified chronic kidney disease (principal); I50.23 Acute on chronic systolic (congestive) heart failure; J96.02 Acute respiratory failure with hypercapnia; J96.01 Acute respiratory failure with hypoxia; E66.2 Morbid (severe) obesity with alveolar hypoventilation; Z68.45 Body mass index [BMI] 70 or greater, adult; N18.3 Chronic kidney disease, stage 3 (moderate); I25.10 Atherosclerotic heart disease of native coronary artery without angina pectoris; E78.5 Hyperlipidemia, unspecified; E11.22 Type 2 diabetes mellitus with diabetic chronic kidney disease; J44.9 Chronic obstructive pulmonary disease, unspecified; D63.1 Anemia in chronic kidney disease; E11.40 Type 2 diabetes mellitus with diabetic neuropathy, unspecified; I25.2 Old myocardial infarction; Z95.0 Presence of cardiac pacemaker; Z79.4 Long term (current) use of insulin; Z79.899 Other long term (current) drug therapy; Z86.73 Personal history of transient ischemic attack (TIA), and cerebral infarction without residual deficits; Z90.710 Acquired absence of both cervix and uterus; Z82.49 Family history of ischemic heart disease and other diseases of the circulatory system; Z83.3 Family history of diabetes mellitus
CPT/HCPCS: 36415; 36600; 70450; 71045; 80048; 80053; 81001; 82550; 82553; 82803; 82962; 83735; 83880; 84484; 85025; 85027; 85610; 93005; 93010; 94660; 96374; 99291; J1644; J1815; J1885; J1940; J3475; J3490

== ENCOUNTER → 2018-08-31 | Outpatient (CLI) | payer MEDICARE, MEDICAID ==
--- NOTE | 2018-08-31 16:35 | WOMENS IMAGING REPORT ---
EXAM DESCRIPTION: 3D SCREENING MAMMO BILAT COMPLETED DATE/TIME: 08/31/2018 11:55 am REASON FOR STUDY: Z12.31 ROUTINE 3D BILATERAL SCREENING Z12.31 ENCNTR SCREEN MAMMOGRAM FOR MALIGNAN T NEOPLASM OF TAYLOR COMPARISON: Multiple since 2012 EXAM PARAMETERS: Views: Standard craniocaudal and mediolateral oblique views of each breast recorded using digital acquisition and breast tomosynthesis. Read with the assistance of CAD. .[facility] - Fluid-1 Gas Examiner Version 9.2 LIMITATIONS: None. FINDINGS: No suspicious masses, suspicious calcifications or architectural distortion. No areas of c oncern. IMPRESSION: Assessment: Negative MAMMOGRAM. BIRADS 1. BREAST DENSITY: a. The breasts are almost entirely fatty. BIRAD: 1 NEGATIVE RECOMMENDATION: ROUTINE SCREENING COMMENT: The patient has been notified of the results by letter per [place] requirements. Additional no tification policies are in place for contacting patient with suspicious or incomplete findings. Quality ID #[id number]: The [employer] recommends an annual screening mammogram for women aged 40 years or over. This facility utilizes a reminder system to ensure that all patients receive reminder letters, and/or direct phone calls for appointments. This includes reminders for routine scr eening mammograms, diagnostic mammograms, or other Breast Imaging Interventions when appropriate. Th is patient will be placed in the appropriate reminder system. TECHNICAL DOCUMENTATION: FINDING NUMBER: (1) ASSESSMENT: (1) JOB ID: [id number] [employer]- All Rights Reserved Reading location - IP/workstation name: [email or web address]
== END ==
LOC: WI 10:50
PROVIDERS: ATTEND Internal Medicine
DX: Z12.31 Encounter for screening mammogram for malignant neoplasm of breast (principal)
CPT/HCPCS: 77063; 77067

== ENCOUNTER 2018-10-19 19:42 | Inpatient (IN) | payer MEDICARE, MEDICAID ==
[2018-10-19] MEDS ORDERED: FUROSEMIDE INJ/PF 40 MG/4 ML SDV IV ONE (20:00)
[2018-10-19] MEDS ORDERED: IPRATROPIUM/ALBUTEROL 0.5-2.5 MG/3 ML AMPUL NEB ONE (20:00)
[2018-10-19] MEDS ORDERED: METHYLPREDNISOLONE INJ 125 MG/2 ML SDV IV ONE (20:01)
[2018-10-19] MEDS ORDERED: NITROGLYCERIN 0.4 MG/TAB 25 TAB/BOTTLE SL PRN (20:01)
--- NOTE | 2018-10-19 20:26 | RADIOLOGY REPORT (SQ) ---
EXAM DESCRIPTION: XR CHEST 1 VIEW COMPLETED DATE/TME: 10/19/2018 19:50 CLINICAL HISTORY: 63 years, Female, respiratory distress COMPARISON: 07/10/2018 chest NUMBER OF VIEWS: 1 TECHNIQUE: Portable chest LIMITATIONS: None. FINDINGS: Stable cardiomegaly. Left-sided pacing device. Osteopenia. Lungs are clear. No pneumothorax IMPRESSION: Cardiomegaly. Lungs are clear copyright 2011 [employer]- All Rights Reserved
[2018-10-19 20:34] LABS: ABSOLUTE EOSINOPHILS # (AUTO) 0.1 10^3/uL (0.0-0.6); ABSOLUTE LYMPHOCYTES (AUTO) 1.2 10^3/uL (0.5-4.7); ABSOLUTE MONOCYTES (AUTO) 0.7 10^3/uL (0.1-1.4); BASOPHILS % (AUTO) 0.9 % (0-2); EOSINOPHILS % (AUTO) 1.8 % (0-6); HEMATOCRIT 31.8 % (36.0-47.0); HEMOGLOBIN 9.6 g/dL (12.0-15.5); LYMPHOCYTES % (AUTO) 24.4 % (13-45); MEAN CORPUSCULAR HEMOGLOBIN 24.1 pg (27.0-33.4); MEAN CORPUSCULAR VOLUME 80 fl (80-97); MONOCYTES % (AUTO) 14.5 % (3-13); PLATELET COUNT 139 10^3/uL (150-450); RED BLOOD COUNT 3.97 10^6/uL (3.72-5.28); RED CELL DISTRIBUTION WIDTH 19.1 % (11.5-14.0); SEGMENTED NEUTROPHILS % (AUTO) 58.4 % (42-78); TOTAL CELLS COUNTED % (AUTO) 100 %; WHITE BLOOD COUNT 5.1 10^3/uL (4.0-10.5)
[2018-10-19 20:39] LABS: VENOUS BLOOD BASE EXCESS 10.2 mmol/L; VENOUS BLOOD HCO3 38.8 mmol/L (20-32); VENOUS BLOOD PH 7.3 (7.30-7.42)
--- NOTE | 2018-10-19 20:40 | ER Document Report ---
ED General - General Stated Complaint: SHORTNESS OF BREATH Time Seen by Provider: 10/19/18 19:50 Primary Care Provider: MARLEY HARDEN MD [Primary Care Provider] - Follow up as needed Mode of Arrival: Medic Information source: Patient, Emergency Med Personnel Notes: 63-year-old female with congestive heart failure, hypertension, COPD on continuous oxygen, type 1 diabetes presents via EMS from home with complaint of shortness of breath that started 2 days prior to arrival. EMS reported that the patient's oxygen tank was on 8 but empty. Patient reports an associated dry cough. She also reports a significant weight gain and leg swelling. Patient reports that she is on 80 mg of Lasix twice daily. TRAVEL OUTSIDE OF THE [place] IN LAST 30 DAYS: No - HPI Onset: Other Onset/Duration: Gradual, Persistent Quality of pain: No pain Associated symptoms: Nonproductive cough, Leg swelling, Shortness of breath. denies: Chest pain, Fever, Headache, Nausea, Vomiting, Sweating, Weakness Exacerbated by: Movement Relieved by: Remaining still Similar symptoms previously: Yes Recently seen / treated by doctor: No - Related Data Allergies/Adverse Reactions: No Known Allergies Allergy (Verified 07/05/18 21:31) Past Medical History - General Information source: Patient, Emergency Med Personnel - Social History Smoking Status: Former Smoker Frequency of alcohol use: None Drug Abuse: None Lives with: Family Family History: CAD, DM, Hypertension Patient has suicidal ideation: No Patient has homicidal ideation: No - Past Medical History Cardiac Medical History: Reports: Hx Congestive Heart Failure, Hx Heart Attack, Hx Hypercholesterolemia, Hx Hypertension Pulmonary Medical History: Reports: Hx COPD Endocrine Medical History: Reports: Hx Diabetes Mellitus Type 1, Hx Diabetes Mellitus Type 2 Renal/ Medical History: Reports: Hx Renal Insufficiency. Denies: Hx Peritoneal Dialysis GI Medical History: Denies: Hx Cirrhosis, Hx Crohn's Disease, Hx Gastroesophageal Reflux Disease, Hx Hiatal Hernia Musculoskeletal Medical History: Denies Hx Fibromyalgia, Denies Hx Gout Skin Medical History: Denies Hx Eczema, Denies Hx Psoriasis Psychiatric Medical History: Denies: Hx Depression Past Surgical History: Reports: Hx Cardiac Surgery - defib., Hx Hysterectomy - Immunizations Immunizations up to date: Yes Hx Diphtheria, Pertussis, Tetanus Vaccination: Yes Hx Pneumococcal Vaccination: 01/04/17 Review of Systems - Review of Systems Notes: REVIEW OF SYSTEMS: CONSTITUTIONAL : Denies fever, chills, or sweats. Denies recent illness. Denies weight loss, recent hospitalizations. EENT: Denies visual changes, eye pain. Denies sore throat, oral lesions, difficulty swallowing. CARDIOVASCULAR: Denies chest pain. Denies palpitations. Denies lower extremity edema. RESPIRATORY: + cough. + shortness of breath, wheezing. GASTROINTESTINAL: Denies abdominal pain or distention. Denies nausea, vomiting, or diarrhea. Denies blood in vomitus, stools, or per rectum. Denies black, tarry stools. Denies constipation. GENITOURINARY: Denies difficulty urinating, painful urination, frequency, blood in urine, or vaginal discharge. MUSCULOSKELETAL: Denies back or neck pain or stiffness. Denies joint pain or swelling. SKIN: Denies rash, lesions or sores. HEMATOLOGIC : Denies easy bruising or bleeding. LYMPHATIC: Denies swollen glands. NEUROLOGICAL: Denies confusion or altered mental status. Denies loss of consciousness. Denies dizziness or lightheadedness. Denies headache. Denies weakness or paralysis. Denies problems difficulty with ambulation, slurred speech. Denies sensory loss, numbness, or tingling. Denies seizures. PSYCHIATRIC: Denies anxiety or stress. Denies depression, suicidal ideation, or homicidal ideation. Denies visual or auditory hallucinations. Physical Exam - Vital signs Vitals: Temp Pulse Ox 98.7 F 96 10/19/18 19:42 10/19/18 19:42 - Notes Notes: PHYSICAL EXAMINATION: GENERAL: Morbidly obese. HEAD: Atraumatic, normocephalic. EYES: Pupils equal round and reactive to light, extraocular movements intact, conjunctiva are normal. ENT: Nares patent, oropharynx clear without exudates. Moist mucous membranes. NECK: Normal range of motion, supple without lymphadenopathy LUNGS: Expiratory wheezing in the lower lung main bilaterally. Visibly dyspneic, no accessory muscle use. HEART: Regular rate and rhythm without murmurs ABDOMEN: Soft, nontender, nondistended abdomen. No guarding, no rebound. No masses appreciated. Female : deferred Musculoskeletal: Normal range of motion, 1+ pitting or edema. No cyanosis. NEUROLOGICAL: Cranial nerves grossly intact. Normal speech, normal gait. Normal sensory, motor exams PSYCH: Normal mood, normal affect. SKIN: Warm, Dry, normal turgor, no rashes or lesions noted. Course - Re-evaluation Re-evalutation: Temp Pulse Resp BP Pulse Ox 98.7 F 96 10/19/18 19:42 10/19/18 19:42 Laboratory 10/19/18 10/19/18 10/19/18 19:50 20:10 20:10 WBC 5.1 RBC 3.97 Hgb 9.6 L Hct 31.8 L MCV 80 MCH 24.1 L MCHC 30.0 L RDW 19.1 H Plt Count 139 L Seg Neutrophils % 58.4 Lymphocytes % 24.4 Monocytes % 14.5 H Eosinophils % 1.8 Basophils % 0.9 Absolute Neutrophils 3.0 Absolute Lymphocytes 1.2 Absolute Monocytes 0.7 Absolute Eosinophils 0.1 Absolute Basophils 0.0 VBG pH VBG pCO2 VBG HCO3 VBG Base Excess Sodium 141.8 Potassium 3.8 Chloride 99 Carbon Dioxide 37 H Anion Gap 6 BUN 30 H Creatinine 1.17 Est GFR ( Amer) 57 L Est GFR (Non-Af Amer) 47 L Glucose 124 H Calcium 8.9 Total Bilirubin 0.5 Direct Bilirubin 0.3 Neonat Total Bilirubin Not Reportable Neonat Direct Bilirubin Not Reportable Neonat Indirect Bili Not Reportable AST 26 ALT 16 Alkaline Phosphatase 107 Creatine Kinase 67 CK-MB (CK-2) 1.08 Troponin I 0.052 NT-Pro-B Natriuret Pep 3610 H Total Protein 7.4 Albumin 3.7 10/19/18 20:25 WBC RBC Hgb Hct MCV MCH MCHC RDW Plt Count Seg Neutrophils % Lymphocytes % Monocytes % Eosinophils % Basophils % Absolute Neutrophils Absolute Lymphocytes Absolute Monocytes Absolute Eosinophils Absolute Basophils VBG pH 7.30 VBG pCO2 80.2 H* VBG HCO3 38.8 H VBG Base Excess 10.2 Sodium Potassium Chloride Carbon Dioxide Anion Gap BUN Creatinine Est GFR ( Amer) Est GFR (Non-Af Amer) Glucose Calcium Total Bilirubin Direct Bilirubin Neonat Total Bilirubin Neonat Direct Bilirubin Neonat Indirect Bili AST ALT Alkaline Phosphatase Creatine Kinase CK-MB (CK-2) Troponin I NT-Pro-B Natriuret Pep Total Protein Albumin Chest X-Ray 10/19/18 19:50 IMPRESSION: Cardiomegaly. Lungs are clear copyright 2011 [employer]- All Rights Reserved 10/19/18 21:12 63-year-old morbidly obese female with congestive heart failure, COPD on continuous oxygen presented via EMS with complaints of shortness of breath that started 2 days prior to arrival. Upon EMS arrival they state the patient was sleeping and had her oxygen turned up to 8 L but the tank was empty. Patient has had an associated dry cough. Bedside ultrasound was performed and showed no pericardial effusion or extensive B-lines. Lung exam significant for expiratory wheezing. Patient did receive a DuoNeb and Solu-Medrol prior to arrival. 10/19/18 21:31 Patient is visibly dyspneic and did receive additional breathing treatments in the emergency department. She was placed on BiPAP and on reevaluation reports great improvement of her shortness of breath. Patient does report a 20 pound weight gain since last being seen in the emergency department. She also did receive 1 dose of sublingual nitro and Lasix. Patient's blood gas does reveal significant CO2 retention. 10/19/18 21:47 Patient has been accepted to the IMCU by Dr. Mcallister. - Vital Signs Vital signs: Temp Pulse Resp BP Pulse Ox 98.7 F 16 161/90 H 98 10/19/18 19:42 10/19/18 21:08 10/19/18 20:41 10/19/18 21:08 - Laboratory Result Diagrams: 10/19/18 19:50 10/19/18 20:10 Laboratory results interpreted by me: 10/19/18 10/19/18 10/19/18 19:50 20:10 20:10 Hgb 9.6 L Hct 31.8 L MCH 24.1 L MCHC 30.0 L RDW 19.1 H Plt Count 139 L Monocytes % 14.5 H VBG pCO2 VBG HCO3 Carbon Dioxide 37 H BUN 30 H Est GFR ( Amer) 57 L Est GFR (Non-Af Amer) 47 L Glucose 124 H NT-Pro-B Natriuret Pep 3610 H 10/19/18 20:25 Hgb Hct MCH MCHC RDW Plt Count Monocytes % VBG pCO2 80.2 H* VBG HCO3 38.8 H Carbon Dioxide BUN Est GFR ( Amer) Est GFR (Non-Af Amer) Glucose NT-Pro-B Natriuret Pep - Diagnostic Test Radiology reviewed: Image reviewed, Reports reviewed - Atrial sensed ventricular paced rhythm - EKG Interpretation by Me When compared to previous EKG there are: No significant change Critical Care Note - Critical Care Note Total time excluding time spent on procedures (mins): 35 - Minutes of critical care time spent in direct contact evaluating and reevaluating the patient, treating symptoms, reviewing labs and studies and speaking with family and consultants excluding any procedures Discharge - Discharge Clinical Impression: COPD exacerbation, CO2 retention, Hypercapnic respiratory failure, chronic, Morbid obesity with BMI of 70 and over, adult, Acute on chronic systolic CHF (congestive heart failure), NYHA class 3 CKD (chronic kidney disease) Qualifiers: Chronic kidney disease stage: unspecified stage Qualified Code(s): N18.9 - C hronic kidney disease, unspecified Hypertension Qualifiers: Hypertension type: unspecified Qualified Code(s): I10 - Essential (primary) hypertension Condition: Fair Disposition: ADMITTED INPATIENT Admitting Provider: Esvin (Hospitalist) Unit Admitted: IMCU Referrals: MARLEY HARDEN MD [Primary Care Provider] - Follow up as needed
[2018-10-19 20:43] LABS: VENOUS BLOOD PCO2 80.2 mmHg (35-63)
[2018-10-19 20:54] LABS: ALANINE AMINOTRANSFERASE 16 U/L (9-52); ALBUMIN 3.7 g/dL (3.5-5.0); ALKALINE PHOSPHATASE 107 U/L (38-126); ANION GAP 6 (5-19); ASPARTATE AMINO TRANSFERASE 26 U/L (14-36); BILIRUBIN,DIRECT 0.3 mg/dL (0.0-0.4); BILIRUBIN,TOTAL 0.5 mg/dL (0.2-1.3); BLOOD UREA NITROGEN 30 mg/dL (7-20); CALCIUM 8.9 mg/dL (8.4-10.2); CARBON DIOXIDE 37 mmol/L (22-30); CHLORIDE 99 mmol/L (98-107); CREATINE KINASE 67 U/L (30-135); GLUCOSE 124 mg/dL (75-110); POTASSIUM 3.8 mmol/L (3.6-5.0); TOTAL PROTEIN 7.4 g/dL (6.3-8.2)
[2018-10-19 21:06] LABS: CREATINE KINASE MB 1.08 ng/mL (<4.55); TROPONIN I 0.052 ng/mL
[2018-10-19] MEDS ORDERED: HYDRALAZINE HCL INJ/PF 20 MG/1 ML SDV IV PRN (21:40)
[2018-10-19] MEDS ORDERED: NITROGLYCERIN 5 MG (0.2 MG/HR) PATCH.TD24 TD ONE (21:41)
[2018-10-19] MEDS ORDERED: MAGNESIUM HYDROXIDE SUSP 30 ML UDCUP PO PRN (21:42)
[2018-10-19] MEDS ORDERED: MAG HYDROX/AL HYDROX/SIMETH SUSP 30 ML UDCUP PO PRN (21:42)
[2018-10-19] MEDS ORDERED: FUROSEMIDE INJ/PF 40 MG/4 ML SDV IV SCH (22:00)
[2018-10-19 22:35] LABS: APPEARANCE,URINE CLEAR; BILIRUBIN,URINE NEGATIVE (NEGATIVE); COLOR,URINE STRAW; GLUCOSE, URINE NEGATIVE (NEGATIVE); KETONES,URINE NEGATIVE (NEGATIVE); LEUKOCYTE ESTERASE,URINE NEGATIVE (NEGATIVE); NITRITE,URINE NEGATIVE (NEGATIVE); PROTEIN,URINE NEGATIVE (NEGATIVE); URINE SPECIFIC GRAVITY 1.006; UROBILINOGEN,URINE NEGATIVE mg/dL (<2.0)
[2018-10-19 22:39] LABS: ADD MANUAL MICROSCOPIC YES
[2018-10-19 22:41] LABS: AMORPHOUS SEDIMENT,UR TRACE
--- NOTE | 2018-10-19 22:55 | PDOC H&P ---
History of Present Illness Admission Date/PCP: 10/19/18 21:42 MARLEY HARDEN MD Patient complains of: Shortness of breath History of Present Illness: CARLEE WALDROP is a 63 year old female with a past medical history of profound debility, severe morbid obesity, obstructive sleep apnea, morbid obesity hypoventilation, congestive heart failure with an ejection fraction of 35%, status post pacemaker placement, severe pulmonary hypertension with an RVSP of 74, and moderate mitral regurgitation and oxygen dependent chronic respiratory failure. Patient presents with shortness of breath x2 days, EMS reports hypoxia in the 80s and empty oxygen tank. In the emergency room she she is awake and alert on BiPAP with a PCO2 of 80. Patient denies recent change in diet, lifestyle, medications but admits to weight gain. She receives IV Lasix and referred to the hospitalist for admission. She denies chest pain and otherwise feels improved. Past Medical History Cardiac Medical History: Reports: Congestive Heart Failure, Myocardial Infarction, Hyperlipidema, Hypertension Pulmonary Medical History: Reports: Chronic Obstructive Pulmonary Disease (COPD) Endocrine Medical History: Reports: Diabetes Mellitus Type 1, Diabetes Mellitus Type 2 GI Medical History: Denies: Cirrhosis, Crohn's Disease, Gastroesophageal Reflux Disease, Hiatal Hernia Musculoskeltal Medical History: Denies: Fibromyalgia, Gout Skin Medical History: Denies: Eczema, Psoriasis Psychiatric Medical History: Denies: Depression Hematology: Reports: Anemia Past Surgical History Past Surgical History: Reports: Hysterectomy Social History Information Source: Patient, [facility] Records Lives with: Alone Smoking Status: Former Smoker Frequency of Alcohol Use: None Hx Recreational Drug Use: No Drugs: None Hx Prescription Drug Abuse: No - Advance Directive Resuscitation Status: Full Code Family History Family History: CAD, DM, Hypertension Parental Family History Reviewed: Yes Children Family History Reviewed: Yes Sibling(s) Family History Reviewed.: Yes Medication/Allergy Home Medications: Atorvastatin Calcium [Lipitor 20 mg Tablet] 20 mg PO QHS 06/23/18 Ferrous Sulfate [Feosol 325 mg Tablet] 325 mg PO BID 06/23/18 Furosemide [Lasix 80 mg Tablet] 160 mg PO BID 06/23/18 Gabapentin [Neurontin 300 mg Capsule] 300 mg PO Q12 06/23/18 Insulin Aspart [Novolog Flexpen] 6 unit SUBCUT MEALS 06/23/18 Insulin Glargine,Hum.rec.anlog [Lantus Insulin 100 Unit/mL Insulin Pen] 16 unit SUBCUT QHS 06/23/18 Isosorbide Mononitrate [Imdur 30 mg Tablet.er] 30 mg PO QAM 06/23/18 Multivitamin [Daily Multiple Vitamin] 1 tab PO DAILY 06/23/18 Potassium Chloride 10 meq PO DAILY 06/23/18 Baclofen [Baclofen 10 mg Tablet] 10 mg PO Q8HP PRN 07/07/18 Carvedilol [Coreg 12.5 mg Tablet] 12.5 mg PO Q12 07/07/18 Losartan Potassium [Cozaar 25 mg Tablet] 25 mg PO DAILY 07/07/18 Methocarbamol [Robaxin 750 mg Tablet] 750 mg PO Q4HP PRN 07/07/18 Metolazone [Zaroxolyn 5 mg Tablet] 5 mg PO DAILY 07/07/18 Allergies/Adverse Reactions: No Known Allergies Allergy (Verified 07/05/18 21:31) Review of Systems Constitutional: PRESENT: as per HPI, fatigue, weakness, weight gain. ABSENT: chills, fever(s), headache(s), weight loss Eyes: ABSENT: visual disturbances Ears: ABSENT: hearing changes Cardiovascular: PRESENT: as per HPI, dyspnea on exertion, edema. ABSENT: chest pain, orthropnea, palpitations Respiratory: PRESENT: as per HPI. ABSENT: cough, hemoptysis, sputum Gastrointestinal: ABSENT: abdominal pain, constipation, diarrhea, hematemesis, hematochezia, nausea, vomiting Genitourinary: ABSENT: dysuria, hematuria Musculoskeletal: ABSENT: joint swelling Integumentary: ABSENT: rash, wounds Neurological: ABSENT: abnormal gait, abnormal speech, confusion, dizziness, focal weakness, syncope Psychiatric: ABSENT: anxiety, depression, homidical ideation, suicidal ideation Endocrine: ABSENT: cold intolerance, heat intolerance, polydipsia, polyuria Hematologic/Lymphatic: ABSENT: easy bleeding, easy bruising Physical Exam Vital Signs: Temp Pulse Resp BP Pulse Ox 98.7 F 17 154/88 H 98 10/19/18 19:42 10/19/18 22:31 10/19/18 22:31 10/19/18 22:31 Intake & Output 10/18/18 10/19/18 10/20/18 11:59 11:59 11:59 Weight 194.4 kg General appearance: PRESENT: cooperative, morbidly obese, well-developed, well- nourished Eye exam: PRESENT: conjunctiva pink, EOMI, PERRLA. ABSENT: scleral icterus Ear exam: PRESENT: normal external ear exam Mouth exam: PRESENT: moist, tongue midline Neck exam: ABSENT: carotid bruit, JVD, lymphadenopathy, thyromegaly Respiratory exam: PRESENT: accessory muscle use, clear to auscultation justin, decreased breath sounds, prolonged expiratory phas, symmetrical, tachypnea. ABSENT: rales, rhonchi, wheezes Cardiovascular exam: PRESENT: RRR. ABSENT: diastolic murmur, rubs, systolic murmur Pulses: PRESENT: normal dorsalis pedis pul Vascular exam: PRESENT: normal capillary refill GI/Abdominal exam: PRESENT: normal bowel sounds, soft. ABSENT: distended, guarding, mass, organolmegaly, rebound, tenderness Rectal exam: PRESENT: deferred Extremities exam: PRESENT: full ROM, +2 edema. ABSENT: calf tenderness, clubbing, pedal edema Neurological exam: PRESENT: alert, awake, oriented to person, oriented to place, oriented to time, oriented to situation, CN II-XII grossly intact. ABSENT: motor sensory deficit Psychiatric exam: PRESENT: agitated Skin exam: PRESENT: dry, intact, warm. ABSENT: cyanosis, rash Results Laboratory Results: 10/19/18 19:50 10/19/18 20:10 10/19/18 10/19/18 10/19/18 19:50 20:10 20:25 WBC 5.1 RBC 3.97 Hgb 9.6 L Hct 31.8 L MCV 80 MCH 24.1 L MCHC 30.0 L RDW 19.1 H Plt Count 139 L Seg Neutrophils % 58.4 Lymphocytes % 24.4 Monocytes % 14.5 H Eosinophils % 1.8 Basophils % 0.9 Absolute Neutrophils 3.0 Absolute Lymphocytes 1.2 Absolute Monocytes 0.7 Absolute Eosinophils 0.1 Absolute Basophils 0.0 VBG pH 7.30 VBG pCO2 80.2 H* VBG HCO3 38.8 H VBG Base Excess 10.2 Sodium 141.8 Potassium 3.8 Chloride 99 Carbon Dioxide 37 H Anion Gap 6 BUN 30 H Creatinine 1.17 Est GFR ( Amer) 57 L Est GFR (Non-Af Amer) 47 L Glucose 124 H Calcium 8.9 Total Bilirubin 0.5 AST 26 ALT 16 Alkaline Phosphatase 107 Total Protein 7.4 Albumin 3.7 Urine Color Urine Appearance Urine pH Ur Specific [place] Urine Protein Urine Glucose (UA) Urine Ketones Urine Blood Urine Nitrite Ur Leukocyte Esterase Ur Squamous Epith Cells 10/19/18 20:56 WBC RBC Hgb Hct MCV MCH MCHC RDW Plt Count Seg Neutrophils % Lymphocytes % Monocytes % Eosinophils % Basophils % Absolute Neutrophils Absolute Lymphocytes Absolute Monocytes Absolute Eosinophils Absolute Basophils VBG pH VBG pCO2 VBG HCO3 VBG Base Excess Sodium Potassium Chloride Carbon Dioxide Anion Gap BUN Creatinine Est GFR ( Amer) Est GFR (Non-Af Amer) Glucose Calcium Total Bilirubin AST ALT Alkaline Phosphatase Total Protein Albumin Urine Color STRAW Urine Appearance CLEAR Urine pH 5.0 Ur Specific [place] 1.006 Urine Protein NEGATIVE Urine Glucose (UA) NEGATIVE Urine Ketones NEGATIVE Urine Blood MODERATE H Urine Nitrite NEGATIVE Ur Leukocyte Esterase NEGATIVE Ur Squamous Epith Cells FEW 10/19/18 10/19/18 20:10 20:10 Creatine Kinase 67 CK-MB (CK-2) 1.08 Troponin I 0.052 NT-Pro-B Natriuret Pep 3610 H Impressions: Chest X-Ray 10/19/18 19:50 IMPRESSION: Cardiomegaly. Lungs are clear copyright 2011 [employer]- All Rights Reserved Assessment and Plan - Diagnosis (1) Acute on chronic systolic CHF (congestive heart failure), NYHA class 3 Is this a current diagnosis for this admission?: Yes Plan: Complicated by anemia, severe pulmonary hypertension and moderate mitral regurgitation. Optimize fluid status, blood pressure, follow-up anemia labs and BiPAP education. (2) CO2 retention Is this a current diagnosis for this admission?: Yes Plan: BiPAP, education, avoid medications reducing respiratory drive (3) Morbid obesity with BMI of 70 and over, adult Is this a current diagnosis for this admission?: Yes Plan: Morbid obesity will evaluate for metabolic cause with evaluation of thyroid function and dietitian consultation (4) Diabetes 1.5, managed as type 2 Is this a current diagnosis for this admission?: Yes Plan: Follow-up medication reconciliation with Humalog sliding scale QIC (6) Anemia Is this a current diagnosis for this admission?: Yes Plan: Follow-up labs
[2018-10-19] MEDS ORDERED: CARVEDILOL 6.25 MG TABLET ONE (23:05)
[2018-10-19 23:07] LABS: ABSOLUTE RETICS # 0.082 10^6/uL (0.028-0.122); RETICULOCYTE COUNT (AUTO) 2.09 % (0.66-2.85)
[2018-10-19] MEDS: DOCUSATE SODIUM 100 MG CAPSULE PO SCH (23:12)
[2018-10-19] MEDS: ASPIRIN 81 MG TABLET, ENT COATED PO SCH (23:12)
[2018-10-19] MEDS: CARVEDILOL 12.5 MG TABLET PO SCH (23:13)
[2018-10-19] MEDS: HEPARIN SOD (PORCINE) 5,000 UNIT/ML 1 ML VIAL SUBCUT SCH (23:13)
[2018-10-19 23:18] LABS: IRON(TIBC) 28.8 ug/dL (37-170)
[2018-10-20 00:27] LABS: FOLATE 5.95 ng/mL (>2.76)
[2018-10-20] MEDS: HEPARIN SOD (PORCINE) 5,000 UNIT/ML 1 ML VIAL SUBCUT SCH ×3 (06:50→22:32)
--- NOTE | 2018-10-20 07:39 | EKG REPORT ---
SEVERITY:- ABNORMAL ECG - ATRIAL-SENSED VENTRICULAR-PACED COMPLEXES PROBABLE LEFT ATRIAL ABNORMALITY : Confirmed by: Randall Valdez MD 20-Oct-2018 07:38:18
[2018-10-20] MEDS: DOCUSATE SODIUM 100 MG CAPSULE PO SCH (09:30)
[2018-10-20] MEDS: ASPIRIN 81 MG TABLET, ENT COATED PO SCH (09:31)
[2018-10-20] MEDS: MULTIVITAMIN TABLET PO SCH (09:31)
[2018-10-20] MEDS: POTASSIUM CHLORIDE 10 MEQ CAPSULE.ER PO SCH (09:31)
[2018-10-20] MEDS: ISOSORBIDE MONONITRATE 30 MG TAB.ER.24H PO SCH (09:31)
[2018-10-20] MEDS: GABAPENTIN 300 MG CAPSULE PO SCH ×2 (09:31→22:27)
[2018-10-20] MEDS: LOSARTAN POTASSIUM 25 MG TABLET PO SCH (09:32)
[2018-10-20] MEDS: FUROSEMIDE INJ/PF 40 MG/4 ML SDV IV SCH ×2 (09:32→22:28)
[2018-10-20 09:53] LABS: ABSOLUTE LYMPHOCYTES (AUTO) 0.4 10^3/uL (0.5-4.7); ABSOLUTE MONOCYTES (AUTO) 0.2 10^3/uL (0.1-1.4); ABSOLUTE NEUT (AUTO) 3.4 10^3/uL (1.7-8.2); BASOPHILS % (AUTO) 0.3 % (0-2); HEMATOCRIT 31.3 % (36.0-47.0); HEMOGLOBIN 9.5 g/dL (12.0-15.5); LYMPHOCYTES % (AUTO) 10.7 % (13-45); MEAN CORPUSCULAR HGB CONC 30.4 g/dL (32.0-36.0); MEAN CORPUSCULAR VOLUME 79 fl (80-97); MONOCYTES % (AUTO) 4.5 % (3-13); PLATELET COUNT 127 10^3/uL (150-450); RED BLOOD COUNT 3.97 10^6/uL (3.72-5.28); RED CELL DISTRIBUTION WIDTH 18.7 % (11.5-14.0); SEGMENTED NEUTROPHILS % (AUTO) 84.5 % (42-78); TOTAL CELLS COUNTED % (AUTO) 100 %
[2018-10-20 10:05] LABS: ANION GAP 5 (5-19); BLOOD UREA NITROGEN 32 mg/dL (7-20); CALCIUM 8.8 mg/dL (8.4-10.2); CARBON DIOXIDE 38 mmol/L (22-30); CHLORIDE 100 mmol/L (98-107); CREATINE KINASE 52 U/L (30-135); GLUCOSE 183 mg/dL (75-110); POTASSIUM 4.7 mmol/L (3.6-5.0)
[2018-10-20 10:31] LABS: CREATINE KINASE MB 0.79 ng/mL (<4.55); TROPONIN I 0.041 ng/mL
[2018-10-20] MEDS: CARVEDILOL 12.5 MG TABLET PO SCH ×2 (10:41→22:27)
[2018-10-20] MEDS: FERROUS SULFATE 325 MG TABLET PO SCH (16:26)
--- NOTE | 2018-10-20 19:46 | Progress Note Acknowledgement ---
Progress Note Acknowledgement Progess Note Acknowledgement: I, the undersigned member of the medical staff with appropriate privileges and with supervisory authority over Germania Cain, a [facility] allied health professional, acknowledge that I have reviewed the progress notes entered on this patient, and in my professional judgment believe that the assessment made and/or any care evidenced was appropriate
--- NOTE | 2018-10-20 19:52 | PDOC PROGRESS REPORT ---
Subjective Progress Note for:: 10/20/18 Subjective:: CARLEE WALDROP is a 63 year old female with a past medical history of profound debility, severe morbid obesity, obstructive sleep apnea, morbid obesity hypoventilation, congestive heart failure with an ejection fraction of 35%, status post pacemaker placement, severe pulmonary hypertension with an RVSP of 74, and moderate mitral regurgitation and oxygen dependent chronic respiratory failure admitted 10/19/2018 for acute CHF exacerbation. Patient was seen on afternoon rounds. She was found resting in bed comfortably on her baseline supplemental oxygen. She reports that she has not required BiPAP since waking this morning. Her only complaint is the diet; she is unhappy with the consistent carb/cardiac diet. She is already noted a decrease in the edema to her bilateral lower extremities. She reports resolution of her dyspnea. She denies fever, chills, chest pain, palpitations, dyspnea, orthopnea, cough, abdominal pain, nausea vomiting diarrhea. She has no new questions or concerns. No concerns per nursing. Reason For Visit: HYPERCAPNIC RESP FAILURE AND HEART FAILURE Physical Exam Vital Signs: Temp Pulse Resp BP Pulse Ox 98.3 F 19 141/87 H 100 10/20/18 04:00 10/20/18 18:00 10/20/18 07:01 10/20/18 12:00 Intake & Output 10/19/18 10/20/18 10/21/18 06:59 06:59 06:59 Intake Total 120 Balance 120 Weight 194.4 kg General appearance: PRESENT: no acute distress, morbidly obese, well-developed, well-nourished Head exam: PRESENT: atraumatic, normocephalic Eye exam: PRESENT: conjunctiva pink, EOMI, PERRLA. ABSENT: scleral icterus Mouth exam: PRESENT: moist, tongue midline Neck exam: ABSENT: carotid bruit, JVD, lymphadenopathy, thyromegaly Respiratory exam: PRESENT: clear to auscultation justin, decreased breath sounds, symmetrical, unlabored. ABSENT: rales, rhonchi, wheezes Cardiovascular exam: PRESENT: RRR. ABSENT: diastolic murmur, rubs, systolic murmur Pulses: PRESENT: normal dorsalis pedis pul Vascular exam: PRESENT: normal capillary refill GI/Abdominal exam: PRESENT: normal bowel sounds, soft. ABSENT: distended, guarding, mass, organolmegaly, rebound, tenderness Rectal exam: PRESENT: deferred Extremities exam: PRESENT: full ROM, +2 edema. ABSENT: calf tenderness, clubbing, pedal edema Neurological exam: PRESENT: alert, awake, oriented to person, oriented to place, oriented to time, oriented to situation, CN II-XII grossly intact. ABSENT: motor sensory deficit Psychiatric exam: PRESENT: appropriate affect, normal mood. ABSENT: homicidal ideation, suicidal ideation Skin exam: PRESENT: dry, intact, warm. ABSENT: cyanosis, rash Results Laboratory Results: 10/20/18 09:30 10/20/18 09:30 10/19/18 10/19/18 10/19/18 19:50 19:50 20:10 WBC 5.1 RBC 3.97 Hgb 9.6 L Hct 31.8 L MCV 80 MCH 24.1 L MCHC 30.0 L RDW 19.1 H Plt Count 139 L Seg Neutrophils % 58.4 Lymphocytes % 24.4 Monocytes % 14.5 H Eosinophils % 1.8 Basophils % 0.9 Absolute Neutrophils 3.0 Absolute Lymphocytes 1.2 Absolute Monocytes 0.7 Absolute Eosinophils 0.1 Absolute Basophils 0.0 Retic Count (auto) 2.09 Absolute Retic 0.082 VBG pH VBG pCO2 VBG HCO3 VBG Base Excess Sodium 141.8 Potassium 3.8 Chloride 99 Carbon Dioxide 37 H Anion Gap 6 BUN 30 H Creatinine 1.17 Est GFR ( Amer) 57 L Est GFR (Non-Af Amer) 47 L Glucose 124 H Calcium 8.9 Iron TIBC % Saturation Ferritin Total Bilirubin 0.5 AST 26 ALT 16 Alkaline Phosphatase 107 Total Protein 7.4 Albumin 3.7 Vitamin B12 Folate Urine Color Urine Appearance Urine pH Ur Specific [place] Urine Protein Urine Glucose (UA) Urine Ketones Urine Blood Urine Nitrite Ur Leukocyte Esterase Ur Squamous Epith Cells 10/19/18 10/19/18 10/19/18 20:10 20:25 20:56 WBC RBC Hgb Hct MCV MCH MCHC RDW Plt Count Seg Neutrophils % Lymphocytes % Monocytes % Eosinophils % Basophils % Absolute Neutrophils Absolute Lymphocytes Absolute Monocytes Absolute Eosinophils Absolute Basophils Retic Count (auto) Absolute Retic VBG pH 7.30 VBG pCO2 80.2 H* VBG HCO3 38.8 H VBG Base Excess 10.2 Sodium Potassium Chloride Carbon Dioxide Anion Gap BUN Creatinine Est GFR ( Amer) Est GFR (Non-Af Amer) Glucose Calcium Iron 28.8 L TIBC 249 L % Saturation 12 Ferritin 31.10 Total Bilirubin AST ALT Alkaline Phosphatase Total Protein Albumin Vitamin B12 455.0 Folate 5.95 Urine Color STRAW Urine Appearance CLEAR Urine pH 5.0 Ur Specific [place] 1.006 Urine Protein NEGATIVE Urine Glucose (UA) NEGATIVE Urine Ketones NEGATIVE Urine Blood MODERATE H Urine Nitrite NEGATIVE Ur Leukocyte Esterase NEGATIVE Ur Squamous Epith Cells FEW 10/20/18 10/20/18 09:30 09:30 WBC 4.0 RBC 3.97 Hgb 9.5 L Hct 31.3 L MCV 79 L MCH 24.0 L MCHC 30.4 L RDW 18.7 H Plt Count 127 L Seg Neutrophils % 84.5 H Lymphocytes % 10.7 L Monocytes % 4.5 Eosinophils % 0.0 Basophils % 0.3 Absolute Neutrophils 3.4 Absolute Lymphocytes 0.4 L Absolute Monocytes 0.2 Absolute Eosinophils 0.0 Absolute Basophils 0.0 Retic Count (auto) Absolute Retic VBG pH VBG pCO2 VBG HCO3 VBG Base Excess Sodium 142.7 Potassium 4.7 Chloride 100 Carbon Dioxide 38 H Anion Gap 5 BUN 32 H Creatinine 1.33 H Est GFR ( Amer) 49 L Est GFR (Non-Af Amer) 40 L Glucose 183 H Calcium 8.8 Iron TIBC % Saturation Ferritin Total Bilirubin AST ALT Alkaline Phosphatase Total Protein Albumin Vitamin B12 Folate Urine Color Urine Appearance Urine pH Ur Specific [place] Urine Protein Urine Glucose (UA) Urine Ketones Urine Blood Urine Nitrite Ur Leukocyte Esterase Ur Squamous Epith Cells 10/19/18 10/19/18 10/20/18 20:10 20:10 02:20 Creatine Kinase 67 CK-MB (CK-2) 1.08 Troponin I 0.052 0.055 NT-Pro-B Natriuret Pep 3610 H 10/20/18 10/20/18 10/20/18 02:20 09:30 09:30 Creatine Kinase 58 52 CK-MB (CK-2) Troponin I Cancelled NT-Pro-B Natriuret Pep 10/20/18 10/20/18 10/20/18 09:30 09:30 16:44 Creatine Kinase Cancelled CK-MB (CK-2) 0.79 Troponin I 0.041 0.042 NT-Pro-B Natriuret Pep 10/20/18 16:44 Creatine Kinase 51 CK-MB (CK-2) Troponin I NT-Pro-B Natriuret Pep Impressions: Chest X-Ray 10/19/18 19:50 IMPRESSION: Cardiomegaly. Lungs are clear copyright 2011 [employer]- All Rights Reserved Assessment and Plan - Diagnosis (1) Acute on chronic systolic CHF (congestive heart failure), NYHA class 3 Is this a current diagnosis for this admission?: Yes Plan: Complicated by anemia, severe pulmonary hypertension and moderate mitral regurgitation. Patient is admitted to the medical floor and continuous cardiac telemetry. Have resumed her home medication regimen of carvedilol, Imdur, losartan, atorvastatin and aspirin. Currently receiving IV furosemide for diuresis. She is placed on consistent carb/cardiac diet. Daily weights and strict I&O's. (2) Anemia Qualifiers: Anemia type: iron deficiency Is this a current diagnosis for this admission?: Yes Plan: Hemoglobin of 9.6; appears to be close to baseline. Recommend multivitamin and iron supplementation. Registered dietitian is consulted. (3) CO2 retention Is this a current diagnosis for this admission?: Yes Plan: BiPAP, education, avoid medications reducing respiratory drive (4) Morbid obesity with BMI of 70 and over, adult Is this a current diagnosis for this admission?: Yes Plan: Lifestyle modification dietary discretion is advised. She is placed on consistent carb and cardiac diet. We will evaluate TSH, lipid panel, and A1c with a.m. lab work. Registered dietitian is consulted. (5) Diabetes 1.5, managed as type 2 Is this a current diagnosis for this admission?: Yes Plan: Patient is placed on a consistent carb/cardiac diet. We will continue her home dose Lantus 10 units nightly. Accu-Cheks before meals and at bedtime with Humalog for sliding scale coverage. Registered dietitian is consulted. We will check hemoglobin A1c. - Time Time Spent with patient: 25-34 minutes Medications reviewed and adjusted accordingly: Yes Anticipated discharge: Home Within: within 48 hours
[2018-10-20] MEDS ORDERED: INSULIN GLARGINE,HUM.REC.ANLOG 1,000 UNIT/10 ML VIAL (PYX) SUBCUT ONE (22:25)
[2018-10-20] MEDS: ATORVASTATIN CALCIUM 20 MG TABLET PO SCH (22:27)
[2018-10-20] MEDS: INSULIN GLARGINE,HUM.REC.ANLOG 1,000 UNIT/10 ML VIAL SUBCUT SCH (22:29)
[2018-10-21] MEDS: HEPARIN SOD (PORCINE) 5,000 UNIT/ML 1 ML VIAL SUBCUT SCH ×3 (05:41→21:31)
[2018-10-21 06:02] LABS: HEMATOCRIT 28.3 % (36.0-47.0); HEMOGLOBIN 8.7 g/dL (12.0-15.5); MEAN CORPUSCULAR HEMOGLOBIN 24.2 pg (27.0-33.4); MEAN CORPUSCULAR HGB CONC 30.6 g/dL (32.0-36.0); MEAN CORPUSCULAR VOLUME 79 fl (80-97); RED BLOOD COUNT 3.58 10^6/uL (3.72-5.28); RED CELL DISTRIBUTION WIDTH 19.2 % (11.5-14.0); WHITE BLOOD COUNT 4.5 10^3/uL (4.0-10.5)
[2018-10-21 06:16] LABS: ANION GAP 5 (5-19); BLOOD UREA NITROGEN 42 mg/dL (7-20); CALCIUM 8.3 mg/dL (8.4-10.2); CARBON DIOXIDE 35 mmol/L (22-30); CHLORIDE 100 mmol/L (98-107); CHOLESTEROL 158.54 mg/dL (0-200); GLUCOSE 142 mg/dL (75-110); POTASSIUM 4.4 mmol/L (3.6-5.0); TRIGLYCERIDES 47 mg/dL (<150)
[2018-10-21 06:27] LABS: DIRECT LDL 99 mg/dL (<100)
[2018-10-21 06:31] LABS: PLATELET COUNT 94 10^3/uL (150-450)
[2018-10-21] MEDS: FERROUS SULFATE 325 MG TABLET PO SCH ×2 (07:49→16:31)
[2018-10-21] MEDS: DOCUSATE SODIUM 100 MG CAPSULE PO SCH (10:41)
[2018-10-21] MEDS: LOSARTAN POTASSIUM 25 MG TABLET PO SCH (10:42)
[2018-10-21] MEDS: MULTIVITAMIN TABLET PO SCH (10:42)
[2018-10-21] MEDS: POTASSIUM CHLORIDE 10 MEQ CAPSULE.ER PO SCH (10:42)
[2018-10-21] MEDS: GABAPENTIN 300 MG CAPSULE PO SCH ×2 (10:43→21:29)
[2018-10-21] MEDS: ASPIRIN 81 MG TABLET, ENT COATED PO SCH (10:43)
[2018-10-21] MEDS: ISOSORBIDE MONONITRATE 30 MG TAB.ER.24H PO SCH (10:43)
[2018-10-21] MEDS: CARVEDILOL 12.5 MG TABLET PO SCH ×2 (10:43→21:31)
[2018-10-21] MEDS: FUROSEMIDE INJ/PF 40 MG/4 ML SDV IV SCH (10:44)
[2018-10-21] MEDS ORDERED: IRON SUCROSE COMPLEX 100 MG in NORMAL SALINE 100 ML IV ONE (11:26)
[2018-10-21] MEDS ORDERED: GLUCAGON,HUMAN RECOMB 1 MG INJ IM PRN (11:27)
[2018-10-21] MEDS ORDERED: DEXTROSE 50%-WATER 25 GM/50 ML DISP.SYRIN IV PRN ×2 (11:27)
[2018-10-21] MEDS ORDERED: DEXTROSE 40% GEL 15 GM TUBE PO PRN ×2 (11:27)
[2018-10-21] MEDS ORDERED: IRON SUCROSE COMPLEX INJ/PF 100 MG/5 ML SDV IV ONE (13:00)
[2018-10-21] MEDS: INSULIN LISPRO 100 UNIT/ML 3 ML VIAL SUBCUT SCH ×2 (15:57→21:30)
--- NOTE | 2018-10-21 18:37 | PDOC PROGRESS REPORT ---
Subjective Progress Note for:: 10/21/18 Subjective:: CARLEE WALDROP is a 63 year old female with a past medical history of profound debility, severe morbid obesity, obstructive sleep apnea, morbid obesity hypoventilation, congestive heart failure with an ejection fraction of 35%, status post pacemaker placement, severe pulmonary hypertension with an RVSP of 74, and moderate mitral regurgitation and oxygen dependent chronic respiratory failure admitted 10/19/2018 for acute CHF exacerbation. Patient was seen on morning rounds. She was found resting in bed comfortably on her baseline supplemental oxygen. She is noted to be talking and laughing with family members on the phone. She reports that she is feeling much better today. She reports resolution of her dyspnea and orthopnea. She does continue to have bilateral lower extremity edema, although slightly improved. She denies fever, chills, chest pain, palpitations, dyspnea, orthopnea, cough, abdominal pain, nausea vomiting diarrhea. She has no new questions or concerns. No concerns per nursing. Reason For Visit: HYPERCAPNIC RESP FAILURE AND HEART FAILURE Physical Exam Vital Signs: Temp Pulse Resp BP Pulse Ox 97.4 F 66 20 99/53 L 95 10/20/18 23:45 10/21/18 14:00 10/21/18 00:00 10/20/18 23:45 10/21/18 09:11 Intake & Output 10/20/18 10/21/18 10/22/18 06:59 06:59 06:59 Intake Total 520 702 Output Total 400 800 Balance 120 -98 Weight 194.4 kg 193.1 kg General appearance: PRESENT: no acute distress, cooperative, morbidly obese, well-developed, well-nourished Head exam: PRESENT: atraumatic, normocephalic Eye exam: PRESENT: conjunctiva pink, EOMI, PERRLA. ABSENT: scleral icterus Ear exam: PRESENT: normal external ear exam Mouth exam: PRESENT: moist, tongue midline Neck exam: ABSENT: carotid bruit, JVD, lymphadenopathy, thyromegaly Respiratory exam: PRESENT: clear to auscultation justin, decreased breath sounds - Bibasilar secondary to body habitus and positioning, symmetrical, unlabored, other - Baseline supplemental oxygen. ABSENT: rales, rhonchi, wheezes Cardiovascular exam: PRESENT: RRR, +S1, +S2. ABSENT: diastolic murmur, rubs, systolic murmur Pulses: PRESENT: normal dorsalis pedis pul Vascular exam: PRESENT: normal capillary refill GI/Abdominal exam: PRESENT: normal bowel sounds, soft. ABSENT: distended, guarding, mass, organolmegaly, rebound, tenderness Rectal exam: PRESENT: deferred Extremities exam: PRESENT: full ROM, +2 edema - BLE; no longer tight or pitting. ABSENT: calf tenderness, clubbing, pedal edema Neurological exam: PRESENT: alert, awake, oriented to person, oriented to place, oriented to time, oriented to situation, CN II-XII grossly intact. ABSENT: motor sensory deficit Psychiatric exam: PRESENT: appropriate affect, normal mood. ABSENT: homicidal ideation, suicidal ideation Skin exam: PRESENT: dry, intact, warm. ABSENT: cyanosis, rash Results Laboratory Results: 10/21/18 04:42 10/21/18 04:42 10/21/18 10/21/18 10/21/18 04:42 04:42 04:42 WBC 4.5 RBC 3.58 L Hgb 8.7 L Hct 28.3 L MCV 79 L MCH 24.2 L MCHC 30.6 L RDW 19.2 H Plt Count 94 L Sodium 139.8 Potassium 4.4 Chloride 100 Carbon Dioxide 35 H Anion Gap 5 BUN 42 H Creatinine 1.61 H Est GFR ( Amer) 39 L Est GFR (Non-Af Amer) 32 L Glucose 142 H Calcium 8.3 L Triglycerides 47 Cholesterol 158.54 LDL Cholesterol Direct 99 VLDL Cholesterol 9.0 L HDL Cholesterol 46 TSH 2.95 10/19/18 10/19/18 10/20/18 20:10 20:10 02:20 Creatine Kinase 67 CK-MB (CK-2) 1.08 Troponin I 0.052 0.055 NT-Pro-B Natriuret Pep 3610 H 10/20/18 10/20/18 10/20/18 02:20 09:30 09:30 Creatine Kinase 58 52 CK-MB (CK-2) Troponin I Cancelled NT-Pro-B Natriuret Pep 10/20/18 10/20/18 10/20/18 09:30 09:30 16:44 Creatine Kinase Cancelled CK-MB (CK-2) 0.79 Troponin I 0.041 0.042 NT-Pro-B Natriuret Pep 10/20/18 16:44 Creatine Kinase 51 CK-MB (CK-2) Troponin I NT-Pro-B Natriuret Pep Impressions: Chest X-Ray 10/19/18 19:50 IMPRESSION: Cardiomegaly. Lungs are clear copyright 2010 [employer]- All Rights Reserved Assessment and Plan - Diagnosis (1) Acute on chronic systolic CHF (congestive heart failure), NYHA class 3 Is this a current diagnosis for this admission?: Yes Plan: Complicated by anemia, severe pulmonary hypertension and moderate mitral regurg itation. Patient is admitted to the medical floor and continuous cardiac telemetry. Have resumed her home medication regimen of carvedilol, Imdur, atorvastatin and aspirin. Discussed with the clinical pharmacist today; discontinue the patient's losartan and start on low-dose Entresto. She is placed on consistent carb/cardiac diet. Daily weights and strict I&O's. Registered dietitian and patient educator consulted. (2) Anemia Qualifiers: Anemia type: iron deficiency Is this a current diagnosis for this admission?: Yes Plan: Hemoglobin of 8.7; appears to be close to baseline. Recommend multivitamin and iron supplementation. Registered dietitian is consulted. (3) CO2 retention Is this a current diagnosis for this admission?: Yes Plan: BiPAP, education, avoid medications reducing respiratory drive (4) Morbid obesity with BMI of 70 and over, adult Is this a current diagnosis for this admission?: Yes Plan: Lifestyle modification dietary discretion is advised. She is placed on consistent carb and cardiac diet. We will evaluate TSH, lipid panel, and A1c with a.m. lab work. Registered dietitian is consulted. (5) Diabetes 1.5, managed as type 2 Is this a current diagnosis for this admission?: Yes Plan: Patient is placed on a consistent carb/cardiac diet. We will continue her home dose Lantus 10 units nightly. Accu-Cheks before meals and at bedtime with Humalog for sliding scale coverage. Registered dietitian is consulted. We will check hemoglobin A1c. (6) PASHA (acute kidney injury) Is this a current diagnosis for this admission?: Yes Plan: Small increase in patient's creatinine from 1.17 to 1.61 today. Likely secondary to IV furosemide, although, possibly complicated by acute CHF exacerbation. Discontinue IV furosemide. Avoid nephrotoxic medications as able. Daily chemistries. - Time Time Spent with patient: 25-34 minutes Medications reviewed and adjusted accordingly: Yes Anticipated discharge: Home Within: within 48 hours
[2018-10-21] MEDS: ATORVASTATIN CALCIUM 20 MG TABLET PO SCH (21:29)
[2018-10-21] MEDS: INSULIN GLARGINE,HUM.REC.ANLOG 1,000 UNIT/10 ML VIAL SUBCUT SCH (21:29)
[2018-10-21] MEDS: SACUBITRIL/VALSARTAN 24 MG/26 MG TABLET PO SCH (21:32)
[2018-10-22 04:57] LABS: HEMATOCRIT 30.7 % (36.0-47.0); HEMOGLOBIN 9.3 g/dL (12.0-15.5); MEAN CORPUSCULAR HEMOGLOBIN 24.1 pg (27.0-33.4); MEAN CORPUSCULAR HGB CONC 30.2 g/dL (32.0-36.0); MEAN CORPUSCULAR VOLUME 80 fl (80-97); PLATELET COUNT 123 10^3/uL (150-450); RED BLOOD COUNT 3.85 10^6/uL (3.72-5.28); RED CELL DISTRIBUTION WIDTH 18.9 % (11.5-14.0); WHITE BLOOD COUNT 4.2 10^3/uL (4.0-10.5)
[2018-10-22] MEDS: HEPARIN SOD (PORCINE) 5,000 UNIT/ML 1 ML VIAL SUBCUT SCH ×3 (05:19→21:22)
[2018-10-22 05:30] LABS: ANION GAP 6 (5-19); BLOOD UREA NITROGEN 49 mg/dL (7-20); CALCIUM 8.6 mg/dL (8.4-10.2); CARBON DIOXIDE 35 mmol/L (22-30); CHLORIDE 101 mmol/L (98-107); GLUCOSE 113 mg/dL (75-110); POTASSIUM 4.9 mmol/L (3.6-5.0)
[2018-10-22] MEDS: INSULIN LISPRO 100 UNIT/ML 3 ML VIAL SUBCUT SCH ×4 (07:32→21:22)
[2018-10-22] MEDS: FERROUS SULFATE 325 MG TABLET PO SCH ×2 (07:33→17:05)
[2018-10-22] MEDS ORDERED: NORMAL SALINE 1000 ML 500 ML IV PRN (08:03)
[2018-10-22] MEDS: DOCUSATE SODIUM 100 MG CAPSULE PO SCH (09:09)
[2018-10-22] MEDS: CARVEDILOL 12.5 MG TABLET PO SCH ×2 (09:09→21:14)
[2018-10-22] MEDS: ISOSORBIDE MONONITRATE 30 MG TAB.ER.24H PO SCH (09:09)
[2018-10-22] MEDS: GABAPENTIN 300 MG CAPSULE PO SCH ×2 (09:09→21:14)
[2018-10-22] MEDS: ASPIRIN 81 MG TABLET, ENT COATED PO SCH (09:09)
[2018-10-22] MEDS: MULTIVITAMIN TABLET PO SCH (09:10)
[2018-10-22] MEDS: POTASSIUM CHLORIDE 10 MEQ CAPSULE.ER PO SCH (09:10)
[2018-10-22] MEDS: SACUBITRIL/VALSARTAN 24 MG/26 MG TABLET PO SCH (09:10)
--- NOTE | 2018-10-22 17:04 | PDOC PROGRESS REPORT ---
Subjective Progress Note for:: 10/22/18 Subjective:: CARLEE WALDROP is a 63 year old female with a past medical history of profound debility, severe morbid obesity, obstructive sleep apnea, morbid obesity hypoventilation, congestive heart failure with an ejection fraction of 35%, status post pacemaker placement, severe pulmonary hypertension with an RVSP of 74, and moderate mitral regurgitation and oxygen dependent chronic respiratory failure admitted 10/19/2018 for acute CHF exacerbation. Patient was seen on morning rounds. She was found resting in bed comfortably on her baseline supplemental oxygen via nasal cannula. She was initially found sleeping but woke easily when I set her name. She reports resolution of her dyspnea and orthopnea. She does continue to have bilateral lower extremity edema, although slightly improved. She reports that she is feeling well today and is looking forward to it discharged home in the near future. She does tell me that her mine manager recently discontinued Entresto and placed her on losartan. She cannot recall why this occurred; therefore will reverse course a nd place her back on her home medication regiment. She denies fever, chills, chest pain, palpitations, dyspnea, orthopnea, cough, abdominal pain, nausea vomiting diarrhea. She has no new questions or concerns. No concerns per nursing. Reason For Visit: HYPERCAPNIC RESP FAILURE AND HEART FAILURE Physical Exam Vital Signs: Temp Pulse Resp BP Pulse Ox 97.6 F 59 L 20 106/73 100 10/22/18 16:00 10/22/18 16:00 10/22/18 16:00 10/22/18 16:00 10/22/18 16:00 Intake & Output 10/21/18 10/22/18 10/23/18 06:59 06:59 06:59 Intake Total 520 1127 500 Output Total 400 1400 500 Balance 120 -273 0 Weight 193.1 kg 229.2 kg General appearance: PRESENT: no acute distress, morbidly obese - super, well- developed, well-nourished Head exam: PRESENT: atraumatic, normocephalic Eye exam: PRESENT: conjunctiva pink, EOMI, PERRLA. ABSENT: scleral icterus Ear exam: PRESENT: normal external ear exam Mouth exam: PRESENT: moist, tongue midline Neck exam: ABSENT: carotid bruit, JVD, lymphadenopathy, thyromegaly Respiratory exam: PRESENT: clear to auscultation justin, decreased breath sounds - Bibasilar secondary to body habitus and positioning, symmetrical, unlabored. ABSENT: rales, rhonchi, wheezes Cardiovascular exam: PRESENT: RRR, +S1, +S2. ABSENT: diastolic murmur, rubs, systolic murmur Pulses: PRESENT: normal dorsalis pedis pul Vascular exam: PRESENT: normal capillary refill GI/Abdominal exam: PRESENT: normal bowel sounds, soft. ABSENT: distended, guarding, mass, organolmegaly, rebound, tenderness Rectal exam: PRESENT: deferred Extremities exam: PRESENT: full ROM, +2 edema - BLE; continues to improve. ABSENT: calf tenderness, clubbing, pedal edema Neurological exam: PRESENT: alert, awake, oriented to person, oriented to place, oriented to time, oriented to situation, CN II-XII grossly intact. ABSENT: motor sensory deficit Psychiatric exam: PRESENT: appropriate affect, normal mood. ABSENT: homicidal ideation, suicidal ideation Skin exam: PRESENT: dry, intact, warm. ABSENT: cyanosis, rash Results Laboratory Results: 10/22/18 03:42 10/22/18 03:42 10/22/18 10/22/18 03:42 03:42 WBC 4.2 RBC 3.85 Hgb 9.3 L Hct 30.7 L MCV 80 MCH 24.1 L MCHC 30.2 L RDW 18.9 H Plt Count 123 L Sodium 141.5 Potassium 4.9 Chloride 101 Carbon Dioxide 35 H Anion Gap 6 BUN 49 H Creatinine 1.67 H Est GFR ( Amer) 38 L Est GFR (Non-Af Amer) 31 L Glucose 113 H Calcium 8.6 10/19/18 10/19/18 10/20/18 20:10 20:10 02:20 Creatine Kinase 67 CK-MB (CK-2) 1.08 Troponin I 0.052 0.055 NT-Pro-B Natriuret Pep 3610 H 10/20/18 10/20/18 10/20/18 02:20 09:30 09:30 Creatine Kinase 58 52 CK-MB (CK-2) Troponin I Cancelled NT-Pro-B Natriuret Pep 10/20/18 10/20/18 10/20/18 09:30 09:30 16:44 Creatine Kinase Cancelled CK-MB (CK-2) 0.79 Troponin I 0.041 0.042 NT-Pro-B Natriuret Pep 10/20/18 16:44 Creatine Kinase 51 CK-MB (CK-2) Troponin I NT-Pro-B Natriuret Pep Impressions: Chest X-Ray 10/19/18 19:50 IMPRESSION: Cardiomegaly. Lungs are clear copyright 2010 [employer]- All Rights Reserved Assessment and Plan - Diagnosis (1) Acute on chronic systolic CHF (congestive heart failure), NYHA class 3 Is this a current diagnosis for this admission?: Yes Plan: Complicated by anemia, severe pulmonary hypertension and moderate mitral regurgitation. Had planned to start patient on Entresto, however, today she tells me that her mine manager recently discontinued that medication and placed her on losartan. She cannot recall why. Patient is admitted to the medical floor and continuous cardiac telemetry. Have resumed her home medication regimen of carvedilol, Imdur, atorvastatin and aspirin. Stop Entresto, resume home dose losartan. She is placed on consistent carb/cardiac diet. Daily weights and strict I&O's. Registered dietitian and patient educator consulted. (2) Anemia Qualifiers: Anemia type: iron deficiency Is this a current diagnosis for this admission?: Yes Plan: Hemoglobin of 8.7; appears to be close to baseline. Recommend multivitamin and iron supplementation. Registered dietitian is consulted. (3) CO2 retention Is this a current diagnosis for this admission?: Yes Plan: BiPAP, education, avoid medications reducing respiratory drive (4) Morbid obesity with BMI of 70 and over, adult Is this a current diagnosis for this admission?: Yes Plan: Lifestyle modification dietary discretion is advised. She is placed on consistent carb and cardiac diet. We will evaluate TSH, lipid panel, and A1c with a.m. lab work. Registered dietitian is consulted. (5) Diabetes 1.5, managed as type 2 Is this a current diagnosis for this admission?: Yes Plan: Patient is placed on a consistent carb/cardiac diet. We will continue her home dose Lantus 10 units nightly. Accu-Cheks before meals and at bedtime with Humalog for sliding scale coverage. Registered dietitian is consulted. We will check hemoglobin A1c. (6) PASHA (acute kidney injury) Is this a current diagnosis for this admission?: Yes Plan: Small increase in patient's creatinine from 1.17 to 1.67 today. Baseline appears to be 1.30 Likely secondary to IV furosemide, although, possibly complicated by acute CHF exacerbation. Discontinue IV furosemide. 500 mL sinus IV fluids today. Avoid nephrotoxic medications as able. Daily chemistries. - Time Time Spent with patient: 15-24 minutes Medications reviewed and adjusted accordingly: Yes Anticipated discharge: Home Within: within 24 hours - If creatinine <1.5
[2018-10-22] MEDS: INSULIN GLARGINE,HUM.REC.ANLOG 1,000 UNIT/10 ML VIAL SUBCUT SCH (21:14)
[2018-10-22] MEDS: ATORVASTATIN CALCIUM 20 MG TABLET PO SCH (21:14)
[2018-10-22] MEDS: ACETAMINOPHEN 325 MG TABLET PO PRN (23:21)
[2018-10-23] MEDS: ACETAMINOPHEN 325 MG TABLET PO PRN ×2 (03:23→22:01)
[2018-10-23 05:46] LABS: BLOOD UREA NITROGEN 50 mg/dL (7-20); CALCIUM 8.4 mg/dL (8.4-10.2); GLUCOSE 162 mg/dL (75-110); POTASSIUM 5.1 mmol/L (3.6-5.0)
[2018-10-23 05:52] LABS: ANION GAP 5 (5-19); CARBON DIOXIDE 35 mmol/L (22-30); CHLORIDE 100 mmol/L (98-107)
[2018-10-23] MEDS: HEPARIN SOD (PORCINE) 5,000 UNIT/ML 1 ML VIAL SUBCUT SCH ×3 (06:24→22:01)
[2018-10-23] MEDS: CARVEDILOL 12.5 MG TABLET PO SCH ×2 (10:28→22:01)
[2018-10-23] MEDS: GABAPENTIN 300 MG CAPSULE PO SCH ×2 (10:28→22:01)
[2018-10-23] MEDS: LOSARTAN POTASSIUM 25 MG TABLET PO SCH (10:29)
[2018-10-23] MEDS: DOCUSATE SODIUM 100 MG CAPSULE PO SCH (10:29)
[2018-10-23] MEDS: POTASSIUM CHLORIDE 10 MEQ CAPSULE.ER PO SCH (10:29)
[2018-10-23] MEDS: FERROUS SULFATE 325 MG TABLET PO SCH ×2 (10:29→18:28)
[2018-10-23] MEDS: ASPIRIN 81 MG TABLET, ENT COATED PO SCH (10:29)
[2018-10-23] MEDS: MULTIVITAMIN TABLET PO SCH (10:29)
[2018-10-23] MEDS: ISOSORBIDE MONONITRATE 30 MG TAB.ER.24H PO SCH (10:29)
[2018-10-23] MEDS: INSULIN LISPRO 100 UNIT/ML 3 ML VIAL SUBCUT SCH ×4 (10:30→22:05)
[2018-10-23] MEDS ORDERED: (PENDING PHARMACY ID) (Acetaminophen [Tylenol Extra Strength 500 Mg Tablet] 2 TAB) PO PRN (18:39)
--- NOTE | 2018-10-23 18:50 | PDOC PROGRESS REPORT ---
Subjective Progress Note for:: 10/23/18 Subjective:: CARLEE WALDROP is a 63 year old female with a past medical history of profound debility, severe morbid obesity, obstructive sleep apnea, morbid obesity hypoventilation, congestive heart failure with an ejection fraction of 35%, status post pacemaker placement, severe pulmonary hypertension with an RVSP of 74, and moderate mitral regurgitation and oxygen dependent chronic respiratory failure admitted 10/19/2018 for acute CHF exacerbation. Patient was seen on morning rounds. She was found resting in bed comfortably on her baseline supplemental oxygen via nasal cannula. She reports resolution of her dyspnea and orthopnea. She does continue to have bilateral lower extremity edema, although improved. She reports that she is feeling well today and asks about discharge plan. She is requesting to go to SNF for short-term rehab due to generalized weakness. She denies fever, chills, chest pain, palpitations, dyspnea, orthopnea, cough, abdominal pain, nausea vomiting diarrhea. She has no new questions or concerns. No concerns per nursing. Reason For Visit: HYPERCAPNIC RESP FAILURE AND HEART FAILURE Physical Exam Vital Signs: Temp Pulse Resp BP Pulse Ox 98.5 F 60 20 115/67 100 10/23/18 16:00 10/23/18 16:00 10/23/18 16:00 10/23/18 16:00 10/23/18 16:00 Intake & Output 10/22/18 10/23/18 10/24/18 06:59 06:59 06:59 Intake Total 1127 1810 600 Output Total 1400 1225 300 Balance -273 585 300 Weight 229.2 kg 227.2 kg General appearance: PRESENT: no acute distress, morbidly obese - Super, well- developed, well-nourished Head exam: PRESENT: atraumatic, normocephalic Eye exam: PRESENT: conjunctiva pink, EOMI, PERRLA. ABSENT: scleral icterus Ear exam: PRESENT: normal external ear exam Mouth exam: PRESENT: moist, tongue midline Neck exam: ABSENT: carotid bruit, JVD, lymphadenopathy, thyromegaly Respiratory exam: PRESENT: clear to auscultation justin, decreased breath sounds - Bibasilar; secondary to body habitus and positioning, symmetrical, unlabored, other - Baseline oxygen requirement. ABSENT: rales, rhonchi, wheezes Cardiovascular exam: PRESENT: RRR, +S1, +S2. ABSENT: diastolic murmur, rubs, systolic murmur Pulses: PRESENT: normal dorsalis pedis pul Vascular exam: PRESENT: normal capillary refill GI/Abdominal exam: PRESENT: normal bowel sounds, soft. ABSENT: distended, guarding, mass, organolmegaly, rebound, tenderness Rectal exam: PRESENT: deferred Extremities exam: PRESENT: full ROM, +2 edema - No longer pitting or tight; significantly improved from time of admission. ABSENT: calf tenderness, clubbing, pedal edema Neurological exam: PRESENT: alert, awake, oriented to person, oriented to place, oriented to time, oriented to situation, CN II-XII grossly intact. ABSENT: motor sensory deficit Psychiatric exam: PRESENT: appropriate affect, normal mood. ABSENT: homicidal ideation, suicidal ideation Skin exam: PRESENT: dry, intact, warm. ABSENT: cyanosis, rash Results Laboratory Results: 10/22/18 03:42 10/23/18 04:24 10/23/18 04:24 Sodium 139.6 Potassium 5.1 H Chloride 100 Carbon Dioxide 35 H Anion Gap 5 BUN 50 H Creatinine 1.42 H Est GFR ( Amer) 45 L Est GFR (Non-Af Amer) 37 L Glucose 162 H Calcium 8.4 10/19/18 10/19/18 10/20/18 20:10 20:10 02:20 Creatine Kinase 67 CK-MB (CK-2) 1.08 Troponin I 0.052 0.055 NT-Pro-B Natriuret Pep 3610 H 10/20/18 10/20/18 10/20/18 02:20 09:30 09:30 Creatine Kinase 58 52 CK-MB (CK-2) Troponin I Cancelled NT-Pro-B Natriuret Pep 10/20/18 10/20/18 10/20/18 09:30 09:30 16:44 Creatine Kinase Cancelled CK-MB (CK-2) 0.79 Troponin I 0.041 0.042 NT-Pro-B Natriuret Pep 10/20/18 16:44 Creatine Kinase 51 CK-MB (CK-2) Troponin I NT-Pro-B Natriuret Pep Impressions: Chest X-Ray 10/19/18 19:50 IMPRESSION: Cardiomegaly. Lungs are clear copyright 2011 [employer]- All Rights Reserved Assessment and Plan - Diagnosis (1) Acute on chronic systolic CHF (congestive heart failure), NYHA class 3 Is this a current diagnosis for this admission?: Yes Plan: Acute exacerbation has resolved. Complicated by anemia, severe pulmonary hypertension and moderate mitral regurgitation. Had planned to start patient on Entresto, however, today she tells me that her channel lip wetter recently discontinued that medication and placed her on losartan. She cannot recall why. Patient is admitted to the medical floor and continuous cardiac telemetry. Have resumed her home medication regimen of carvedilol, Imdur, losartan, atorvastatin and aspirin. Resume home dose furosemide tomorrow. She is placed on consistent carb/cardiac diet. Daily weights and strict I&O's. Registered dietitian and patient educator consulted. (2) Anemia Qualifiers: Anemia type: iron deficiency Is this a current diagnosis for this admission?: Yes Plan: Hemoglobin of 8.7; appears to be close to baseline. Recommend multivitamin and iron supplementation. Registered dietitian is consulted. (3) CO2 retention Is this a current diagnosis for this admission?: Yes Plan: BiPAP, education, avoid medications reducing respiratory drive (4) Morbid obesity with BMI of 70 and over, adult Is this a current diagnosis for this admission?: Yes Plan: Lifestyle modification dietary discretion is advised. She is placed on consistent carb and cardiac diet. We will evaluate TSH, lipid panel, and A1c with a.m. lab work. Registered dietitian is consulted. (5) Diabetes 1.5, managed as type 2 Is this a current diagnosis for this admission?: Yes Plan: Patient is placed on a consistent carb/cardiac diet. We will continue her home dose Lantus 10 units nightly. Accu-Cheks before meals and at bedtime with Humalog for sliding scale coverage. Registered dietitian is consulted. We will check hemoglobin A1c. (6) PASHA (acute kidney injury) Is this a current diagnosis for this admission?: Yes Plan: Resolved. Creatinine today 1.42; baseline appears to be 1.30 Likely secondary to IV furosemide, although, possibly complicated by acute CHF exacerbation. Avoid nephrotoxic medications as able. Daily chemistries. (7) Generalized weakness Is this a current diagnosis for this admission?: Yes Plan: PT OT consulted. Discharge planning consulted; patient requesting short-term rehab. Fall precautions. - Time Medications reviewed and adjusted accordingly: Yes Anticipated discharge: SNF - Short term rehab Within: when bed available - Plan Summary Plan Summary: Patient is medically cleared for discharge by requesting assistance with placement in short-term rehabilitation secondary to generalized weakness.
[2018-10-23] MEDS ORDERED: ACETAMINOPHEN 325 MG TABLET PO PRN (20:38)
[2018-10-23] MEDS: ATORVASTATIN CALCIUM 20 MG TABLET PO SCH (22:01)
[2018-10-23] MEDS: INSULIN GLARGINE,HUM.REC.ANLOG 1,000 UNIT/10 ML VIAL SUBCUT SCH (22:02)
[2018-10-24 05:58] LABS: ANION GAP 5 (5-19); BLOOD UREA NITROGEN 48 mg/dL (7-20); CALCIUM 8.4 mg/dL (8.4-10.2); CARBON DIOXIDE 34 mmol/L (22-30); CHLORIDE 101 mmol/L (98-107); GLUCOSE 173 mg/dL (75-110); POTASSIUM 4.7 mmol/L (3.6-5.0)
[2018-10-24] MEDS: HEPARIN SOD (PORCINE) 5,000 UNIT/ML 1 ML VIAL SUBCUT SCH ×3 (06:43→21:16)
[2018-10-24] MEDS: FERROUS SULFATE 325 MG TABLET PO SCH ×2 (08:48→17:47)
[2018-10-24] MEDS: INSULIN LISPRO 100 UNIT/ML 3 ML VIAL SUBCUT SCH ×4 (08:48→21:10)
[2018-10-24] MEDS: GABAPENTIN 300 MG CAPSULE PO SCH ×3 (10:01→21:12)
[2018-10-24] MEDS: CARVEDILOL 12.5 MG TABLET PO SCH ×2 (10:02→21:12)
[2018-10-24] MEDS: MULTIVITAMIN TABLET PO SCH (10:02)
[2018-10-24] MEDS: ISOSORBIDE MONONITRATE 30 MG TAB.ER.24H PO SCH (10:02)
[2018-10-24] MEDS: LOSARTAN POTASSIUM 25 MG TABLET PO SCH (10:02)
[2018-10-24] MEDS: POTASSIUM CHLORIDE 10 MEQ CAPSULE.ER PO SCH (10:02)
[2018-10-24] MEDS: DOCUSATE SODIUM 100 MG CAPSULE PO SCH (10:02)
[2018-10-24] MEDS: FUROSEMIDE 80 MG TABLET PO SCH ×2 (10:02→17:47)
[2018-10-24] MEDS: ASPIRIN 81 MG TABLET, ENT COATED PO SCH (10:02)
--- NOTE | 2018-10-24 13:38 | PDOC PROGRESS REPORT ---
Subjective Progress Note for:: 10/24/18 Subjective:: CARLEE WALDROP is a 63 year old female with a past medical history of profound debility, severe morbid obesity, obstructive sleep apnea, morbid obesity hypoventilation, congestive heart failure with an ejection fraction of 35%, status post pacemaker placement, severe pulmonary hypertension with an RVSP of 74, and moderate mitral regurgitation and oxygen dependent chronic respiratory failure admitted 10/19/2018 for acute CHF exacerbation. Patient was seen on morning rounds. She was found sitting in the recliner, comfortably, on her baseline supplemental oxygen via nasal cannula. She reports resolution of her dyspnea and orthopnea. She does continue to have bilateral lower extremity edema, L>R. She reports neuropathy to her left foot. She is requesting to go to SNF for short-term rehab due to generalized weakness. She denies fever, chills, chest pain, palpitations, dyspnea, orthopnea, cough, abdominal pain, nausea vomiting diarrhea. She has no other questions or concerns. No concerns per nursing. Reason For Visit: HYPERCAPNIC RESP FAILURE AND HEART FAILURE Physical Exam Vital Signs: Temp Pulse Resp BP Pulse Ox 97.8 F 58 L 18 113/63 98 10/24/18 12:00 10/24/18 12:00 10/24/18 12:00 10/24/18 12:00 10/24/18 12:00 Intake & Output 10/23/18 10/24/18 10/25/18 06:59 06:59 06:59 Intake Total 1810 2555 360 Output Total 1225 1350 400 Balance 585 1205 -40 Weight 227.2 kg 224.9 kg General appearance: PRESENT: no acute distress, cooperative, morbidly obese - super, well-developed Head exam: PRESENT: atraumatic, normocephalic Eye exam: PRESENT: conjunctiva pink, EOMI, PERRLA. ABSENT: scleral icterus Ear exam: PRESENT: normal external ear exam Mouth exam: PRESENT: moist, tongue midline Neck exam: ABSENT: carotid bruit, JVD, lymphadenopathy, thyromegaly Respiratory exam: PRESENT: clear to auscultation justin, decreased breath sounds - bibasilar secondary to body habitus, symmetrical, unlabored, other - Baseline oxygen requirement. ABSENT: rales, rhonchi, wheezes Cardiovascular exam: PRESENT: RRR, +S1, +S2. ABSENT: diastolic murmur, rubs, systolic murmur Pulses: PRESENT: normal dorsalis pedis pul Vascular exam: PRESENT: normal capillary refill GI/Abdominal exam: PRESENT: normal bowel sounds, soft. ABSENT: distended, guarding, mass, organolmegaly, rebound, tenderness Rectal exam: PRESENT: deferred Extremities exam: PRESENT: full ROM, +2 edema - BLE. ABSENT: calf tenderness, c lubbing, pedal edema Musculoskeletal exam: PRESENT: ambulatory Neurological exam: PRESENT: alert, awake, oriented to person, oriented to place, oriented to time, oriented to situation, CN II-XII grossly intact. ABSENT: motor sensory deficit Psychiatric exam: PRESENT: appropriate affect, normal mood. ABSENT: homicidal ideation, suicidal ideation Skin exam: PRESENT: dry, intact, warm. ABSENT: cyanosis, rash Results Laboratory Results: 10/22/18 03:42 10/24/18 04:58 10/24/18 04:58 Sodium 140.4 Potassium 4.7 Chloride 101 Carbon Dioxide 34 H Anion Gap 5 BUN 48 H Creatinine 1.41 H Est GFR ( Amer) 46 L Est GFR (Non-Af Amer) 38 L Glucose 173 H Calcium 8.4 10/19/18 10/19/18 10/20/18 20:10 20:10 02:20 Creatine Kinase 67 CK-MB (CK-2) 1.08 Troponin I 0.052 0.055 NT-Pro-B Natriuret Pep 3610 H 10/20/18 10/20/18 10/20/18 02:20 09:30 09:30 Creatine Kinase 58 52 CK-MB (CK-2) Troponin I Cancelled NT-Pro-B Natriuret Pep 10/20/18 10/20/18 10/20/18 09:30 09:30 16:44 Creatine Kinase Cancelled CK-MB (CK-2) 0.79 Troponin I 0.041 0.042 NT-Pro-B Natriuret Pep 10/20/18 16:44 Creatine Kinase 51 CK-MB (CK-2) Troponin I NT-Pro-B Natriuret Pep Impressions: Chest X-Ray 10/19/18 19:50 IMPRESSION: Cardiomegaly. Lungs are clear copyright 2010 [employer]- All Rights Reserved Assessment and Plan - Diagnosis (1) Acute on chronic systolic CHF (congestive heart failure), NYHA class 3 Is this a current diagnosis for this admission?: Yes Plan: Acute exacerbation has resolved. Complicated by anemia, severe pulmonary hypertension and moderate mitral regurgitation. Had planned to start patient on Entresto, however, today she tells me that her entry level electrical engineer recently discontinued that medication and placed her on losartan. She cannot recall why. Patient is admitted to the medical floor and continuous cardiac telemetry. Have resumed her home medication regimen of carvedilol, Imdur, losartan, furosemide, atorvastatin and aspirin. She is placed on consistent carb/cardiac diet. Daily weights and strict I&O's. Registered dietitian and patient educator consulted. (2) Anemia Qualifiers: Anemia type: iron deficiency Is this a current diagnosis for this admission?: Yes Plan: Hemoglobin of 8.7; appears to be close to baseline. Recommend multivitamin and iron supplementation. Registered dietitian is consulted. (3) CO2 retention Is this a current diagnosis for this admission?: Yes Plan: BiPAP, education, avoid medications reducing respiratory drive (4) Morbid obesity with BMI of 70 and over, adult Is this a current diagnosis for this admission?: Yes Plan: Lifestyle modification dietary discretion is advised. She is placed on consistent carb and cardiac diet. We will evaluate TSH, lipid panel, and A1c with a.m. lab work. Registered dietitian is consulted. (5) Diabetes 1.5, managed as type 2 Is this a current diagnosis for this admission?: Yes Plan: Patient is placed on a consistent carb/cardiac diet. We will continue her home dose Lantus 10 units nightly. Accu-Cheks before meals and at bedtime with Humalog for sliding scale coverage. Registered dietitian is consulted. We will check hemoglobin A1c. (6) PASHA (acute kidney injury) Is this a current diagnosis for this admission?: Yes Plan: Resolved. Creatinine today 1.41; baseline appears to be 1.30 Likely secondary to IV furosemide, although, possibly complicated by acute CHF exacerbation. Avoid nephrotoxic medications as able. Daily chemistries. (7) Generalized weakness Is this a current diagnosis for this admission?: Yes Plan: PT OT consulted. Discharge planning consulted; patient requesting short-term rehab. Fall precautions. - Time Time Spent with patient: Less than 15 minutes Medications reviewed and adjusted accordingly: Yes Anticipated discharge: SNF Within: when bed available - Plan Summary Plan Summary: Patient is medically cleared for discharge; waiting on SNF placement for short- term rehab.
[2018-10-24] MEDS: TRAMADOL HCL 50 MG TABLET PO PRN (21:12)
[2018-10-24] MEDS: ATORVASTATIN CALCIUM 20 MG TABLET PO SCH (21:12)
[2018-10-24] MEDS: INSULIN GLARGINE,HUM.REC.ANLOG 1,000 UNIT/10 ML VIAL SUBCUT SCH (21:13)
[2018-10-25] MEDS: GABAPENTIN 300 MG CAPSULE PO SCH ×3 (05:43→21:31)
[2018-10-25] MEDS: TRAMADOL HCL 50 MG TABLET PO PRN ×2 (05:44→13:30)
[2018-10-25] MEDS: HEPARIN SOD (PORCINE) 5,000 UNIT/ML 1 ML VIAL SUBCUT SCH ×3 (05:44→21:32)
[2018-10-25] MEDS: INSULIN LISPRO 100 UNIT/ML 3 ML VIAL SUBCUT SCH ×4 (09:21→21:28)
[2018-10-25] MEDS: CARVEDILOL 12.5 MG TABLET PO SCH ×2 (09:33→21:31)
[2018-10-25] MEDS: ASPIRIN 81 MG TABLET, ENT COATED PO SCH (09:33)
[2018-10-25] MEDS: FUROSEMIDE 80 MG TABLET PO SCH ×2 (09:33→16:57)
[2018-10-25] MEDS: POTASSIUM CHLORIDE 10 MEQ CAPSULE.ER PO SCH (09:33)
[2018-10-25] MEDS: FERROUS SULFATE 325 MG TABLET PO SCH ×2 (09:33→16:57)
[2018-10-25] MEDS: MULTIVITAMIN TABLET PO SCH (09:33)
[2018-10-25] MEDS: LOSARTAN POTASSIUM 25 MG TABLET PO SCH (09:33)
[2018-10-25] MEDS: ISOSORBIDE MONONITRATE 30 MG TAB.ER.24H PO SCH (09:33)
[2018-10-25] MEDS: DOCUSATE SODIUM 100 MG CAPSULE PO SCH (09:34)
--- NOTE | 2018-10-25 16:36 | PDOC PROGRESS REPORT ---
Subjective Progress Note for:: 10/25/18 Subjective:: CARLEE WALDROP is a 63 year old female with a past medical history of profound debility, severe morbid obesity, obstructive sleep apnea, morbid obesity hypoventilation, congestive heart failure with an ejection fraction of 35%, status post pacemaker placement, severe pulmonary hypertension with an RVSP of 74, and moderate mitral regurgitation and oxygen dependent chronic respiratory failure admitted 10/19/2018 for acute CHF exacerbation. Patient is awake, alert, oriented x3. She denies any chest pain, shortness of breath or dyspnea at rest. She denies any nausea, vomiting or abdominal pain. She is presently on 2 L of oxygen which is what she wears at home. She denies any diarrhea or dysuria. She denies any fevers or chills. She denies any significant arthralgias or myalgias. She states she still feels "weak". Verbalizes no other complaints at the present time. Reason For Visit: HYPERCAPNIC RESP FAILURE AND HEART FAILURE Physical Exam Vital Signs: Temp Pulse Resp BP Pulse Ox 98.3 F 61 18 113/68 94 10/25/18 08:15 10/25/18 08:15 10/25/18 08:15 10/25/18 08:15 10/25/18 08:15 Intake & Output 10/24/18 10/25/18 10/26/18 06:59 06:59 06:59 Intake Total 2555 1920 Output Total 1350 3200 Balance 1205 -1280 Weight 224.9 kg 224.9 kg General appearance: PRESENT: no acute distress, morbidly obese, well-developed, well-nourished Head exam: PRESENT: atraumatic, normocephalic Eye exam: PRESENT: conjunctiva pink, EOMI, PERRLA. ABSENT: scleral icterus Ear exam: PRESENT: normal external ear exam Mouth exam: PRESENT: moist, tongue midline Neck exam: ABSENT: carotid bruit, JVD, lymphadenopathy, thyromegaly Respiratory exam: PRESENT: crackles - Fine crackles at left base., symmetrical, unlabored Cardiovascular exam: PRESENT: RRR, systolic murmur - 3/6 systolic murmur radiating to left axilla. ABSENT: diastolic murmur, rubs Pulses: PRESENT: normal dorsalis pedis pul Vascular exam: PRESENT: normal capillary refill GI/Abdominal exam: PRESENT: normal bowel sounds, soft. ABSENT: distended, guarding, mass, organolmegaly, rebound, tenderness Rectal exam: PRESENT: deferred Extremities exam: PRESENT: full ROM, +1 edema - Lower extremities bilaterally Musculoskeletal exam: PRESENT: ambulatory Neurological exam: PRESENT: alert, awake, oriented to person, oriented to place, oriented to time, oriented to situation, CN II-XII grossly intact. ABSENT: motor sensory deficit Psychiatric exam: PRESENT: appropriate affect, normal mood. ABSENT: homicidal ideation, suicidal ideation Skin exam: PRESENT: dry, intact, warm. ABSENT: cyanosis, rash Results Laboratory Results: 10/22/18 03:42 10/24/18 04:58 10/19/18 10/19/18 10/20/18 20:10 20:10 02:20 Creatine Kinase 67 CK-MB (CK-2) 1.08 Troponin I 0.052 0.055 NT-Pro-B Natriuret Pep 3610 H 10/20/18 10/20/18 10/20/18 02:20 09:30 09:30 Creatine Kinase 58 52 CK-MB (CK-2) Troponin I Cancelled NT-Pro-B Natriuret Pep 10/20/18 10/20/18 10/20/18 09:30 09:30 16:44 Creatine Kinase Cancelled CK-MB (CK-2) 0.79 Troponin I 0.041 0.042 NT-Pro-B Natriuret Pep 10/20/18 16:44 Creatine Kinase 51 CK-MB (CK-2) Troponin I NT-Pro-B Natriuret Pep Impressions: Chest X-Ray 10/19/18 19:50 IMPRESSION: Cardiomegaly. Lungs are clear copyright 2010 [employer]- All Rights Reserved Assessment and Plan - Diagnosis (1) Acute on chronic systolic CHF (congestive heart failure), NYHA class 3 Is this a current diagnosis for this admission?: Yes Plan: Acute exacerbation has resolved. Complicated by anemia, severe pulmonary hypertension and moderate mitral regurgitation. Had planned to start patient on Entresto, however, today she tells me that her dielectric tester recently discontinued that medication and placed her on losartan. She cannot recall why. Patient is admitted to the medical floor and continuous cardiac telemetry. Have resumed her home medication regimen of carvedilol, Imdur, losartan, furosemide, atorvastatin and aspirin. She is placed on consistent carb/cardiac diet. Daily weights and strict I&O's. Registered dietitian and patient educator consulted. Her symptoms are back to baseline and home medication. She is waiting for rehab placement at this time. (2) Anemia Qualifiers: Anemia type: iron deficiency Is this a current diagnosis for this admission?: Yes Plan: Hemoglobin of 8.7; appears to be close to baseline. Recommend multivitamin and iron supplementation. Registered dietitian is consulted. (3) CKD (chronic kidney disease) Qualifiers: Chronic kidney disease stage: unspecified stage Qualified Code(s): N18.9 - Chronic kidney disease, unspecified Is this a current diagnosis for this admission?: Yes Plan: Presently at baseline. Avoid nephrotoxic medications and dosages. (4) Generalized weakness Is this a current diagnosis for this admission?: Yes Plan: PT OT consulted. Discharge planning consulted; patient requesting short-term rehab. Fall precautions. (5) Hypercapnic respiratory failure, chronic Is this a current diagnosis for this admission?: Yes Plan: She wears oxygen via nasal cannula at home. CPAP at night. (6) Hypertension Qualifiers: Hypertension type: essential hypertension Qualified Code(s): I10 - Essential (primary) hypertension Is this a current diagnosis for this admission?: Yes Plan: Presently normotensive on current medications. (7) Morbid obesity with BMI of 70 and over, adult Is this a current diagnosis for this admission?: Yes Plan: Lifestyle modification dietary discretion is advised. She is placed on consistent carb and cardiac diet. We will evaluate TSH, lipid panel, and A1c with a.m. lab work. Registered dietitian is consulted. - Time Time Spent with patient: 25-34 minutes Total Critical Time (Minutes): 20 Medications reviewed and adjusted accordingly: Yes Anticipated discharge: Acute Rehab Within: when bed available - Inpatient Certification Based on my medical assessment, after consideration of the patient's comorbidities, presenting symptoms, or acuity I expect that the services needed warrant INPATIENT care.: Yes I certify that my determination is in accordance with my understanding of Medicare's requirements for reasonable and necessary INPATIENT services [42 CFR 412.3e].: Yes Medical Necessity: Failure to Improve With Outpatient Therapy, Significant Comorbidiites Make Outpatient Treatment Too Risky
[2018-10-25] MEDS: ATORVASTATIN CALCIUM 20 MG TABLET PO SCH (21:31)
[2018-10-25] MEDS: INSULIN GLARGINE,HUM.REC.ANLOG 1,000 UNIT/10 ML VIAL SUBCUT SCH (21:32)
[2018-10-26] MEDS: HEPARIN SOD (PORCINE) 5,000 UNIT/ML 1 ML VIAL SUBCUT SCH ×3 (05:18→22:20)
[2018-10-26] MEDS: GABAPENTIN 300 MG CAPSULE PO SCH ×3 (06:28→21:53)
[2018-10-26] MEDS: INSULIN LISPRO 100 UNIT/ML 3 ML VIAL SUBCUT SCH ×4 (07:42→21:49)
[2018-10-26] MEDS: DOCUSATE SODIUM 100 MG CAPSULE PO SCH (09:00)
[2018-10-26] MEDS: LOSARTAN POTASSIUM 25 MG TABLET PO SCH (09:00)
[2018-10-26] MEDS: POTASSIUM CHLORIDE 10 MEQ CAPSULE.ER PO SCH (09:00)
[2018-10-26] MEDS: FERROUS SULFATE 325 MG TABLET PO SCH ×2 (09:00→16:17)
[2018-10-26] MEDS: CARVEDILOL 12.5 MG TABLET PO SCH ×2 (09:00→21:53)
[2018-10-26] MEDS: MULTIVITAMIN TABLET PO SCH (09:00)
[2018-10-26] MEDS: FUROSEMIDE 80 MG TABLET PO SCH ×2 (09:00→16:17)
[2018-10-26] MEDS: ISOSORBIDE MONONITRATE 30 MG TAB.ER.24H PO SCH (09:00)
[2018-10-26] MEDS: ASPIRIN 81 MG TABLET, ENT COATED PO SCH (09:00)
--- NOTE | 2018-10-26 09:43 | PDOC PROGRESS REPORT ---
Subjective Progress Note for:: 10/26/18 Subjective:: 63 year old female with a past medical history of profound debility, severe morbid obesity, obstructive sleep apnea, morbid obesity hypoventilation, congestive heart failure with an ejection fraction of 35%, status post pacemaker placement, severe pulmonary hypertension with an RVSP of 74, and moderate mitral regurgitation and oxygen dependent chronic respiratory failure admitted 10/19/2018 for acute CHF exacerbation. Patient is awake, alert, oriented x3. She denies any chest pain, shortness of breath or dyspnea at rest. She denies any nausea, vomiting or abdominal pain. She is presently on 2 L of oxygen which is what she wears at home. She denies any diarrhea or dysuria. She denies any fevers or chills. She denies any significant arthralgias or myalgias. She states she still feels "weak". Verbalizes no other complaints at the present time. 04/28/[id number]-yblo-old female with multiple medical problems admitted with acute congestive heart failure associated with shortness of breath presently she is on BiPAP at night pulse ox is 96%. No complaints. I talked to her about her DNR/DNI status she wants to be DNR. No acute events in the last 24 hours. Afebrile. Therapy is working with the patient. Reason For Visit: HYPERCAPNIC RESP FAILURE AND HEART FAILURE Physical Exam Vital Signs: Temp Pulse Resp BP Pulse Ox 98.1 F 64 14 127/75 H 96 10/26/18 03:57 10/26/18 07:00 10/26/18 04:17 10/26/18 03:57 10/26/18 04:17 Intake & Output 10/25/18 10/26/18 10/27/18 06:59 06:59 06:59 Intake Total 1920 1500 Output Total 3200 1500 Balance -1280 0 Weight 224.9 kg 225.9 kg General appearance: PRESENT: no acute distress, morbidly obese Head exam: PRESENT: atraumatic Eye exam: PRESENT: PERRLA Mouth exam: PRESENT: moist, tongue midline Teeth exam: PRESENT: poor dentation Neck exam: ABSENT: carotid bruit, JVD, lymphadenopathy, thyromegaly Respiratory exam: PRESENT: decreased breath sounds Cardiovascular exam: PRESENT: RRR, other - This maker present on the left side of the chest.. ABSENT: diastolic murmur, rubs, systolic murmur GI/Abdominal exam: PRESENT: normal bowel sounds, soft. ABSENT: distended, guarding, mass, organolmegaly, rebound, tenderness Rectal exam: PRESENT: deferred Gentrourinary exam: PRESENT: indwelling catheter Neurological exam: PRESENT: alert, awake, oriented to person, oriented to place, oriented to time, oriented to situation, CN II-XII grossly intact. ABSENT: motor sensory deficit Psychiatric exam: PRESENT: appropriate affect, normal mood. ABSENT: homicidal ideation, suicidal ideation Results Laboratory Results: 10/22/18 03:42 10/24/18 04:58 10/19/18 10/19/18 10/20/18 20:10 20:10 02:20 Creatine Kinase 67 CK-MB (CK-2) 1.08 Troponin I 0.052 0.055 NT-Pro-B Natriuret Pep 3610 H 10/20/18 10/20/18 10/20/18 02:20 09:30 09:30 Creatine Kinase 58 52 CK-MB (CK-2) Troponin I Cancelled NT-Pro-B Natriuret Pep 10/20/18 10/20/18 10/20/18 09:30 09:30 16:44 Creatine Kinase Cancelled CK-MB (CK-2) 0.79 Troponin I 0.041 0.042 NT-Pro-B Natriuret Pep 10/20/18 16:44 Creatine Kinase 51 CK-MB (CK-2) Troponin I NT-Pro-B Natriuret Pep Impressions: Chest X-Ray 10/19/18 19:50 IMPRESSION: Cardiomegaly. Lungs are clear copyright 2010 [employer]- All Rights Reserved Assessment and Plan - Diagnosis (1) Acute on chronic systolic CHF (congestive heart failure), NYHA class 3 Is this a current diagnosis for this admission?: Yes Plan: Acute exacerbation has resolved. Complicated by anemia, severe pulmonary hypertension and moderate mitral regurgitation. Had planned to start patient on Entresto, however, today she tells me that her traffic control supervisor recently discontinued that medication and placed her on losartan. She cannot recall why. Patient is admitted to the medical floor and continuous cardiac telemetry. Have resumed her home medication regimen of carvedilol, Imdur, losartan, furosemide, atorvastatin and aspirin. She is placed on consistent carb/cardiac diet. Daily weights and strict I&O's. Registered dietitian and patient educator consulted. Her symptoms are back to baseline and home medication. She is waiting for rehab placement at this time. 10/26/2018-patient admitted with acute on chronic systolic heart failure. Presently on BiPAP at night. Comfortable in the bed this morning. Waiting for placement. Recently on carvedilol, Imdur, losartan, furosemide, atorvastatin and aspirin. Input is 1920 mL output is 3.2 L with a negative fluid balance of 1280. Eating for rehab placement. Patient's EF is 30 to 35%. (2) PASHA (acute kidney injury) Is this a current diagnosis for this admission?: Yes Plan: Resolved. Creatinine today 1.41; baseline appears to be 1.30 Likely secondary to IV furosemide, although, possibly complicated by acute CHF exacerbation. Avoid nephrotoxic medications as able. Daily chemistries. 10/26/2018-10 came in with creatinine of 1.17 peaked to 1.67 and improved to 1.41 yesterday. Plan is to repeat the labs today and tomorrow. Nonoliguric. (3) Anemia Qualifiers: Anemia type: iron deficiency Is this a current diagnosis for this admission?: Yes Plan: Hemoglobin of 8.7; appears to be close to baseline. Recommend multivitamin and iron supplementation. Registered dietitian is consulted. 10/30/2018-since latest hemoglobin is 9.3 at baseline. Anemia of chronic disease most likely secondary to underlying CKD. (4) CKD (chronic kidney disease) Qualifiers: Chronic kidney disease stage: unspecified stage Qualified Code(s): N18.9 - Chronic kidney disease, unspecified Is this a current diagnosis for this admission?: Yes Plan: Presently at baseline. Avoid nephrotoxic medications and dosages. 10/26/2018-patient creatinine today is 1.4 came in with creatinine 1.17 she is on furosemide. Avoid nephrotoxic agents and renal dose to medications. (5) COPD exacerbation Is this a current diagnosis for this admission?: Yes Plan: 04/28/2018-patient came in with COPD exacerbation in association with acute on chronic systolic heart failure pulse ox is 96% this morning patient is on BiPAP at night for hypercapnia. (6) Hypercapnic respiratory failure, chronic Is this a current diagnosis for this admission?: Yes Plan: She wears oxygen via nasal cannula at home. CPAP at night. 04/28/2018-patient is on home oxygen at home using CPAP at night. Pulse ox 96% this morning, presently she is on BiPAP at night. (7) Hypertension Qualifiers: Hypertension type: essential hypertension Qualified Code(s): I10 - Essential (primary) hypertension Is this a current diagnosis for this admission?: Yes Plan: Presently normotensive on current medications. 04/26/2018-patient blood pressure today is 127/75 plan is to continue furosemide, losartan, Coreg. (8) Morbidly obese Is this a current diagnosis for this admission?: Yes Plan: 10/26/2018-patient BMI is more than 67 diet exercise weight loss lifestyle modifications are discussed dietery consult on board. - Time Time Spent with patient: 25-34 minutes Anticipated discharge: SNF
[2018-10-26] MEDS: ATORVASTATIN CALCIUM 20 MG TABLET PO SCH (21:53)
[2018-10-26] MEDS: INSULIN GLARGINE,HUM.REC.ANLOG 1,000 UNIT/10 ML VIAL SUBCUT SCH (21:56)
[2018-10-26] MEDS: TRAMADOL HCL 50 MG TABLET PO PRN (22:04)
[2018-10-27] MEDS: GABAPENTIN 300 MG CAPSULE PO SCH ×3 (05:52→21:43)
[2018-10-27] MEDS: HEPARIN SOD (PORCINE) 5,000 UNIT/ML 1 ML VIAL SUBCUT SCH ×3 (05:53→21:37)
[2018-10-27 07:55] LABS: ABSOLUTE EOSINOPHILS # (AUTO) 0.1 10^3/uL (0.0-0.6); ABSOLUTE LYMPHOCYTES (AUTO) 0.9 10^3/uL (0.5-4.7); ABSOLUTE MONOCYTES (AUTO) 0.4 10^3/uL (0.1-1.4); ABSOLUTE NEUT (AUTO) 2.9 10^3/uL (1.7-8.2); BASOPHILS % (AUTO) 0.4 % (0-2); EOSINOPHILS % (AUTO) 1.8 % (0-6); HEMATOCRIT 30.9 % (36.0-47.0); HEMOGLOBIN 9.4 g/dL (12.0-15.5); LYMPHOCYTES % (AUTO) 20.7 % (13-45); MEAN CORPUSCULAR HEMOGLOBIN 24.2 pg (27.0-33.4); MEAN CORPUSCULAR HGB CONC 30.5 g/dL (32.0-36.0); MEAN CORPUSCULAR VOLUME 79 fl (80-97); MONOCYTES % (AUTO) 9.3 % (3-13); PLATELET COUNT 143 10^3/uL (150-450); RED BLOOD COUNT 3.89 10^6/uL (3.72-5.28); RED CELL DISTRIBUTION WIDTH 18.4 % (11.5-14.0); SEGMENTED NEUTROPHILS % (AUTO) 67.8 % (42-78); TOTAL CELLS COUNTED % (AUTO) 100 %; WHITE BLOOD COUNT 4.2 10^3/uL (4.0-10.5)
[2018-10-27 08:12] LABS: ALANINE AMINOTRANSFERASE 16 U/L (9-52); ALBUMIN 3.6 g/dL (3.5-5.0); ALKALINE PHOSPHATASE 102 U/L (38-126); ASPARTATE AMINO TRANSFERASE 16 U/L (14-36); BILIRUBIN,DIRECT 0.3 mg/dL (0.0-0.4); BILIRUBIN,TOTAL 0.5 mg/dL (0.2-1.3); BLOOD UREA NITROGEN 44 mg/dL (7-20); CALCIUM 9.1 mg/dL (8.4-10.2); CHLORIDE 93 mmol/L (98-107); GLUCOSE 121 mg/dL (75-110); POTASSIUM 4.5 mmol/L (3.6-5.0); TOTAL PROTEIN 7.1 g/dL (6.3-8.2)
[2018-10-27 08:31] LABS: ANION GAP 7 (5-19)
[2018-10-27] MEDS: FERROUS SULFATE 325 MG TABLET PO SCH ×2 (08:49→18:02)
[2018-10-27] MEDS: INSULIN LISPRO 100 UNIT/ML 3 ML VIAL SUBCUT SCH ×4 (08:50→21:46)
--- NOTE | 2018-10-27 08:56 | PDOC PROGRESS REPORT ---
Subjective Progress Note for:: 10/27/18 Subjective:: 63 year old female with a past medical history of profound debility, severe morbid obesity, obstructive sleep apnea, morbid obesity hypoventilation, congestive heart failure with an ejection fraction of 35%, status post pacemaker placement, severe pulmonary hypertension with an RVSP of 74, and moderate mitral regurgitation and oxygen dependent chronic respiratory failure admitted 10/19/2018 for acute CHF exacerbation. Patient is awake, alert, oriented x3. She denies any chest pain, shortness of breath or dyspnea at rest. She denies any nausea, vomiting or abdominal pain. She is presently on 2 L of oxygen which is what she wears at home. She denies any diarrhea or dysuria. She denies any fevers or chills. She denies any significant arthralgias or myalgias. She states she still feels "weak". Verbalizes no other complaints at the present time. 10/26/[id number]-acrp-old female with multiple medical problems admitted with acute congestive heart failure associated with shortness of breath presently she is on BiPAP at night pulse ox is 96%. No complaints. I talked to her about her DNR/DNI status she wants to be DNR. No acute events in the last 24 hours. Afebrile. Therapy is working with the patient. 10/27/[id number]-nhfp-old female admitted with acute on chronic respiratory failure with hypoxia and hypercapnia most likely secondary to acute exacerbation of CHF she has also history of morbid obesity with hypoventilation syndrome she is on oxygen at home and she uses CPAP at home here in the night she is using BiPAP PCO2 this morning is 42 in the chemistry. Patient is comfortable in the bed communicating well not in distress. No complaints. Reason For Visit: HYPERCAPNIC RESP FAILURE AND HEART FAILURE Physical Exam Vital Signs: Temp Pulse Resp BP Pulse Ox 97.9 F 60 16 137/71 H 99 10/27/18 03:19 10/27/18 03:19 10/27/18 03:19 10/27/18 03:19 10/27/18 03:19 Intake & Output 10/26/18 10/27/18 10/28/18 06:59 06:59 06:59 Intake Total 1500 1200 Output Total 1500 3850 Balance 0 -2650 Weight 225.9 kg 225.9 kg General appearance: PRESENT: no acute distress, morbidly obese Head exam: PRESENT: atraumatic Eye exam: PRESENT: PERRLA Mouth exam: PRESENT: moist, tongue midline Teeth exam: PRESENT: poor dentation Neck exam: ABSENT: carotid bruit, JVD, lymphadenopathy, thyromegaly Respiratory exam: PRESENT: decreased breath sounds Cardiovascular exam: PRESENT: RRR. ABSENT: diastolic murmur, rubs, systolic murmur GI/Abdominal exam: PRESENT: normal bowel sounds, soft. ABSENT: distended, guarding, mass, organolmegaly, rebound, tenderness Rectal exam: PRESENT: deferred Gentrourinary exam: PRESENT: indwelling catheter Extremities exam: PRESENT: +1 edema Neurological exam: PRESENT: alert, awake, oriented to person, oriented to place, oriented to time, oriented to situation, CN II-XII grossly intact. ABSENT: motor sensory deficit Psychiatric exam: PRESENT: appropriate affect, normal mood. ABSENT: homicidal ideation, suicidal ideation Results Laboratory Results: 10/27/18 06:49 10/27/18 06:49 10/27/18 10/27/18 06:49 06:49 WBC 4.2 RBC 3.89 Hgb 9.4 L Hct 30.9 L MCV 79 L MCH 24.2 L MCHC 30.5 L RDW 18.4 H Plt Count 143 L Seg Neutrophils % 67.8 Lymphocytes % 20.7 Monocytes % 9.3 Eosinophils % 1.8 Basophils % 0.4 Absolute Neutrophils 2.9 Absolute Lymphocytes 0.9 Absolute Monocytes 0.4 Absolute Eosinophils 0.1 Absolute Basophils 0.0 Sodium 141.7 Potassium 4.5 Chloride 93 L Anion Gap 7 BUN 44 H Creatinine 1.36 H Est GFR ( Amer) 48 L Est GFR (Non-Af Amer) 39 L Glucose 121 H Calcium 9.1 Magnesium 2.0 Total Bilirubin 0.5 AST 16 ALT 16 Alkaline Phosphatase 102 Total Protein 7.1 Albumin 3.6 10/19/18 10/19/18 10/20/18 20:10 20:10 02:20 Creatine Kinase 67 CK-MB (CK-2) 1.08 Troponin I 0.052 0.055 NT-Pro-B Natriuret Pep 3610 H 10/20/18 10/20/18 10/20/18 02:20 09:30 09:30 Creatine Kinase 58 52 CK-MB (CK-2) Troponin I Cancelled NT-Pro-B Natriuret Pep 10/20/18 10/20/18 10/20/18 09:30 09:30 16:44 Creatine Kinase Cancelled CK-MB (CK-2) 0.79 Troponin I 0.041 0.042 NT-Pro-B Natriuret Pep 10/20/18 10/27/18 16:44 06:49 Creatine Kinase 51 CK-MB (CK-2) Troponin I NT-Pro-B Natriuret Pep 3580 H Impressions: Chest X-Ray 10/19/18 19:50 IMPRESSION: Cardiomegaly. Lungs are clear copyright 2010 [employer]- All Rights Reserved Assessment and Plan - Diagnosis (1) Acute on chronic systolic CHF (congestive heart failure), NYHA class 3 Is this a current diagnosis for this admission?: Yes Plan: Acute exacerbation has resolved. Complicated by anemia, severe pulmonary hypertension and moderate mitral regurgitation. Had planned to start patient on Entresto, however, today she tells me that her fire services plumber recently discontinued that medication and placed her on losartan. She cannot recall why. Patient is admitted to the medical floor and continuous cardiac telemetry. Have resumed her home medication regimen of carvedilol, Imdur, losartan, furosemide, atorvastatin and aspirin. She is placed on consistent carb/cardiac diet. Daily weights and strict I&O's. Registered dietitian and patient educator consulted. Her symptoms are back to baseline and home medication. She is waiting for rehab placement at this time. 10/26/2018-patient admitted with acute on chronic systolic heart failure. Presently on BiPAP at night. Comfortable in the bed this morning. Waiting for placement. Recently on carvedilol, Imdur, losartan, furosemide, atorvastatin and aspirin. Input is 1920 mL output is 3.2 L with a negative fluid balance of 1280. Eating for rehab placement. Patient's EF is 30 to 35%. 10/27/[id number]-kyya-old female admitted for acute on chronic systolic heart failure. Pulse oxes 99% on 2 L this morning and she uses BiPAP at night. PCO2 in the chemistry is 42 this morning. She is waiting for placement in [facility]. Presently on carvedilol, Imdur, losartan, furosemide, atorvastatin and aspirin. Input is 1500 mL and output is 1500 mL balance is 0 in the last 24 hours. (2) PASHA (acute kidney injury) Is this a current diagnosis for this admission?: Yes Plan: Resolved. Creatinine today 1.41; baseline appears to be 1.30 Likely secondary to IV furosemide, although, possibly complicated by acute CHF exacerbation. Avoid nephrotoxic medications as able. Daily chemistries. 10/26/2018-came in with creatinine of 1.17 peaked to 1.67 and improved to 1.41 yesterday. Plan is to repeat the labs today and tomorrow. Nonoliguric. 10/27/[id number]-cpip-old female came in with creatinine of 1.17 it was peaked at 1.67 came down to 1.36 today. Continue to show improvement. Acute kidney injury most likely secondary to CHF exacerbation. Patient is nonoliguric urinar y output is 1500 mL. (3) Anemia Qualifiers: Anemia type: iron deficiency Is this a current diagnosis for this admission?: Yes Plan: Hemoglobin of 8.7; appears to be close to baseline. Recommend multivitamin and iron supplementation. Registered dietitian is consulted. 10/30/2018-since latest hemoglobin is 9.3 at baseline. Anemia of chronic disease most likely secondary to underlying CKD. 10/27/2018-patient's hemoglobin is 9.4 stable. Anemia of chronic disease most likely secondary to underlying chronic kidney disease. (4) CKD (chronic kidney disease) Qualifiers: Chronic kidney disease stage: unspecified stage Qualified Code(s): N18.9 - Chronic kidney disease, unspecified Is this a current diagnosis for this admission?: Yes Plan: Presently at baseline. Avoid nephrotoxic medications and dosages. 10/26/2018-patient creatinine today is 1.4 came in with creatinine 1.17 she is on furosemide. Avoid nephrotoxic agents and renal dose to medications. 10/27/2018-patient creatinine increased to 3.16 slightly improved from yesterday. Creatinine is continued to improve patient is nonoliguric plan is to avoid nephrotoxic's agents and renal dose to medications. (5) COPD exacerbation Is this a current diagnosis for this admission?: Yes Plan: 10/26/2018-patient came in with COPD exacerbation in association with acute on chronic systolic heart failure pulse ox is 96% this morning patient is on BiPAP at night for hypercapnia. 10/27/2018-patient he came in with COPD exacerbation in association with acute on chronic systolic heart failure pulse ox is 99% on 2 L today using BiPAP at night for obesity associated hypoventilation syndrome. (6) Hypercapnic respiratory failure, chronic Is this a current diagnosis for this admission?: Yes Plan: She wears oxygen via nasal cannula at home. CPAP at night. 10/26/2018-patient is on home oxygen at home using CPAP at night. Pulse ox 96% this morning, presently she is on BiPAP at night. 10/27/2018-patient pulse ox is 99% on 2 L. She is also on home oxygen at home. Using BiPAP at night. Plan is to continue the present management. (7) Hypertension Qualifiers: Hypertension type: essential hypertension Qualified Code(s): I10 - Essential (primary) hypertension Is this a current diagnosis for this admission?: Yes Plan: Presently normotensive on current medications. 10/24/2018-patient blood pressure today is 127/75 plan is to continue furosemide, losartan, Coreg. 10/27/2018-patient blood pressure today is 137/71 stable. (8) Morbidly obese Is this a current diagnosis for this admission?: Yes - Time Time Spent with patient: 25-34 minutes Medications reviewed and adjusted accordingly: Yes Anticipated discharge: SNF
[2018-10-27 09:20] LABS: CARBON DIOXIDE 42 mmol/L (22-30)
[2018-10-27] MEDS: CARVEDILOL 12.5 MG TABLET PO SCH ×2 (10:42→21:43)
[2018-10-27] MEDS: FUROSEMIDE 80 MG TABLET PO SCH ×2 (10:43→18:03)
[2018-10-27] MEDS: POTASSIUM CHLORIDE 10 MEQ CAPSULE.ER PO SCH (10:43)
[2018-10-27] MEDS: MULTIVITAMIN TABLET PO SCH (10:43)
[2018-10-27] MEDS: LOSARTAN POTASSIUM 25 MG TABLET PO SCH (10:44)
[2018-10-27] MEDS: ASPIRIN 81 MG TABLET, ENT COATED PO SCH (10:44)
[2018-10-27] MEDS: DOCUSATE SODIUM 100 MG CAPSULE PO SCH (10:44)
[2018-10-27] MEDS: ISOSORBIDE MONONITRATE 30 MG TAB.ER.24H PO SCH (10:44)
--- NOTE | 2018-10-27 16:40 | PDOC TRANSFER SUMMARY ---
General - Admit/Disc Date/PCP Admission Date/Primary Care Provider: 10/19/18 21:42 MARLEY HARDEN MD Discharge Date: 10/27/18 - Discharge Diagnosis (1) Acute on chronic systolic CHF (congestive heart failure), NYHA class 3 Is this a current diagnosis for this admission?: Yes Summary: Acute exacerbation has resolved. Complicated by anemia, severe pulmonary hypertension and moderate mitral regurgitation. Had planned to start patient on Entresto, however, today she tells me that her pattern and chain maker recently discontinued that medication and placed her on losartan. She cannot recall why. Patient is admitted to the medical floor and continuous cardiac telemetry. Have resumed her home medication regimen of carvedilol, Imdur, losartan, furosemide, atorvastatin and aspirin. She is placed on consistent carb/cardiac diet. Daily weights and strict I&O's. Registered dietitian and patient educator consulted. Her symptoms are back to baseline and home medication. She is waiting for rehab placement at this time. 10/26/2018-patient admitted with acute on chronic systolic heart failure. Presently on BiPAP at night. Comfortable in the bed this morning. Waiting for placement. Recently on carvedilol, Imdur, losartan, furosemide, atorvastatin and aspirin. Input is 1920 mL output is 3.2 L with a negative fluid balance of 1280. Eating for rehab placement. Patient's EF is 30 to 35%. 10/27/[id number]-qnhu-old female admitted for acute on chronic systolic heart failure. Pulse oxes 99% on 2 L this morning and she uses BiPAP at night. PCO2 in the chemistry is 42 this morning. She is waiting for placement in [facility]. Presently on carvedilol, Imdur, losartan, furosemide, atorvastatin and aspirin. Input is 1500 mL and output is 1500 mL balance is 0 in the last 24 hours. Patient has a bed available at a long-term facility she is going there today. (2) PASHA (acute kidney injury) Is this a current diagnosis for this admission?: Yes Summary: Resolved. Creatinine today 1.41; baseline appears to be 1.30 Likely secondary to IV furosemide, although, possibly complicated by acute CHF exacerbation. Avoid nephrotoxic medications as able. Daily chemistries. 10/26/2018-came in with creatinine of 1.17 peaked to 1.67 and improved to 1.41 yesterday. Plan is to repeat the labs today and tomorrow. Nonoliguric. 10/27/[id number]-dbag-old female came in with creatinine of 1.17 it was peaked at 1.67 came down to 1.36 today. Continue to show improvement. Acute kidney injury most likely secondary to CHF exacerbation. Patient is nonoliguric urinary output is 1500 mL. Patient is going to the rehab facility today. (3) Anemia Is this a current diagnosis for this admission?: Yes Summary: Hemoglobin of 8.7; appears to be close to baseline. Recommend multivitamin and iron supplementation. Registered dietitian is consulted. 10/30/2018-since latest hemoglobin is 9.3 at baseline. Anemia of chronic disease most likely secondary to underlying CKD. 10/27/2018-patient's hemoglobin is 9.4 stable. Anemia of chronic disease most likely secondary to underlying chronic kidney disease. (4) CKD (chronic kidney disease) Is this a current diagnosis for this admission?: Yes Summary: Presently at baseline. Avoid nephrotoxic medications and dosages. 10/26/2018-patient creatinine today is 1.4 came in with creatinine 1.17 she is on furosemide. Avoid nephrotoxic agents and renal dose to medications. 10/27/2018-patient creatinine increased to 3.16 slightly improved from yesterday. Creatinine is continued to improve patient is nonoliguric plan is to avoid nephrotoxic's agents and renal dose to medications. (5) COPD exacerbation Is this a current diagnosis for this admission?: Yes Summary: 10/26/2018-patient came in with COPD exacerbation in association with acute on chronic systolic heart failure pulse ox is 96% this morning patient is on BiPAP at night for hypercapnia. 10/27/2018-patient he came in with COPD exacerbation in association with acute on chronic systolic heart failure pulse ox is 99% on 2 L today using BiPAP at night for obesity associated hypoventilation syndrome. (6) Hypercapnic respiratory failure, chronic Is this a current diagnosis for this admission?: Yes Summary: She wears oxygen via nasal cannula at home. CPAP at night. 10/26/2018-patient is on home oxygen at home using CPAP at night. Pulse ox 96% this morning, presently she is on BiPAP at night. 10/27/2018-patient pulse ox is 99% on 2 L. She is also on home oxygen at home. Using BiPAP at night. Plan is to continue the present management. (7) Hypertension Is this a current diagnosis for this admission?: Yes Summary: Presently normotensive on current medications. 10/24/2018-patient blood pressure today is 127/75 plan is to continue furosemide, losartan, Coreg. 10/27/2018-patient blood pressure today is 137/71 stable. (8) Morbidly obese Is this a current diagnosis for this admission?: Yes - Additional Information Resuscitation Status: Do Not Resuscitate Discharge Diet: Cardiac, Diabetic Discharge Activity: Activity As Tolerated, Balance Activity w/Rest, Supervised Activity, Weigh Daily Prescriptions: Aspirin [Ecotrin 81 mg EC Tablet] 81 mg PO DAILY #90 tabec Home Medications: Acetaminophen [Tylenol Extra Strength 500 mg Tablet] 2 tab PO Q8HP PRN 10/20/18 Aspirin [Aspirin 81 mg Chewable Tablet] 81 mg PO DAILY 10/20/18 Atorvastatin Calcium [Lipitor 20 mg Tablet] 20 mg PO QHS 10/20/18 Carvedilol [Coreg 12.5 mg Tablet] 12.5 mg PO Q12 10/20/18 Ferrous Sulfate [Feosol 325 mg Tablet] 325 mg PO BIDBS 10/20/18 Furosemide [Lasix 80 mg Tablet] 160 mg PO BID 10/20/18 Gabapentin [Neurontin 300 mg Capsule] 300 mg PO Q12 10/20/18 Insulin Aspart [Novolog Insulin (Aspart) 100 unit/mL] 0 unit SUBCUT .SLD SCALE 10/20/18 Insulin Glargine,Hum.rec.anlog [Lantus Insulin 100 Unit/1 ml 10 ml] 10 unit SUBCUT QHS 10/20/18 Isosorbide Mononitrate [Imdur 30 mg Tablet.er] 30 mg PO DAILY 10/20/18 Losartan Potassium [Cozaar 25 mg Tablet] 25 mg PO DAILY 10/20/18 Multivitamin [Tab-A-Kisha (Multiple Vitamin) Tablet] 1 tab PO DAILY 10/20/18 Potassium Chloride [Klor-Con 10 Meq Capsule ER] 10 meq PO DAILY 10/20/18 Acetaminophen [Tylenol 325 mg Tablet] 650 mg PO Q4HP PRN tablet 10/23/18 Aspirin [Ecotrin 81 mg EC Tablet] 81 mg PO DAILY #90 tabec 10/23/18 Carvedilol [Coreg 12.5 mg Tablet] 12.5 mg PO Q12 tablet 10/23/18 Metolazone [Zaroxolyn 5 mg Tablet] 5 mg PO DAILY #0 10/23/18 History of Present Illness Admission Date/PCP: 10/19/18 21:42 MARLEY HARDEN MD History of Present Illness: CARLEE WALDROP is a 63 year old female 63 year old female with a past medical history of profound debility, severe morbid obesity, obstructive sleep apnea, morbid obesity hypoventilation, congestive heart failure with an ejection fraction of 35%, status post pacemaker placement, severe pulmonary hypertension with an RVSP of 74, and moderate mitral regurgitation and oxygen dependent chronic respiratory failure. Patient presents with shortness of breath x2 days, EMS reports hypoxia in the 80s and empty oxygen tank. In the emergency room she she is awake and alert on BiPAP with a PCO2 of 80. Patient denies recent change in diet, lifestyle, medications but admits to weight gain. She receives IV Lasix and referred to the hospitalist for admission. She denies chest pain and otherwise feels improved. Hospital Course Hospital Course: 33-year-old female admitted with shortness of breath associated with hypoxia and hypercapnia most likely associated with underlying acute on chronic systolic heart failure. Patient is doing well in the hospital. No complications during the hospital stay. She is euvolemic now. Going to the long term for rehab facility. Physical Exam Vital Signs: Temp Pulse Resp BP Pulse Ox 98.3 F 67 17 147/75 H 97 10/27/18 08:18 10/27/18 08:18 10/27/18 08:18 10/27/18 08:18 10/27/18 09:06 Intake & Output 10/26/18 10/27/18 10/28/18 06:59 06:59 06:59 Intake Total 1500 1200 Output Total 1500 3850 Balance 0 -2650 Weight 225.9 kg 225.9 kg General appearance: PRESENT: no acute distress Head exam: PRESENT: atraumatic Eye exam: PRESENT: PERRLA Mouth exam: PRESENT: dry mucosa Teeth exam: PRESENT: poor dentation Neck exam: ABSENT: carotid bruit, JVD, lymphadenopathy, thyromegaly Respiratory exam: PRESENT: decreased breath sounds Cardiovascular exam: PRESENT: tachycardia GI/Abdominal exam: PRESENT: normal bowel sounds, soft. ABSENT: distended, guarding, mass, organolmegaly, rebound, tenderness Rectal exam: PRESENT: deferred Extremities exam: PRESENT: full ROM. ABSENT: calf tenderness, clubbing, pedal edema Neurological exam: PRESENT: alert, awake, oriented to person, oriented to place, oriented to time, oriented to situation, CN II-XII grossly intact. ABSENT: motor sensory deficit Results Laboratory Results: 10/27/18 06:49 10/27/18 06:49 10/27/18 10/27/18 06:49 06:49 WBC 4.2 RBC 3.89 Hgb 9.4 L Hct 30.9 L MCV 79 L MCH 24.2 L MCHC 30.5 L RDW 18.4 H Plt Count 143 L Seg Neutrophils % 67.8 Lymphocytes % 20.7 Monocytes % 9.3 Eosinophils % 1.8 Basophils % 0.4 Absolute Neutrophils 2.9 Absolute Lymphocytes 0.9 Absolute Monocytes 0.4 Absolute Eosinophils 0.1 Absolute Basophils 0.0 Sodium 141.7 Potassium 4.5 Chloride 93 L Carbon Dioxide 42 H* Anion Gap 7 BUN 44 H Creatinine 1.36 H Est GFR ( Amer) 48 L Est GFR (Non-Af Amer) 39 L Glucose 121 H Calcium 9.1 Magnesium 2.0 Total Bilirubin 0.5 AST 16 ALT 16 Alkaline Phosphatase 102 Total Protein 7.1 Albumin 3.6 10/19/18 10/19/18 10/20/18 20:10 20:10 02:20 Creatine Kinase 67 CK-MB (CK-2) 1.08 Troponin I 0.052 0.055 NT-Pro-B Natriuret Pep 3610 H 10/20/18 10/20/18 10/20/18 02:20 09:30 09:30 Creatine Kinase 58 52 CK-MB (CK-2) Troponin I Cancelled NT-Pro-B Natriuret Pep 10/20/18 10/20/18 10/20/18 09:30 09:30 16:44 Creatine Kinase Cancelled CK-MB (CK-2) 0.79 Troponin I 0.041 0.042 NT-Pro-B Natriuret Pep 10/20/18 10/27/18 16:44 06:49 Creatine Kinase 51 CK-MB (CK-2) Troponin I NT-Pro-B Natriuret Pep 3580 H Impressions: Chest X-Ray 07/16/19 19:50 IMPRESSION: Cardiomegaly. Lungs are clear copyright 2011 [employer]- All Rights Reserved Transfer Plan - Time Spent with Patient Time spent with patient: Greater than 30 Minutes Qualifiers - * PATIENT BEING DISCHARGED WITH ANY OF THE FOLLOWING DIAGNOSIS: No VTE patient discharged on overlapping Therapy?: No Acute Heart Failure - Is this a Heart Failure Patient?: No
[2018-10-27] MEDS: TRAMADOL HCL 50 MG TABLET PO PRN (19:55)
[2018-10-27] MEDS: INSULIN GLARGINE,HUM.REC.ANLOG 1,000 UNIT/10 ML VIAL SUBCUT SCH (21:43)
[2018-10-27] MEDS: ATORVASTATIN CALCIUM 20 MG TABLET PO SCH (21:43)
[2018-10-28 05:45] LABS: ABSOLUTE EOSINOPHILS # (AUTO) 0.1 10^3/uL (0.0-0.6); ABSOLUTE MONOCYTES (AUTO) 0.5 10^3/uL (0.1-1.4); ABSOLUTE NEUT (AUTO) 2.6 10^3/uL (1.7-8.2); BASOPHILS % (AUTO) 1.1 % (0-2); EOSINOPHILS % (AUTO) 1.8 % (0-6); HEMATOCRIT 28.1 % (36.0-47.0); HEMOGLOBIN 8.7 g/dL (12.0-15.5); LYMPHOCYTES % (AUTO) 22.9 % (13-45); MEAN CORPUSCULAR HEMOGLOBIN 24.6 pg (27.0-33.4); MEAN CORPUSCULAR HGB CONC 31.2 g/dL (32.0-36.0); MEAN CORPUSCULAR VOLUME 79 fl (80-97); MONOCYTES % (AUTO) 11.5 % (3-13); PLATELET COUNT 126 10^3/uL (150-450); RED BLOOD COUNT 3.56 10^6/uL (3.72-5.28); SEGMENTED NEUTROPHILS % (AUTO) 62.7 % (42-78); TOTAL CELLS COUNTED % (AUTO) 100 %; WHITE BLOOD COUNT 4.2 10^3/uL (4.0-10.5)
[2018-10-28 06:15] LABS: ALANINE AMINOTRANSFERASE 15 U/L (9-52); ALBUMIN 3.2 g/dL (3.5-5.0); ALKALINE PHOSPHATASE 100 U/L (38-126); ASPARTATE AMINO TRANSFERASE 16 U/L (14-36); BILIRUBIN,DIRECT 0.3 mg/dL (0.0-0.4); BILIRUBIN,TOTAL 0.4 mg/dL (0.2-1.3); BLOOD UREA NITROGEN 43 mg/dL (7-20); CALCIUM 9.1 mg/dL (8.4-10.2); GLUCOSE 115 mg/dL (75-110); TOTAL PROTEIN 6.3 g/dL (6.3-8.2)
[2018-10-28 06:28] LABS: CHLORIDE 93 mmol/L (98-107); POTASSIUM 4.4 mmol/L (3.6-5.0)
[2018-10-28] MEDS: HEPARIN SOD (PORCINE) 5,000 UNIT/ML 1 ML VIAL SUBCUT SCH ×2 (06:33→13:26)
[2018-10-28] MEDS: GABAPENTIN 300 MG CAPSULE PO SCH ×2 (06:34→13:26)
[2018-10-28] MEDS: TRAMADOL HCL 50 MG TABLET PO PRN (06:35)
[2018-10-28 06:40] LABS: ANION GAP 6 (5-19)
[2018-10-28 06:43] LABS: CARBON DIOXIDE 42 mmol/L (22-30)
[2018-10-28] MEDS: INSULIN LISPRO 100 UNIT/ML 3 ML VIAL SUBCUT SCH ×3 (07:30→17:39)
[2018-10-28] MEDS: FERROUS SULFATE 325 MG TABLET PO SCH ×2 (07:35→17:58)
--- NOTE | 2018-10-28 09:36 | PDOC TRANSFER SUMMARY ---
General - Admit/Disc Date/PCP Admission Date/Primary Care Provider: 10/19/18 21:42 MARLEY HARDEN MD Discharge Date: 10/28/18 - Discharge Diagnosis (1) Acute on chronic systolic CHF (congestive heart failure), NYHA class 3 Is this a current diagnosis for this admission?: Yes Summary: Acute exacerbation has resolved. Complicated by anemia, severe pulmonary hypertension and moderate mitral regurgitation. Had planned to start patient on Entresto, however, today she tells me that her associate consulting engineer recently discontinued that medication and placed her on losartan. She cannot recall why. Patient is admitted to the medical floor and continuous cardiac telemetry. Have resumed her home medication regimen of carvedilol, Imdur, losartan, furosemide, atorvastatin and aspirin. She is placed on consistent carb/cardiac diet. Daily weights and strict I&O's. Registered dietitian and patient educator consulted. Her symptoms are back to baseline and home medication. She is waiting for rehab placement at this time. 10/26/2018-patient admitted with acute on chronic systolic heart failure. Presently on BiPAP at night. Comfortable in the bed this morning. Waiting for placement. Recently on carvedilol, Imdur, losartan, furosemide, atorvastatin and aspirin. Input is 1920 mL output is 3.2 L with a negative fluid balance of 1280. Eating for rehab placement. Patient's EF is 30 to 35%. 10/27/[id number]-hsfk-old female admitted for acute on chronic systolic heart failure. Pulse oxes 99% on 2 L this morning and she uses BiPAP at night. PCO2 in the chemistry is 42 this morning. She is waiting for placement in [facility]. Presently on carvedilol, Imdur, losartan, furosemide, atorvastatin and aspirin. Input is 1500 mL and output is 1500 mL balance is 0 in the last 24 hours. Patient has a bed available at a assisted facility she is going there today. 10/28/2018-patient admitted with acute on chronic systolic heart failure. Pulse ox today is 92% on room air. Comfortably in the bed communicating well. No complaints. Input is 1200 mL output is 3.45 L. With a negative balance of 2.2 L. (2) PASHA (acute kidney injury) Is this a current diagnosis for this admission?: Yes Summary: Resolved. Creatinine today 1.41; baseline appears to be 1.30 Likely secondary to IV furosemide, although, possibly complicated by acute CHF exacerbation. Avoid nephrotoxic medications as able. Daily chemistries. 10/26/2018-came in with creatinine of 1.17 peaked to 1.67 and improved to 1.41 yesterday. Plan is to repeat the labs today and tomorrow. Nonoliguric. 10/27/[id number]-kpdz-old female came in with creatinine of 1.17 it was peaked at 1.67 came down to 1.36 today. Continue to show improvement. Acute kidney injury most likely secondary to CHF exacerbation. Patient is nonoliguric urin [place] output is 1500 mL. Patient is going to the rehab facility today. 10/28/[id number]-fvxr-old female came in with a creatinine of 1.17 peaked to 1.67. And it is improved to 1.14 today. Acute kidney injury most likely secondary to acute on chronic systolic heart failure resolving patient is nonoliguric and she is going to the rehab facility today. (3) Anemia Is this a current diagnosis for this admission?: Yes Summary: Hemoglobin of 8.7; appears to be close to baseline. Recommend multivitamin and iron supplementation. Registered dietitian is consulted. 10/30/2018-since latest hemoglobin is 9.3 at baseline. Anemia of chronic disease most likely secondary to underlying CKD. 10/27/2018-patient's hemoglobin is 9.4 stable. Anemia of chronic disease most likely secondary to underlying chronic kidney disease. 10/28/2018-patient hemoglobin is 8.7 stable. Most likely secondary to underlying chronic kidney disease. (4) CKD (chronic kidney disease) Is this a current diagnosis for this admission?: Yes (5) COPD exacerbation Is this a current diagnosis for this admission?: Yes Summary: 10/26/2018-patient came in with COPD exacerbation in association with acute on chronic systolic heart failure pulse ox is 96% this morning patient is on BiPAP at night for hypercapnia. 10/27/2018-patient he came in with COPD exacerbation in association with acute on chronic systolic heart failure pulse ox is 99% on 2 L today using BiPAP at night for obesity associated hypoventilation syndrome. 10/28/2018-patient came in with COPD exacerbation she has also has obesity associated hypoventilation syndrome using the BiPAP at night. She is going to [facility] to the [facility] with BiPAP at night. Pulse ox is good today. (6) Hypercapnic respiratory failure, chronic Is this a current diagnosis for this admission?: Yes Summary: She wears oxygen via nasal cannula at home. CPAP at night. 10/26/2018-patient is on home oxygen at home using CPAP at night. Pulse ox 96% this morning, presently she is on BiPAP at night. 10/27/2018-patient pulse ox is 99% on 2 L. She is also on home oxygen at home. Using BiPAP at night. Plan is to continue the present management. 10/28/2018-pulse ox is 95% on 2 L today. She is using BiPAP at night. Patient is going to rehab facility today. (7) Hypertension Is this a current diagnosis for this admission?: Yes Summary: Presently normotensive on current medications. 10/24/2018-patient blood pressure today is 127/75 plan is to continue furosemide, losartan, Coreg. 10/27/2018-patient blood pressure today is 137/71 stable. 10/28/2018-patient blood pressure today is 116/66 stable. (8) Morbidly obese Is this a current diagnosis for this admission?: Yes - Additional Information Resuscitation Status: Do Not Resuscitate Discharge Diet: Cardiac, Diabetic Discharge Activity: Activity As Tolerated, Balance Activity w/Rest, Supervised Activity, Weigh Daily Prescriptions: Aspirin [Ecotrin 81 mg EC Tablet] 81 mg PO DAILY #90 tabec Home Medications: Acetaminophen [Tylenol Extra Strength 500 mg Tablet] 2 tab PO Q8HP PRN 10/20/18 Aspirin [Aspirin 81 mg Chewable Tablet] 81 mg PO DAILY 10/20/18 Atorvastatin Calcium [Lipitor 20 mg Tablet] 20 mg PO QHS 10/20/18 Carvedilol [Coreg 12.5 mg Tablet] 12.5 mg PO Q12 10/20/18 Ferrous Sulfate [Feosol 325 mg Tablet] 325 mg PO BIDBS 10/20/18 Furosemide [Lasix 80 mg Tablet] 160 mg PO BID 10/20/18 Gabapentin [Neurontin 300 mg Capsule] 300 mg PO Q12 10/20/18 Insulin Aspart [Novolog Insulin (Aspart) 100 unit/mL] 0 unit SUBCUT .SLD SCALE 10/20/18 Insulin Glargine,Hum.rec.anlog [Lantus Insulin 100 Unit/1 ml 10 ml] 10 unit SUBCUT QHS 10/20/18 Isosorbide Mononitrate [Imdur 30 mg Tablet.er] 30 mg PO DAILY 10/20/18 Losartan Potassium [Cozaar 25 mg Tablet] 25 mg PO DAILY 10/20/18 Multivitamin [Tab-A-Kisha (Multiple Vitamin) Tablet] 1 tab PO DAILY 10/20/18 Potassium Chloride [Klor-Con 10 Meq Capsule ER] 10 meq PO DAILY 10/20/18 Acetaminophen [Tylenol 325 mg Tablet] 650 mg PO Q4HP PRN tablet 10/23/18 Aspirin [Ecotrin 81 mg EC Tablet] 81 mg PO DAILY #90 tabec 10/23/18 Carvedilol [Coreg 12.5 mg Tablet] 12.5 mg PO Q12 tablet 10/23/18 Metolazone [Zaroxolyn 5 mg Tablet] 5 mg PO DAILY #0 10/23/18 History of Present Illness Admission Date/PCP: 10/19/18 21:42 MARLEY HARDEN MD History of Present Illness: CARLEE WALDROP is a 63 year old female 63 year old female with a past medical history of profound debility, severe morbid obesity, obstructive sleep apnea, morbid obesity hypoventilation, congestive heart failure with an ejection fraction of 35%, status post pacemaker placement, severe pulmonary hypertension with an RVSP of 74, and moderate mitral regurgitation and oxygen dependent chronic respiratory failure. Patient presents with shortness of breath x2 days, EMS reports hypoxia in the 80s and empty oxygen tank. In the emergency room she she is awake and alert on BiPAP with a PCO2 of 80. Patient denies recent change in diet, lifestyle, medications but admits to weight gain. She receives IV Lasix and referred to the hospitalist for admission. She denies chest pain and otherwise feels improved. Hospital Course Hospital Course: 33-year-old female admitted with shortness of breath associated with hypoxia and hypercapnia most likely associated with underlying acute on chronic systolic heart failure. Patient is doing well in the hospital. No complications during the hospital stay. She is euvolemic now. [facility]. Physical Exam Vital Signs: Temp Pulse Resp BP Pulse Ox 98.5 F 66 16 116/77 85 L 10/28/18 03:06 10/28/18 07:00 10/28/18 03:06 10/28/18 03:06 10/28/18 03:06 Intake & Output 10/27/18 10/28/18 10/29/18 06:59 06:59 06:59 Intake Total 1200 2040 Output Total 3850 1400 Balance -2650 640 Weight 225.9 kg 225.9 kg Results Laboratory Results: 10/28/18 05:11 10/28/18 05:11 10/28/18 10/28/18 05:11 05:11 WBC 4.2 RBC 3.56 L Hgb 8.7 L Hct 28.1 L MCV 79 L MCH 24.6 L MCHC 31.2 L RDW 18.0 H Plt Count 126 L Seg Neutrophils % 62.7 Lymphocytes % 22.9 Monocytes % 11.5 Eosinophils % 1.8 Basophils % 1.1 Absolute Neutrophils 2.6 Absolute Lymphocytes 1.0 Absolute Monocytes 0.5 Absolute Eosinophils 0.1 Absolute Basophils 0.0 Sodium 140.5 Potassium 4.4 Chloride 93 L Carbon Dioxide 42 H* Anion Gap 6 BUN 43 H Creatinine 1.14 Est GFR ( Amer) 58 L Est GFR (Non-Af Amer) 48 L Glucose 115 H Calcium 9.1 Magnesium 1.8 Total Bilirubin 0.4 AST 16 ALT 15 Alkaline Phosphatase 100 Total Protein 6.3 Albumin 3.2 L 10/19/18 10/19/18 10/20/18 20:10 20:10 02:20 Creatine Kinase 67 CK-MB (CK-2) 1.08 Troponin I 0.052 0.055 NT-Pro-B Natriuret Pep 3610 H 10/20/18 10/20/18 10/20/18 02:20 09:30 09:30 Creatine Kinase 58 52 CK-MB (CK-2) Troponin I Cancelled NT-Pro-B Natriuret Pep 10/20/18 10/20/18 10/20/18 09:30 09:30 16:44 Creatine Kinase Cancelled CK-MB (CK-2) 0.79 Troponin I 0.041 0.042 NT-Pro-B Natriuret Pep 10/20/18 10/27/18 16:44 06:49 Creatine Kinase 51 CK-MB (CK-2) Troponin I NT-Pro-B Natriuret Pep 3580 H Impressions: Chest X-Ray 07/16/19 19:50 IMPRESSION: Cardiomegaly. Lungs are clear copyright 2011 [employer]- All Rights Reserved Transfer Plan - Time Spent with Patient Time spent with patient: Greater than 30 Minutes Qualifiers - * PATIENT BEING DISCHARGED WITH ANY OF THE FOLLOWING DIAGNOSIS: No VTE patient discharged on overlapping Therapy?: No Acute Heart Failure - Is this a Heart Failure Patient?: No
[2018-10-28] MEDS: POTASSIUM CHLORIDE 10 MEQ CAPSULE.ER PO SCH (11:29)
[2018-10-28] MEDS: MULTIVITAMIN TABLET PO SCH (11:29)
[2018-10-28] MEDS: ISOSORBIDE MONONITRATE 30 MG TAB.ER.24H PO SCH (11:30)
[2018-10-28] MEDS: FUROSEMIDE 80 MG TABLET PO SCH ×2 (11:30→17:58)
[2018-10-28] MEDS: LOSARTAN POTASSIUM 25 MG TABLET PO SCH (11:30)
[2018-10-28] MEDS: CARVEDILOL 12.5 MG TABLET PO SCH (11:30)
[2018-10-28] MEDS: DOCUSATE SODIUM 100 MG CAPSULE PO SCH (11:32)
[2018-10-28] MEDS: ASPIRIN 81 MG TABLET, ENT COATED PO SCH (11:40)
[2018-10-28 16:59] VITALS: BP 128/78
[2018-10-29] MEDS ORDERED: ASPIRIN 81 MG TABLET, ENT COATED PO SCH (10:00)
== END 2018-10-28 20:55 | DRG 292 ==
LOC: ER 19:42 → EH 21:42 → 4N 10-20 20:46
PROVIDERS: ADMIT Internal Medicine; ATTEND Internal Medicine
PROC: 5A09557 Assistance with Respiratory Ventilation, Greater than 96 Consecutive Hours, Continuous Positive Airway Pressure (ICD-10-PCS; principal; 2018-10-19)
DX: I11.0 Hypertensive heart disease with heart failure (principal); E66.2 Morbid (severe) obesity with alveolar hypoventilation; J96.12 Chronic respiratory failure with hypercapnia; Z68.44 Body mass index [BMI] 60.0-69.9, adult; N17.9 Acute kidney failure, unspecified; I50.23 Acute on chronic systolic (congestive) heart failure; E11.9 Type 2 diabetes mellitus without complications; I27.20 Pulmonary hypertension, unspecified; J44.9 Chronic obstructive pulmonary disease, unspecified; D63.1 Anemia in chronic kidney disease; Z66 Do not resuscitate; Z99.81 Dependence on supplemental oxygen; Z95.0 Presence of cardiac pacemaker; E78.5 Hyperlipidemia, unspecified; I25.2 Old myocardial infarction; I34.0 Nonrheumatic mitral (valve) insufficiency; Z87.891 Personal history of nicotine dependence; Z82.49 Family history of ischemic heart disease and other diseases of the circulatory system; Z83.3 Family history of diabetes mellitus; Z79.4 Long term (current) use of insulin; Z79.899 Other long term (current) drug therapy; Z79.82 Long term (current) use of aspirin
CPT/HCPCS: 36415; 51701; 71045; 80048; 80053; 80061; 81001; 82550; 82553; 82607; 82728; 82746; 82803; 82962; 83036; 83540; 83550; 83735; 83880; 84443; 84484; 85025; 85027; 85045; 93005; 93010; 94640; 94660; 96374; 99285; J1644; J1756; J1815; J1940; J3490; J7030; J7620

== ENCOUNTER 2019-01-03 20:02 | Inpatient (IN) | payer MEDICARE, MEDICAID ==
--- NOTE | 2019-01-03 20:23 | ER Document Report ---
ED Respiratory Problem - General Chief Complaint: Breathing Difficulty Stated Complaint: DIFFICUTLY BREATHING Time Seen by Provider: 01/03/19 20:20 Primary Care Provider: OSCAR SANTO MD [Primary Care Provider] - Follow up as needed Mode of Arrival: Stretcher Information source: Patient, Emergency Med Personnel Notes: HISTORY OF PRESENT ILLNESS: Patient is a 63-year-old female with a past medical history of coronary artery disease, CHF, and COPD who presents with increasing difficulty breathing the first began 3 days ago but got worse abruptly prior to arrival. Patient reports she initially had central chest pressure and heaviness when her symptoms got wor se, chest pain has resolved but her breathing is no better. Prior to arrival, patient was given albuterol and placed on CPAP by EMS. Location: Chest Onset: 3 days ago, worse today Alleviation: None Provocation: Movement Quality: Heaviness, pressure Radiation: None Severity: Moderate to severe Timing: Constant History of CAD: Yes, stent x2 Associated symptoms: Denies fevers or chills, reports a nonproductive cough, no nausea or vomiting, no known sick contacts REVIEW OF SYSTEMS: CONSTITUTIONAL : Denies fever or chills, no sweats. Denies recent illness. EENT: Denies eye, ear, throat, or mouth pain or symptoms. Denies nasal or sinus congestion. CARDIOVASCULAR: Positive for chest pain. Denies swelling of the legs. RESPIRATORY: Positive for cough but no congestion. Positive for shortness of breath and difficulty breathing. Denies wheezing. GASTROINTESTINAL: Denies abdominal pain. Denies nausea, vomiting, or diarrhea. Denies constipation. GENITOURINARY: Denies difficulty urinating, painful urination, burning, frequency, or blood in urine. MUSCULOSKELETAL: Denies neck or back pain or joint pain or swelling. SKIN: Denies rash or skin lesions. HEMATOLOGIC : Denies easy bruising or bleeding. LYMPHATIC: Denies swollen, enlarged glands. NEUROLOGICAL: Denies altered mental status or loss of consciousness. Denies headache. Denies weakness or paralysis or loss of use of either side. Denies problems with gait or speech. Denies sensory or motor loss. PSYCHIATRIC: Denies anxiety or stress or depression. All other systems reviewed and negative. PHYSICAL EXAMINATION: GENERAL: Morbidly obese, weak-appearing, well-nourished and in moderate acute distress. HEAD: Atraumatic, normocephalic. No scalp deformity, depression, or crepitance. EYES: Pupils are 3 mm and equal/round/reactive to light, extraocular movements intact, sclera anicteric, conjunctiva are normal. ENT: Nares patent bilaterally, oropharynx. Moist mucous membranes. No tonsil hypertrophy. NECK: Normal range of motion, supple without lymphadenopathy. LUNGS: Breath sounds diminished with moderate crackles bilaterally. No wheezes, rales, or rhonchi. HEART: Increased rate and normal rhythm without murmurs, rubs, or gallops. 2+ peripheral pulses. Normal capillary refill. ABDOMEN: Soft, nontender, nondistended. Normoactive bowel sounds. No guarding, no rebound. No masses appreciated. BACK: Normal contour, no midline tenderness. Rectal exam deferred. GENITAL/PELVIC: Deferred. EXTREMITIES: Normal range of motion, 2+ pitting edema bilaterally. No cyanosis. NEUROLOGICAL: No focal neurological deficits. Moves all extremities spontaneously and on command. PSYCH: Normal mood, normal affect. No suicidal thoughts/ideations. No homicidal thoughts/ideations. No hallucinations. SKIN: Warm, dry, normal turgor, no rashes or lesions noted. ASSESSMENT AND PLAN: This patient is a 63-year-old female who presents with cough, chest pain, shortness of breath that most likely is consistent with worsening heart failure versus COPD exacerbation versus acute GA. 1. Will obtain labs, urine, cardiac enzymes, BNP, chest x-ray, and placed on BiPAP. 2. Will give empiric antibiotics as well as Lasix and admit to the hospital. TRAVEL OUTSIDE OF THE [place] IN LAST 30 DAYS: No - HPI Patient complains to provider of: Cough, Short of breath Onset: This evening Duration: Continuous Quality of pain: Achy, Fullness, Pressure Severity: Severe Pain Level: 1 Context: Hx CHF, Hx COPD, Smoker Short of Breath: Moderate Chest pain/discomfort: Center, Heaviness Cough: Nonproductive Sputum amount: None EMS treatments: Bronchodilators Associated symptoms: Chest pain/discomfort, Cough, Short of breath Similar symptoms previously: No Recently seen / treated by doctor: No - Related Data Allergies/Adverse Reactions: No Known Allergies Allergy (Verified 07/05/18 21:31) Past Medical History - General Information source: Patient, Emergency Med Personnel - Social History Smoking Status: Former Smoker Chew tobacco use (# tins/day): No Frequency of alcohol use: None Drug Abuse: None Lives with: Family Family History: CAD, DM, Hypertension - Past Medical History Cardiac Medical History: Reports: Hx Congestive Heart Failure, Hx Heart Attack, Hx Hypercholesterolemia, Hx Hypertension Pulmonary Medical History: Reports: Hx COPD EENT Medical History: Reports: None Neurological Medical History: Reports: None Endocrine Medical History: Reports: Hx Diabetes Mellitus Type 1, Hx Diabetes Mellitus Type 2 Renal/ Medical History: Reports: Hx Renal Insufficiency. Denies: Hx Peritoneal Dialysis Malignancy Medical History: Reports: None GI Medical History: Reports: None. Denies: Hx Cirrhosis, Hx Crohn's Disease, Hx Gastroesophageal Reflux Disease, Hx Hiatal Hernia Musculoskeletal Medical History: Reports None, Denies Hx Fibromyalgia, Denies Hx Gout Skin Medical History: Reports None, Denies Hx Eczema, Denies Hx Psoriasis Psychiatric Medical History: Reports: None Denies: Hx Depression Traumatic Medical History: Reports: None Infectious Medical History: Reports: None Past Surgical History: Reports: Hx Cardiac Surgery - defib., Hx Hysterectomy - Immunizations Immunizations up to date: Yes Hx Diphtheria, Pertussis, Tetanus Vaccination: Yes Hx Pneumococcal Vaccination: 01/04/17 Review of Systems - Review of Systems Constitutional: No symptoms reported EENT: No symptoms reported Cardiovascular: See HPI, Chest pain Respiratory: See HPI, Cough, Short of breath Gastrointestinal: No symptoms reported Genitourinary: No symptoms reported Female Genitourinary: No symptoms reported Musculoskeletal: No symptoms reported Skin: No symptoms reported Hematologic/Lymphatic: No symptoms reported Neurological/Psychological: No symptoms reported -: Yes All other systems reviewed and negative Physical Exam - Vital signs Vitals: Resp Pulse Ox 18 92 01/03/19 20:20 01/03/19 20:20 Interpretation: Normal, Tachycardic Course - Re-evaluation Re-evalutation: 01/04/19 02:36 Patient continues to improve on BiPAP. Patient clearly has evidence of fluid overload, on both chest x-ray as well as increased BNP, therefore was given IV Lasix 80 mg. She is admitted to the hospital. - Vital Signs Vital signs: Temp Pulse Resp BP Pulse Ox 97.9 F 87 30 H 169/104 H 95 01/04/19 02:00 01/03/19 20:27 01/04/19 02:01 01/04/19 02:00 01/04/19 02:01 - Laboratory Result Diagrams: 01/03/19 21:45 01/03/19 23:31 Laboratory results interpreted by me: 01/03/19 01/03/19 01/03/19 21:45 22:45 23:31 Hgb 11.8 L MCV 79 L MCH 24.5 L MCHC 30.9 L RDW 20.8 H Plt Count 105 L Lymph % (Auto) 11.9 L Seg Neutrophils % 80.6 H Carbonic Acid ABG pCO2 ABG pO2 ABG HCO3 ABG Total CO2 ABG O2 Saturation Carbon Dioxide 34 H BUN 21 H Est GFR ( Amer) 58 L Est GFR (MDRD) Non-Af 48 L Glucose 154 H NT-Pro-B Natriuret Pep Total Protein 8.4 H Urine Blood SMALL H Ur Leukocyte Esterase TRACE H 01/03/19 01/04/19 23:31 00:45 Hgb MCV MCH MCHC RDW Plt Count Lymph % (Auto) Seg Neutrophils % Carbonic Acid 1.59 H ABG pCO2 52.8 H ABG pO2 53.1 L ABG HCO3 30.3 H ABG Total CO2 31.9 H ABG O2 Saturation 86.3 L Carbon Dioxide BUN Est GFR ( Amer) Est GFR (MDRD) Non-Af Glucose NT-Pro-B Natriuret Pep 6270 H Total Protein Urine Blood Ur Leukocyte Esterase - Diagnostic Test Radiology reviewed: Image reviewed, Reports reviewed - EKG Interpretation by Me EKG shows normal: Sinus rhythm Rate: Normal Rhythm: Other - Paced [place]/QRS: LBBB, IVCD Voltage: No: Increased voltage, Consistant with LVH, Decreased voltage, Throughout, Limb leads P Waves: No: TRACI, LAE, Absent, AV Dissociation, Other Heart block present: No: 1st Degree, Mobitz 1, Mobitz 2, CHB (3rd degree block) When compared to previous EKG there are: No significant change - Consults Dr. Mcallister Time consulted: 02:37 - will admit Consulted provider: will come to ER Discharge - Discharge Clinical Impression: Morbidly obese CKD (chronic kidney disease) Qualifiers: Chronic kidney disease stage: unspecified stage Qualified Code(s): N18.9 - Chronic kidney disease, unspecified Acute on chronic congestive heart failure Qualifiers: Heart failure type: unspecified Qualified Code(s): I50.9 - Heart failure, un specified Condition: Stable Disposition: ADMITTED INPATIENT Admitting Provider: Esvin (Hospitalist) Unit Admitted: Telemetry Referrals: OSCAR SANTO MD [Primary Care Provider] - Follow up as needed
[2019-01-03] MEDS ORDERED: FUROSEMIDE INJ/PF 40 MG/4 ML SDV IV ONE (20:55)
--- NOTE | 2019-01-03 21:41 | RADIOLOGY REPORT (SQ) ---
XR CHEST 1 VIEW CLINICAL STATEMENT: respiratory distress COMPARISON: 10/19/2018 FINDINGS: Heart is quite enlarged. Right upper lobe and right lower lobe airspace disease consistent with pneumonia or pulmonary edema. Left lung perihilar airspace disease as well. No pneumothorax. Left chest pacemaker. No pleural effusions. IMPRESSION: Significant multifocal bilateral perihilar airspace disease suspicious for CHF/pulmonary edema.
[2019-01-03] MEDS ORDERED: CEFTRIAXONE 1 GM/D5W RTU 1 GM/50 ML RTUPB IV ONE (21:54)
[2019-01-03] MEDS ORDERED: AZITHROMYCIN INJ 500 MG VIAL IV ONE (21:54)
[2019-01-03 22:24] LABS: ABSOLUTE BASOPHILS # (AUTO) 0.1 10^3/uL (0.0-0.2); ABSOLUTE EOSINOPHILS # (AUTO) 0.1 10^3/uL (0.0-0.6); ABSOLUTE LYMPHOCYTES (AUTO) 1.1 10^3/uL (0.5-4.7); ABSOLUTE MONOCYTES (AUTO) 0.6 10^3/uL (0.1-1.4); ABSOLUTE NEUT (AUTO) 7.6 10^3/uL (1.7-8.2); BASOPHILS % (AUTO) 0.9 % (0-2); EOSINOPHILS % (AUTO) 0.6 % (0-6); HEMATOCRIT 38.3 % (36.0-47.0); HEMOGLOBIN 11.8 g/dL (12.0-15.5); LYMPHOCYTES % (AUTO) 11.9 % (13-45); MEAN CORPUSCULAR HEMOGLOBIN 24.5 pg (27.0-33.4); MEAN CORPUSCULAR HGB CONC 30.9 g/dL (32.0-36.0); MEAN CORPUSCULAR VOLUME 79 fl (80-97); PLATELET COUNT 105 10^3/uL (150-450); RED BLOOD COUNT 4.83 10^6/uL (3.72-5.28); RED CELL DISTRIBUTION WIDTH 20.8 % (11.5-14.0); SEGMENTED NEUTROPHILS % (AUTO) 80.6 % (42-78); TOTAL CELLS COUNTED % (AUTO) 100 %; WHITE BLOOD COUNT 9.4 10^3/uL (4.0-10.5)
[2019-01-03 23:21] LABS: APPEARANCE,URINE CLEAR; BILIRUBIN,URINE NEGATIVE (NEGATIVE); COLOR,URINE COLORLESS; GLUCOSE, URINE NEGATIVE (NEGATIVE); KETONES,URINE NEGATIVE (NEGATIVE); LEUKOCYTE ESTERASE,URINE TRACE (NEGATIVE); NITRITE,URINE NEGATIVE (NEGATIVE); PROTEIN,URINE NEGATIVE (NEGATIVE); URINE SPECIFIC GRAVITY 1.005; UROBILINOGEN,URINE NEGATIVE mg/dL (<2.0)
[2019-01-03 23:56] LABS: ALBUMIN 4.2 g/dL (3.5-5.0); ALKALINE PHOSPHATASE 121 U/L (38-126); ANION GAP 8 (5-19); ASPARTATE AMINO TRANSFERASE 27 U/L (14-36); BILIRUBIN,DIRECT 0.2 mg/dL (0.0-0.4); BILIRUBIN,TOTAL 0.9 mg/dL (0.2-1.3); BLOOD UREA NITROGEN 21 mg/dL (7-20); CALCIUM 9.7 mg/dL (8.4-10.2); CARBON DIOXIDE 34 mmol/L (22-30); CHLORIDE 100 mmol/L (98-107); CREATINE KINASE 84 U/L (30-135); GLUCOSE 154 mg/dL (75-110); POTASSIUM 4.4 mmol/L (3.6-5.0); TOTAL PROTEIN 8.4 g/dL (6.3-8.2)
[2019-01-04 00:07] LABS: CREATINE KINASE MB 1.84 ng/mL (<4.55)
[2019-01-04 00:17] LABS: TROPONIN I 0.049 ng/mL
--- NOTE | 2019-01-04 00:29 | EKG REPORT ---
SEVERITY:- ABNORMAL ECG - ATRIAL-SENSED VENTRICULAR-PACED COMPLEXES PROBABLE LEFT ATRIAL ABNORMALITY NONSPECIFIC IVCD WITH LAD : Confirmed by: Jeannine Ling MD 04-Jan-2019 00:28:16
[2019-01-04 00:59] LABS: ARTERIAL BLOOD BASE EXCESS 4.1 mmol/L; ARTERIAL BLOOD FIO2 35%; ARTERIAL BLOOD H2CO3 1.59 mmol/L (1.05-1.35); ARTERIAL BLOOD HCO3 30.3 mmol/L (20-24); ARTERIAL BLOOD O2 SATURATION 86.3 % (94-98); ARTERIAL BLOOD PCO2 52.8 mmHg (35-45); ARTERIAL BLOOD PH 7.38 (7.35-7.45); ARTERIAL BLOOD PO2 53.1 mmHg (80-100); ARTERIAL BLOOD TOTAL CO2 31.9 mmol/L (21-25)
[2019-01-04] MEDS ORDERED: MAGNESIUM HYDROXIDE SUSP 30 ML UDCUP PO PRN (02:40)
[2019-01-04] MEDS ORDERED: GLUCAGON,HUMAN RECOMB 1 MG INJ IM PRN (02:40)
[2019-01-04] MEDS ORDERED: ENALAPRILAT DIHYDRATE INJ/PF 1.25 MG/1 ML SDV IV PRN (02:40)
[2019-01-04] MEDS ORDERED: LACTULOSE SYRUP 20 GM/30 ML UDCUP PO ONE (02:40)
[2019-01-04] MEDS ORDERED: HYDRALAZINE HCL INJ/PF 20 MG/1 ML SDV IV PRN (02:40)
[2019-01-04] MEDS ORDERED: MAG HYDROX/AL HYDROX/SIMETH SUSP 30 ML UDCUP PO PRN (02:40)
[2019-01-04] MEDS ORDERED: DEXTROSE 50%-WATER 25 GM/50 ML DISP.SYRIN IV PRN ×2 (02:40)
[2019-01-04] MEDS ORDERED: ACETAMINOPHEN 325 MG TABLET PO PRN (02:40)
[2019-01-04] MEDS ORDERED: DEXTROSE 40% GEL 15 GM TUBE PO PRN ×2 (02:40)
[2019-01-04] MEDS ORDERED: NITROGLYCERIN 5 MG (0.2 MG/HR) PATCH.TD24 TD ONE (03:00)
[2019-01-04] MEDS ORDERED: POTASSIUM CHLORIDE 10 MEQ CAPSULE.ER PO ONE (03:00)
[2019-01-04] MEDS ORDERED: SPIRONOLACTONE 25 MG TABLET PO ONE (03:00)
[2019-01-04] MEDS ORDERED: VALSARTAN 160 MG TABLET PO ONE (03:00)
--- NOTE | 2019-01-04 06:05 | PDOC H&P ---
History of Present Illness Admission Date/PCP: 01/04/19 02:46 OSCAR SANTO MD Patient complains of: Weight gain and shortness of breath History of Present Illness: CARLEE WALDROP is a 63 year old female with a past medical history of profound debility, severe morbid obesity, obstructive sleep apnea, morbid obesity hypoventilation, congestive heart failure with an ejection fraction of 35% status post pacemaker, ICD, severe pulmonary hypertension with RVSP of 74 and moderate mitral regurgitation. Patient presents with 5 days of increasing shortness of breath associated with weight gain of 34 pounds of the last 2 weeks and recent addition of Lyrica to her medication regiment. In the emergency room she is found to have both hypercapnic and hypoxic respiratory failure and diastolic and systolic heart failure exacerbation. She started on BiPAP, Lasix and referred to the hospitalist for admission. Admits compliant with BiPAP and a 1800 mL fluid restriction. She denies chest pain. Past Medical History Cardiac Medical History: Reports: Congestive Heart Failure, Myocardial Infarction, Hyperlipidema, Hypertension Pulmonary Medical History: Reports: Chronic Obstructive Pulmonary Disease (COPD) EENT Medical History: Reports: None Neurological Medical History: Reports: None Endocrine Medical History: Reports: Diabetes Mellitus Type 1, Diabetes Mellitus Type 2 Malignancy Medical History: Reports: None GI Medical History: Reports: None Denies: Cirrhosis, Crohn's Disease, Gastroesophageal Reflux Disease, Hiatal Hernia Musculoskeltal Medical History: Reports: None Denies: Fibromyalgia, Gout Skin Medical History: Reports: None Denies: Eczema, Psoriasis Psychiatric Medical History: Reports: None Denies: Depression Traumatic Medical History: Reports: None Hematology: Reports: Anemia Infectious Medical History: Reports: None Past Surgical History Past Surgical History: Reports: Hysterectomy Social History Information Source: Patient, [facility] Lives with: Family Smoking Status: Former Smoker Frequency of Alcohol Use: None Hx Recreational Drug Use: No Drugs: None Hx Prescription Drug Abuse: No - Advance Directive Resuscitation Status: Full Code Family History Family History: CAD, DM, Hypertension Parental Family History Reviewed: Yes Children Family History Reviewed: Yes Sibling(s) Family History Reviewed.: Yes Medication/Allergy Home Medications: Acetaminophen [Tylenol Extra Strength 500 mg Tablet] 2 tab PO Q8HP PRN 10/20/18 Aspirin [Aspirin 81 mg Chewable Tablet] 81 mg PO DAILY 10/20/18 Atorvastatin Calcium [Lipitor 20 mg Tablet] 20 mg PO QHS 10/20/18 Carvedilol [Coreg 12.5 mg Tablet] 12.5 mg PO Q12 10/20/18 Ferrous Sulfate [Feosol 325 mg Tablet] 325 mg PO BIDBS 10/20/18 Furosemide [Lasix 80 mg Tablet] 160 mg PO BID 10/20/18 Gabapentin [Neurontin 300 mg Capsule] 300 mg PO Q12 10/20/18 Insulin Aspart [Novolog Insulin (Aspart) 100 unit/mL] 0 unit SUBCUT .SLD SCALE 10/20/18 Insulin Glargine,Hum.rec.anlog [Lantus Insulin 100 Unit/1 ml 10 ml] 10 unit SUBCUT QHS 10/20/18 Isosorbide Mononitrate [Imdur 30 mg Tablet.er] 30 mg PO DAILY 10/20/18 Losartan Potassium [Cozaar 25 mg Tablet] 25 mg PO DAILY 10/20/18 Multivitamin [Tab-A-Kisha (Multiple Vitamin) Tablet] 1 tab PO DAILY 10/20/18 Potassium Chloride [Klor-Con 10 Meq Capsule ER] 10 meq PO DAILY 10/20/18 Acetaminophen [Tylenol 325 mg Tablet] 650 mg PO Q4HP PRN tablet 10/23/18 Aspirin [Ecotrin 81 mg EC Tablet] 81 mg PO DAILY #90 tabec 10/23/18 Carvedilol [Coreg 12.5 mg Tablet] 12.5 mg PO Q12 tablet 10/23/18 Metolazone [Zaroxolyn 5 mg Tablet] 5 mg PO DAILY #0 10/23/18 Allergies/Adverse Reactions: No Known Allergies Allergy (Verified 07/05/18 21:31) Review of Systems Constitutional: PRESENT: as per HPI, fatigue, weakness, weight gain. ABSENT: chills, fever(s), headache(s), weight loss Eyes: ABSENT: visual disturbances Ears: ABSENT: hearing changes Cardiovascular: PRESENT: as per HPI, dyspnea on exertion, edema, orthropnea. ABSENT: chest pain, palpitations Respiratory: PRESENT: as per HPI, dyspnea. ABSENT: cough, hemoptysis, sputum Gastrointestinal: ABSENT: abdominal pain, constipation, diarrhea, hematemesis, hematochezia, nausea, vomiting Genitourinary: ABSENT: dysuria, hematuria Musculoskeletal: ABSENT: joint swelling Integumentary: ABSENT: rash, wounds Neurological: ABSENT: abnormal gait, abnormal speech, confusion, dizziness, focal weakness, syncope Psychiatric: ABSENT: anxiety, depression, homidical ideation, suicidal ideation Endocrine: ABSENT: cold intolerance, heat intolerance, polydipsia, polyuria Hematologic/Lymphatic: ABSENT: easy bleeding, easy bruising Physical Exam Vital Signs: Temp Pulse Resp BP Pulse Ox 97.9 F 87 30 H 169/104 H 95 01/04/19 02:00 01/03/19 20:27 01/04/19 02:01 01/04/19 02:00 01/04/19 02:01 Intake & Output 01/02/19 01/03/19 01/04/19 11:59 11:59 11:59 Intake Total 50 Output Total 2300 Balance -2250 Weight 187.787 kg General appearance: PRESENT: cooperative, mild distress, morbidly obese, well- developed, well-nourished Head exam: PRESENT: atraumatic, normocephalic Eye exam: PRESENT: conjunctiva pink, EOMI, PERRLA. ABSENT: scleral icterus Ear exam: PRESENT: normal external ear exam Mouth exam: PRESENT: moist, tongue midline Neck exam: ABSENT: carotid bruit, JVD, lymphadenopathy, thyromegaly Respiratory exam: PRESENT: accessory muscle use, crackles, retraction, symmetrical, tachypnea. ABSENT: rales, rhonchi, wheezes Cardiovascular exam: PRESENT: gallop, RRR. ABSENT: diastolic murmur, rubs, systolic murmur Pulses: PRESENT: normal dorsalis pedis pul Vascular exam: PRESENT: normal capillary refill GI/Abdominal exam: PRESENT: normal bowel sounds, soft. ABSENT: distended, guarding, mass, organolmegaly, rebound, tenderness Rectal exam: PRESENT: deferred Extremities exam: PRESENT: full ROM, pedal edema, +2 edema. ABSENT: calf tenderness, clubbing Neurological exam: PRESENT: alert, awake, oriented to person, oriented to place, oriented to time, oriented to situation, CN II-XII grossly intact. ABSENT: motor sensory deficit Psychiatric exam: PRESENT: appropriate affect, normal mood. ABSENT: homicidal ideation, suicidal ideation Skin exam: PRESENT: dry, intact, warm. ABSENT: cyanosis, rash Results Laboratory Results: 01/03/19 21:45 01/03/19 23:31 09/01/03/19 01/03/19 21:45 21:45 22:45 WBC 9.4 RBC 4.83 Hgb 11.8 L Hct 38.3 MCV 79 L MCH 24.5 L MCHC 30.9 L RDW 20.8 H Plt Count 105 L Seg Neutrophils % 80.6 H Carbonic Acid HCO3/H2CO3 Ratio ABG pH ABG pCO2 ABG pO2 ABG HCO3 ABG O2 Saturation ABG Base Excess FiO2 Sodium Cancelled Potassium Cancelled Chloride Cancelled Carbon Dioxide Cancelled Anion Gap Cancelled BUN Cancelled Creatinine Cancelled Est GFR ( Amer) Cancelled Est GFR (Non-Af Amer) Cancelled Glucose Cancelled Calcium Cancelled Magnesium Total Bilirubin Cancelled AST Cancelled Alkaline Phosphatase Cancelled Total Protein Cancelled Albumin Cancelled TSH Urine Color COLORLESS Urine Appearance CLEAR Urine pH 7.0 Ur Specific [place] 1.005 Urine Protein NEGATIVE Urine Glucose (UA) NEGATIVE Urine Ketones NEGATIVE Urine Blood SMALL H Urine Nitrite NEGATIVE Ur Leukocyte Esterase TRACE H Urine WBC (Auto) 1 Urine RBC (Auto) 3 01/03/19 01/03/19 01/03/19 23:31 23:31 23:31 WBC RBC Hgb Hct MCV MCH MCHC RDW Plt Count Seg Neutrophils % Carbonic Acid HCO3/H2CO3 Ratio ABG pH ABG pCO2 ABG pO2 ABG HCO3 ABG O2 Saturation ABG Base Excess FiO2 Sodium 141.5 Potassium 4.4 Chloride 100 Carbon Dioxide 34 H Anion Gap 8 BUN 21 H Creatinine 1.14 Est GFR ( Amer) 58 L Est GFR (Non-Af Amer) Glucose 154 H Calcium 9.7 Magnesium 2.3 Total Bilirubin 0.9 AST 27 Alkaline Phosphatase 121 Total Protein 8.4 H Albumin 4.2 TSH 1.64 Urine Color Urine Appearance Urine pH Ur Specific [place] Urine Protein Urine Glucose (UA) Urine Ketones Urine Blood Urine Nitrite Ur Leukocyte Esterase Urine WBC (Auto) Urine RBC (Auto) 01/04/19 00:45 WBC RBC Hgb Hct MCV MCH MCHC RDW Plt Count Seg Neutrophils % Carbonic Acid 1.59 H HCO3/H2CO3 Ratio 19:1 ABG pH 7.38 ABG pCO2 52.8 H ABG pO2 53.1 L ABG HCO3 30.3 H ABG O2 Saturation 86.3 L ABG Base Excess 4.1 FiO2 35% Sodium Potassium Chloride Carbon Dioxide Anion Gap BUN Creatinine Est GFR ( Amer) Est GFR (Non-Af Amer) Glucose Calcium Magnesium Total Bilirubin AST Alkaline Phosphatase Total Protein Albumin TSH Urine Color Urine Appearance Urine pH Ur Specific [place] Urine Protein Urine Glucose (UA) Urine Ketones Urine Blood Urine Nitrite Ur Leukocyte Esterase Urine WBC (Auto) Urine RBC (Auto) 01/03/19 01/03/19 01/03/19 21:45 21:45 23:31 Creatine Kinase Cancelled 84 CK-MB (CK-2) Cancelled Troponin I Cancelled NT-Pro-B Natriuret Pep Cancelled 01/03/19 23:31 Creatine Kinase CK-MB (CK-2) 1.84 Troponin I 0.049 NT-Pro-B Natriuret Pep 6270 H Impressions: Chest X-Ray 01/03/19 20:15 IMPRESSION: Significant multifocal bilateral perihilar airspace disease suspicious for CHF/pulmonary edema. Assessment and Plan - Diagnosis (1) Acute on chronic congestive heart failure Qualifiers: Heart failure type: unspecified Qualified Code(s): I50.9 - Heart failure, unspecified Is this a current diagnosis for this admission?: Yes Plan: CHF care set deployed, IV loop diuretic, fluid restriction, BiPAP follow-up cardiac enzymes (2) Acute respiratory failure with hypoxia and hypercapnia Is this a current diagnosis for this admission?: Yes Plan: Complicated by morbid obesity hypoventilation and Lyrica, BiPAP, maintain cervical spine in extension, discontinue Lyrica (3) Controlled type 2 diabetes mellitus Qualifiers: Is this a current diagnosis for this admission?: Yes Plan: Outpatient regiment with Humalog sliding scale (4) Morbidly obese Is this a current diagnosis for this admission?: Yes Plan: Avoid excessive sedation and Lyrica - Time Time Spent with patient: 35 or more minutes - Inpatient Certification Medical Necessity: Need Close Monitoring Due to Risk of Patient Decompensation
[2019-01-04] MEDS: HEPARIN SOD (PORCINE) 5,000 UNIT/ML 1 ML VIAL SUBCUT SCH ×3 (06:17→21:33)
[2019-01-04 07:12] LABS: ANION GAP 6 (5-19); BLOOD UREA NITROGEN 21 mg/dL (7-20); CALCIUM 9.4 mg/dL (8.4-10.2); CARBON DIOXIDE 36 mmol/L (22-30); CHLORIDE 99 mmol/L (98-107); GLUCOSE 153 mg/dL (75-110); POTASSIUM 4.2 mmol/L (3.6-5.0)
[2019-01-04] MEDS: INSULIN LISPRO 100 UNIT/ML 3 ML VIAL SUBCUT SCH ×3 (08:14→16:52)
[2019-01-04] MEDS: FUROSEMIDE INJ/PF 40 MG/4 ML SDV IV SCH ×2 (09:18→21:33)
[2019-01-04] MEDS: CARVEDILOL 12.5 MG TABLET PO SCH ×2 (09:19→21:31)
[2019-01-04] MEDS: ASPIRIN 81 MG TABLET, ENT COATED PO SCH (09:19)
[2019-01-04] MEDS: DOCUSATE SODIUM 100 MG CAPSULE PO SCH (09:19)
--- NOTE | 2019-01-04 17:09 | PDOC PROGRESS REPORT ---
Subjective Progress Note for:: 01/04/19 Subjective:: The patient was admitted earlier this morning. She is less short of breath and reports feeling better. Reason For Visit: DAIANA RESP FAILURE, HEART FAILURE Physical Exam Vital Signs: Temp Pulse Resp BP Pulse Ox 99.7 F 79 21 H 126/69 H 95 01/04/19 15:50 01/04/19 15:50 01/04/19 15:50 01/04/19 15:50 01/04/19 15:50 Intake & Output 01/03/19 01/04/19 01/05/19 06:59 06:59 06:59 Intake Total 50 Output Total 2300 Balance -2250 Weight 189 kg 182.8 kg General appearance: PRESENT: cooperative, mild distress, morbidly obese, well- developed Head exam: PRESENT: atraumatic, normocephalic Ear exam: PRESENT: normal external ear exam. ABSENT: bleeding, drainage Mouth exam: PRESENT: moist, tongue midline Teeth exam: PRESENT: poor dentation Respiratory exam: PRESENT: decreased breath sounds - Possibly due to body habitus, rales - At bases, symmetrical, wheezes - Faint expiratory wheezes. ABSENT: rhonchi, tachypnea Cardiovascular exam: PRESENT: RRR, +S1, +S2 GI/Abdominal exam: PRESENT: normal bowel sounds, soft, other - Pendulous a bdomen. ABSENT: tenderness Extremities exam: PRESENT: +2 edema Musculoskeletal exam: ABSENT: deformity, normal inspection - Chronic lower extremity edema Neurological exam: PRESENT: alert, awake, oriented to person, oriented to place, oriented to time, oriented to situation, CN II-XII grossly intact Psychiatric exam: PRESENT: flat affect. ABSENT: agitated, anxious Focused psych exam: ABSENT: delusional, restlessness Skin exam: PRESENT: dry, warm. ABSENT: rash Results Laboratory Results: 01/03/19 21:45 01/04/19 06:17 01/03/19 01/03/19 01/03/19 21:45 21:45 22:45 WBC 9.4 RBC 4.83 Hgb 11.8 L Hct 38.3 MCV 79 L MCH 24.5 L MCHC 30.9 L RDW 20.8 H Plt Count 105 L Seg Neutrophils % 80.6 H Carbonic Acid HCO3/H2CO3 Ratio ABG pH ABG pCO2 ABG pO2 ABG HCO3 ABG O2 Saturation ABG Base Excess FiO2 Sodium Cancelled Potassium Cancelled Chloride Cancelled Carbon Dioxide Cancelled Anion Gap Cancelled BUN Cancelled Creatinine Cancelled Est GFR ( Amer) Cancelled Est GFR (Non-Af Amer) Cancelled Glucose Cancelled Calcium Cancelled Magnesium Total Bilirubin Cancelled AST Cancelled Alkaline Phosphatase Cancelled Total Protein Cancelled Albumin Cancelled TSH Urine Color COLORLESS Urine Appearance CLEAR Urine pH 7.0 Ur Specific Magnet 1.005 Urine Protein NEGATIVE Urine Glucose (UA) NEGATIVE Urine Ketones NEGATIVE Urine Blood SMALL H Urine Nitrite NEGATIVE Ur Leukocyte Esterase TRACE H Urine WBC (Auto) 1 Urine RBC (Auto) 3 01/03/19 01/03/19 01/03/19 23:31 23:31 23:31 WBC RBC Hgb Hct MCV MCH MCHC RDW Plt Count Seg Neutrophils % Carbonic Acid HCO3/H2CO3 Ratio ABG pH ABG pCO2 ABG pO2 ABG HCO3 ABG O2 Saturation ABG Base Excess FiO2 Sodium 141.5 Potassium 4.4 Chloride 100 Carbon Dioxide 34 H Anion Gap 8 BUN 21 H Creatinine 1.14 Est GFR ( Amer) 58 L Est GFR (Non-Af Amer) Glucose 154 H Calcium 9.7 Magnesium 2.3 Total Bilirubin 0.9 AST 27 Alkaline Phosphatase 121 Total Protein 8.4 H Albumin 4.2 TSH 1.64 Urine Color Urine Appearance Urine pH Ur Specific Magnet Urine Protein Urine Glucose (UA) Urine Ketones Urine Blood Urine Nitrite Ur Leukocyte Esterase Urine WBC (Auto) Urine RBC (Auto) 01/04/19 01/04/19 00:45 06:17 WBC RBC Hgb Hct MCV MCH MCHC RDW Plt Count Seg Neutrophils % Carbonic Acid 1.59 H HCO3/H2CO3 Ratio 19:1 ABG pH 7.38 ABG pCO2 52.8 H ABG pO2 53.1 L ABG HCO3 30.3 H ABG O2 Saturation 86.3 L ABG Base Excess 4.1 FiO2 35% Sodium 140.8 Potassium 4.2 Chloride 99 Carbon Dioxide 36 H Anion Gap 6 BUN 21 H Creatinine 1.10 Est GFR ( Amer) > 60 Est GFR (Non-Af Amer) Glucose 153 H Calcium 9.4 Magnesium Total Bilirubin AST Alkaline Phosphatase Total Protein Albumin TSH Urine Color Urine Appearance Urine pH Ur Specific Magnet Urine Protein Urine Glucose (UA) Urine Ketones Urine Blood Urine Nitrite Ur Leukocyte Esterase Urine WBC (Auto) Urine RBC (Auto) 0901/03/19 01/03/19 21:45 21:45 23:31 Creatine Kinase Cancelled 84 CK-MB (CK-2) Cancelled Troponin I Cancelled NT-Pro-B Natriuret Pep Cancelled 01/03/19 01/04/19 01/04/19 23:31 06:17 12:42 Creatine Kinase CK-MB (CK-2) 1.84 Troponin I 0.049 0.062 0.054 NT-Pro-B Natriuret Pep 6270 H Impressions: Chest X-Ray 01/03/19 20:15 IMPRESSION: Significant multifocal bilateral perihilar airspace disease suspicious for CHF/pulmonary edema. 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 Increase diuretic therapy. * Acute respiratory failure with hypercapnia and hypoxia-supplemental oxygen. Morbid obesity hypoventilation is an issue as well. BiPAP as needed. * Diabetes mellitus type 2 controlled-currently on sliding scale. Continue Accu-Cheks. * Morbid obesity-encourage weight loss although at this stage compliance is unlikely. * Hypertension-continue current medication regimen. The patient reports feeling much better than earlier this morning when she was admitted. We will continue to monitor closely and adjust medications based on her clinical response. - Time Time Spent with patient: Less than 15 minutes Medications reviewed and adjusted accordingly: Yes
[2019-01-04] MEDS: POTASSIUM CHLORIDE 10 MEQ CAPSULE.ER PO SCH (21:32)
[2019-01-04] MEDS: PREGABALIN 75 MG CAPSULE PO SCH (21:32)
[2019-01-04] MEDS: SPIRONOLACTONE 25 MG TABLET PO SCH (21:32)
[2019-01-04] MEDS: SACUBITRIL/VALSARTAN 49 MG/51 MG TABLET PO SCH (21:34)
[2019-01-04] MEDS ORDERED: VALSARTAN 160 MG TABLET PO SCH (22:00)
[2019-01-05] MEDS: HEPARIN SOD (PORCINE) 5,000 UNIT/ML 1 ML VIAL SUBCUT SCH ×3 (06:08→21:41)
[2019-01-05 07:48] LABS: ABSOLUTE EOSINOPHILS # (AUTO) 0.1 10^3/uL (0.0-0.6); ABSOLUTE MONOCYTES (AUTO) 0.7 10^3/uL (0.1-1.4); ABSOLUTE NEUT (AUTO) 3.8 10^3/uL (1.7-8.2); BASOPHILS % (AUTO) 0.6 % (0-2); EOSINOPHILS % (AUTO) 0.9 % (0-6); HEMATOCRIT 30.2 % (36.0-47.0); LYMPHOCYTES % (AUTO) 17.3 % (13-45); MEAN CORPUSCULAR HEMOGLOBIN 24.4 pg (27.0-33.4); MEAN CORPUSCULAR HGB CONC 30.9 g/dL (32.0-36.0); MEAN CORPUSCULAR VOLUME 79 fl (80-97); MONOCYTES % (AUTO) 12.5 % (3-13); RED BLOOD COUNT 3.82 10^6/uL (3.72-5.28); RED CELL DISTRIBUTION WIDTH 20.6 % (11.5-14.0); SEGMENTED NEUTROPHILS % (AUTO) 68.7 % (42-78); TOTAL CELLS COUNTED % (AUTO) 100 %; WHITE BLOOD COUNT 5.6 10^3/uL (4.0-10.5)
[2019-01-05] MEDS: INSULIN LISPRO 100 UNIT/ML 3 ML VIAL SUBCUT SCH ×3 (07:49→16:59)
[2019-01-05 07:59] LABS: BLOOD UREA NITROGEN 24 mg/dL (7-20); CALCIUM 8.5 mg/dL (8.4-10.2); CHLORIDE 100 mmol/L (98-107); GLUCOSE 109 mg/dL (75-110); POTASSIUM 4.3 mmol/L (3.6-5.0)
[2019-01-05 08:04] LABS: ANION GAP 5 (5-19); CARBON DIOXIDE 36 mmol/L (22-30)
[2019-01-05 08:18] LABS: HEMOGLOBIN 9.3 g/dL (12.0-15.5); PLATELET COUNT 93 10^3/uL (150-450)
[2019-01-05] MEDS: PREGABALIN 75 MG CAPSULE PO SCH ×2 (09:12→21:41)
[2019-01-05] MEDS: POTASSIUM CHLORIDE 10 MEQ CAPSULE.ER PO SCH ×2 (09:12→21:40)
[2019-01-05] MEDS: SPIRONOLACTONE 25 MG TABLET PO SCH ×2 (09:12→21:41)
[2019-01-05] MEDS: NITROGLYCERIN 5 MG (0.2 MG/HR) PATCH.TD24 TD SCH (09:13)
[2019-01-05] MEDS: CARVEDILOL 12.5 MG TABLET PO SCH ×2 (09:13→21:41)
[2019-01-05] MEDS: ASPIRIN 81 MG TABLET, ENT COATED PO SCH (09:13)
[2019-01-05] MEDS: SACUBITRIL/VALSARTAN 49 MG/51 MG TABLET PO SCH ×2 (09:18→21:41)
[2019-01-05] MEDS: FUROSEMIDE INJ/PF 40 MG/4 ML SDV IV SCH ×2 (09:18→21:40)
[2019-01-05] MEDS: DOCUSATE SODIUM 100 MG CAPSULE PO SCH (10:17)
--- NOTE | 2019-01-05 13:37 | PDOC PROGRESS REPORT ---
Subjective Progress Note for:: 01/05/19 Subjective:: 01/05/[id number] black female who was admitted the emergency room yesterday with shortness of breath was 5 days. Patient is also had a weight gain of reportedly 34 pounds in 2 weeks. Patient was started on BiPAP and Lasix in the ER Reason For Visit: DAIANA RESP FAILURE, HEART FAILURE Physical Exam Vital Signs: Temp Pulse Resp BP Pulse Ox 98.6 F 78 18 126/76 H 94 01/05/19 08:25 01/05/19 08:25 01/05/19 08:25 01/05/19 08:25 01/05/19 08:25 Intake & Output 01/04/19 01/05/19 01/06/19 06:59 06:59 06:59 Intake Total 50 520 Output Total 2300 800 Balance -2250 -280 Weight 189 kg 183.9 kg General appearance: PRESENT: no acute distress, other - Is sitting up in bed talking on her cell phone says she feels better than mission Respiratory exam: PRESENT: decreased breath sounds, other - Obesity Cardiovascular exam: PRESENT: RRR. ABSENT: diastolic murmur, rubs, systolic murmur Neurological exam: PRESENT: alert, awake, oriented to person, oriented to place, oriented to time, oriented to situation, CN II-XII grossly intact. ABSENT: motor sensory deficit Psychiatric exam: PRESENT: appropriate affect, normal mood. ABSENT: homicidal ideation, suicidal ideation Results Laboratory Results: 01/05/19 06:49 01/05/19 06:49 01/05/19 01/05/19 06:49 06:49 WBC 5.6 RBC 3.82 Hgb 9.3 L D Hct 30.2 L MCV 79 L MCH 24.4 L MCHC 30.9 L RDW 20.6 H Plt Count 93 L Seg Neutrophils % 68.7 Sodium 141.4 Potassium 4.3 Chloride 100 Carbon Dioxide 36 H Anion Gap 5 BUN 24 H Creatinine 1.26 H Est GFR ( Amer) 52 L Glucose 109 Calcium 8.5 Magnesium 2.0 01/03/19 01/03/19 01/03/19 21:45 21:45 23:31 Creatine Kinase Cancelled 84 CK-MB (CK-2) Cancelled Troponin I Cancelled NT-Pro-B Natriuret Pep Cancelled 0901/04/19 01/04/19 23:31 06:17 12:42 Creatine Kinase CK-MB (CK-2) 1.84 Troponin I 0.049 0.062 0.054 NT-Pro-B Natriuret Pep 6270 H 01/04/19 01/05/19 18:28 06:49 Creatine Kinase CK-MB (CK-2) Troponin I 0.050 NT-Pro-B Natriuret Pep 3950 H Impressions: Chest X-Ray 01/03/19 20:15 IMPRESSION: Significant multifocal bilateral perihilar airspace disease suspicious for CHF/pulmonary edema. Assessment and Plan - Diagnosis (1) Acute on chronic congestive heart failure Qualifiers: Heart failure type: unspecified Qualified Code(s): I50.9 - Heart failure, unspecified Is this a current diagnosis for this admission?: Yes (2) CKD (chronic kidney disease) Qualifiers: Chronic kidney disease stage: unspecified stage Qualified Code(s): N18.9 - Chronic kidney disease, unspecified Is this a current diagnosis for this admission?: Yes (3) Morbidly obese Is this a current diagnosis for this admission?: Yes - Plan Summary Summary: * Acute on chronic systolic congestive heart failure-continue Entresto and Aldactone as well as Coreg. Increase diuretic therapy. * Acute respiratory failure with hypercapnia and hypoxia-supplemental oxygen. Morbid obesity hypoventilation is an issue as well. BiPAP as needed. * Diabetes mellitus type 2 controlled-currently on sliding scale. Continue Accu-Cheks. * Morbid obesity-encourage weight loss although at this stage compliance is unlikely. * Hypertension-continue current medication regimen. The patient reports feeling much better than earlier this morning when she was admitted. We will continue to monitor closely and adjust medications based on her clinical response.
[2019-01-06 05:10] LABS: BLOOD UREA NITROGEN 28 mg/dL (7-20); CALCIUM 8.7 mg/dL (8.4-10.2); CARBON DIOXIDE 37 mmol/L (22-30); CHLORIDE 99 mmol/L (98-107); GLUCOSE 121 mg/dL (75-110); POTASSIUM 4.5 mmol/L (3.6-5.0)
[2019-01-06 05:16] LABS: ANION GAP 5 (5-19)
[2019-01-06] MEDS: HEPARIN SOD (PORCINE) 5,000 UNIT/ML 1 ML VIAL SUBCUT SCH ×3 (05:22→21:55)
[2019-01-06] MEDS: INSULIN LISPRO 100 UNIT/ML 3 ML VIAL SUBCUT SCH ×3 (07:28→17:01)
--- NOTE | 2019-01-06 09:40 | PDOC PROGRESS REPORT ---
Subjective Progress Note for:: 01/06/19 Subjective:: 01/05/19 63-year-old black female who was admitted the emergency room yesterday with shortness of breath was 5 days. Patient is also had a weight gain of reportedly 34 pounds in 2 weeks. Patient was started on BiPAP and Lasix in the ER 01/06/2019 patient was admitted with a weight of 187.7 kg this morning her weight is 185.6 kg appears to be about 4-1/2 pounds less than admission. She states that she is feeling better and breathing easier Patient goes between BiPAP and nasal cannula O2 sats are maintaining between 94 and 99% Reason For Visit: DAIANA RESP FAILURE, HEART FAILURE Physical Exam Vital Signs: Temp Pulse Resp BP Pulse Ox 98.3 F 61 18 151/78 H 99 01/06/19 04:15 01/06/19 07:00 01/06/19 04:15 01/06/19 04:15 01/06/19 04:15 Intake & Output 01/05/19 01/06/19 01/07/19 06:59 06:59 06:59 Intake Total 520 1240 Output Total 800 2020 Balance -280 -780 Weight 183.9 kg 185.6 kg General appearance: PRESENT: no acute distress, other - Sitting up in bed talking in full sentences states she feels better than on admission. Respiratory exam: PRESENT: decreased breath sounds, other - Due to obesity Cardiovascular exam: PRESENT: RRR. ABSENT: diastolic murmur, rubs, systolic murmur Neurological exam: PRESENT: alert, awake, oriented to person, oriented to place, oriented to time, oriented to situation, CN II-XII grossly intact. ABSENT: motor sensory deficit Psychiatric exam: PRESENT: appropriate affect, normal mood. ABSENT: homicidal ideation, suicidal ideation Results Laboratory Results: 01/05/19 06:49 01/06/19 03:45 01/06/19 03:45 Sodium 140.8 Potassium 4.5 Chloride 99 Carbon Dioxide 37 H Anion Gap 5 BUN 28 H Creatinine 1.24 Est GFR ( Amer) 53 L Glucose 121 H Calcium 8.7 01/03/19 01/03/19 01/03/19 21:45 21:45 23:31 Creatine Kinase Cancelled 84 CK-MB (CK-2) Cancelled Troponin I Cancelled NT-Pro-B Natriuret Pep Cancelled 01/03/19 01/04/19 01/04/19 23:31 06:17 12:42 Creatine Kinase CK-MB (CK-2) 1.84 Troponin I 0.049 0.062 0.054 NT-Pro-B Natriuret Pep 6270 H 01/04/19 01/05/19 18:28 06:49 Creatine Kinase CK-MB (CK-2) Troponin I 0.050 NT-Pro-B Natriuret Pep 3950 H Impressions: Chest X-Ray 01/03/19 20:15 IMPRESSION: Significant multifocal bilateral perihilar airspace disease suspicious for CHF/pulmonary edema. Assessment and Plan - Diagnosis (1) Acute on chronic congestive heart failure Qualifiers: Heart failure type: unspecified Qualified Code(s): I50.9 - Heart failure, unspecified Is this a current diagnosis for this admission?: Yes (2) CKD (chronic kidney disease) Qualifiers: Chronic kidney disease stage: unspecified stage Qualified Code(s): N18.9 - Chronic kidney disease, unspecified Is this a current diagnosis for this admission?: Yes (3) Morbidly obese Is this a current diagnosis for this admission?: Yes - Plan Summary Summary: * Acute on chronic systolic congestive heart failure-continue Entresto and Al dactone as well as Coreg. Increase diuretic therapy. * Acute respiratory failure with hypercapnia and hypoxia-supplemental oxygen. Morbid obesity hypoventilation is an issue as well. BiPAP as needed. * Diabetes mellitus type 2 controlled-currently on sliding scale. Continue Accu-Cheks. * Morbid obesity-encourage weight loss although at this stage compliance is unlikely. * Hypertension-continue current medication regimen. The patient reports feeling much better than earlier this morning when she was admitted. We will continue to monitor closely and adjust medications based on her clinical response. 01/06/2019 patient states she was last in the hospital in September for 19 days for similar episode of COPD exacerbation. States she lives alone at home and is on O2. Patient does state however on the weekends her daughter comes and stays with her. Patient is currently using a sliding scale of insulin in the hospital, Coreg 12.5 mg every 12 hours, Lasix 40 mg IV every 12 hours spironolactone 25 mg every 12 hours Entresto 49/51 every 12 hours potassium 20 every 12 hours. Also on Nitro-Dur patch 1 daily No antibiotics at the present time, chest x-ray showed CHF no sign of pneumonia - Time Time Spent with patient: 25-34 minutes
[2019-01-06] MEDS: ASPIRIN 81 MG TABLET, ENT COATED PO SCH (10:06)
[2019-01-06] MEDS: POTASSIUM CHLORIDE 10 MEQ CAPSULE.ER PO SCH ×2 (10:07→21:50)
[2019-01-06] MEDS: CARVEDILOL 12.5 MG TABLET PO SCH ×2 (10:07→21:50)
[2019-01-06] MEDS: SPIRONOLACTONE 25 MG TABLET PO SCH ×2 (10:07→21:51)
[2019-01-06] MEDS: PREGABALIN 75 MG CAPSULE PO SCH ×2 (10:10→21:50)
[2019-01-06] MEDS: SACUBITRIL/VALSARTAN 49 MG/51 MG TABLET PO SCH ×2 (10:10→21:50)
[2019-01-06] MEDS: DOCUSATE SODIUM 100 MG CAPSULE PO SCH (10:11)
[2019-01-06] MEDS: FUROSEMIDE INJ/PF 40 MG/4 ML SDV IV SCH ×2 (10:11→21:49)
[2019-01-06] MEDS: NITROGLYCERIN 5 MG (0.2 MG/HR) PATCH.TD24 TD SCH (10:20)
[2019-01-07] MEDS: HEPARIN SOD (PORCINE) 5,000 UNIT/ML 1 ML VIAL SUBCUT SCH ×3 (06:39→21:31)
[2019-01-07] MEDS: INSULIN LISPRO 100 UNIT/ML 3 ML VIAL SUBCUT SCH ×3 (08:26→18:57)
--- NOTE | 2019-01-07 10:37 | PDOC PROGRESS REPORT ---
Subjective Progress Note for:: 01/07/19 Subjective:: 01/05/19 63-year-old black female who was admitted the emergency room yesterday with shortness of breath was 5 days. Patient is also had a weight gain of reportedly 34 pounds in 2 weeks. Patient was started on BiPAP and Lasix in the ER 01/06/2019 patient was admitted with a weight of 187.7 kg this morning her weight is 185.6 kg appears to be about 4-1/2 pounds less than admission. She states that she is feeling better and breathing easier Patient goes between BiPAP and nasal cannula O2 sats are maintaining between 94 and 99% 01/07/2019 patient's weight this morning is 186.2. Patient states she is breathing easier, patient is still maintaining her sats and uses her BiPAP at nighttime. Blood pressure is 124/75 pulse is 74, temp 97.6 Reason For Visit: DAIANA RESP FAILURE, HEART FAILURE Physical Exam Vital Signs: Temp Pulse Resp BP Pulse Ox 97.6 F 74 16 124/75 92 01/07/19 07:55 01/07/19 07:55 01/07/19 07:55 01/07/19 07:55 01/07/19 07:55 Intake & Output 01/06/19 01/07/19 01/08/19 06:59 06:59 06:59 Intake Total 1240 1600 Output Total 2019 3840 Balance -780 -2240 Weight 185.6 kg 186.2 kg General appearance: PRESENT: no acute distress - Sitting up in bed, completed breakfast. No distress Respiratory exam: PRESENT: rales - LLL Cardiovascular exam: PRESENT: RRR. ABSENT: diastolic murmur, rubs, systolic murmur Neurological exam: PRESENT: alert, awake, oriented to person, oriented to place, oriented to time, oriented to situation, CN II-XII grossly intact. ABSENT: motor sensory deficit Psychiatric exam: PRESENT: appropriate affect, normal mood. ABSENT: homicidal ideation, suicidal ideation Results Laboratory Results: 01/05/19 06:49 01/06/19 03:45 01/03/19 01/03/19 01/03/19 21:45 21:45 23:31 Creatine Kinase Cancelled 84 CK-MB (CK-2) Cancelled Troponin I Cancelled NT-Pro-B Natriuret Pep Cancelled 01/03/19 01/04/19 01/04/19 23:31 06:17 12:42 Creatine Kinase CK-MB (CK-2) 1.84 Troponin I 0.049 0.062 0.054 NT-Pro-B Natriuret Pep 6270 H 01/04/19 01/05/19 18:28 06:49 Creatine Kinase CK-MB (CK-2) Troponin I 0.050 NT-Pro-B Natriuret Pep 3950 H Impressions: Chest X-Ray 01/03/19 20:15 IMPRESSION: Significant multifocal bilateral perihilar airspace disease suspicious for CHF/pulmonary edema. Assessment and Plan - Diagnosis (1) Acute on chronic congestive heart failure Qualifiers: Heart failure type: unspecified Qualified Code(s): I50.9 - Heart failure, unspecified Is this a current diagnosis for this admission?: Yes (2) CKD (chronic kidney disease) Qualifiers: Chronic kidney disease stage: unspecified stage Qualified Code(s): N18.9 - Chronic kidney disease, unspecified Is this a current diagnosis for this admission?: Yes (3) Morbidly obese Is this a current diagnosis for this admission?: Yes - Plan Summary Summary: * Acute on chronic systolic congestive heart failure-continue Entresto and Aldactone as well as Coreg. Increase diuretic therapy. * Acute respiratory failure with hypercapnia and hypoxia-supplemental oxygen. Morbid obesity hypoventilation is an issue as well. BiPAP as needed. * Diabetes mellitus type 2 controlled-currently on sliding scale. Continue Accu-Cheks. * Morbid obesity-encourage weight loss although at this stage compliance is unlikely. * Hypertension-continue current medication regimen. The patient reports feeling much better than earlier this morning when she was admitted. We will continue to monitor closely and adjust medications based on her clinical response. 01/06/2019 patient states she was last in the hospital in September for 19 days for similar episode of COPD exacerbation. States she lives alone at home and is on O2. Patient does state however on the weekends her daughter comes and stays with her. Patient is currently using a sliding scale of insulin in the hospital, Coreg 12.5 mg every 12 hours, Lasix 40 mg IV every 12 hours spironolactone 25 mg every 12 hours Entresto 49/51 every 12 hours potassium 20 every 12 hours. Also on Nitro-Dur patch 1 daily No antibiotics at the present time, chest x-ray showed CHF no sign of pneumonia 01/07/19 No change in medications. CBC normal, lytes are stable, sugar's are well controlled. BIPAP settings, IPAP 16, Rate 8, EPAP 8, FI O2 40% sat's about 95 Will repeat 2 view CXR - Time Time Spent with patient: 25-34 minutes
[2019-01-07] MEDS: SACUBITRIL/VALSARTAN 49 MG/51 MG TABLET PO SCH ×2 (10:49→21:30)
[2019-01-07] MEDS: POTASSIUM CHLORIDE 10 MEQ CAPSULE.ER PO SCH ×2 (10:49→21:30)
[2019-01-07] MEDS: NITROGLYCERIN 5 MG (0.2 MG/HR) PATCH.TD24 TD SCH (10:50)
[2019-01-07] MEDS: SPIRONOLACTONE 25 MG TABLET PO SCH ×2 (10:50→21:30)
[2019-01-07] MEDS: CARVEDILOL 12.5 MG TABLET PO SCH ×2 (10:50→21:30)
[2019-01-07] MEDS: DOCUSATE SODIUM 100 MG CAPSULE PO SCH (10:50)
[2019-01-07] MEDS: ASPIRIN 81 MG TABLET, ENT COATED PO SCH (10:50)
[2019-01-07] MEDS: PREGABALIN 75 MG CAPSULE PO SCH ×2 (10:50→21:30)
[2019-01-07] MEDS: FUROSEMIDE INJ/PF 40 MG/4 ML SDV IV SCH ×2 (10:50→21:30)
--- NOTE | 2019-01-07 15:56 | RADIOLOGY REPORT (SQ) ---
EXAM DESCRIPTION: CHEST 2 VIEWS COMPLETED DATE/TIME: 01/07/2019 3:44 pm REASON FOR STUDY: COPD vs pneumonia COMPARISON: 01/03/2019 EXAM PARAMETERS: NUMBER OF VIEWS: two views TECHNIQUE: Digital Frontal and Lateral radiographic views of the chest acquired. RADIATION DOSE: NA LIMITATIONS: Underpenetration and body habitus. FINDINGS: Interval improvement in bilateral heterogeneous airspace opacity. There may be mild persi stent underlying heterogeneous opacity. Examination is generally limited by underpenetration and bod y habitus. Cardiomegaly with left chest multi lead pacer. No new airspace opacity. IMPRESSION: Interval improvement in bilateral heterogeneous airspace opacity. There may be mild per sistent underlying heterogeneous opacity. Examination is generally limited by underpenetration and b yara habitus. Cardiomegaly with left chest multi lead pacer. No new airspace opacity. TECHNICAL DOCUMENTATION: JOB ID: [id number] [employer]- All Rights Reserved Reading location - IP/workstation name: [email or web address]
[2019-01-08] MEDS: HEPARIN SOD (PORCINE) 5,000 UNIT/ML 1 ML VIAL SUBCUT SCH ×3 (05:39→21:58)
[2019-01-08] MEDS: INSULIN LISPRO 100 UNIT/ML 3 ML VIAL SUBCUT SCH ×3 (08:43→16:37)
--- NOTE | 2019-01-08 10:56 | PDOC PROGRESS REPORT ---
Subjective Progress Note for:: 01/08/19 Subjective:: 01/05/19 63-year-old black female who was admitted the emergency room yesterday with shortness of breath was 5 days. Patient is also had a weight gain of reportedly 34 pounds in 2 weeks. Patient was started on BiPAP and Lasix in the ER 01/06/2019 patient was admitted with a weight of 187.7 kg this morning her weight is 185.6 kg appears to be about 4-1/2 pounds less than admission. She states that she is feeling better and breathing easier Patient goes between BiPAP and nasal cannula O2 sats are maintaining between 94 and 99% 01/07/2019 patient's weight this morning is 186.2. Patient states she is breathing easier, patient is still maintaining her sats and uses her BiPAP at nighttime. Blood pressure is 124/75 pulse is 74, temp 97.6 01/08/2019 Patient continues to improve she has less shortness of breath. According to the nurse she is walking 20 feet now. Try to get a large chair for her to sit in during the day. Sats are 96%. She has a BiPAP machine at home ,anticipate discharge in 48 hours Reason For Visit: DAIANA RESP FAILURE, HEART FAILURE Physical Exam Vital Signs: Temp Pulse Resp BP Pulse Ox 97.4 F 59 L 21 H 111/73 96 01/08/19 07:42 01/08/19 07:42 01/08/19 07:42 01/08/19 07:42 01/08/19 04:00 Intake & Output 01/07/19 01/08/19 01/09/19 06:59 06:59 06:59 Intake Total 1600 342 Output Total 3840 1000 Balance -2240 -658 Weight 186.2 kg 186.5 kg General appearance: PRESENT: no acute distress, other - Talking in full sentences with no respiratory distress Respiratory exam: PRESENT: clear to auscultation justin, decreased breath sounds. ABSENT: rales, rhonchi, wheezes Cardiovascular exam: PRESENT: RRR. ABSENT: diastolic murmur, rubs, systolic murmur Neurological exam: PRESENT: alert, awake, oriented to person, oriented to place, oriented to time, oriented to situation, CN II-XII grossly intact. ABSENT: motor sensory deficit Psychiatric exam: PRESENT: appropriate affect, normal mood. ABSENT: homicidal ideation, suicidal ideation Results Laboratory Results: 01/05/19 06:49 01/06/19 03:45 01/03/19 01/03/19 01/03/19 21:45 21:45 23:31 Creatine Kinase Cancelled 84 CK-MB (CK-2) Cancelled Troponin I Cancelled NT-Pro-B Natriuret Pep Cancelled 01/03/19 01/04/19 01/04/19 23:31 06:17 12:42 Creatine Kinase CK-MB (CK-2) 1.84 Troponin I 0.049 0.062 0.054 NT-Pro-B Natriuret Pep 6270 H 01/04/19 01/05/19 18:28 06:49 Creatine Kinase CK-MB (CK-2) Troponin I 0.050 NT-Pro-B Natriuret Pep 3950 H Impressions: Chest X-Ray 01/07/19 00:00 IMPRESSION: Interval improvement in bilateral heterogeneous airspace opacity. There may be mild persistent underlying heterogeneous opacity. Examination is generally limited by underpenetration and body habitus. Cardiomegaly with left chest multi lead pacer. No new airspace opacity. Assessment and Plan - Diagnosis (1) Acute on chronic congestive heart failure Qualifiers: Heart failure type: unspecified Qualified Code(s): I50.9 - Heart failure, unspecified Is this a current diagnosis for this admission?: Yes (2) CKD (chronic kidney disease) Qualifiers: Chronic kidney disease stage: unspecified stage Qualified Code(s): N18.9 - Chronic kidney disease, unspecified Is this a current diagnosis for this admission?: Yes (3) Morbidly obese Is this a current diagnosis for this admission?: Yes - Plan Summary Summary: * Acute on chronic systolic congestive heart failure-continue Entresto and Aldactone as well as Coreg. Increase diuretic therapy. * Acute respiratory failure with hypercapnia and hypoxia-supplemental oxygen. Morbid obesity hypoventilation is an issue as well. BiPAP as needed. * Diabetes mellitus type 2 controlled-currently on sliding scale. Continue Accu-Cheks. * Morbid obesity-encourage weight loss although at this stage compliance is u nlikely. * Hypertension-continue current medication regimen. The patient reports feeling much better than earlier this morning when she was admitted. We will continue to monitor closely and adjust medications based on her clinical response. 01/06/2019 patient states she was last in the hospital in September for 19 days for similar episode of COPD exacerbation. States she lives alone at home and is on O2. Patient does state however on the weekends her daughter comes and stays with her. Patient is currently using a sliding scale of insulin in the hospital, Coreg 12.5 mg every 12 hours, Lasix 40 mg IV every 12 hours spironolactone 25 mg every 12 hours Entresto 49/51 every 12 hours potassium 20 every 12 hours. Also on Nitro-Dur patch 1 daily No antibiotics at the present time, chest x-ray showed CHF no sign of pneumonia 01/07/19 No change in medications. CBC normal, lytes are stable, sugar's are well controlled. BIPAP settings, IPAP 16, Rate 8, EPAP 8, FI O2 40% sat's about 95 Will repeat 2 view CXR 01/08/2019 Chest x-ray yesterday shows improvement, no obvious pneumonia. Plan to discharge patient on Thursday. Patient has everything at home that she needs - Time Time Spent with patient: 25-34 minutes
[2019-01-08] MEDS: SPIRONOLACTONE 25 MG TABLET PO SCH ×2 (11:49→21:14)
[2019-01-08] MEDS: ASPIRIN 81 MG TABLET, ENT COATED PO SCH (11:49)
[2019-01-08] MEDS: DOCUSATE SODIUM 100 MG CAPSULE PO SCH (11:50)
[2019-01-08] MEDS: CARVEDILOL 12.5 MG TABLET PO SCH ×2 (11:50→21:13)
[2019-01-08] MEDS: PREGABALIN 75 MG CAPSULE PO SCH ×2 (11:50→21:13)
[2019-01-08] MEDS: POTASSIUM CHLORIDE 10 MEQ CAPSULE.ER PO SCH ×2 (11:50→21:14)
[2019-01-08] MEDS: FUROSEMIDE INJ/PF 40 MG/4 ML SDV IV SCH ×2 (11:51→21:12)
[2019-01-08] MEDS: NITROGLYCERIN 5 MG (0.2 MG/HR) PATCH.TD24 TD SCH (11:51)
[2019-01-08] MEDS: SACUBITRIL/VALSARTAN 49 MG/51 MG TABLET PO SCH ×2 (11:52→21:13)
[2019-01-09] MEDS: HEPARIN SOD (PORCINE) 5,000 UNIT/ML 1 ML VIAL SUBCUT SCH ×3 (05:28→22:16)
[2019-01-09] MEDS: INSULIN LISPRO 100 UNIT/ML 3 ML VIAL SUBCUT SCH ×3 (07:33→15:44)
[2019-01-09 07:57] LABS: ABSOLUTE EOSINOPHILS # (AUTO) 0.1 10^3/uL (0.0-0.6); ABSOLUTE LYMPHOCYTES (AUTO) 0.9 10^3/uL (0.5-4.7); ABSOLUTE MONOCYTES (AUTO) 0.6 10^3/uL (0.1-1.4); ABSOLUTE NEUT (AUTO) 2.8 10^3/uL (1.7-8.2); BASOPHILS % (AUTO) 0.9 % (0-2); EOSINOPHILS % (AUTO) 2.1 % (0-6); HEMATOCRIT 33.1 % (36.0-47.0); HEMOGLOBIN 10.3 g/dL (12.0-15.5); LYMPHOCYTES % (AUTO) 20.6 % (13-45); MEAN CORPUSCULAR HEMOGLOBIN 24.5 pg (27.0-33.4); MEAN CORPUSCULAR VOLUME 79 fl (80-97); MONOCYTES % (AUTO) 13.3 % (3-13); PLATELET COUNT 118 10^3/uL (150-450); RED BLOOD COUNT 4.19 10^6/uL (3.72-5.28); RED CELL DISTRIBUTION WIDTH 20.9 % (11.5-14.0); SEGMENTED NEUTROPHILS % (AUTO) 63.1 % (42-78); TOTAL CELLS COUNTED % (AUTO) 100 %; WHITE BLOOD COUNT 4.4 10^3/uL (4.0-10.5)
[2019-01-09 08:22] LABS: ANION GAP 6 (5-19); BLOOD UREA NITROGEN 40 mg/dL (7-20); CALCIUM 8.9 mg/dL (8.4-10.2); CARBON DIOXIDE 37 mmol/L (22-30); CHLORIDE 97 mmol/L (98-107); GLUCOSE 123 mg/dL (75-110); POTASSIUM 4.7 mmol/L (3.6-5.0)
--- NOTE | 2019-01-09 09:58 | PDOC PROGRESS REPORT ---
Subjective Progress Note for:: 01/09/19 Subjective:: 01/05/19 63-year-old black female who was admitted the emergency room yesterday with shortness of breath was 5 days. Patient is also had a weight gain of reportedly 34 pounds in 2 weeks. Patient was started on BiPAP and Lasix in the ER 01/06/2019 patient was admitted with a weight of 187.7 kg this morning her weight is 185.6 kg appears to be about 4-1/2 pounds less than admission. She states that she is feeling better and breathing easier Patient goes between BiPAP and nasal cannula O2 sats are maintaining between 94 and 99% 01/07/2019 patient's weight this morning is 186.2. Patient states she is breathing easier, patient is still maintaining her sats and uses her BiPAP at nighttime. Blood pressure is 124/75 pulse is 74, temp 97.6 01/08/2019 Patient continues to improve she has less shortness of breath. According to the nurse she is walking 20 feet now. Try to get a large chair for her to sit in during the day. Sats are 96%. She has a BiPAP machine at home ,anticipate discharge in 48 hours 01/09/2019 Nursing staff was unable to get patient up out of bed yesterday due to weakness, however physical therapy was able to get down 4 times yesterday. We now have a large chair in the room that she can sitting.. Would like her to work with y sical therapy again today and get her out of bed and may be walk today. Patient has all the equipment she needs at home already When patient was on nasal cannula last night her O2 sat was 98%. She is never dipped below 95% actually since the day after admission and even then she was 91% Reason For Visit: DAIANA RESP FAILURE, HEART FAILURE Physical Exam Vital Signs: Temp Pulse Resp BP Pulse Ox 97.4 F 60 17 138/89 H 98 01/09/19 07:24 01/09/19 07:24 01/09/19 07:24 01/09/19 07:24 01/09/19 07:24 Intake & Output 01/08/19 01/09/19 01/10/19 06:59 06:59 06:59 Intake Total 342 2021 Output Total 1000 2350 Balance -658 -328 Weight 186.5 kg 177.6 kg General appearance: PRESENT: no acute distress, other - Patient is able to carry on a normal conversation without oxygen Respiratory exam: PRESENT: decreased breath sounds, other - Due to obesity Cardiovascular exam: PRESENT: RRR. ABSENT: diastolic murmur, rubs, systolic murmur Neurological exam: PRESENT: alert, awake, oriented to person, oriented to place, oriented to time, oriented to situation, CN II-XII grossly intact. ABSENT: motor sensory deficit Psychiatric exam: PRESENT: appropriate affect, normal mood. ABSENT: homicidal ideation, suicidal ideation Results Laboratory Results: 01/09/19 07:52 01/09/19 07:52 01/09/19 01/09/19 07:52 07:52 WBC 4.4 RBC 4.19 Hgb 10.3 L Hct 33.1 L MCV 79 L MCH 24.5 L MCHC 31.0 L RDW 20.9 H Plt Count 118 L Seg Neutrophils % 63.1 Sodium 139.8 Potassium 4.7 Chloride 97 L Carbon Dioxide 37 H Anion Gap 6 BUN 40 H Creatinine 1.26 H Est GFR ( Amer) 52 L Glucose 123 H Calcium 8.9 01/03/19 01/03/19 01/03/19 21:45 21:45 23:31 Creatine Kinase Cancelled 84 CK-MB (CK-2) Cancelled Troponin I Cancelled NT-Pro-B Natriuret Pep Cancelled 01/03/19 01/04/19 01/04/19 23:31 06:17 12:42 Creatine Kinase CK-MB (CK-2) 1.84 Troponin I 0.049 0.062 0.054 NT-Pro-B Natriuret Pep 6270 H 01/04/19 01/05/19 18:28 06:49 Creatine Kinase CK-MB (CK-2) Troponin I 0.050 NT-Pro-B Natriuret Pep 3950 H Impressions: Chest X-Ray 01/07/19 00:00 IMPRESSION: Interval improvement in bilateral heterogeneous airspace opacity. There may be mild persistent underlying heterogeneous opacity. Examination is generally limited by underpenetration and body habitus. Cardiomegaly with left chest multi lead pacer. No new airspace opacity. Assessment and Plan - Diagnosis (1) Acute on chronic congestive heart failure Qualifiers: Heart failure type: unspecified Qualified Code(s): I50.9 - Heart failure, unspecified Is this a current diagnosis for this admission?: Yes (2) CKD (chronic kidney disease) Qualifiers: Chronic kidney disease stage: unspecified stage Qualified Code(s): N18.9 - Chronic kidney disease, unspecified Is this a current diagnosis for this admission?: Yes (3) Morbidly obese Is this a current diagnosis for this admission?: Yes - Plan Summary Summary: * Acute on chronic systolic congestive heart failure-continue Entresto and Aldactone as well as Coreg. Increase diuretic therapy. * Acute respiratory failure with hypercapnia and hypoxia-supplemental oxygen. Morbid obesity hypoventilation is an issue as well. BiPAP as needed. * Diabetes mellitus type 2 controlled-currently on sliding scale. Continue Accu-Cheks. * Morbid obesity-encourage weight loss although at this stage compliance is unlikely. * Hypertension-continue current medication regimen. The patient reports feeling much better than earlier this morning when she was admitted. We will continue to monitor closely and adjust medications based on her clinical response. 01/06/2019 patient states she was last in the hospital in September for 19 days for similar episode of COPD exacerbation. States she lives alone at home and is on O2. Patient does state however on the weekends her daughter comes and stays with her. Patient is currently using a sliding scale of insulin in the hospital, Coreg 12 .5 mg every 12 hours, Lasix 40 mg IV every 12 hours spironolactone 25 mg every 12 hours Entresto 49/51 every 12 hours potassium 20 every 12 hours. Also on Nitro-Dur patch 1 daily No antibiotics at the present time, chest x-ray showed CHF no sign of pneumonia 01/07/19 No change in medications. CBC normal, lytes are stable, sugar's are well controlled. BIPAP settings, IPAP 16, Rate 8, EPAP 8, FI O2 40% sat's about 95 Will repeat 2 view CXR 01/08/2019 Chest x-ray yesterday shows improvement, no obvious pneumonia. Plan to discharge patient on Thursday. Patient has everything at home that she needs 01/09/2019 Patient's vital signs as well as her oxygen saturation are stable and acceptable . She worked with physical therapy yesterday and hopefully today she will also, eating out of bed and walking. White count is normal, and appears a little dry as her BUN is going up slightly but her creatinine is stable. Hesitate to give her fluids are strong history of congestive heart failure. [place] weight was 187 kg today it is 177 so she is lost of approximately 20 pounds since admission , which is good. May be discharged to home tomorrow - Time Time Spent with patient: 25-34 minutes
[2019-01-09] MEDS: SPIRONOLACTONE 25 MG TABLET PO SCH ×2 (10:52→22:14)
[2019-01-09] MEDS: SACUBITRIL/VALSARTAN 49 MG/51 MG TABLET PO SCH ×2 (10:52→22:14)
[2019-01-09] MEDS: POTASSIUM CHLORIDE 10 MEQ CAPSULE.ER PO SCH ×2 (10:52→22:15)
[2019-01-09] MEDS: DOCUSATE SODIUM 100 MG CAPSULE PO SCH (10:52)
[2019-01-09] MEDS: ASPIRIN 81 MG TABLET, ENT COATED PO SCH (10:52)
[2019-01-09] MEDS: CARVEDILOL 12.5 MG TABLET PO SCH ×2 (10:52→22:14)
[2019-01-09] MEDS: PREGABALIN 75 MG CAPSULE PO SCH ×2 (10:53→22:15)
[2019-01-09] MEDS: NITROGLYCERIN 5 MG (0.2 MG/HR) PATCH.TD24 TD SCH (10:53)
[2019-01-09] MEDS: FUROSEMIDE INJ/PF 40 MG/4 ML SDV IV SCH ×2 (10:54→22:15)
[2019-01-10] MEDS: HEPARIN SOD (PORCINE) 5,000 UNIT/ML 1 ML VIAL SUBCUT SCH ×3 (05:33→21:41)
[2019-01-10] MEDS: INSULIN LISPRO 100 UNIT/ML 3 ML VIAL SUBCUT SCH ×3 (08:37→17:07)
--- NOTE | 2019-01-10 10:01 | PDOC PROGRESS REPORT ---
Subjective Progress Note for:: 01/10/19 Subjective:: 01/05/19 63-year-old black female who was admitted the emergency room yesterday with shortness of breath was 5 days. Patient is also had a weight gain of reportedly 34 pounds in 2 weeks. Patient was started on BiPAP and Lasix in the ER 01/06/2019 patient was admitted with a weight of 187.7 kg this morning her weight is 185.6 kg appears to be about 4-1/2 pounds less than admission. She states that she is feeling better and breathing easier Patient goes between BiPAP and nasal cannula O2 sats are maintaining between 94 and 99% 01/07/2019 patient's weight this morning is 186.2. Patient states she is breathing easier, patient is still maintaining her sats and uses her BiPAP at nighttime. Blood pressure is 124/75 pulse is 74, temp 97.6 01/08/2019 Patient continues to improve she has less shortness of breath. According to the nurse she is walking 20 feet now. Try to get a large chair for her to sit in during the day. Sats are 96%. She has a BiPAP machine at home ,anticipate discharge in 48 hours 01/09/2019 Nursing staff was unable to get patient up out of bed yesterday due to weakness, however physical therapy was able to get down 4 times yesterday. We now have a large chair in the room that she can sitting.. Would like her to work with y sical therapy again today and get her out of bed and may be walk today. Patient has all the equipment she needs at home already When patient was on nasal cannula last night her O2 sat was 98%. She is never dipped below 95% actually since the day after admission and even then she was 91% 01/10/2019 Patient was only able to stand at the bedside yesterday with physical therapy. They are to call me today concerning her discharge I am getting conflicting reports. She lives alone.. Is medically stable for discharge as soon as I can coordinate discharge planning/physical therapy tells me she is ready to go home Reason For Visit: DAIANA RESP FAILURE, HEART FAILURE Physical Exam Vital Signs: Temp Pulse Resp BP Pulse Ox 98.6 F 59 L 18 145/72 H 92 01/10/19 07:35 01/10/19 07:35 01/10/19 07:35 01/10/19 07:35 01/10/19 08:51 Intake & Output 01/09/19 01/10/19 01/11/19 06:59 06:59 06:59 Intake Total 2021 930 Output Total 2350 1800 Balance -328 -870 Weight 177.6 kg 176.5 kg General appearance: PRESENT: no acute distress Respiratory exam: PRESENT: decreased breath sounds Cardiovascular exam: PRESENT: RRR. ABSENT: diastolic murmur, rubs, systolic murmur Neurological exam: PRESENT: alert, awake, oriented to person, oriented to place, oriented to time, oriented to situation, CN II-XII grossly intact. ABSENT: motor sensory deficit Psychiatric exam: PRESENT: appropriate affect, normal mood. ABSENT: homicidal ideation, suicidal ideation Results Laboratory Results: 01/09/19 07:52 01/09/19 07:52 01/03/19 01/03/19 01/03/19 21:45 21:45 23:31 Creatine Kinase Cancelled 84 CK-MB (CK-2) Cancelled Troponin I Cancelled NT-Pro-B Natriuret Pep Cancelled 01/03/19 01/04/19 01/04/19 23:31 06:17 12:42 Creatine Kinase CK-MB (CK-2) 1.84 Troponin I 0.049 0.062 0.054 NT-Pro-B Natriuret Pep 6270 H 01/04/19 01/05/19 18:28 06:49 Creatine Kinase CK-MB (CK-2) Troponin I 0.050 NT-Pro-B Natriuret Pep 3950 H Impressions: Chest X-Ray 01/07/19 00:00 IMPRESSION: Interval improvement in bilateral heterogeneous airspace opacity. There may be mild persistent underlying heterogeneous opacity. Examination is generally limited by underpenetration and body habitus. Cardiomegaly with left chest multi lead pacer. No new airspace opacity. Assessment and Plan - Diagnosis (1) Acute on chronic congestive heart failure Qualifiers: Heart failure type: unspecified Qualified Code(s): I50.9 - Heart failure, unspecified Is this a current diagnosis for this admission?: Yes (2) CKD (chronic kidney disease) Qualifiers: Chronic kidney disease stage: unspecified stage Qualified Code(s): N18.9 - Chronic kidney disease, unspecified Is this a current diagnosis for this admission?: Yes (3) Morbidly obese Is this a current diagnosis for this admission?: Yes - Plan Summary Summary: * Acute on chronic systolic congestive heart failure-continue Entresto and Aldactone as well as Coreg. Increase diuretic therapy. * Acute respiratory failure with hypercapnia and hypoxia-supplemental oxygen. Morbid obesity hypoventilation is an issue as well. BiPAP as needed. * Diabetes mellitus type 2 controlled-currently on sliding scale. Continue Accu-Cheks. * Morbid obesity-encourage weight loss although at this stage compliance is unlikely. * Hypertension-continue current medication regimen. The patient reports feeling much better than earlier this morning when she was admitted. We will continue to monitor closely and adjust medications based on her clinical response. 01/06/2019 patient states she was last in the hospital in September for 19 days for similar episode of COPD exacerbation. States she lives alone at home and is on O2. Patient does state however on the weekends her daughter comes and stays with her. Patient is currently using a sliding scale of insulin in the hospital, Coreg 12.5 mg every 12 hours, Lasix 40 mg IV every 12 hours spironolactone 25 mg every 12 hours Entresto 49/51 every 12 hours potassium 20 every 12 hours. Also on Nitro-Dur patch 1 daily No antibiotics at the present time, chest x-ray showed CHF no sign of pneumonia 01/07/19 No change in medications. CBC normal, lytes are stable, sugar's are well controlled. BIPAP settings, IPAP 16, Rate 8, EPAP 8, FI O2 40% sat's about 95 Will repeat 2 view CXR 01/08/2019 Chest x-ray yesterday shows improvement, no obvious pneumonia. Plan to discharge patient on Thursday. Patient has everything at home that she needs 01/09/2019 Patient's vital signs as well as her oxygen saturation are stable and ac ceptable. She worked with physical therapy yesterday and hopefully today she will also, eating out of bed and walking. White count is normal, and appears a little dry as her BUN is going up slightly but her creatinine is stable. Hesitate to give her fluids are strong history of congestive heart failure. Admission weight was 187 kg today it is 177 so she is lost of approximately 20 pounds since admission, which is good. May be discharged to home tomorrow 01/10/2019 To reconsult discharge planning for today, have asked physical therapy to call me after they see the patient today. Patient is medically stable and ready for discharge from her COPD exacerbation. She does not need antibiotics to go home and basically the same medicine she was admitted with. - Time Time Spent with patient: 25-34 minutes
[2019-01-10] MEDS: DOCUSATE SODIUM 100 MG CAPSULE PO SCH (11:29)
[2019-01-10] MEDS: POTASSIUM CHLORIDE 10 MEQ CAPSULE.ER PO SCH ×2 (11:29→21:40)
[2019-01-10] MEDS: SACUBITRIL/VALSARTAN 49 MG/51 MG TABLET PO SCH ×2 (11:29→21:40)
[2019-01-10] MEDS: FUROSEMIDE INJ/PF 40 MG/4 ML SDV IV SCH ×2 (11:30→21:40)
[2019-01-10] MEDS: NITROGLYCERIN 5 MG (0.2 MG/HR) PATCH.TD24 TD SCH (11:30)
[2019-01-10] MEDS: SPIRONOLACTONE 25 MG TABLET PO SCH ×2 (11:30→21:41)
[2019-01-10] MEDS: ASPIRIN 81 MG TABLET, ENT COATED PO SCH (11:30)
[2019-01-10] MEDS: PREGABALIN 75 MG CAPSULE PO SCH ×2 (11:30→21:41)
[2019-01-10] MEDS: CARVEDILOL 12.5 MG TABLET PO SCH ×2 (11:30→21:40)
[2019-01-11] MEDS: HEPARIN SOD (PORCINE) 5,000 UNIT/ML 1 ML VIAL SUBCUT SCH ×2 (05:04→14:40)
[2019-01-11] MEDS: INSULIN LISPRO 100 UNIT/ML 3 ML VIAL SUBCUT SCH ×2 (07:55→11:54)
[2019-01-11] MEDS: SPIRONOLACTONE 25 MG TABLET PO SCH (11:01)
[2019-01-11] MEDS: NITROGLYCERIN 5 MG (0.2 MG/HR) PATCH.TD24 TD SCH (11:01)
[2019-01-11] MEDS: ASPIRIN 81 MG TABLET, ENT COATED PO SCH (11:01)
[2019-01-11] MEDS: SACUBITRIL/VALSARTAN 49 MG/51 MG TABLET PO SCH (11:01)
[2019-01-11] MEDS: CARVEDILOL 12.5 MG TABLET PO SCH (11:01)
[2019-01-11] MEDS: FUROSEMIDE INJ/PF 40 MG/4 ML SDV IV SCH (11:01)
[2019-01-11] MEDS: POTASSIUM CHLORIDE 10 MEQ CAPSULE.ER PO SCH (11:01)
[2019-01-11] MEDS: PREGABALIN 75 MG CAPSULE PO SCH (11:01)
[2019-01-11] MEDS: DOCUSATE SODIUM 100 MG CAPSULE PO SCH (11:01)
[2019-01-11 12:33] VITALS: BP 141/91
--- NOTE | 2019-01-12 17:12 | PDOC DISCHARGE SUMMARY ---
Impression - Admit/DC Date/PCP Admission Date/Primary Care Provider: 01/04/19 02:46 OSCAR SANTO MD Discharge Date: 01/11/19 - Discharge Diagnosis (1) Acute on chronic congestive heart failure Is this a current diagnosis for this admission?: Yes (2) COPD exacerbation Is this a current diagnosis for this admission?: Yes (3) Coronary artery disease Is this a current diagnosis for this admission?: Yes (4) Obstructive sleep apnea Is this a current diagnosis for this admission?: Yes (5) Stage III chronic kidney disease Is this a current diagnosis for this admission?: Yes - Assessment Summary: * Acute on chronic systolic congestive heart failure-continue Entresto and Aldactone as well as Coreg. Increase diuretic therapy. * Acute respiratory failure with hypercapnia and hypoxia-supplemental oxygen. Morbid obesity hypoventilation is an issue as well. BiPAP as needed. * Diabetes mellitus type 2 controlled-currently on sliding scale. Continue Accu-Cheks. * Morbid obesity-encourage weight loss although at this stage compliance is unlikely. * Hypertension-continue current medication regimen. The patient reports feeling much better than earlier this morning when she was admitted. We will continue to monitor closely and adjust medications based on her clinical response. 01/06/2019 patient states she was last in the hospital in September for 19 days for similar episode of COPD exacerbation. States she lives alone at home and is on O2. Patient does state however on the weekends her daughter comes and stays with her. Patient is currently using a sliding scale of insulin in the hospital, Coreg 12.5 mg every 12 hours, Lasix 40 mg IV every 12 hours spironolactone 25 mg every 12 hours Entresto 49/51 every 12 hours potassium 20 every 12 hours. Also on Nitro-Dur patch 1 daily No antibiotics at the present time, chest x-ray showed CHF no sign of pneumonia 01/07/19 No change in medications. CBC normal, lytes are stable, sugar's are well controlled. BIPAP settings, IPAP 16, Rate 8, EPAP 8, FI O2 40% sat's about 95 Will repeat 2 view CXR 01/08/2019 Chest x-ray yesterday shows improvement, no obvious pneumonia. Plan to discharge patient on Thursday. Patient has everything at home that she needs 01/09/2019 Patient's vital signs as well as her oxygen saturation are stable and acceptable. She worked with physical therapy yesterday and hopefully today she will also, eating out of bed and walking. White count is normal, and appears a little dry as her BUN is going up slightly but her creatinine is stable. Hesitate to give her fluids are strong history of congestive heart failure. Admission weight was 187 kg today it is 177 so she is lost of approximately 20 pounds since admission, which is good. May be discharged to home tomorrow 01/10/2019 To reconsult discharge planning for today, have asked physical therapy to call me after they see the patient today. Patient is medically stable and ready for discharge from her COPD exacerbation. She does not need antibiotics to go home and basically the same medicine she was admitted with. - Additional Information Resuscitation Status: Full Code Discharge Diet: Cardiac, Diabetic Discharge Activity: Activity As Tolerated, Balance Activity w/Rest, Weigh Daily Referrals: MARLEY HARDEN MD [NO LOCAL MD] - 01/27/19 11:00 am Prescriptions: Fluticasone/Salmeterol [Advair 250-50 Diskus 14 Dose/Diskus] 14 inh IH DAILY #1 inhaler Spironolactone [Aldactone 25 mg Tablet] 25 mg PO Q12 #60 tablet Carvedilol [Coreg 12.5 mg Tablet] 12.5 mg PO Q12 #60 tablet Aspirin [Ecotrin 81 mg EC Tablet] 81 mg PO DAILY #30 tabec Furosemide [Lasix 20 mg Tablet] 20 mg PO BID #60 tablet Home Medications: Pregabalin [Lyrica 75 mg Capsule] 75 mg PO Q12 01/04/19 Sacubitril/Valsartan [Entresto 49 mg/51 mg Tablet] 1 tab PO Q12 01/04/19 Aspirin [Ecotrin 81 mg EC Tablet] 81 mg PO DAILY #30 tabec 01/11/19 Carvedilol [Coreg 12.5 mg Tablet] 12.5 mg PO Q12 #60 tablet 01/11/19 Fluticasone/Salmeterol [Advair 250-50 Diskus 14 Dose/Diskus] 14 inh IH DAILY #1 inhaler 01/11/19 Furosemide [Lasix 20 mg Tablet] 20 mg PO BID #60 tablet 01/11/19 Spironolactone [Aldactone 25 mg Tablet] 25 mg PO Q12 #60 tablet 01/11/19 History of Present Illiness History of Present Illness: Admitting hospitalist's H&P: CARLEE WALDROP is a 63 year old female with a past medical history of profound debility, severe morbid obesity, obstructive sleep apnea, morbid obesity hypoventilation, congestive heart failure with an ejection fraction of 35% status post pacemaker, ICD, severe pulmonary hypertension with RVSP of 74 and moderate mitral regurgitation. Patient presents with 5 days of increasing shortness of breath associated with weight gain of 34 pounds of the last 2 weeks and recent addition of Lyrica to her medication regiment. In the emergency room she is found to have both hypercapnic and hypoxic respiratory failure and diastolic and systolic heart failure exacerbation. She started on BiPAP, Lasix and referred to the hospitalist for admission. Admits compliant with BiPAP and a 1800 mL fluid restriction. She denies chest pain. Hospital Course Hospital Course: This is a 63-year-old female who presented with significant weight gain and increasing shortness of breath. She was admitted for acute CHF exacerbation. She was started on IV Lasix. She did diurese well and gradually return to her baseline. She was started on Spironolactone as well. Lasix was decreased as Aldactone was added to her regimen. She will be discharged home with home health services. She will closely follow-up with her PCP to further reassess adjustment of her diuretics. Physical Exam Vital Signs: Temp Pulse Resp BP Pulse Ox 97.9 F 63 18 116/60 92 01/11/19 08:00 01/11/19 08:00 01/11/19 08:00 01/11/19 08:00 01/11/19 09:08 Intake & Output 01/10/19 01/11/19 01/12/19 06:59 06:59 06:59 Intake Total 930 1474 Output Total 1800 1050 Balance -870 424 Weight 389 lb 1.854 oz 404 lb 12.299 oz General appearance: PRESENT: no acute distress, morbidly obese Head exam: PRESENT: atraumatic, normocephalic Eye exam: PRESENT: conjunctiva pink, EOMI, PERRLA. ABSENT: scleral icterus Ear exam: PRESENT: normal external ear exam Mouth exam: PRESENT: moist, tongue midline Neck exam: ABSENT: carotid bruit, JVD, lymphadenopathy, thyromegaly Respiratory exam: PRESENT: clear to auscultation justin. ABSENT: rales, rhonchi, wheezes Cardiovascular exam: PRESENT: RRR. ABSENT: bradycardia Pulses: PRESENT: normal dorsalis pedis pul GI/Abdominal exam: PRESENT: normal bowel sounds, soft. ABSENT: distended, guarding, mass, organolmegaly, rebound, tenderness Rectal exam: PRESENT: deferred Neurological exam: PRESENT: alert, awake, oriented to person, oriented to place, oriented to time, oriented to situation, CN II-XII grossly intact. ABSENT: motor sensory deficit Results Laboratory Results: WBC 4.4 10^3/uL (4.0-10.5) 01/09/19 07:52 RBC 4.19 10^6/uL (3.72-5.28) 01/09/19 07:52 Hgb 10.3 g/dL (12.0-15.5) L 01/09/19 07:52 Hct 33.1 % (36.0-47.0) L 01/09/19 07:52 MCV 79 fl (80-97) L 01/09/19 07:52 MCH 24.5 pg (27.0-33.4) L 01/09/19 07:52 MCHC 31.0 g/dL (32.0-36.0) L 01/09/19 07:52 RDW 20.9 % (11.5-14.0) H 01/09/19 07:52 Plt Count 118 10^3/uL (150-450) L 01/09/19 07:52 Lymph % (Auto) 20.6 % (13-45) 01/09/19 07:52 Kerr % (Auto) 13.3 % (3-13) H 01/09/19 07:52 Eos % (Auto) 2.1 % (0-6) 01/09/19 07:52 Baso % (Auto) 0.9 % (0-2) 01/09/19 07:52 Absolute Neuts (auto) 2.8 10^3/uL (1.7-8.2) 01/09/19 07:52 Absolute Lymphs (auto) 0.9 10^3/uL (0.5-4.7) 01/09/19 07:52 Absolute Monos (auto) 0.6 10^3/uL (0.1-1.4) 01/09/19 07:52 Absolute Eos (auto) 0.1 10^3/uL (0.0-0.6) 01/09/19 07:52 Absolute Basos (auto) 0.0 10^3/uL (0.0-0.2) 01/09/19 07:52 Seg Neutrophils % 63.1 % (42-78) 01/09/19 07:52 Carbonic Acid 1.59 mmol/L (1.05-1.35) H 01/04/19 00:45 HCO3/H2CO3 Ratio 19:1 01/04/19 00:45 ABG pH 7.38 (7.35-7.45) 01/04/19 00:45 ABG pCO2 52.8 mmHg (35-45) H 01/04/19 00:45 ABG pO2 53.1 mmHg (80-100) L 01/04/19 00:45 ABG HCO3 30.3 mmol/L (20-24) H 01/04/19 00:45 ABG Total CO2 31.9 mmol/L (21-25) H 01/04/19 00:45 ABG O2 Saturation 86.3 % (94-98) L 01/04/19 00:45 ABG Base Excess 4.1 mmol/L 01/04/19 00:45 FiO2 35% 01/04/19 00:45 Sodium 139.8 mmol/L (137-145) 01/09/19 07:52 Potassium 4.7 mmol/L (3.6-5.0) 01/09/19 07:52 Chloride 97 mmol/L (98-107) L 01/09/19 07:52 Carbon Dioxide 37 mmol/L (22-30) H 01/09/19 07:52 Anion Gap 6 (5-19) 01/09/19 07:52 BUN 40 mg/dL (7-20) H 01/09/19 07:52 Creatinine 1.26 mg/dL (0.52-1.25) H 01/09/19 07:52 Est GFR ( Amer) 52 (>60) L 01/09/19 07:52 Est GFR (Non-Af Amer) Cancelled 01/03/19 21:45 Est GFR (MDRD) Non-Af 43 (>60) L 01/09/19 07:52 Glucose 123 mg/dL (75-110) H 01/09/19 07:52 POC Glucose 107 mg/dL (70-110) 01/11/19 06:51 Calcium 8.9 mg/dL (8.4-10.2) 01/09/19 07:52 Magnesium 2.0 mg/dL (1.6-2.3) 01/05/19 06:49 Total Bilirubin 0.9 mg/dL (0.2-1.3) 01/03/19 23:31 Direct Bilirubin 0.2 mg/dL (0.0-0.4) 01/03/19 23:31 Neonat Total Bilirubin Not Reportable 01/03/19 23:31 Neonat Direct Bilirubin Not Reportable 01/03/19 23:31 Neonat Indirect Bili Not Reportable 01/03/19 23:31 AST 27 U/L (14-36) 01/03/19 23:31 ALT 16 U/L (<35) 01/03/19 23:31 Alkaline Phosphatase 121 U/L (38-126) 01/03/19 23:31 Creatine Kinase 84 U/L (30-135) 01/03/19 23:31 CK-MB (CK-2) 1.84 ng/mL (<4.55) 01/03/19 23:31 Troponin I 0.050 ng/mL 01/04/19 18:28 NT-Pro-B Natriuret Pep 3950 pg/mL (5-900) H 01/05/19 06:49 Total Protein 8.4 g/dL (6.3-8.2) H 01/03/19 23:31 Albumin 4.2 g/dL (3.5-5.0) 01/03/19 23:31 EGFR Cancelled 01/03/19 21:45 TSH 1.64 uIU/mL (0.47-4.68) 01/03/19 23:31 Urine Color COLORLESS 01/03/19 22:45 Urine Appearance CLEAR 01/03/19 22:45 Urine pH 7.0 (5.0-9.0) 01/03/19 22:45 Ur Specific [place] 1.005 01/03/19 22:45 Urine Protein NEGATIVE mg/dL (NEGATIVE) 01/03/19 22:45 Urine Glucose (UA) NEGATIVE mg/dL (NEGATIVE) 01/03/19 22:45 Urine Ketones NEGATIVE mg/dL (NEGATIVE) 01/03/19 22:45 Urine Blood SMALL (NEGATIVE) H 01/03/19 22:45 Urine Nitrite NEGATIVE (NEGATIVE) 01/03/19 22:45 Urine Bilirubin NEGATIVE (NEGATIVE) 01/03/19 22:45 Urine Urobilinogen NEGATIVE mg/dL (<2.0) 01/03/19 22:45 Ur Leukocyte Esterase TRACE (NEGATIVE) H 01/03/19 22:45 Urine WBC (Auto) 1 /HPF 01/03/19 22:45 Urine RBC (Auto) 3 /HPF 01/03/19 22:45 Urine Bacteria (Auto) TRACE /HPF 01/03/19 22:45 Squamous Epi Cells Auto <1 /HPF 01/03/19 22:45 Urine Mucus (Auto) RARE /LPF 01/03/19 22:45 Urine Ascorbic Acid NEGATIVE (NEGATIVE) 01/03/19 22:45 01/03/19 01/03/19 01/04/19 21:45 23:31 06:17 CK-MB (CK-2) Cancelled 1.84 Troponin I Cancelled 0.049 0.062 NT-Pro-B Natriuret Pep Cancelled 6270 H 01/04/19 01/04/19 01/05/19 12:42 18:28 06:49 CK-MB (CK-2) Troponin I 0.054 0.050 NT-Pro-B Natriuret Pep 3950 H Impressions: Chest X-Ray 01/03/19 20:15 IMPRESSION: Significant multifocal bilateral perihilar airspace disease suspicious for CHF/pulmonary edema. Chest X-Ray 01/07/19 00:00 IMPRESSION: Interval improvement in bilateral heterogeneous airspace opacity. There may be mild persistent underlying heterogeneous opacity. Examination is generally limited by underpenetration and body habitus. Cardiomegaly with left chest multi lead pacer. No new airspace opacity. Stroke Is this a Stroke Patient?: No Acute Heart Failure - Is this a Heart Failure Patient?: Yes Documentation of LVEF assessment?: Yes LVEF < 40%?: Yes-if yes answer questions a through e a) Discharged on ACEI?: N/A Discharged on ARNI b) Discharges on ARB?: N/A-Discharged on ARNI c) Discharged on ARNI?: Yes d) Discharged on evidence-based Beta myra(carvedilol, sustained release metoprolol succinate, or bisoprolol)?: Yes e) For LVEF <35%, discharged on Aldosterone antagonist?: Yes
== END 2019-01-11 16:20 | disposition home or self-care (01) | DRG 291 ==
LOC: ER 20:02 → EH 01-04 02:46 → 4N 01-04 03:30 → 4W 01-04 14:55
PROVIDERS: ADMIT Internal Medicine; ATTEND Internal Medicine
DX: I13.0 Hypertensive heart and chronic kidney disease with heart failure and stage 1 through stage 4 chronic kidney disease, or unspecified chronic kidney disease (principal); I50.23 Acute on chronic systolic (congestive) heart failure; J96.02 Acute respiratory failure with hypercapnia; J96.01 Acute respiratory failure with hypoxia; J44.1 Chronic obstructive pulmonary disease with (acute) exacerbation; I25.10 Atherosclerotic heart disease of native coronary artery without angina pectoris; N18.3 Chronic kidney disease, stage 3 (moderate); E11.22 Type 2 diabetes mellitus with diabetic chronic kidney disease; G47.33 Obstructive sleep apnea (adult) (pediatric); E66.01 Morbid (severe) obesity due to excess calories; Z79.82 Long term (current) use of aspirin; Z79.4 Long term (current) use of insulin; Z79.899 Other long term (current) drug therapy
CPT/HCPCS: 36415; 36600; 71045; 71046; 80048; 80053; 81001; 82550; 82553; 82803; 82962; 83735; 83880; 84443; 84484; 85025; 93005; 93010; 94660; 96365; 96367; 96375; 99285; J0456; J0696; J1815; J1940; J3490

== ENCOUNTER 2019-05-05 13:03 | Inpatient (IN) | payer MEDICARE, MEDICAID ==
--- NOTE | 2019-05-05 15:56 | ER Document Report ---
ED General - General Chief Complaint: Shortness Of Breath Stated Complaint: SHORTNESS OF BREATH Time Seen by Provider: 05/05/19 15:54 Primary Care Provider: MARLEY HARDEN MD [Primary Care Provider] - Follow up as needed Mode of Arrival: Medic Information source: Patient TRAVEL OUTSIDE OF THE [place] IN LAST 30 DAYS: No - HPI Onset: Other - over the last 3 days Onset/Duration: Gradual Quality of pain: Achy Severity: Moderate Pain Level: 2 Associated symptoms: Nonproductive cough, Shortness of breath, Other - wheezing Exacerbated by: Denies Relieved by: Other - with breathing treatments and oxygen Similar symptoms previously: Yes - with COPD, CHF, and Pneumonia Notes: 63 year old female with a history of Morbid Obesity, COPD, CHF, DM, HTN, HLD here for shortness of breath, mild right sided chest pains, and a cough for the last 3 days. The patient is not the best historian but it sounds like she is not very mobile and usually is in a wheel chair or bed. The patient told me (and EMS told nursing on her arrival) that her wheel chair has had her Oxygen tubing tied up for the last several days so she actually wasnt getting much supplemental Oxygen despite her having it on. The patient denies fevers, chills, sweats, nausea, vomiting productive cough. - Related Data Allergies/Adverse Reactions: No Known Allergies Allergy (Verified 05/05/19 13:38) Home Medications: LYRICA, CLONIDIN, ASPIRIN, AND MORE Past Medical History - General Information source: Patient - Social History Smoking Status: Never Smoker Chew tobacco use (# tins/day): No Frequency of alcohol use: None Drug Abuse: None Lives with: Alone Family History: CAD, DM, Hypertension Patient has suicidal ideation: No Patient has homicidal ideation: No - Past Medical History Cardiac Medical History: Reports: Hx Congestive Heart Failure, Hx Heart Attack, Hx Hypercholesterolemia, Hx Hypertension Pulmonary Medical History: Reports: Hx COPD Endocrine Medical History: Reports: Hx Diabetes Mellitus Type 1, Hx Diabetes Mellitus Type 2 Renal/ Medical History: Reports: Hx Renal Insufficiency. Denies: Hx Peritoneal Dialysis GI Medical History: Denies: Hx Cirrhosis, Hx Crohn's Disease, Hx Gastroesophageal Reflux Disease, Hx Hiatal Hernia Musculoskeletal Medical History: Denies Hx Fibromyalgia, Denies Hx Gout Skin Medical History: Denies Hx Eczema, Denies Hx Psoriasis Psychiatric Medical History: Denies: Hx Depression Past Surgical History: Reports: Hx Cardiac Surgery - defib., Hx Hysterectomy - Immunizations Immunizations up to date: Yes Hx Diphtheria, Pertussis, Tetanus Vaccination: Yes Hx Pneumococcal Vaccination: 01/04/17 Review of Systems - Review of Systems Constitutional: No symptoms reported EENT: No symptoms reported Cardiovascular: Chest pain Respiratory: Cough, Short of breath Gastrointestinal: No symptoms reported Genitourinary: No symptoms reported Female Genitourinary: No symptoms reported Musculoskeletal: No symptoms reported Skin: No symptoms reported Hematologic/Lymphatic: No symptoms reported Neurological/Psychological: No symptoms reported -: Yes All other systems reviewed and negative Physical Exam - Vital signs Vitals: Temp Pulse BP Pulse Ox 97.9 F 58 L 115/60 96 05/05/19 13:47 05/05/19 13:47 05/05/19 13:47 05/05/19 13:47 - Notes Notes: GENERAL: Morbidly Obese, Chronically ill-appearing, well-nourished and in no acute distress. HEAD: Atraumatic, normocephalic. EYES: Pupils equal round and reactive to light, extraocular movements intact, sclera anicteric, conjunctiva are normal. ENT: Nares patent, oropharynx clear without exudates. Moist mucous membranes. NECK: Normal range of motion, supple without lymphadenopathy or JVD. LUNGS: Breath sounds clear to auscultation bilaterally and equal. No wheezes rales or rhonchi. HEART: Regular rate and rhythm without murmurs, rubs or gallops. ABDOMEN: Soft, nontender, normoactive bowel sounds. No guarding, no rebound. No masses appreciated. EXTREMITIES: Normal range of motion, no pitting or edema. No clubbing or cyanosis. NEUROLOGICAL: Cranial nerves II through XII grossly intact. Normal speech, normal gait. PSYCH: Normal mood, normal affect. SKIN: Warm, Dry, normal turgor, no rashes or lesions noted. Course - Re-evaluation Re-evalutation: 05/05/19 19:24 The patient has significant hypercapnia likely due to a combination of her COPD, CHF, Obesity, and likely DAIANA. Patient placed on bipap and admitted. Lasix was also given since she has CHF with an elevated BNP and pulmonary edema on Xray. - Vital Signs Vital signs: Temp Pulse Resp BP Pulse Ox 97.9 F 58 L 19 112/70 93 05/05/19 13:47 05/05/19 13:47 05/05/19 19:01 05/05/19 18:06 05/05/19 19:01 - Laboratory Result Diagrams: 05/05/19 17:07 05/05/19 17:07 Laboratory results interpreted by me: 05/05/19 05/05/19 05/05/19 17:07 17:07 17:07 WBC 3.3 L RBC 3.32 L Hgb 8.8 L Hct 28.9 L MCH 26.5 L MCHC 30.4 L RDW 16.1 H Plt Count 96 L Carbonic Acid ABG pH ABG pCO2 ABG pO2 ABG HCO3 ABG Total CO2 ABG O2 Saturation Chloride 92 L Carbon Dioxide 43 H* BUN 49 H Creatinine 1.33 H Est GFR ( Amer) 49 L Est GFR (MDRD) Non-Af 40 L Glucose 140 H NT-Pro-B Natriuret Pep 2370 H 05/05/19 18:35 WBC RBC Hgb Hct MCH MCHC RDW Plt Count Carbonic Acid 3.06 H ABG pH 7.30 L ABG pCO2 101.8 H* ABG pO2 57.0 L ABG HCO3 48.7 H ABG Total CO2 51.9 H ABG O2 Saturation 84.0 L Chloride Carbon Dioxide BUN Creatinine Est GFR ( Amer) Est GFR (MDRD) Non-Af Glucose NT-Pro-B Natriuret Pep - Diagnostic Test Radiology reviewed: Image reviewed, Reports reviewed - EKG Interpretation by Me Rate: Normal Rhythm: Other - atrial sensed, ventricular paced Brandon/QRS: Left axis deviation When compared to previous EKG there are: No significant change Discharge - Discharge Clinical Impression: Hypercapnia COPD (chronic obstructive pulmonary disease) Qualifiers: COPD type: unspecified COPD Qualified Code(s): J44.9 - Chronic obstructive pulmonary disease, unspecified Heart failure Qualifiers: Heart failure type: other Qualified Code(s): I50.89 - Other heart failure; I50.8 - Other heart failure Condition: Fair Disposition: ADMITTED INPATIENT Admitting Provider: Esvin (Hospitalist) Unit Admitted: IMCU Referrals: MARLEY HARDEN MD [Primary Care Provider] - Follow up as needed
--- NOTE | 2019-05-05 17:01 | RADIOLOGY REPORT (SQ) ---
EXAM DESCRIPTION: CHEST SINGLE VIEW COMPLETED DATE/TIME: 05/05/2019 4:49 pm REASON FOR STUDY: eval for SOB COMPARISON: Chest films 01/07/2019, 07/08/2018 EXAM PARAMETERS: NUMBER OF VIEWS: One view. TECHNIQUE: Single frontal radiographic view of the chest acquired. RADIATION DOSE: NA LIMITATIONS: Morbidly obese patient, portable technique FINDINGS: LUNGS AND PLEURA: Pulmonary vascular congestion without gross alveolar or interstitial bruce ma. No pleural effusion or pneumothorax. MEDIASTINUM AND HILAR STRUCTURES: No masses. Contour normal. HEART AND VASCULAR STRUCTURES: Stable massive cardiomegaly BONES: No acute findings. HARDWARE: Left-sided dual lead pacemaker OTHER: No other significant finding. IMPRESSION: Stable massive cardiomegaly. No gross acute infiltrates. Pulmonary vascular congestion TECHNICAL DOCUMENTATION: JOB ID: [id number] [employer]- All Rights Reserved Reading location - IP/workstation name: [email or web address]
[2019-05-05] MEDS ORDERED: FUROSEMIDE INJ/PF 20 MG/2 ML SDV IV ONE (17:22)
[2019-05-05 17:27] LABS: ABSOLUTE EOSINOPHILS # (AUTO) 0.1 10^3/uL (0.0-0.6); ABSOLUTE LYMPHOCYTES (AUTO) 0.9 10^3/uL (0.5-4.7); ABSOLUTE MONOCYTES (AUTO) 0.4 10^3/uL (0.1-1.4); BASOPHILS % (AUTO) 0.9 % (0-2); EOSINOPHILS % (AUTO) 1.9 % (0-6); HEMATOCRIT 28.9 % (36.0-47.0); HEMOGLOBIN 8.8 g/dL (12.0-15.5); LYMPHOCYTES % (AUTO) 25.6 % (13-45); MEAN CORPUSCULAR HEMOGLOBIN 26.5 pg (27.0-33.4); MEAN CORPUSCULAR HGB CONC 30.4 g/dL (32.0-36.0); MEAN CORPUSCULAR VOLUME 87 fl (80-97); MONOCYTES % (AUTO) 12.5 % (3-13); RED BLOOD COUNT 3.32 10^6/uL (3.72-5.28); RED CELL DISTRIBUTION WIDTH 16.1 % (11.5-14.0); SEGMENTED NEUTROPHILS % (AUTO) 59.1 % (42-78); TOTAL CELLS COUNTED % (AUTO) 100 %; WHITE BLOOD COUNT 3.3 10^3/uL (4.0-10.5)
[2019-05-05 17:46] LABS: ALBUMIN 3.5 g/dL (3.5-5.0); ALKALINE PHOSPHATASE 84 U/L (38-126); ASPARTATE AMINO TRANSFERASE 23 U/L (14-36); BILIRUBIN,DIRECT 0.3 mg/dL (0.0-0.4); BILIRUBIN,TOTAL 0.4 mg/dL (0.2-1.3); BLOOD UREA NITROGEN 49 mg/dL (7-20); CALCIUM 8.5 mg/dL (8.4-10.2); CHLORIDE 92 mmol/L (98-107); GLUCOSE 140 mg/dL (75-110); POTASSIUM 4.5 mmol/L (3.6-5.0); TOTAL PROTEIN 6.9 g/dL (6.3-8.2)
[2019-05-05 17:50] LABS: PLATELET COUNT 96 10^3/uL (150-450)
[2019-05-05 18:04] LABS: ANION GAP 7 (5-19)
[2019-05-05 18:05] LABS: CARBON DIOXIDE 43 mmol/L (22-30)
[2019-05-05 18:14] LABS: TROPONIN I 0.042 ng/mL
[2019-05-05 19:10] LABS: ARTERIAL BLOOD BASE EXCESS 18.1 mmol/L; ARTERIAL BLOOD H2CO3 3.06 mmol/L (1.05-1.35); ARTERIAL BLOOD HCO3 48.7 mmol/L (20-24); ARTERIAL BLOOD TOTAL CO2 51.9 mmol/L (21-25)
[2019-05-05 19:14] LABS: ARTERIAL BLOOD FIO2 2L
[2019-05-05 19:17] LABS: ARTERIAL BLOOD PCO2 101.8 mmHg (35-45)
[2019-05-05] MEDS ORDERED: ACETAMINOPHEN 325 MG TABLET PO PRN (19:24)
[2019-05-05] MEDS ORDERED: MAG HYDROX/AL HYDROX/SIMETH SUSP 30 ML UDCUP PO PRN (19:24)
[2019-05-05] MEDS ORDERED: IPRATROPIUM/ALBUTEROL 0.5-2.5 MG/3 ML AMPUL NEB PRN (19:24)
[2019-05-05] MEDS ORDERED: FUROSEMIDE 40 MG TABLET PO ONE (19:24)
[2019-05-05] MEDS ORDERED: MAGNESIUM HYDROXIDE SUSP 30 ML UDCUP PO PRN (19:24)
[2019-05-05] MEDS ORDERED: NORMAL SALINE 1000 ML 1,000 ML IV ONE (19:27)
[2019-05-05] MEDS: IPRATROPIUM/ALBUTEROL 0.5-2.5 MG/3 ML AMPUL NEB SCH (21:29)
[2019-05-05] MEDS: CARVEDILOL 12.5 MG TABLET PO SCH (22:11)
[2019-05-05] MEDS: HEPARIN SOD (PORCINE) 5,000 UNIT/ML 1 ML VIAL SUBCUT SCH (22:11)
[2019-05-06 01:36] LABS: ARTERIAL BLOOD BASE EXCESS 18.1 mmol/L; ARTERIAL BLOOD FIO2 40%; ARTERIAL BLOOD H2CO3 2.78 mmol/L (1.05-1.35); ARTERIAL BLOOD HCO3 47.5 mmol/L (20-24); ARTERIAL BLOOD O2 SATURATION 94.2 % (94-98); ARTERIAL BLOOD PH 7.33 (7.35-7.45); ARTERIAL BLOOD PO2 80.5 mmHg (80-100); ARTERIAL BLOOD TOTAL CO2 50.3 mmol/L (21-25)
[2019-05-06 01:38] LABS: ARTERIAL BLOOD PCO2 92.3 mmHg (35-45)
--- NOTE | 2019-05-06 04:48 | PDOC H&P ---
History of Present Illness Admission Date/PCP: 05/05/19 19:52 MARLEY HARDEN MD Patient complains of: Shortness of breath History of Present Illness: CARLEE WALDROP is a 63 year old female with a past medical history of diabetes, profound debility, super morbid obesity, obstructive sleep apnea, morbid obesity hypoventilation, congestive heart failure with ejection fraction of 35%, status post pacemaker, AICD, severe pulmonary hypertension with RVSP of 74 with moderate mitral regurgitation. She is a hospice patient and DNR but presents from home with 3 days of excessive shortness of breath and excessive drowsiness. In the emergency department she is found to have acute and chronic hypoxic and hypercapnic respiratory failure and started on BiPAP. Remarkably she is awake enough to report intermittent compliance with BiPAP. Witnesses at bedside admit frequent sleep with chin on chest and difficult arousal. She denies sedating or analgesic medication use. She otherwise denies pain, verifies her CODE STATUS is DNR and is referred to the hospitalist for admission Past Medical History Cardiac Medical History: Reports: Congestive Heart Failure, Myocardial Infarction, Hyperlipidema, Hypertension Pulmonary Medical History: Reports: Chronic Obstructive Pulmonary Disease (COPD) Endocrine Medical History: Reports: Diabetes Mellitus Type 1, Diabetes Mellitus Type 2 GI Medical History: Denies: Cirrhosis, Crohn's Disease, Gastroesophageal Reflux Disease, Hiatal Hernia Musculoskeltal Medical History: Denies: Fibromyalgia, Gout Skin Medical History: Denies: Eczema, Psoriasis Psychiatric Medical History: Denies: Depression Hematology: Reports: Anemia Past Surgical History Past Surgical History: Reports: Hysterectomy Social History Information Source: Patient, [facility] Records Lives with: Alone Smoking Status: Never Smoker Electronic Cigarette use?: No Frequency of Alcohol Use: None Hx Recreational Drug Use: No Drugs: None Hx Prescription Drug Abuse: No - Advance Directive Resuscitation Status: Do Not Resuscitate Family History Family History: CAD, DM, Hypertension Parental Family History Reviewed: Yes Children Family History Reviewed: Yes Sibling(s) Family History Reviewed.: Yes Medication/Allergy Home Medications: Sacubitril/Valsartan [Entresto 49 mg/51 mg Tablet] 1 tab PO Q12 01/04/19 Aspirin [Ecotrin 81 mg EC Tablet] 81 mg PO DAILY #30 tabec 01/11/19 Carvedilol [Coreg 12.5 mg Tablet] 12.5 mg PO Q12 #60 tablet 01/11/19 Ferrous Sulfate [Feosol 325 mg Tablet] 325 mg PO BID 05/05/19 Furosemide [Lasix 80 mg Tablet] 80 mg PO BID 05/05/19 Isosorbide Mononitrate [Imdur 30 mg Tablet.er] 30 mg PO DAILY 05/05/19 Metolazone [Zaroxolyn 5 mg Tablet] 5 mg PO DAILY 05/05/19 Multivitamin [One-Daily Multi-Vitamin] 1 each PO DAILY 05/05/19 Potassium Chloride [Klor-Con 10 Meq Tablet ER] 10 meq PO DAILY 05/05/19 Allergies/Adverse Reactions: No Known Allergies Allergy (Verified 05/05/19 13:38) Review of Systems ROS unobtainable: Due to mental status Physical Exam Vital Signs: Temp Pulse Resp BP Pulse Ox 97.4 F 75 12 139/76 H 100 05/06/19 03:42 05/06/19 03:42 05/06/19 03:42 05/06/19 03:42 05/06/19 03:42 Intake & Output 05/04/19 05/05/19 05/06/19 11:59 11:59 11:59 Intake Total 0 Output Total 1525 Balance -1525 Weight 200.7 kg General appearance: PRESENT: morbidly obese, severe distress, well-developed, well-nourished Head exam: PRESENT: atraumatic, normocephalic Eye exam: PRESENT: conjunctiva pink, EOMI, PERRLA. ABSENT: scleral icterus Ear exam: PRESENT: normal external ear exam Mouth exam: PRESENT: moist, tongue midline Neck exam: ABSENT: carotid bruit, JVD, lymphadenopathy, thyromegaly Respiratory exam: PRESENT: clear to auscultation justin, prolonged expiratory phas, symmetrical. ABSENT: rales, rhonchi, tachypnea, wheezes Cardiovascular exam: PRESENT: RRR. ABSENT: diastolic murmur, rubs, systolic murmur Pulses: PRESENT: normal dorsalis pedis pul Vascular exam: PRESENT: normal capillary refill GI/Abdominal exam: PRESENT: normal bowel sounds, soft. ABSENT: distended, guarding, mass, organolmegaly, rebound, tenderness Rectal exam: PRESENT: deferred Extremities exam: PRESENT: +1 edema Neurological exam: PRESENT: alert, awake, oriented to person, oriented to place, oriented to time, oriented to situation, CN II-XII grossly intact. ABSENT: motor sensory deficit Psychiatric exam: PRESENT: appropriate affect, normal mood. ABSENT: homicidal ideation, suicidal ideation Skin exam: PRESENT: dry, intact, warm. ABSENT: cyanosis, rash Results Laboratory Results: 05/05/19 17:07 05/05/19 17:07 05/05/19 05/05/19 05/05/19 17:07 17:07 17:07 WBC 3.3 L RBC 3.32 L Hgb 8.8 L Hct 28.9 L MCV 87 MCH 26.5 L MCHC 30.4 L RDW 16.1 H Plt Count 96 L Seg Neutrophils % 59.1 Carbonic Acid HCO3/H2CO3 Ratio ABG pH ABG pCO2 ABG pO2 ABG HCO3 ABG O2 Saturation ABG Base Excess FiO2 Sodium 141.8 Potassium 4.5 Chloride 92 L Carbon Dioxide 43 H* Anion Gap 7 BUN 49 H Creatinine 1.33 H Est GFR ( Amer) 49 L Glucose 140 H Lactic Acid Calcium 8.5 Total Bilirubin 0.4 AST 23 Alkaline Phosphatase 84 Total Protein 6.9 Albumin 3.5 TSH 2.06 05/05/19 05/05/19 05/06/19 18:35 20:37 01:26 WBC RBC Hgb Hct MCV MCH MCHC RDW Plt Count Seg Neutrophils % Carbonic Acid 3.06 H 2.78 H HCO3/H2CO3 Ratio 15:1 17:1 ABG pH 7.30 L 7.33 L ABG pCO2 101.8 H* 92.3 H* ABG pO2 57.0 L 80.5 ABG HCO3 48.7 H 47.5 H ABG O2 Saturation 84.0 L 94.2 ABG Base Excess 18.1 18.1 FiO2 2L 40% Sodium Potassium Chloride Carbon Dioxide Anion Gap BUN Creatinine Est GFR ( Amer) Glucose Lactic Acid 1.7 Calcium Total Bilirubin AST Alkaline Phosphatase Total Protein Albumin TSH 05/05/19 05/05/19 05/06/19 17:07 20:37 02:13 Troponin I 0.042 0.043 0.045 NT-Pro-B Natriuret Pep 2370 H Impressions: Chest X-Ray 05/05/19 16:09 IMPRESSION: Stable massive cardiomegaly. No gross acute infiltrates. Pulmonary vascular congestion Assessment and Plan - Diagnosis (1) Acute respiratory failure with hypoxia and hypercapnia Is this a current diagnosis for this admission?: Yes Plan: BiPAP and education (2) Anemia Qualifiers: Anemia type: iron deficiency Is this a current diagnosis for this admission?: Yes Plan: Formally iron deficient, follow-up anemia labs (3) Controlled type 2 diabetes mellitus Qualifiers: Diabetes mellitus detention insulin use: without terminologist use Is this a current diagnosis for this admission?: Yes Plan: Follow-up medication reconciliation and Humalog sliding scale QAC (4) Obstructive sleep apnea Is this a current diagnosis for this admission?: Yes Plan: Avoid cervical flexion, BiPAP when asleep, education - Time Time Spent with patient: 25-34 minutes - Inpatient Certification Medical Necessity: Need Close Monitoring Due to Risk of Patient Decompensation
[2019-05-06 05:36] LABS: ABSOLUTE RETICS # 0.063 10^6/uL (0.028-0.122); RETICULOCYTE COUNT (AUTO) 1.75 % (0.66-2.85)
[2019-05-06] MEDS: HEPARIN SOD (PORCINE) 5,000 UNIT/ML 1 ML VIAL SUBCUT SCH ×3 (05:43→21:33)
[2019-05-06 06:32] LABS: FOLATE 8.29 ng/mL (>2.76)
[2019-05-06] MEDS: IPRATROPIUM/ALBUTEROL 0.5-2.5 MG/3 ML AMPUL NEB SCH ×2 (08:06→20:26)
[2019-05-06 10:07] LABS: BLOOD UREA NITROGEN 50 mg/dL (7-20); CALCIUM 8.8 mg/dL (8.4-10.2); CHLORIDE 92 mmol/L (98-107); GLUCOSE 128 mg/dL (75-110); POTASSIUM 4.3 mmol/L (3.6-5.0)
[2019-05-06] MEDS: DOCUSATE SODIUM 100 MG CAPSULE PO SCH ×2 (10:30→17:47)
[2019-05-06] MEDS: METOLAZONE 5 MG TABLET PO SCH (10:30)
[2019-05-06] MEDS: FUROSEMIDE 80 MG TABLET PO SCH ×2 (10:30→17:48)
[2019-05-06] MEDS: ASPIRIN 81 MG TABLET, ENT COATED PO SCH (10:30)
[2019-05-06] MEDS: ISOSORBIDE MONONITRATE 30 MG TAB.ER.24H PO SCH (10:30)
[2019-05-06] MEDS: CARVEDILOL 12.5 MG TABLET PO SCH ×2 (10:30→21:33)
[2019-05-06] MEDS: FERROUS SULFATE 325 MG TABLET PO SCH ×2 (10:30→17:48)
[2019-05-06] MEDS: POTASSIUM CHLORIDE 10 MEQ TABLET.ER PO SCH (10:30)
[2019-05-06] MEDS: MULTIVITAMIN TABLET PO SCH (10:31)
[2019-05-06] MEDS: SACUBITRIL/VALSARTAN 49 MG/51 MG TABLET PO SCH ×2 (10:31→21:33)
[2019-05-06 10:45] LABS: ANION GAP 10 (5-19)
[2019-05-06 10:52] LABS: CARBON DIOXIDE 40 mmol/L (22-30)
[2019-05-06 11:32] LABS: RED BLOOD COUNT 3.84 10^6/uL (3.72-5.28); WHITE BLOOD COUNT 4.1 10^3/uL (4.0-10.5)
[2019-05-06 11:33] LABS: ABSOLUTE EOSINOPHILS # (AUTO) 0.1 10^3/uL (0.0-0.6); ABSOLUTE LYMPHOCYTES (AUTO) 0.8 10^3/uL (0.5-4.7); ABSOLUTE MONOCYTES (AUTO) 0.5 10^3/uL (0.1-1.4); ABSOLUTE NEUT (AUTO) 2.6 10^3/uL (1.7-8.2); BASOPHILS % (AUTO) 1.2 % (0-2); EOSINOPHILS % (AUTO) 2.3 % (0-6); HEMATOCRIT 32.8 % (36.0-47.0); HEMOGLOBIN 10.2 g/dL (12.0-15.5); LYMPHOCYTES % (AUTO) 20.7 % (13-45); MEAN CORPUSCULAR HEMOGLOBIN 26.7 pg (27.0-33.4); MEAN CORPUSCULAR HGB CONC 31.3 g/dL (32.0-36.0); MEAN CORPUSCULAR VOLUME 85 fl (80-97); MONOCYTES % (AUTO) 11.2 % (3-13); PLATELET COUNT 111 10^3/uL (150-450); RED CELL DISTRIBUTION WIDTH 16.4 % (11.5-14.0); SEGMENTED NEUTROPHILS % (AUTO) 64.6 % (42-78); TOTAL CELLS COUNTED % (AUTO) 100 %
--- NOTE | 2019-05-06 13:00 | EKG REPORT ---
SEVERITY:- ABNORMAL ECG - ATRIAL-SENSED VENTRICULAR-PACED COMPLEXES NONSPECIFIC IVCD WITH LAD : Confirmed by: Machelle Lyon 06-May-2019 12:59:26
--- NOTE | 2019-05-06 17:42 | PDOC PROGRESS REPORT ---
Subjective Progress Note for:: 05/06/19 Subjective:: CARLEE WALDROP is a 63 year old female with a past medical history of diabetes, profound debility, super morbid obesity, obstructive sleep apnea, morbid obesity hypoventilation, congestive heart failure with ejection fraction of 35%, status post pacemaker, AICD, severe pulmonary hypertension with RVSP of 74 with moderate mitral regurgitation who was admitted 05/05/2019 for acute on chronic respiratory failure with hypoxia and hypercapnia. Patient was seen on afternoon rounds with family member present. She is found resting in bed, comfortably, on her baseline oxygen requirement. She reports that she is feeling much better today and is hopeful to discharge to home tomorrow morning. She does admit to BiPAP noncompliance and states that she uses the machine only 1-2 times weekly due to claustrophobia and fear of isolation. She states that she uses BiPAP only when family members are able to spend the night with her. She is encouraged to begin using BiPAP during the day when awake for 20 to 30 minutes at a time intermittently as any amount of BiPAP use will benefit her. Otherwise, she denies fever, chills, chest pain, palpitations, abdominal pain, nausea vomiting and diarrhea. She has no other questions or concerns at this time. No concerns per nursing. Reason For Visit: ACUTE ON CHRONIC RESP FAILURE DAIANA MORBID Physical Exam Vital Signs: Temp Pulse Resp BP Pulse Ox 98.0 F 69 16 138/68 H 98 05/06/19 16:41 05/06/19 16:41 05/06/19 16:41 05/06/19 16:41 05/06/19 16:41 Intake & Output 05/05/19 05/06/19 05/07/19 06:59 06:59 06:59 Intake Total 240 1001 Output Total 2250 900 Balance -2010 101 Weight 201.7 kg General appearance: PRESENT: no acute distress, cooperative, morbidly obese, well-developed, well-nourished Head exam: PRESENT: atraumatic, normocephalic Eye exam: PRESENT: conjunctiva pink, EOMI, PERRLA. ABSENT: scleral icterus Ear exam: PRESENT: normal external ear exam Mouth exam: PRESENT: moist, tongue midline Respiratory exam: PRESENT: clear to auscultation justin, decreased breath sounds - Bibasilar secondary to body habitus and positioning, prolonged expiratory phas, symmetrical, unlabored, other - Supplemental oxygen by nasal cannula. ABSENT: rales, rhonchi, wheezes Cardiovascular exam: PRESENT: RRR. ABSENT: diastolic murmur, rubs, systolic murmur Pulses: PRESENT: normal dorsalis pedis pul Vascular exam: PRESENT: normal capillary refill GI/Abdominal exam: PRESENT: normal bowel sounds, soft. ABSENT: distended, guarding, mass, organolmegaly, rebound, tenderness Rectal exam: PRESENT: deferred Extremities exam: PRESENT: full ROM. ABSENT: calf tenderness, clubbing, pedal edema Neurological exam: PRESENT: alert, awake, oriented to person, oriented to place, oriented to time, oriented to situation, CN II-XII grossly intact. ABSENT: motor sensory deficit Psychiatric exam: PRESENT: appropriate affect, normal mood. ABSENT: homicidal ideation, suicidal ideation Skin exam: PRESENT: dry, intact, warm. ABSENT: cyanosis, rash Results Laboratory Results: 05/06/19 11:15 05/06/19 09:07 05/05/19 05/05/19 05/05/19 17:07 17:07 17:07 WBC 3.3 L RBC 3.32 L Hgb 8.8 L Hct 28.9 L MCV 87 MCH 26.5 L MCHC 30.4 L RDW 16.1 H Plt Count 96 L Seg Neutrophils % 59.1 Retic Count (auto) Carbonic Acid HCO3/H2CO3 Ratio ABG pH ABG pCO2 ABG pO2 ABG HCO3 ABG O2 Saturation ABG Base Excess FiO2 Sodium 141.8 Potassium 4.5 Chloride 92 L Carbon Dioxide 43 H* Anion Gap 7 BUN 49 H Creatinine 1.33 H Est GFR ( Amer) 49 L Glucose 140 H Lactic Acid Calcium 8.5 Iron TIBC % Saturation Ferritin Total Bilirubin 0.4 AST 23 Alkaline Phosphatase 84 Total Protein 6.9 Albumin 3.5 Vitamin B12 Folate TSH 2.06 05/05/19 05/05/19 05/06/19 18:35 20:37 01:26 WBC RBC Hgb Hct MCV MCH MCHC RDW Plt Count Seg Neutrophils % Retic Count (auto) Carbonic Acid 3.06 H 2.78 H HCO3/H2CO3 Ratio 15:1 17:1 ABG pH 7.30 L 7.33 L ABG pCO2 101.8 H* 92.3 H* ABG pO2 57.0 L 80.5 ABG HCO3 48.7 H 47.5 H ABG O2 Saturation 84.0 L 94.2 ABG Base Excess 18.1 18.1 FiO2 2L 40% Sodium Potassium Chloride Carbon Dioxide Anion Gap BUN Creatinine Est GFR ( Amer) Glucose Lactic Acid 1.7 Calcium Iron TIBC % Saturation Ferritin Total Bilirubin AST Alkaline Phosphatase Total Protein Albumin Vitamin B12 Folate [facility] 05/06/19 05/06/19 05/06/19 02:13 02:13 09:07 WBC Cancelled RBC Cancelled Hgb Cancelled Hct Cancelled MCV Cancelled MCH Cancelled MCHC Cancelled RDW Cancelled Plt Count Cancelled Seg Neutrophils % Cancelled Retic Count (auto) 1.75 Carbonic Acid HCO3/H2CO3 Ratio ABG pH ABG pCO2 ABG pO2 ABG HCO3 ABG O2 Saturation ABG Base Excess FiO2 Sodium Potassium Chloride Carbon Dioxide Anion Gap BUN Creatinine Est GFR ( Amer) Glucose Lactic Acid Calcium Iron 46.0 TIBC 248 L % Saturation 19 Ferritin 135.00 Total Bilirubin AST Alkaline Phosphatase Total Protein Albumin Vitamin B12 445.0 Folate 8.29 TSH 05/06/19 05/06/19 09:07 11:15 WBC 4.1 RBC 3.84 Hgb 10.2 L Hct 32.8 L MCV 85 MCH 26.7 L MCHC 31.3 L RDW 16.4 H Plt Count 111 L Seg Neutrophils % 64.6 Retic Count (auto) Carbonic Acid HCO3/H2CO3 Ratio ABG pH ABG pCO2 ABG pO2 ABG HCO3 ABG O2 Saturation ABG Base Excess FiO2 Sodium 141.9 Potassium 4.3 Chloride 92 L Carbon Dioxide 40 H* Anion Gap 10 BUN 50 H Creatinine 1.23 Est GFR ( Amer) 54 L Glucose 128 H Lactic Acid Calcium 8.8 Iron TIBC % Saturation Ferritin Total Bilirubin AST Alkaline Phosphatase Total Protein Albumin Vitamin B12 Folate [facility] 05/05/19 05/05/19 05/06/19 17:07 20:37 02:13 Troponin I 0.042 0.043 0.045 NT-Pro-B Natriuret Pep 2370 H 05/06/19 09:07 Troponin I 0.049 NT-Pro-B Natriuret Pep Impressions: Chest X-Ray 05/05/19 16:09 IMPRESSION: Stable massive cardiomegaly. No gross acute infiltrates. Pulmonary vascular congestion Assessment and Plan - Diagnosis (1) Acute respiratory failure with hypoxia and hypercapnia Is this a current diagnosis for this admission?: Yes Plan: Patient is admitted to the medical floor on continuous cardiac telemetry. She is provided supplemental oxygen and BiPAP as needed to maintain oxygen saturations greater than 89%. Following use of BiPAP overnight, the patient's bicarb is already noted to be trending downward (43-> 40). ABG is improved; CO2 101.8-> 92.3 Encouraged BiPAP use. Plan to d/c w/ Home Hospice services tomorrow. (2) Anemia Qualifiers: Anemia type: iron deficiency Is this a current diagnosis for this admission?: Yes Plan: Hemoglobin stable. Formally iron deficient Anemia panel unremarkable. Continue daily multivitamin and iron supplementation. (3) Controlled type 2 diabetes mellitus Qualifiers: Diabetes mellitus senior sourcing manager insulin use: without senior sourcing manager use Is this a current diagnosis for this admission?: Yes Plan: A1c 5.9%; diet controlled. Continue consistent carb diet. (4) Obstructive sleep apnea Is this a current diagnosis for this admission?: Yes Plan: Avoid cervical flexion, BiPAP when asleep, education (5) Obesity hypoventilation syndrome Is this a current diagnosis for this admission?: Yes Plan: Management as above. (6) Morbid obesity with BMI of 60.0-69.9, adult Is this a current diagnosis for this admission?: Yes Plan: Lifestyle modification dietary compliance are recommended. BMI of 62; this directly contributes to her chronic respiratory failure through obesity hypoventilation syndrome. - Time Time Spent with patient: 25-34 minutes Medications reviewed and adjusted accordingly: Yes Anticipated discharge: Hospice Within: within 24 hours
[2019-05-07] MEDS: HEPARIN SOD (PORCINE) 5,000 UNIT/ML 1 ML VIAL SUBCUT SCH ×2 (06:25→15:12)
[2019-05-07] MEDS: IPRATROPIUM/ALBUTEROL 0.5-2.5 MG/3 ML AMPUL NEB SCH (07:57)
[2019-05-07] MEDS: ASPIRIN 81 MG TABLET, ENT COATED PO SCH (09:37)
[2019-05-07] MEDS: DOCUSATE SODIUM 100 MG CAPSULE PO SCH (09:37)
[2019-05-07] MEDS: METOLAZONE 5 MG TABLET PO SCH (09:38)
[2019-05-07] MEDS: MULTIVITAMIN TABLET PO SCH (09:38)
[2019-05-07] MEDS: FERROUS SULFATE 325 MG TABLET PO SCH (09:38)
[2019-05-07] MEDS: CARVEDILOL 12.5 MG TABLET PO SCH (09:38)
[2019-05-07] MEDS: POTASSIUM CHLORIDE 10 MEQ TABLET.ER PO SCH (09:38)
[2019-05-07] MEDS: ISOSORBIDE MONONITRATE 30 MG TAB.ER.24H PO SCH (09:39)
[2019-05-07] MEDS: FUROSEMIDE 80 MG TABLET PO SCH (09:39)
[2019-05-07] MEDS: SACUBITRIL/VALSARTAN 49 MG/51 MG TABLET PO SCH (10:44)
--- NOTE | 2019-05-07 15:55 | PDOC DISCHARGE SUMMARY ---
Impression - Admit/DC Date/PCP Admission Date/Primary Care Provider: 05/05/19 19:52 MARLEY HARDEN MD Discharge Date: 05/07/19 - Discharge Diagnosis (1) Acute respiratory failure with hypoxia and hypercapnia Is this a current diagnosis for this admission?: Yes (2) Anemia Is this a current diagnosis for this admission?: Yes (3) Controlled type 2 diabetes mellitus Is this a current diagnosis for this admission?: Yes (4) Obstructive sleep apnea Is this a current diagnosis for this admission?: Yes (5) Obesity hypoventilation syndrome Is this a current diagnosis for this admission?: Yes (6) Morbid obesity with BMI of 60.0-69.9, adult Is this a current diagnosis for this admission?: Yes - Additional Information Resuscitation Status: Do Not Resuscitate Discharge Diet: Cardiac, Diabetic Discharge Activity: Activity As Tolerated, Balance Activity w/Rest Referrals: MARLEY HARDEN MD [Primary Care Provider] - Follow up as needed Home Medications: Sacubitril/Valsartan [Entresto 49 mg/51 mg Tablet] 1 tab PO Q12 01/04/19 Aspirin [Ecotrin 81 mg EC Tablet] 81 mg PO DAILY #30 tabec 01/11/19 Carvedilol [Coreg 12.5 mg Tablet] 12.5 mg PO Q12 #60 tablet 01/11/19 Ferrous Sulfate [Feosol 325 mg Tablet] 325 mg PO BID 05/05/19 Furosemide [Lasix 80 mg Tablet] 80 mg PO BID 05/05/19 Isosorbide Mononitrate [Imdur 30 mg Tablet.er] 30 mg PO DAILY 05/05/19 Metolazone [Zaroxolyn 5 mg Tablet] 5 mg PO DAILY 05/05/19 Multivitamin [One-Daily Multi-Vitamin] 1 each PO DAILY 05/05/19 Potassium Chloride [Klor-Con 10 Meq Tablet ER] 10 meq PO DAILY 05/05/19 Acetaminophen [Tylenol 325 mg Tablet] 650 mg PO Q4HP PRN tablet 05/07/19 History of Present Illiness History of Present Illness: Per H&P by Dr. Mcallister: CARLEE WALDROP is a 63 year old female with a past medical history of diabetes, profound debility, super morbid obesity, obstructive sleep apnea, morbid obesity hypoventilation, congestive heart failure with ejection fraction of 35%, status post pacemaker, AICD, severe pulmonary hypertension with RVSP of 74 with moderate mitral regurgitation. She is a hospice patient and DNR but presents from home with 3 days of excessive shortness of breath and excessive drowsiness. In the emergency department she is found to have acute and chronic hypoxic and hypercapnic respiratory failure and started on BiPAP. Remarkably she is awake enough to report intermittent compliance with BiPAP. Witnesses at bedside admit frequent sleep with chin on chest and difficult arousal. She denies sedating or analgesic medication use. She otherwise denies pain, verifies her CODE STATUS is DNR and is referred to the hospitalist for admission Hospital Course Hospital Course: The patient was admitted to the medical floor on continuous cardiac telemetry. She was supported with supplemental oxygen and BiPAP as needed to maintain saturations greater than 89%. Her bicarb by chemistry and CO2 by ABG improved with BiPAP use. Patient's mentation subsequently returned to her baseline of A&O x4. Long discussion had with patient; she receives home hospice services and does have supplemental oxygen and BiPAP at home. She reports that she does not use BiPAP at home to feeling claustrophobic and isolated due to the noise. We had a long discussion regarding intermittent use of BiPAP during the day when she is awake and thus would feel less isolated. Patient indicates that she plans to move her BiPAP machine into the living room where she can wear BiPAP while watching television during the day. Her other chronic medical conditions remained stable throughout her admission. At time of discharge, patient is in stable condition, maintaining oxygen saturations on her baseline oxygen requirement, alert and oriented x4, and requesting to discharged home. She is advised to follow-up with her primary care provider within 1 week. She is encouraged to reestablish with her home hospice service. BiPAP encouragement as described above. She is further advised to return to the emergency department as needed for concerning symptoms. Physical Exam Vital Signs: Temp Pulse Resp BP Pulse Ox 97.8 F 75 20 125/70 97 05/07/19 12:41 05/07/19 14:00 05/07/19 12:41 05/07/19 12:41 05/07/19 12:41 Intake & Output 05/06/19 05/07/19 05/08/19 06:59 06:59 06:59 Intake Total 240 1928 Output Total 2250 3450 Balance -2009 Weight 201.7 kg 203.1 kg General appearance: PRESENT: no acute distress, cooperative, morbidly obese, well-developed, well-nourished Head exam: PRESENT: atraumatic, normocephalic Eye exam: PRESENT: conjunctiva pink, EOMI, PERRLA. ABSENT: scleral icterus Mouth exam: PRESENT: moist, tongue midline Respiratory exam: PRESENT: clear to auscultation justin, decreased breath sounds - Throughout secondary to body habitus and positioning, prolonged expiratory phas, symmetrical, unlabored, other - Supplemental oxygen via NC; BiPAP nightly. ABSENT: rales, rhonchi, wheezes Cardiovascular exam: PRESENT: RRR, +S1, +S2. ABSENT: diastolic murmur, rubs, systolic murmur Vascular exam: PRESENT: normal capillary refill GI/Abdominal exam: PRESENT: normal bowel sounds, soft. ABSENT: distended, guarding, mass, organolmegaly, rebound, tenderness Rectal exam: PRESENT: deferred Gentrourinary exam: PRESENT: indwelling catheter - chronic Extremities exam: PRESENT: full ROM - moves all extremities spontaneously. ABSENT: calf tenderness, clubbing, pedal edema Neurological exam: PRESENT: alert, awake, oriented to person, oriented to place, oriented to time, oriented to situation, CN II-XII grossly intact. ABSENT: motor sensory deficit Psychiatric exam: PRESENT: appropriate affect, normal mood. ABSENT: homicidal ideation, suicidal ideation Skin exam: PRESENT: dry, intact, warm. ABSENT: cyanosis, rash Results Laboratory Results: WBC 4.1 10^3/uL (4.0-10.5) 05/06/19 11:15 RBC 3.84 10^6/uL (3.72-5.28) 05/06/19 11:15 Hgb 10.2 g/dL (12.0-15.5) L 05/06/19 11:15 Hct 32.8 % (36.0-47.0) L 05/06/19 11:15 MCV 85 fl (80-97) 05/06/19 11:15 MCH 26.7 pg (27.0-33.4) L 05/06/19 11:15 MCHC 31.3 g/dL (32.0-36.0) L 05/06/19 11:15 RDW 16.4 % (11.5-14.0) H 05/06/19 11:15 Plt Count 111 10^3/uL (150-450) L 05/06/19 11:15 Lymph % (Auto) 20.7 % (13-45) 05/06/19 11:15 Blount % (Auto) 11.2 % (3-13) 05/06/19 11:15 Eos % (Auto) 2.3 % (0-6) 05/06/19 11:15 Baso % (Auto) 1.2 % (0-2) 05/06/19 11:15 Reticulocyte # 0.063 10^6/uL (0.028-0.122) 05/06/19 02:13 Absolute Neuts (auto) 2.6 10^3/uL (1.7-8.2) 05/06/19 11:15 Absolute Lymphs (auto) 0.8 10^3/uL (0.5-4.7) 05/06/19 11:15 Absolute Monos (auto) 0.5 10^3/uL (0.1-1.4) 05/06/19 11:15 Absolute Eos (auto) 0.1 10^3/uL (0.0-0.6) 05/06/19 11:15 Absolute Basos (auto) 0.0 10^3/uL (0.0-0.2) 05/06/19 11:15 Seg Neutrophils % 64.6 % (42-78) 05/06/19 11:15 Platelet Estimate Cancelled 05/06/19 09:07 Retic Count (auto) 1.75 % (0.66-2.85) 05/06/19 02:13 Carbonic Acid 2.78 mmol/L (1.05-1.35) H 05/06/19 01:26 HCO3/H2CO3 Ratio 17:1 05/06/19 01:26 ABG pH 7.33 (7.35-7.45) L 05/06/19 01:26 ABG pCO2 92.3 mmHg (35-45) H* 05/06/19 01:26 ABG pO2 80.5 mmHg (80-100) 05/06/19 01:26 ABG HCO3 47.5 mmol/L (20-24) H 05/06/19 01:26 ABG Total CO2 50.3 mmol/L (21-25) H 05/06/19 01:26 ABG O2 Saturation 94.2 % (94-98) 05/06/19 01:26 ABG Base Excess 18.1 mmol/L 05/06/19 01:26 FiO2 40% 05/06/19 01:26 Sodium 141.9 mmol/L (137-145) 05/06/19 09:07 Potassium 4.3 mmol/L (3.6-5.0) 05/06/19 09:07 Chloride 92 mmol/L (98-107) L 05/06/19 09:07 Carbon Dioxide 40 mmol/L (22-30) H* 05/06/19 09:07 Anion Gap 10 (5-19) 05/06/19 09:07 BUN 50 mg/dL (7-20) H 05/06/19 09:07 Creatinine 1.23 mg/dL (0.52-1.25) 05/06/19 09:07 Est GFR ( Amer) 54 (>60) L 05/06/19 09:07 Est GFR (MDRD) Non-Af 44 (>60) L 05/06/19 09:07 Glucose 128 mg/dL (75-110) H 05/06/19 09:07 Hemoglobin A1c % 5.9 % (4.7-6.0) 05/06/19 09:07 Lactic Acid 1.7 mmol/L (0.7-2.1) 05/05/19 20:37 Calcium 8.8 mg/dL (8.4-10.2) 05/06/19 09:07 Iron 46.0 ug/dL (37-170) 05/06/19 02:13 TIBC 248 ug/dL (250-450) L 05/06/19 02:13 % Saturation 19 % 05/06/19 02:13 Ferritin 135.00 ng/mL (11.1-264.0) 05/06/19 02:13 Total Bilirubin 0.4 mg/dL (0.2-1.3) 05/05/19 17:07 Direct Bilirubin 0.3 mg/dL (0.0-0.4) 05/05/19 17:07 Neonat Total Bilirubin Not Reportable 05/05/19 17:07 Neonat Direct Bilirubin Not Reportable 05/05/19 17:07 Neonat Indirect Bili Not Reportable 05/05/19 17:07 AST 23 U/L (14-36) 05/05/19 17:07 ALT 17 U/L (<35) 05/05/19 17:07 Alkaline Phosphatase 84 U/L (38-126) 05/05/19 17:07 Troponin I 0.049 ng/mL 05/06/19 09:07 NT-Pro-B Natriuret Pep 2370 pg/mL (<125) H 05/05/19 17:07 Total Protein 6.9 g/dL (6.3-8.2) 05/05/19 17:07 Albumin 3.5 g/dL (3.5-5.0) 05/05/19 17:07 Vitamin B12 445.0 pg/mL (239-931) 05/06/19 02:13 Folate 8.29 ng/mL (>2.76) 05/06/19 02:13 TSH 2.06 uIU/mL (0.47-4.68) 05/05/19 17:07 Slides for Path Review Cancelled 05/06/19 09:07 05/05/19 05/05/19 05/06/19 17:07 20:37 02:13 Troponin I 0.042 0.043 0.045 NT-Pro-B Natriuret Pep 2370 H 05/06/19 09:07 Troponin I 0.049 NT-Pro-B Natriuret Pep Impressions: Chest X-Ray 05/05/19 16:09 IMPRESSION: Stable massive cardiomegaly. No gross acute infiltrates. Pulmonary vascular congestion Plan Plan of Treatment: The patient is discharged to home. To resume home hospice services. She is instructed to follow-up with her primary care provider within 1 week. She is advised on the importance of being compliant with her home BiPAP use. She is encouraged to return to the emergency department as needed for concerning symptoms. Time Spent: Greater than 30 Minutes Stroke Is this a Stroke Patient?: No Acute Heart Failure - Is this a Heart Failure Patient?: No
[2019-05-07 16:38] VITALS: BP 123/66
== END 2019-05-07 17:20 | disposition hospice, home (50) | DRG 189 ==
LOC: ER 13:03 → EH 19:52 → 3W 22:35
PROVIDERS: ADMIT Internal Medicine; ATTEND Internal Medicine
PROC: 5A09457 Assistance with Respiratory Ventilation, 24-96 Consecutive Hours, Continuous Positive Airway Pressure (ICD-10-PCS; principal; 2019-05-05)
DX: J96.22 Acute and chronic respiratory failure with hypercapnia (principal); E66.2 Morbid (severe) obesity with alveolar hypoventilation; Z68.44 Body mass index [BMI] 60.0-69.9, adult; I50.42 Chronic combined systolic (congestive) and diastolic (congestive) heart failure; I11.0 Hypertensive heart disease with heart failure; J96.21 Acute and chronic respiratory failure with hypoxia; E11.9 Type 2 diabetes mellitus without complications; Z95.810 Presence of automatic (implantable) cardiac defibrillator; I27.20 Pulmonary hypertension, unspecified; I34.0 Nonrheumatic mitral (valve) insufficiency; Z66 Do not resuscitate; E78.5 Hyperlipidemia, unspecified; D50.9 Iron deficiency anemia, unspecified; I25.2 Old myocardial infarction; J44.9 Chronic obstructive pulmonary disease, unspecified; Z83.3 Family history of diabetes mellitus; Z82.49 Family history of ischemic heart disease and other diseases of the circulatory system; Z79.82 Long term (current) use of aspirin; Z79.899 Other long term (current) drug therapy; Z91.19 Patient's noncompliance with other medical treatment and regimen; Z96.0 Presence of urogenital implants
CPT/HCPCS: 36415; 36600; 71045; 80048; 80053; 82607; 82728; 82746; 82803; 83036; 83540; 83550; 83605; 83880; 84443; 84484; 85025; 85045; 93005; 93010; 94660; 99285; J1644; J3490; J7030; J7620